=== PATIENT | female | born 1935 | race Native Hawaiian/Other Pacific Islander ===

== ENCOUNTER 2016-07-25 13:12 | Inpatient (IN) | payer MEDICARE ==
--- NOTE | 2016-07-25 13:58 | C.PDOC ---
History Of Present Illness 81-year-old female, PMHx includes Dementia, presents to the emergency department accompanied by daughter with complaints of AMS. Daughter states that she went to see patient this morning, and noticed she that patient was not eating her food. Patient appeared to be choking, resulting in her being brought to the ED for evaluation. Patient has also been experiencing a "jerking" sensation, for which she was seen by her PMD one week ago, who recommended to discontinue using Aricept, which may be causing symptoms, but they did not decrease. No other complaints at this time. Time Seen by Provider: 07/25/16 13:40 Chief Complaint (Nursing): Weakness/Neurological Deficit History Per: Family History/Exam Limitations: no limitations Onset/Duration Of Symptoms: Days Current Symptoms Are (Timing): Still Present Past Medical History Reviewed: Historical Data, Nursing Documentation, Vital Signs Vital Signs: Last Vital Signs Temp 99.1 F 07/25/16 13:27 Pulse 107 H 07/25/16 13:27 Resp 20 07/25/16 13:27 BP 120/73 07/25/16 13:27 Pulse Ox 96 07/25/16 16:49 - Medical History PMH: Arthritis, Hypercholesterolemia, Hyperlipidemia - [facility] Procedures EXCISION OF STOMACH, ENDO, DIAGN (05/31/16) Family History: States: Unknown Family Hx - Social History Hx Tobacco Use: No Hx Alcohol Use: No Hx Substance Use: No Review Of Systems Review Of Systems: ROS cannot be obtained secondary to pt's inabilty to answer questions. Constitutional: Negative for: Fever, Chills Cardiovascular: Negative for: Chest Pain Respiratory: Negative for: Shortness of Breath Gastrointestinal: Negative for: Vomiting Neurological: Positive for: Weakness Physical Exam - Physical Exam Appears: Non-toxic, No Acute Distress Skin: Warm, Dry, No Rash Head: Atraumatic, Normacephalic Eye(s): bilateral: Normal Inspection, PERRL Nose: Normal Oral Mucosa: Moist Lips: Normal Appearing Neck: Normal ROM Cardiovascular: Rhythm Regular (tachycardic) Respiratory: Normal Breath Sounds, No Accessory Muscle Use Gastrointestinal/Abdominal: Soft, No Tenderness Extremity: Normal ROM (moving spontaneously) Neurological/Psych: Oriented x3, Normal Speech ED Course And Treatment - Laboratory Results Result Diagrams: 07/25/16 15:31 07/25/16 15:31 ECG: Interpreted By Me, Viewed By Me ECG Rhythm: Sinus Tachycardia ECG Interpretation: No Acute Changes Interpretation Of ECG: Q waves in III and AVF O2 Sat by Pulse Oximetry: 96 Progress Note: swallow screen ordered, but patient is holding water in her mouth and will now swallow. Blood work, EKG and CXR ordered and reviewed. On lab review pos Troponin, hypokalemia. Case was d/w pt's PMD who accepted an admission to telemetry. Disposition - Disposition Disposition: HOSPITALIZED Disposition Time: 17:14 Condition: SERIOUS - Clinical Impression Clinical Impression: Altered mental status, ACS (acute coronary syndrome), Hypokalemia - Scribe Statement The provider has reviewed the documentation as recorded by the Mauroiblyudmila Connolly All medical record entries made by the Scribe were at my direction and personally dictated by me. I have reviewed the chart and agree that the record accurately reflects my personal performance of the history, physical exam, medical decision making, and the department course for this patient. I have also personally directed, reviewed, and agree with the discharge instructions and disposition. Decision To Admit - Pt Status Changed To: Hospital Disposition Of: Inpatient - Admit Certification Admit to Inpatient:: After my assessment, the patient will require hospitalization for at least two midnights. This is because of the severity of symptoms shown, intensity of services needed, and/or the medical risk in this patient being treated as an outpatient. - InPatient: Physician Admission Certification: I certify that this patient requires 2 or more midnights of care for the following reason:: Patient will need more than 2 days of admission. - . Bed Request Type: Telemetry Patient Diagnosis: Altered mental status, ACS (acute coronary syndrome), Hypokalemia, Dysphagia
--- NOTE | 2016-07-25 14:00 | C.PDOC ---
Time Seen by Provider: 07/25/16 13:40 Chief Complaint (Nursing): Weakness/Neurological Deficit Past Medical History Vital Signs: Last Vital Signs Temp 99.1 F 07/25/16 13:27 Pulse 107 H 07/25/16 13:27 Resp 20 07/25/16 13:27 BP 120/73 07/25/16 13:27 Pulse Ox 96 07/25/16 13:27 - Medical History PMH: Arthritis, Hypercholesterolemia, Hyperlipidemia - [facility] Procedures EXCISION OF STOMACH, ENDO, DIAGN (05/31/16) Family History: States: Unknown Family Hx - Social History Hx Tobacco Use: No Hx Alcohol Use: No Hx Substance Use: No ED Course And Treatment O2 Sat by Pulse Oximetry: 96
[2016-07-25] MEDS ORDERED: Sodium Chloride 0.9% 500 ML IV STA (14:02)
[2016-07-25] MEDS ORDERED: Sodium Chloride 0.9% 500 ML IV ONE (14:02)
[2016-07-25 15:12] LABS: RBC URINE 1 /hpf (0-3); URINE BILIRUBIN NEGATIVE (NEGATIVE); URINE BLOOD NEGATIVE (NEGATIVE); URINE COLOR Yellow (YELLOW); URINE GLUCOSE (UA) NORMAL (Normal); URINE KETONE NEGATIVE (NEGATIVE); URINE LEUKOCYTE ESTERASE NEG Leu/uL (Negative); URINE PROTEIN NEGATIVE (NEGATIVE); URINE UROBILINOGEN NORMAL mg/dL (0.2-1.0); WBC URINE 2 /hpf (0-5)
[2016-07-25 15:35] LABS: BASO # 0.1 K/uL (0.0-0.2); BASO % 0.6 % (0.0-2.0); EOS % 0.1 % (0.0-4.0); HEMATOCRIT 41.5 % (34.0-47.0); LYMPH # 0.8 K/uL (1.0-4.3); LYMPH % 10.1 % (20.0-40.0); MEAN CORPUSCULAR HEMOGLOBIN 31.8 pg (27.0-31.0); MEAN CORPUSCULAR HGB CONC 32.5 g/dL (33.0-37.0); MEAN PLATELET VOLUME 8.3 fL (7.2-11.7); MONO # 0.5 K/uL (0.0-0.8); MONO % 6.2 % (0.0-10.0); NRBC % 0.1 % (0.0-2.0); RED CELL DISTRIBUTION WIDTH 17.1 % (11.5-14.5); WHITE BLOOD COUNT 8.3 K/uL (4.8-10.8)
[2016-07-25 15:37] LABS: MEAN CELL VOLUME 97.8 fL (81.0-99.0)
--- NOTE | 2016-07-25 15:51 | RAD ---
PROCEDURE: CHEST RADIOGRAPH, 1 VIEW. Technique: Single view portable semi erect @ 14:10. HISTORY: SOB COMPARISON: 05/30/2016. Single-view chest. 05/31/2016 CT thorax FINDINGS: LUNGS: Right upper lobe infiltrate/ mass identified previously no longer apparent. Limitations of the current study in assessing this finding portable oblique technique. PLEURA: No pneumothorax or pleural fluid seen. CARDIOVASCULAR: No radiographic findings to suggest acute or significant cardiovascular disease. OSSEOUS STRUCTURES: No significant abnormalities. VISUALIZED UPPER ABDOMEN: Normal. OTHER FINDINGS: None. IMPRESSION: No active disease.
[2016-07-25 16:41] LABS: CHLORIDE 106 mmol/L (98-107); SODIUM 154 mmol/L (132-148)
[2016-07-25 16:42] LABS: POTASSIUM 2.8 mmol/L (3.6-5.2)
[2016-07-25 16:44] LABS: ALKALINE PHOSPHATASE 78 U/L (38-126); ALT/SGPT 14 U/L (9-52); AST/SGOT 29 U/L (14-36); BILIRUBIN,TOTAL 0.8 mg/dL (0.2-1.3); BLOOD UREA NITROGEN 57 mg/dL (7-17); CARBON DIOXIDE 34 mmol/L (22-30); GFR AFRICAN-AMERICAN > 60; GLUCOSE,RANDOM 114 mg/dL (65-105); TOTAL PROTEIN 6.3 g/dL (6.3-8.3)
[2016-07-25 16:45] LABS: CALCIUM 8.4 mg/dl (8.6-10.4); MAGNESIUM 2.5 mg/dL (1.6-2.3)
--- NOTE | 2016-07-25 16:50 | CARD ---
APPROVED REPORT EKG Measurement Heart [id number] <Conclusion> Sinus tachycardia Left axis deviation Low voltage QRS Inferior infarct, age undetermined Cannot rule out Anterior infarct, age undetermined Abnormal ECG
[2016-07-25] MEDS ORDERED: Potassium Chloride 10 mEq 100 ML IV STA (17:02)
[2016-07-25] MEDS ORDERED: Potassium Chloride 10 mEq 100 ML IVPB ONE (17:29)
--- NOTE | 2016-07-25 19:41 | CP.PCM.HP ---
History of Present Illness - History of Present Illness History of Present Illness: 81 y.o. female, with Dementia, PUD , borderline sugar , cholesterol was brought to ER due to altered mental status, weakness, and tremors. family reports that patient who has dementia was ambulatory about 3 weeks ago , then noted to becoming bedridden with poor appetite and less interaction with family . Patient was brought to ER . In ER patient has high BUN, low potassium, lethargic, potassium was supplemented . patient has some episodic jerks, ? seizure ? like activity and patient was giuven valium.o .5 one dose. patient is admitted for further evaluation and managment there were no cough vomiting diarrhea,fever, but has bowel incontinence, PMH cholestero' borderline sugar hospitalized in May 2016 due to acute AMS ir, with severe anemia secondary to PUD, patient was home doing home PT Social non etoh non smoker , lives with family Surgical cataract surgery , Present on Admission - Present on Admission Any Indicators Present on Admission: Yes History of DVT/PE: No History of Uncontrolled Diabetes: No Urinary Catheter: No Decubitus Ulcer Present: Yes Decubitus Ulcer Stage: II Review of Systems - Review of Systems Systems not reviewed;Unavailable: Dementia, Altered Mental Status (lethargic) - Constitutional Constitutional: As Per HPI - EENT Eyes: As Per HPI Ears: As Per HPI. absent: Ear Discharge Nose/Mouth/Throat: absent: Nasal Congestion, Bleeding Gums, Dysphagia, Sore Throat, Facial Pain - Breasts Breasts: absent: Pain, Nipple Discharge - Cardiovascular Cardiovascular: absent: Chest Pain, Chest Pain at Rest, Chest Pain with Activity , Diaphoresis, Palpitations, Syncope - Respiratory Respiratory: absent: Cough, Dyspnea, Wheezing - Gastrointestinal Gastrointestinal: absent: Abdominal Pain, Constipation (with incontinence), Diarrhea, Vomiting - Genitourinary Genitourinary: absent: Difficulty Urinating, Hematuria - Reproductive: Female Reproductive:Female: Post Menopausal - Menstruation Menstruation: Post Menopausal - Musculoskeletal Musculoskeletal: Other (patient has no deformity, but became bderidden ) - Integumentary Integumentary: Sores (sacral ). absent: Pruritus, Rash - Neurological Neurological: Abnormal Movements (episodic body jerking, lethargic ) - Psychiatric Psychiatric: Other (letahrgic) - Endocrine Endocrine: Other (loss of appetite ) - Hematologic/Lymphatic Hematologic: absent: Easy Bleeding, Easy Bruising Past Patient History - Infectious Disease Hx of Infectious Diseases: None - Past Medical History & Family History Past Medical History?: Yes - Past Social History Smoking Status: Never Smoked Alcohol: None Home Situation {Lives}: With Family - CARDIAC Hx Hypercholesterolemia: Yes - NEUROLOGICAL Hx Alzheimer's Disease: Yes Hx Dementia: Yes - HEENT Hx Cataracts: Yes - MUSCULOSKELETAL/RHEUMATOLOGICAL Hx Arthritis: Yes - PSYCHIATRIC Hx Substance Use: No - SURGICAL HISTORY Hx Surgeries: Yes Hx Section: Yes - ANESTHESIA Hx Anesthesia: Yes Hx Anesthesia Reactions: No Meds Allergies/Adverse Reactions: Allergies Allergy/AdvReac Type Severity Reaction Status Date / Time No Known Allergies Allergy Verified 05/30/16 16:15 Physical Exam - Constitutional Appears: Other (lethargic) - Head Exam Head Exam: ATRAUMATIC. absent: NORMOCEPHALIC - Eye Exam Eye Exam: absent: Nystagmus, Periorbital swelling - ENT Exam ENT Exam: Mucous Membranes Dry - Respiratory Exam Respiratory Exam: Decreased Breath Sounds, NORMAL BREATHING PATTERN. absent: Wheezes - Cardiovascular Exam Cardiovascular Exam: REGULAR RHYTHM - GI/Abdominal Exam GI & Abdominal Exam: Normal Bowel Sounds - Extremities Exam Extremities exam: Negative for: joint swelling - Back Exam Back exam: absent: tenderness (no lesion) - Neurological Exam Neurological exam: Altered (lethargic, with episodic body jerks ) - Skin Skin Exam: Dry (poor turgor, with stage 2 sacral decubitus ) Results - Vital Signs Recent Vital Signs: Last Vital Signs Temp 99.0 F 07/25/16 18:52 Pulse 104 H 07/25/16 18:52 Resp 18 07/25/16 18:52 BP 135/81 07/25/16 18:52 Pulse Ox 99 07/25/16 18:52 - Labs Result Diagrams: 07/25/16 15:31 07/25/16 15:31 Assessment & Plan - Assessment and Plan (Free Text) Assessment: Patient with Dementia-PUD, admitted for altered mental status, lethargy, with Dehydration hypokalemia, hypocalcemia, IVF, with electrolyte supplementation, discussed with neuro Dr Man acute renal insufficiency secondary to dehydration with slight elvation of enzymes- for MED panel, cardiac consult for further wotk up DNI as per family GI prophylaxis hold DVT prophylaxis- history of PUD with bleeding -will chech FOB - Date & Time Date: 07/25/16 Time: 06:45
[2016-07-25] MEDS ORDERED: Calcium Gluconate 4.65 MEQ in Dextrose 5% In Water 100 ML IV ONE (20:00)
[2016-07-26 03:16] LABS: MAGNESIUM 2.2 mg/dL (1.6-2.3)
[2016-07-26 03:47] LABS: CARCINOEMBRYONIC ANTIGEN 43.1 ng/mL (0-3.0)
[2016-07-26 09:48] LABS: FREE T4 1.46 ng/dL (0.78-2.19)
--- NOTE | 2016-07-26 10:01 | CON ---
DATE: 07/26/2016 ATTENDING PHYSICIAN: Billie Alcantar MD. REASON FOR CONSULTATION: Seizures. CHIEF COMPLAINT: The patient was brought in by family members with history of subacute process of we akness and less interaction with the family members. The patient's family members also admitted with abnormal jerky movements. From neurological point of view, I was called in to evaluate her for furt her management. HISTORY OF PRESENT ILLNESS: The patient is an 81-year-old, thinly-built [place] female presenting w ith change in mental status associating with some abnormal jerky movement, being witnessed by family members. No history of fall, no history of trauma to her head. No history of bowel or bladder incon tinence at the scene. No similar episodes happened in the past. No history of cough. No history of fever. No history of irregular bowel movements. PAST MEDICAL HISTORY: Dementia. The patient denies smoking or alcohol use. PAST SURGICAL HISTORY: Cataract surgery. REVIEW OF SYSTEMS: As per H and P. HOME MEDICATIONS: Lorazepam, Aricept, pantoprazole, iron supplements, and naproxen. PHYSICAL EXAMINATION: VITAL SIGNS: Blood pressure 128/82, mean arterial pressure of 97, respiratory rate 16, temperature a febrile. Pulse rate 105. NECK: Supple. No carotid bruit. HEART: Heart sounds, tachycardia. EXTREMITIES: No edema in legs. NEUROLOGIC EXAMINATION: The patient is obtunded, verbally not arousable. Responds to pain on grimac ing equally on both sides. Partially eye open, roving conjugate gaze noted. Corneal reflex intact. No facial asymmetry noted. MOTOR EXAMINATION: She moves left more than right side. DEEP TENDON REFLEXES: Absent. Plantars are equivocal response on both sides. SENSORY: Responds to pain symmetrically on both sides. The patient does not show any tremor at rest or myoclonic jerk during my examination at present. GAIT: Deferred at this time. The patient is not cooperative of doing finger-nose testing. CONCLUSION: Upon reviewing her history and neurological examination, the patient is presenting with subacute declination of physical, as well as mental status. There was a witnessed jerky movement - c ould be, from neurological point of view, seizures. However, change in physical, as well as in menta l status raises the possibility of either toxic versus metabolic insult to the brain. Seizure could be related to electrolyte imbalance or infectious or inflammatory process or structural causes. LABORATORY DATA: Workup: WBC 8.3, hemoglobin 13.4, hematocrit 41.5, platelets 220. Sodium 154, pot assium 2.8, chloride 106, bicarbonate 34. BUN 57. Creatinine was 0.8. GFR was more than 60. Gluco se 114, calcium 8.4, magnesium 2.5, pO2 of 43. B12 of 745, prolactin level 24.8, CEA 43.1. RECOMMENDATION: 1. Blood workup, as per the order. 2. Workup for occult malignancy. 3. Hydration with correction of her abnormal electrolytes. The patient will be getting an EEG, carotid Doppler, and MRI of the brain also recommended to rule ou t any neurogenic causes for her abnormal presentation. The patient should be kept on fall precaution and seizure precaution. The patient will be followed c losely with you. Mariano Man MD cc: [id number] TT: 07/26/2016 10:00:52 Confirmation # [id number] Dictation # [id number] madonna
[2016-07-26 10:06] LABS: THYROID STIMULATING HORMONE 0.23 mIU/L (0.46-4.68)
--- NOTE | 2016-07-26 11:06 | CP.PCM.PN ---
Subjective - Date & Time of Evaluation Date of Evaluation: 07/26/16 Time of Evaluation: 10:00 - Subjective Subjective: Patient seen, in bed lying on side no spontaneous movement - some response to call staff report no spontaneous swallowing with episodic body jerking afebrile no cough Objective - Vital Signs/Intake and Output Vital Signs (last 24 hours): Temp Pulse Resp BP Pulse Ox 97.8 F 108 H 18 137/87 99 07/26/16 08:44 07/26/16 08:44 07/26/16 08:44 07/26/16 08:44 07/26/16 08:44 Intake and Output: 07/26/16 07/26/16 06:59 18:59 Intake Total 1140 Balance 1140 - Medications Medications: Current Medications Potassium Chloride 10 meq/ (Sodium Chloride) 1,005 mls @ 80 mls/hr IV .[id number] BEENA Stop: 07/28/16 19:31 Last Admin: 07/25/16 21:09 Dose: 80 mls/hr Pantoprazole Sodium (Protonix Inj) 40 mg IVP DAILY [facility] - Constitutional Appears: Other (lethargic with no spontaneous movement ,) - Head Exam Head Exam: ATRAUMATIC, NORMOCEPHALIC - Eye Exam Eye Exam: Normal appearance. absent: Nystagmus - ENT Exam ENT Exam: Mucous Membranes Dry - Respiratory Exam Respiratory Exam: Decreased Breath Sounds, NORMAL BREATHING PATTERN - Cardiovascular Exam Cardiovascular Exam: REGULAR RHYTHM - GI/Abdominal Exam GI & Abdominal Exam: Soft, Normal Bowel Sounds. absent: Tenderness - Extremities Exam Extremities Exam: Normal Capillary Refill (flexed body stays in position) . absent: Pedal Edema, Tenderness - Back Exam Back Exam: absent: rash noted (sacral decubitus ) - Neurological Exam Neurological Exam: absent: Abnormal Gait (bedridden, no spontaneous movement, stays in right side in position) - Skin Skin Exam: Dry (with sacral decubitus ) Assessment and Plan - Assessment and Plan (Free Text) Assessment: Patient with Dementia, poor mobility admitted for dehydration . lethargy,= hydration Electrolyte imbalances =supplementation Positive stool with history of PUD Positive Enzymes Seizure? poor prognosis- agree with paliative care will discuss with family
[2016-07-26 15:13] LABS: POTASSIUM 2.8 mmol/L (3.6-5.2)
[2016-07-26 15:15] LABS: ALKALINE PHOSPHATASE 80 U/L (38-126); ALT/SGPT 26 U/L (9-52); AST/SGOT 34 U/L (14-36); BLOOD UREA NITROGEN 36 mg/dL (7-17); CARBON DIOXIDE 33 mmol/L (22-30); GFR AFRICAN-AMERICAN > 60; GLUCOSE,RANDOM 115 mg/dL (65-105)
[2016-07-26 15:16] LABS: CALCIUM 8.1 mg/dl (8.6-10.4)
[2016-07-26 15:29] LABS: CHLORIDE 113 mmol/L (98-107)
[2016-07-26 15:38] LABS: SODIUM 162 mmol/L (132-148)
[2016-07-26] MEDS: Potassium Ch 20mEq in D5W 1,000 ML IV SCH (17:24)
--- NOTE | 2016-07-26 20:18 | PCM.PROC ---
Procedures Attestation:: I certify that I have explained the specified Operation(s) or Procedure(s), risks, benefits and reasonable alternatives to the Patient and/or other person responsible. The opportunity was given to ask questions and all questions answered - Feeding Tube Replacement Type of Tube: nasogastric Insertion Site Prior to Procedure: clean Tube Used for Reinsertion: other Verification of Placement: auscultation Tube Secured by: tape/dressing Patient Tolerated Procedure: well, no complications
--- NOTE | 2016-07-27 08:51 | PN ---
DATE: 07/27/2016 TIME OF EVALUATION: 7:34. NEUROLOGICAL PROBLEM: Change in mental status with possible seizures. PHYSICAL EXAMINATION: VITAL SIGNS: Blood pressure 134/88, mean arterial pressure 103, respiratory rate 18, temperature 97. 6 with pulse rate 97. NEUROLOGIC: The patient is obtunded, responds to pain. EXTREMITIES: Increased tone. No seizure activities since he was admitted have been witnessed. The patient's examination is unchanged. LABORATORY DATA: Blood workup: Significant increased sodium 162 with potassium 2.8. BUN 36 with a creatinine 0.8. GFR more than 60. Troponin consistently high with 0.1310. The patient also showed evidence of occult blood positive in the stool. RECOMMENDATIONS: 1. Hydration. 2. Renal consult to stabilize her electrolytes. 3. Cardiology followup for her abnormal troponin level. Her mental status is all related to her metabolic event and electrolyte imbalance. Continue the pres ent management, and restore basic electrolytes with hydration. Mariano Man MD cc: [id number] TT: 07/27/2016 08:50:32 Confirmation # [id number] Dictation # [id number] jn
[2016-07-27] MEDS: Potassium Ch 20mEq in D5W 1,000 ML IV SCH (13:30)
--- NOTE | 2016-07-27 15:21 | CP.PCM.CON ---
History of Present Illness - History of Present Illness History of Present Illness: Palliative consult for goals of care discussion Requested by Valerie CANSECO Patient is a 81 yo female admitted from home with weakness and AMS. Upon admission patient was diagnosed with metabolic encephalopathy. Doctor Donovan, neuro;lory< suggested that electrolyte imbalance be corrected as it was causing AMS. The EEG pending. Today Na 162, K 2.8. patient is given free water via NGT and KCL IV. PMH: dementia, arthritis Soc. Hx: , lives with who is hospitalized now as well, and son and his family Fam. hx unknown Review of Systems - Review of Systems Systems not reviewed;Unavailable: Altered Mental Status Past Patient History - Infectious Disease Hx of Infectious Diseases: None - Past Medical History & Family History Past Medical History?: Yes - Past Social History Smoking Status: Never Smoked Alcohol: None Home Situation {Lives}: With Family - CARDIAC Hx Hypercholesterolemia: Yes - PULMONARY Hx Respiratory Disorders: No - NEUROLOGICAL Hx Alzheimer's Disease: Yes Hx Dementia: Yes - HEENT Hx Cataracts: Yes - RENAL Hx Chronic Kidney Disease: No - ENDOCRINE/METABOLIC Hx Endocrine Disorders: No - HEMATOLOGICAL/ONCOLOGICAL Hx Blood Disorders: No - INTEGUMENTARY Hx Dermatological Problems: No - MUSCULOSKELETAL/RHEUMATOLOGICAL Hx Arthritis: Yes - GASTROINTESTINAL Hx Gastritis: Yes - GENITOURINARY/GYNECOLOGICAL Hx Genitourinary Disorders: Yes Hx Incontinence: Yes - PSYCHIATRIC Hx Substance Use: No - SURGICAL HISTORY Hx Surgeries: Yes Hx Section: Yes - ANESTHESIA Hx Anesthesia: Yes Hx Anesthesia Reactions: No Meds Allergies/Adverse Reactions: Allergies Allergy/AdvReac Type Severity Reaction Status Date / Time No Known Allergies Allergy Verified 05/30/16 16:15 - Medications Medications: Current Medications Potassium Chloride/Dextrose (Potassium Chl 20 Meq In D5w) 1,000 mls @ 50 mls/ hr IV .Q20H BEENA Last Admin: 07/26/16 17:24 Dose: 50 mls/hr Pantoprazole Sodium (Protonix Inj) 40 mg IVP DAILY [facility] Last Admin: 07/26/16 10:00 Dose: 40 mg Physical Exam - Constitutional Appears: Chronically Ill - Head Exam Head Exam: ATRAUMATIC - Eye Exam Eye Exam: Normal appearance Pupil Exam: NORMAL ACCOMODATION - ENT Exam ENT Exam: Mucous Membranes Dry Additional comments: NGT in - Neck Exam Neck exam: Positive for: Normal Inspection - Respiratory Exam Respiratory Exam: Decreased Breath Sounds - Cardiovascular Exam Cardiovascular Exam: Tachycardia - Rectal Exam Rectal Exam: Deferred - Exam Additional comments: Greenberg cath - Extremities Exam Extremities exam: Positive for: normal inspection - Back Exam Back exam: NORMAL INSPECTION - Neurological Exam Neurological exam: Altered, Motor Sensory Deficit - Psychiatric Exam Psychiatric exam: Flat Affect - Skin Skin Exam: Normal Color Results - Vital Signs Recent Vital Signs: Last Vital Signs Temp 99.2 F 07/27/16 08:57 Pulse 116 H 07/27/16 08:57 Resp 20 07/27/16 08:57 BP 131/82 07/27/16 08:57 Pulse Ox 94 L 07/27/16 08:57 - Labs Result Diagrams: 07/25/16 15:31 07/26/16 14:53 Labs: Laboratory Results - last 24 hr 07/26/16 14:53 Sodium 162 H* Chloride 113 H Carbon Dioxide 33 H Anion Gap 15 BUN 36 H Creatinine 0.8 Est GFR ( Amer) > 60 Est GFR (Non-Af Amer) > 60 Random Glucose 115 H Calcium 8.1 L Total Bilirubin 1.0 AST 34 ALT 26 Alkaline Phosphatase 80 Total Creatine Kinase 64 CK-MB (Mass) 4.91 H Troponin I, Quant 0.1310 H* Total Protein 6.0 L Globulin 3.0 Albumin/Globulin Ratio 1.0 Assessment & Plan - Assessment and Plan (Free Text) Assessment: Code status Full Code. No advance directive on chart. PPS 10%. ROS unobtainable due to condition. I reviewed medical records, all diagnostic studies, examined patient in the bed. Family meeting away from the bed side, with patient's daughter Cone, attended in part by Doctor Valerie. Patient is obtuned, unresponsive to verbal nor noxious stimuli. Patient is leaning more to the right side. Max assistance with repositioning needed. There is involuntary shaking movements throughout the body. Na 162. Patient is given free water via NG tube for rehydration. PO intake 0. No urine output rec corded yet. Patient s tachycardic, HR 116. O2Sat 94 % RA. Stool for OB +. Hb 13.5 after blood Tf. Latest Troponin elevated at 0.1310 As per daughter Cone, patient has been declining for the last year, and more so , over the last 3 weeks. She was hand fed and was under PT and spech Tx. Lately become bed ridden and stopped eating. Doctor Alcantar suggested prognosis was poor , and the PEG would be an option, but it will not promote quality of life for the patient. I supported her suggestions. Daughter Eusebio, who is a RN understood the severity of her mother condition. We discussed Code status. The daughter was clear that she does not want her mother to be intubated and gave verbal consent for DNI. When I offered to document it on the POLST, daughter asked to talk to rest of her siblings first. Comfort care was also suggested as most appropriate level of care for this patient. Later this evening claudia Kaplan called me asking for the family meeting to take place tomorrow at 11 pm as opposed tonight as previously agreed. The three other brothers and sisters and the will be attending the meeting. The is hospitalized here at room,553 Impression * AMS * Dehydration * Malnutrition * Electrolyte imbalance * Wishes for the End of life care are not known * The daughter told Doctor Alcantar in my presence she would want her mother to be DNI Suggestion * Symptoms management * Will sign DNI with daughter today prior tomorrow's meeting * Family meeting tomorrow at 11 am. Thank you for consulting Palliative Care
--- NOTE | 2016-07-27 19:23 | CP.PCM.PN ---
Subjective - Date & Time of Evaluation Date of Evaluation: 07/27/16 Time of Evaluation: 11:40 - Subjective Subjective: Patient seen patient remained lethargic with no spontaneous activity discussion with daughter and staff- currently [facility] family meeting today Objective - Vital Signs/Intake and Output Vital Signs (last 24 hours): Temp Pulse Resp BP Pulse Ox 98.6 F 109 H 20 118/72 95 07/27/16 15:19 07/27/16 15:19 07/27/16 15:19 07/27/16 15:19 07/27/16 15:19 - Medications Medications: Current Medications Potassium Chloride/Dextrose (Potassium Chl 20 Meq In D5w) 1,000 mls @ 50 mls/ hr IV .Q20H [facility] Last Admin: 07/27/16 13:30 Dose: 50 mls/hr Pantoprazole Sodium (Protonix Inj) 40 mg IVP DAILY [facility] Last Admin: 07/27/16 15:00 Dose: 40 mg - Labs Labs: 07/26/16 14:53 - Constitutional Appears: Other (lethargic ) - Head Exam Head Exam: ATRAUMATIC, NORMOCEPHALIC - Eye Exam Eye Exam: Normal appearance. absent: Nystagmus - ENT Exam ENT Exam: Mucous Membranes Moist - Respiratory Exam Respiratory Exam: Decreased Breath Sounds, NORMAL BREATHING PATTERN - Cardiovascular Exam Cardiovascular Exam: REGULAR RHYTHM - GI/Abdominal Exam GI & Abdominal Exam: Soft. absent: Tenderness - Extremities Exam Extremities Exam: absent: Pedal Edema - Back Exam Back Exam: absent: tenderness (with sacral decubitus ) - Neurological Exam Neurological Exam: Altered - Skin Skin Exam: Normal Color Assessment and Plan - Assessment and Plan (Free Text) Assessment: Patient with metabolic encephalopathy severe Dementia, Electrolyte abnormalities with poor prognosis case discussion with daughter- will have family meeting supportive for now, DNI requested not sure of PEG= will decide after the meeting hospice discussed
--- NOTE | 2016-07-27 22:44 | CP.PCM.CON ---
History of Present Illness - History of Present Illness History of Present Illness: History Of Present Illness 81-year-old female, PMHx includes Dementia, presents to the emergency department accompanied by daughter with complaints of AMS. Daughter states that she went to see patient this morning, and noticed she that patient was not eating her food. Patient appeared to be choking, resulting in her being brought to the ED for evaluation. Patient has also been experiencing a "jerking" sensation, for which she was seen by her PMD one week ago, who recommended to discontinue using Aricept, which may be causing symptoms, but they did not decrease. No other complaints at this time. Chief Complaint (Nursing): Weakness/Neurological Deficit History Per: Family History/Exam Limitations: no limitations Onset/Duration Of Symptoms: Days Current Symptoms Are (Timing): Still Present Past Medical History Reviewed: Historical Data, Nursing Documentation, Vital Signs - Medical History PMH: Arthritis, Hypercholesterolemia, Hyperlipidemia - [facility] Procedures EXCISION OF STOMACH, ENDO, DIAGN (05/31/16) Family History: States: Unknown Family Hx - Social History Hx Tobacco Use: No Hx Alcohol Use: No Hx Substance Use: No Review Of Systems Review Of Systems: ROS cannot be obtained secondary to pt's inabilty to answer questions. Constitutional: Negative for: Fever, Chills Cardiovascular: Negative for: Chest Pain Respiratory: Negative for: Shortness of Breath Gastrointestinal: Negative for: Vomiting Neurological: Positive for: Weakness Physical Exam - Physical Exam Appears: Non-toxic, No Acute Distress Skin: Warm, Dry, No Rash Head: Atraumatic, Normacephalic Eye(s): bilateral: Normal Inspection, PERRL Nose: Normal Oral Mucosa: Moist Lips: Normal Appearing Neck: Normal ROM Cardiovascular: Rhythm Regular (tachycardic) Respiratory: Normal Breath Sounds, No Accessory Muscle Use Gastrointestinal/Abdominal: Soft, No Tenderness Extremity: Normal ROM (moving spontaneously) Neurological/Psych: Oriented x3, Normal Speech Past Patient History - Infectious Disease Hx of Infectious Diseases: None - Past Medical History & Family History Past Medical History?: Yes - Past Social History Smoking Status: Never Smoked Alcohol: None Home Situation {Lives}: With Family - CARDIAC Hx Hypercholesterolemia: Yes - PULMONARY Hx Respiratory Disorders: No - NEUROLOGICAL Hx Alzheimer's Disease: Yes Hx Dementia: Yes - HEENT Hx Cataracts: Yes - RENAL Hx Chronic Kidney Disease: No - ENDOCRINE/METABOLIC Hx Endocrine Disorders: No - HEMATOLOGICAL/ONCOLOGICAL Hx Blood Disorders: No - INTEGUMENTARY Hx Dermatological Problems: No - MUSCULOSKELETAL/RHEUMATOLOGICAL Hx Arthritis: Yes - GASTROINTESTINAL Hx Gastritis: Yes - GENITOURINARY/GYNECOLOGICAL Hx Genitourinary Disorders: Yes Hx Incontinence: Yes - PSYCHIATRIC Hx Substance Use: No - SURGICAL HISTORY Hx Surgeries: Yes Hx Section: Yes - ANESTHESIA Hx Anesthesia: Yes Hx Anesthesia Reactions: No Meds Allergies/Adverse Reactions: Allergies Allergy/AdvReac Type Severity Reaction Status Date / Time No Known Allergies Allergy Verified 05/30/16 16:15 - Medications Medications: Current Medications Potassium Chloride/Dextrose (Potassium Chl 20 Meq In D5w) 1,000 mls @ 50 mls/ hr IV .Q20H [facility] Last Admin: 07/27/16 13:30 Dose: 50 mls/hr Pantoprazole Sodium (Protonix Inj) 40 mg IVP DAILY [facility] Last Admin: 07/27/16 15:00 Dose: 40 mg Results - Vital Signs Recent Vital Signs: Last Vital Signs Temp 98.6 F 07/27/16 15:19 Pulse 109 H 07/27/16 16:00 Resp 20 07/27/16 15:19 BP 118/72 07/27/16 15:19 Pulse Ox 95 07/27/16 15:19 - Labs Result Diagrams: 07/25/16 15:31 07/26/16 14:53 Assessment & Plan - Assessment and Plan (Free Text) Assessment: Assessment: Patient with metabolic encephalopathy severe Dementia, Electrolyte abnormalities with poor prognosis case discussion with daughter- will have family meeting supportive for now, DNI requested not sure of PEG= will decide after the meeting hospice discussed
--- NOTE | 2016-07-28 09:10 | CP.PCM.CON ---
History of Present Illness - History of Present Illness History of Present Illness: CC: Asked to see for possible PEG HPI: Elderly woman with Dementia and failure to thrive, admitted with severe electrolyte abnormalities and dehydration. Patient was evaluated by Palliative Care Service and case was discussed with Palliative Care as well as primary physician. Patient currently has an NG tube which is being utilized for free water administraion only, not getting feeds. The issue of PEG arose and family had wuestions about the technical aspects of PEG procedure. Patient has DNI and AND order. Also, patient was here in May with a GI bleed from gastric ulcers, biopsies were benign. Stool presently positive for occult blood. Labwork shows profound Hypernatremia and Hypokalemia from2 days ago, no repeat labwork seen. Review of Systems - Review of Systems Systems not reviewed;Unavailable: Dementia Past Patient History - Infectious Disease Hx of Infectious Diseases: None - Past Medical History & Family History Past Medical History?: Yes - Past Social History Smoking Status: Never Smoked Alcohol: None Home Situation {Lives}: With Family - CARDIAC Hx Hypercholesterolemia: Yes - PULMONARY Hx Respiratory Disorders: No - NEUROLOGICAL Hx Alzheimer's Disease: Yes Hx Dementia: Yes - HEENT Hx Cataracts: Yes - RENAL Hx Chronic Kidney Disease: No - ENDOCRINE/METABOLIC Hx Endocrine Disorders: No - HEMATOLOGICAL/ONCOLOGICAL Hx Blood Disorders: No - INTEGUMENTARY Hx Dermatological Problems: No - MUSCULOSKELETAL/RHEUMATOLOGICAL Hx Arthritis: Yes - GASTROINTESTINAL Hx Gastritis: Yes - GENITOURINARY/GYNECOLOGICAL Hx Genitourinary Disorders: Yes Hx Incontinence: Yes - PSYCHIATRIC Hx Substance Use: No - SURGICAL HISTORY Hx Surgeries: Yes Hx Section: Yes - ANESTHESIA Hx Anesthesia: Yes Hx Anesthesia Reactions: No Meds Allergies/Adverse Reactions: Allergies Allergy/AdvReac Type Severity Reaction Status Date / Time No Known Allergies Allergy Verified 05/30/16 16:15 - Medications Medications: Current Medications Potassium Chloride/Dextrose (Potassium Chl 20 Meq In D5w) 1,000 mls @ 50 mls/ hr IV .Q20H [facility] Last Admin: 07/27/16 13:30 Dose: 50 mls/hr Pantoprazole Sodium (Protonix Inj) 40 mg IVP DAILY [facility] Last Admin: 07/27/16 15:00 Dose: 40 mg Results - Vital Signs Recent Vital Signs: Last Vital Signs Temp 98.1 F 07/28/16 08:22 Pulse 108 H 07/28/16 08:22 Resp 18 07/28/16 08:22 BP 143/89 07/28/16 08:22 Pulse Ox 96 07/28/16 08:22 - Labs Result Diagrams: 07/25/16 15:31 07/26/16 14:53 Assessment & Plan (1) Altered mental status Assessment and Plan: Worsening status. Discussed with Attending MD and Palliative Care- Status: Chronic (2) Dehydration Assessment and Plan: Dehydrated from poor PO intake Awaiting further family discussion which will take place later today regarding goals of care. At this point I would not recommend PEG. If family desires, patient can receive feeds via the NGT that is presently in place and monitor response to feeds. I am available to answer questions regarding any technical aspects of PEG procedure that the family may have, however the ultimate decision as to whether or not to do PEG rests with the family, Palliative Care service, and Primary medical oven loader. 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 Should be on PPI. Will not reassess via EGD at this time. Status: Chronic
[2016-07-28] MEDS: Potassium Ch 20mEq in D5W 1,000 ML IV SCH (10:00)
--- NOTE | 2016-07-28 12:10 | CP.PCM.PN ---
Subjective - Date & Time of Evaluation Date of Evaluation: 07/28/16 Time of Evaluation: 11:54 - Subjective Subjective: Patient remains lethargic, but much less than yesterday, offers no complaints. Objective - Vital Signs/Intake and Output Vital Signs (last 24 hours): Temp Pulse Resp BP Pulse Ox 98.1 F 108 H 18 143/89 96 07/28/16 08:22 07/28/16 08:22 07/28/16 08:22 07/28/16 08:22 07/28/16 08:22 Intake and Output: 07/28/16 07/28/16 06:59 18:59 Intake Total 900 Balance 900 - Medications Medications: Current Medications Potassium Chloride/Dextrose (Potassium Chl 20 Meq In D5w) 1,000 mls @ 50 mls/ hr IV .Q20H [facility] Last Admin: 07/28/16 10:00 Dose: 50 mls/hr Pantoprazole Sodium (Protonix Inj) 40 mg IVP DAILY [facility] Last Admin: 07/28/16 10:04 Dose: 40 mg - Labs Labs: 07/26/16 14:53 - Constitutional Appears: Chronically Ill - Head Exam Head Exam: ATRAUMATIC - Eye Exam Eye Exam: Normal appearance Pupil Exam: NORMAL ACCOMODATION - ENT Exam ENT Exam: Normal Exam - Neck Exam Neck Exam: Normal Inspection - Respiratory Exam Respiratory Exam: Decreased Breath Sounds - Cardiovascular Exam Cardiovascular Exam: Tachycardia - GI/Abdominal Exam GI & Abdominal Exam: Hypoactive Bowel Sounds - Rectal Exam Rectal Exam: Deferred - Extremities Exam Extremities Exam: Normal Inspection - Back Exam Back Exam: NORMAL INSPECTION - Neurological Exam Neurological Exam: Alert, Altered Neuro motor strength exam: Left Upper Extremity: 2/1, Right Upper Extremity: 2/1 , Left Lower Extremity: 2/1, Right Lower Extremity: 2/1 - Psychiatric Exam Psychiatric exam: Flat Affect - Skin Skin Exam: Dry Assessment and Plan - Assessment and Plan (Free Text) Assessment: Family meeting held for goals of care discussion. Meeting attended by patient's , daughter Eusebio, daughter Melody on the phone, two sons, butadiene convertor operator Radha and my self. We discussed goals of care. Prior to meeting I examined patient and discussed her presentation with Doctor Katharine. We agreed that patient looks better today and that artificial nutrition should be initiated by the least invasive way, such as NGT. This was discussed with GI and concurred. We also agreed to repeat labs today. All of this discussion was shared with family. Family supported idea about initiating artificial feedings. Family hopes that improved nutritional status will in general help improve patient's overall prognosis. Code status discussed as well. Patient's disclosed that patient's wishes were not to be kept alive on life support if her life becomes meaningless. All children supported it. I assisted with signing the POLST; DNR/DNI. This was shared with resource nurse on 6 T. Family had questions about discharge plan. Initially, NH sounds as appropriate plan. Family concerned with lack of Medicare insurance. I directed them to a SS. Family prefers [facility]. Impression * Patient is slowly recovering after re hydration, but still lethargic * After discussing it with Doctor Katharine, Gi and family, was concluded to start artificial nutrition via NGT * If patient does not improve in about a week, family is open to dis cuss the PEG * Family decided on DNR/DNI Suggestion * Would repeat labs * Agree with NGT feedings * Agree with DNR/DNI * SS to assist with Medicaid application * Aspiration precautions
--- NOTE | 2016-07-28 13:08 | CP.PCM.PN ---
Subjective - Date & Time of Evaluation Date of Evaluation: 07/28/16 Time of Evaluation: 08:40 - Subjective Subjective: Patient seen-been bedridden- no response to call, physical movement Lethargic seen admission afebrile no unsual bleeding discussed with family= and family will have discussion today for advance directives NG Feeding discussed with staff Objective - Vital Signs/Intake and Output Vital Signs (last 24 hours): Temp Pulse Resp BP Pulse Ox 98.1 F 108 H 18 143/89 96 07/28/16 08:22 07/28/16 08:22 07/28/16 08:22 07/28/16 08:22 07/28/16 08:22 Intake and Output: 07/28/16 07/28/16 06:59 18:59 Intake Total 900 Balance 900 - Medications Medications: Current Medications Potassium Chloride/Dextrose (Potassium Chl 20 Meq In D5w) 1,000 mls @ 50 mls/ hr IV .Q20H [facility] Last Admin: 07/28/16 10:00 Dose: 50 mls/hr Pantoprazole Sodium (Protonix Inj) 40 mg IVP DAILY [facility] Last Admin: 07/28/16 10:04 Dose: 40 mg - Labs Labs: 07/26/16 14:53 - Constitutional Appears: Chronically Ill (lethargic unresponsive ), Other - Head Exam Head Exam: NORMOCEPHALIC - Eye Exam Eye Exam: absent: Nystagmus - ENT Exam ENT Exam: Mucous Membranes Moist - Neck Exam Neck Exam: Full ROM - Respiratory Exam Respiratory Exam: Clear to Ausculation Bilateral, NORMAL BREATHING PATTERN - Cardiovascular Exam Cardiovascular Exam: REGULAR RHYTHM - GI/Abdominal Exam GI & Abdominal Exam: Soft, Normal Bowel Sounds (sacral decubitus ). absent: Tenderness - Extremities Exam Extremities Exam: Full ROM. absent: Pedal Edema, Tenderness - Neurological Exam Neurological Exam: Altered (lethargic ) - Skin Skin Exam: Normal Color (with stage 2 sacral decubitus ) Assessment and Plan - Assessment and Plan (Free Text) Assessment: Patiet with Metabolic encephalopathy , electrolyte abnormality, supportive medical support, follow up labs trial NG feeding IVF DNI family discussion with staff for advance directives today
[2016-07-29] MEDS: Potassium Ch 20mEq in D5W 1,000 ML IV SCH (05:00)
[2016-07-29 07:27] LABS: BASO % 0.2 % (0.0-2.0); EOS # 0.1 K/uL (0.0-0.7); EOS % 1.1 % (0.0-4.0); HEMATOCRIT 30.3 % (34.0-47.0); LYMPH # 1.5 K/uL (1.0-4.3); LYMPH % 16.8 % (20.0-40.0); MEAN CELL VOLUME 96.9 fL (81.0-99.0); MEAN CORPUSCULAR HEMOGLOBIN 31.9 pg (27.0-31.0); MEAN CORPUSCULAR HGB CONC 32.9 g/dL (33.0-37.0); MEAN PLATELET VOLUME 9.1 fL (7.2-11.7); MONO # 0.5 K/uL (0.0-0.8); MONO % 5.8 % (0.0-10.0); NRBC % 0.1 % (0.0-2.0); RED CELL DISTRIBUTION WIDTH 16.4 % (11.5-14.5)
--- NOTE | 2016-07-29 10:02 | RAD ---
HISTORY: NGT placement COMPARISON: 07/25/2016 FINDINGS: LUNGS: NG tube extending into the stomach. Mild venous congestion. Left midlung atelectasis. Left basilar airspace opacity with small left pleural effusion. Right paratracheal prominence may represent prominent vascularity. Small nodular density at the right costophrenic angle. PLEURA: As above. CARDIOVASCULAR: Normal. OSSEOUS STRUCTURES: No significant abnormalities. VISUALIZED UPPER ABDOMEN: Normal. OTHER FINDINGS: None. IMPRESSION: NG tube extending into the stomach. Mild venous congestion. Left midlung atelectasis. Left basilar airspace opacity with small left pleural effusion. Right paratracheal prominence may represent prominent vascularity.
[2016-07-29 10:59] LABS: CHLORIDE 99 mmol/L (98-107); POTASSIUM 2.7 mmol/L (3.6-5.2); SODIUM 138 mmol/L (132-148)
[2016-07-29 11:01] LABS: AST/SGOT 36 U/L (14-36); BILIRUBIN,TOTAL 0.8 mg/dL (0.2-1.3); CARBON DIOXIDE 30 mmol/L (22-30); GFR AFRICAN-AMERICAN > 60
[2016-07-29 11:02] LABS: ALB/GLOB RATIO 0.9 (1.0-2.1); ALKALINE PHOSPHATASE 80 U/L (38-126); ALT/SGPT 36 U/L (9-52); BLOOD UREA NITROGEN 16 mg/dL (7-17); CALCIUM 7.6 mg/dl (8.6-10.4); GLUCOSE,RANDOM 122 mg/dL (65-105); TOTAL PROTEIN 4.9 g/dL (6.3-8.3)
[2016-07-29] MEDS: Potassium Chloride 20 mEq/15 ml LIQ UD PO SCH (12:13)
--- NOTE | 2016-07-29 13:57 | CP.PCM.PN ---
Subjective - Date & Time of Evaluation Date of Evaluation: 07/29/16 Time of Evaluation: 13:25 - Subjective Subjective: F/U dysphagia, ulcer No report of RB, melena, fever, chills, SZ, TOVAR, cough , hematuria, hemoptysis Objective - Vital Signs/Intake and Output Vital Signs (last 24 hours): Temp Pulse Resp BP Pulse Ox 98.6 F 89 18 98/62 L 99 07/29/16 07:20 07/29/16 07:30 07/29/16 07:20 07/29/16 07:20 07/29/16 07:20 Intake and Output: 07/29/16 07/29/16 06:59 18:59 Intake Total 25 880 Output Total 0 Balance 25 880 - Medications Medications: Current Medications Potassium Chloride/Dextrose (Potassium Chl 20 Meq In D5w) 1,000 mls @ 50 mls/ hr IV .Q20H [facility] Last Admin: 07/29/16 05:00 Dose: 50 mls/hr Pantoprazole Sodium (Protonix Inj) 40 mg IVP DAILY [facility] Last Admin: 07/29/16 11:00 Dose: 40 mg Potassium Chloride (Potassium Chloride Oral Soln) 20 meq PO DAILY [facility] Stop: 08/01/16 12:01 Last Admin: 07/29/16 12:13 Dose: 20 meq - Labs Labs: 07/29/16 07:10 07/29/16 07:41 - Constitutional Appears: Older Than Stated Age, Chronically Ill - Respiratory Exam Respiratory Exam: Clear to Ausculation Bilateral - Cardiovascular Exam Cardiovascular Exam: RRR - GI/Abdominal Exam GI & Abdominal Exam: Soft, Normal Bowel Sounds. absent: Tenderness - Extremities Exam Additional comments: Contracted - Neurological Exam Neurological Exam: Awake. absent: Oriented x3 Assessment and Plan (1) Dysphagia Assessment & Plan: Elderly with dementia. Not a good PEG candidate. Status: Acute (2) Hypokalemia Assessment & Plan: Low K+- as per PMD Low Na- normalized. 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 Status: Acute (5) Dementia Status: Acute
--- NOTE | 2016-07-29 16:18 | MRI ---
PROCEDURE: MRI BRAIN WITHOUT CONTRAST HISTORY: seizures R/O mass COMPARISON: 05/31/2016 TECHNIQUE: Multiplanar, multisequence MR images of the brain were obtained without intravenous contrast enhancement. FINDINGS: HEMORRHAGE: None DWI: No evidence of an acute or early subacute infarction. BRAIN PARENCHYMA: No mass effect or edema. Severe chronic microvascular changes and encephalomalacia are seen in the cerebral hemispheres bilaterally. There is moderate atrophy VENTRICLES: Unremarkable. No hydrocephalus. CRANIUM: Unremarkable. ORBITS: Grossly unremarkable. PARANASAL SINUSES/MASTOIDS: Clear VASCULAR SYSTEM: Skull base flow voids intact. OTHER FINDINGS: None. IMPRESSION: Extensive chronic microvascular changes. No acute intracranial findings
--- NOTE | 2016-07-29 17:21 | CP.PCM.PN ---
Subjective - Date & Time of Evaluation Date of Evaluation: 07/29/16 Time of Evaluation: 17:19 - Subjective Subjective: Patient seen, bedridden, lethargic, afebrile no bleeding no unusal movement noted family discussion Objective - Vital Signs/Intake and Output Vital Signs (last 24 hours): Temp Pulse Resp BP Pulse Ox 97.7 F 93 H 20 102/69 100 07/29/16 16:01 07/29/16 16:01 07/29/16 16:01 07/29/16 16:01 07/29/16 16:01 Intake and Output: 07/29/16 07/29/16 06:59 18:59 Intake Total 25 880 Output Total 0 Balance 25 880 - Medications Medications: Current Medications Sodium Chloride (Sodium Chloride 0.9%) 1,000 mls @ 60 mls/hr IV .[id number] [facility] Pantoprazole Sodium (Protonix Inj) 40 mg IVP DAILY [facility] Last Admin: 07/29/16 11:00 Dose: 40 mg Potassium Chloride (Potassium Chloride Oral Soln) 20 meq PO DAILY [facility] Stop: 08/01/16 12:01 Last Admin: 07/29/16 12:13 Dose: 20 meq - Labs Labs: 07/29/16 07:10 07/29/16 07:41 - Constitutional Appears: Other (alterd consciuosness,) - Head Exam Head Exam: ATRAUMATIC, NORMOCEPHALIC - Eye Exam Eye Exam: absent: Nystagmus - ENT Exam ENT Exam: Mucous Membranes Dry - Neck Exam Neck Exam: absent: Meningismus - Respiratory Exam Respiratory Exam: Decreased Breath Sounds, NORMAL BREATHING PATTERN - Cardiovascular Exam Cardiovascular Exam: REGULAR RHYTHM - GI/Abdominal Exam GI & Abdominal Exam: Soft, Normal Bowel Sounds. absent: Distended - Extremities Exam Extremities Exam: absent: Joint Swelling, Pedal Edema - Back Exam Back Exam: rash noted (sacral decubitus) - Neurological Exam Neurological Exam: Altered - Skin Skin Exam: Normal Color Assessment and Plan - Assessment and Plan (Free Text) Assessment: Patient with metabolic encepahlopathy, Lethargic Poor oral intake /no spontaneous swallowing--with protein malnutrition- electrolyte abnormality hypokalemia-anemia. feeding , supplementation, AND support GI note on PEG noted -not a good candidate
[2016-07-29] MEDS ORDERED: Sodium Chloride 0.9% 1,000 ML IV SCH (17:30)
--- NOTE | 2016-07-29 19:16 | CP.PCM.PN ---
Subjective - Date & Time of Evaluation Date of Evaluation: 07/28/16 Time of Evaluation: 17:35 - Subjective Subjective: Patient condition remains unchanged Guarded prognosis Objective - Vital Signs/Intake and Output Vital Signs (last 24 hours): Temp Pulse Resp BP Pulse Ox 97.7 F 93 H 20 102/69 100 07/29/16 16:01 07/29/16 16:01 07/29/16 16:01 07/29/16 16:01 07/29/16 16:01 Intake and Output: 07/29/16 07/30/16 18:59 06:59 Intake Total 880 Output Total 0 Balance 880 - Medications Medications: Current Medications Ferrous Gluconate (Fergon) 324 mg PO TID [facility] Multivitamins/Vitamin C 10 ml/Potassium Chloride 20 meq/Sodium Chloride 1,020 mls @ 42 mls/hr IV .Q24H [facility] Pantoprazole Sodium (Protonix Inj) 40 mg IVP DAILY [facility] Last Admin: 07/29/16 11:00 Dose: 40 mg Potassium Chloride (Potassium Chloride Oral Soln) 20 meq PO DAILY [facility] Stop: 08/01/16 12:01 Last Admin: 07/29/16 12:13 Dose: 20 meq - Labs Labs: 07/29/16 07:10 07/29/16 07:41
--- NOTE | 2016-07-29 19:17 | CP.PCM.PN ---
Subjective - Date & Time of Evaluation Date of Evaluation: 07/29/16 Time of Evaluation: 18:10 - Subjective Subjective: Patient not in distress Not responsive to verbal commands Objective - Vital Signs/Intake and Output Vital Signs (last 24 hours): Temp Pulse Resp BP Pulse Ox 97.7 F 93 H 20 102/69 100 07/29/16 16:01 07/29/16 16:01 07/29/16 16:01 07/29/16 16:01 07/29/16 16:01 Intake and Output: 07/29/16 07/30/16 18:59 06:59 Intake Total 880 Output Total 0 Balance 880 - Medications Medications: Current Medications Ferrous Gluconate (Fergon) 324 mg PO TID [facility] Multivitamins/Vitamin C 10 ml/Potassium Chloride 20 meq/Sodium Chloride 1,020 mls @ 42 mls/hr IV .Q24H [facility] Pantoprazole Sodium (Protonix Inj) 40 mg IVP DAILY [facility] Last Admin: 07/29/16 11:00 Dose: 40 mg Potassium Chloride (Potassium Chloride Oral Soln) 20 meq PO DAILY [facility] Stop: 08/01/16 12:01 Last Admin: 07/29/16 12:13 Dose: 20 meq - Labs Labs: 07/29/16 07:10 07/29/16 07:41
[2016-07-29] MEDS: SODIUM CHLORIDE 0.9% IV SCH (21:39)
[2016-07-29] MEDS: MULTIVITAMIN IV SCH (21:39)
[2016-07-29] MEDS: POTASSIUM CHLORIDE IV SCH (21:39)
--- NOTE | 2016-07-30 08:52 | CP.PCM.PN ---
Subjective - Date & Time of Evaluation Date of Evaluation: 07/30/16 Time of Evaluation: 08:49 - Subjective Subjective: F/u anemia, dysphagia. On NG feedings No report of fever, chills, SZ, CP, SOB, cough, hematuria, hemoptysis, rash Objective - Vital Signs/Intake and Output Vital Signs (last 24 hours): Temp Pulse Resp BP Pulse Ox 98.5 F 97 H 20 107/71 100 07/29/16 23:30 07/30/16 00:00 07/29/16 23:30 07/29/16 23:30 07/29/16 23:30 Intake and Output: 07/30/16 07/30/16 06:59 18:59 Intake Total 716 Balance 716 - Medications Medications: Current Medications Ferrous Gluconate (Fergon) 324 mg PO TID [facility] Last Admin: 07/29/16 21:40 Dose: 324 mg Multivitamins/Vitamin C 10 ml/Potassium Chloride 20 meq/Sodium Chloride 1,020 mls @ 42 mls/hr IV .Q24H [facility] Last Admin: 07/29/16 21:39 Dose: 42 mls/hr Pantoprazole Sodium (Protonix Inj) 40 mg IVP DAILY [facility] Last Admin: 07/29/16 11:00 Dose: 40 mg Potassium Chloride (Potassium Chloride Oral Soln) 20 meq PO DAILY [facility] Stop: 08/01/16 12:01 Last Admin: 07/29/16 12:13 Dose: 20 meq - Labs Labs: 07/29/16 07:10 07/29/16 07:41 - Constitutional Appears: Non-toxic, Chronically Ill - Respiratory Exam Respiratory Exam: Clear to Ausculation Bilateral - Cardiovascular Exam Cardiovascular Exam: RRR - GI/Abdominal Exam GI & Abdominal Exam: Soft, Normal Bowel Sounds - Neurological Exam Neurological Exam: Awake. absent: Alert, Oriented x3 Assessment and Plan (1) Dysphagia Assessment & Plan: Not a good PEG candidate. 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
[2016-07-30] MEDS: Potassium Chloride 20 mEq/15 ml LIQ UD PO SCH (10:37)
--- NOTE | 2016-07-30 10:39 | CP.PCM.PN ---
Subjective - Date & Time of Evaluation Date of Evaluation: 07/30/16 Time of Evaluation: 10:00 - Subjective Subjective: Patient seen- lethargic, on NG feeding , no i=unusal eventsm repeat labs reviewed- still low potassium despite supplementation, sodium has improved Objective - Vital Signs/Intake and Output Vital Signs (last 24 hours): Temp Pulse Resp BP Pulse Ox 98.5 F 107 H 20 107/71 100 07/29/16 23:30 07/30/16 08:48 07/29/16 23:30 07/29/16 23:30 07/29/16 23:30 Intake and Output: 07/30/16 07/30/16 06:59 18:59 Intake Total 716 Balance 716 - Medications Medications: Current Medications Ferrous Gluconate (Fergon) 324 mg PO TID [facility] Last Admin: 07/29/16 21:40 Dose: 324 mg Multivitamins/Vitamin C 10 ml/Potassium Chloride 20 meq/Sodium Chloride 1,020 mls @ 42 mls/hr IV .Q24H [facility] Last Admin: 07/29/16 21:39 Dose: 42 mls/hr Pantoprazole Sodium (Protonix Inj) 40 mg IVP DAILY [facility] Last Admin: 07/29/16 11:00 Dose: 40 mg Potassium Chloride (Potassium Chloride Oral Soln) 20 meq PO DAILY [facility] Stop: 08/01/16 12:01 Last Admin: 07/29/16 12:13 Dose: 20 meq - Labs Labs: 07/29/16 07:10 07/29/16 07:41 - Constitutional Appears: Chronically Ill (lethargic) - Head Exam Head Exam: ATRAUMATIC, NORMOCEPHALIC - Eye Exam Eye Exam: Normal appearance. absent: Nystagmus - ENT Exam ENT Exam: Mucous Membranes Moist - Neck Exam Neck Exam: absent: Meningismus - Respiratory Exam Respiratory Exam: Decreased Breath Sounds - Cardiovascular Exam Cardiovascular Exam: REGULAR RHYTHM - GI/Abdominal Exam GI & Abdominal Exam: absent: Distended - Extremities Exam Extremities Exam: absent: Joint Swelling, Pedal Edema - Back Exam Back Exam: rash noted (sacral decubitus ) - Neurological Exam Neurological Exam: Altered - Skin Skin Exam: Normal Color Assessment and Plan - Assessment and Plan (Free Text) Assessment: Patient with Lethargy- with Dehydration Protein Malnutrition, Elecyrolyte abnormalities, from poor Oral intake, Severe Alzheimer Dementia, Sodium improved , potassium still low- on supplementation Anemia- supportive no active bleeding Failute to thrive, DNR DNI
[2016-07-30] MEDS: MULTIVITAMIN IV SCH ×2 (20:27→21:15)
[2016-07-30] MEDS: SODIUM CHLORIDE 0.9% IV SCH ×2 (20:27→21:15)
[2016-07-30] MEDS: POTASSIUM CHLORIDE IV SCH ×2 (20:27→21:15)
[2016-07-30 21:26] LABS: CHLORIDE 106 mmol/L (98-107)
[2016-07-30 21:27] LABS: POTASSIUM 4.3 mmol/L (3.6-5.2); SODIUM 140 mmol/L (132-148)
[2016-07-30 21:29] LABS: AST/SGOT 32 U/L (14-36); BILIRUBIN,TOTAL 0.3 mg/dL (0.2-1.3); CARBON DIOXIDE 29 mmol/L (22-30); GFR AFRICAN-AMERICAN > 60
[2016-07-30 21:30] LABS: ALB/GLOB RATIO 0.9 (1.0-2.1); ALKALINE PHOSPHATASE 88 U/L (38-126); ALT/SGPT 33 U/L (9-52); BLOOD UREA NITROGEN 19 mg/dL (7-17); CALCIUM 7.5 mg/dl (8.6-10.4); GLUCOSE,RANDOM 115 mg/dL (65-105); MAGNESIUM 2.2 mg/dL (1.6-2.3)
--- NOTE | 2016-07-30 22:40 | CP.PCM.PN ---
Subjective - Date & Time of Evaluation Date of Evaluation: 07/30/16 Time of Evaluation: 17:25 - Subjective Subjective: Patient condition remain unchanged Not in distress Objective - Vital Signs/Intake and Output Vital Signs (last 24 hours): Temp Pulse Resp BP Pulse Ox 98.0 F 104 H 20 100/70 98 07/30/16 15:58 07/30/16 15:58 07/30/16 15:58 07/30/16 15:58 07/30/16 15:58 Intake and Output: 07/30/16 07/31/16 18:59 06:59 Intake Total 540 Balance 540 - Medications Medications: Current Medications Ferrous Gluconate (Fergon) 324 mg PO TID [facility] Last Admin: 07/30/16 19:00 Dose: 324 mg Multivitamins/Vitamin C 10 ml/Potassium Chloride 40 meq/Sodium Chloride 1,030 mls @ 42 mls/hr IV .Q24H [facility] Last Admin: 07/30/16 21:15 Dose: 42 mls/hr Pantoprazole Sodium (Protonix Inj) 40 mg IVP DAILY [facility] Last Admin: 07/30/16 10:37 Dose: 40 mg Potassium Chloride (Potassium Chloride Oral Soln) 20 meq PO DAILY [facility] Stop: 08/01/16 12:01 Last Admin: 07/30/16 10:37 Dose: 20 meq - Labs Labs: 07/29/16 07:10 07/30/16 21:08
--- NOTE | 2016-07-31 08:28 | PN ---
DATE: 07/31/2016 NEUROLOGICAL PROBLEM: Change in mental status. PHYSICAL EXAMINATION: VITAL SIGNS: Blood pressure is 97/62, mean arterial pressure is 73, respiratory rate 18, temperature 98.1, pulse rate 98. The patient on NG feeding. NEUROLOGIC: The patient is awake, good eye contact. She moves all 4 extremities spontaneously. Rest of the examination is unchanged. The patient is back to her mental status as the way she was before. However, her presentation was all related to electrolyte imbalance and cardiac status. Correct the electrolytes. Continue the current supportive care. The patient is neurologically stable. No further workup is needed. Mariano Man MD cc: [id number] TT: 07/31/2016 08:27:43 Confirmation # [id number] Dictation # [id number] polly GRANT
[2016-07-31] MEDS: Potassium Chloride 20 mEq/15 ml LIQ UD PO SCH (10:01)
[2016-07-31 19:54] LABS: CHLORIDE 106 mmol/L (98-107)
[2016-07-31 19:55] LABS: POTASSIUM 4.5 mmol/L (3.6-5.2); SODIUM 139 mmol/L (132-148)
[2016-07-31 19:57] LABS: ALB/GLOB RATIO 0.9 (1.0-2.1); AST/SGOT 32 U/L (14-36); BILIRUBIN,TOTAL 0.3 mg/dL (0.2-1.3); CARBON DIOXIDE 26 mmol/L (22-30); GFR AFRICAN-AMERICAN > 60
[2016-07-31 19:58] LABS: ALKALINE PHOSPHATASE 78 U/L (38-126); ALT/SGPT 24 U/L (9-52); BLOOD UREA NITROGEN 16 mg/dL (7-17); CALCIUM 7.4 mg/dl (8.6-10.4); GLUCOSE,RANDOM 118 mg/dL (65-105)
--- NOTE | 2016-07-31 20:14 | CP.PCM.PN ---
Subjective - Date & Time of Evaluation Date of Evaluation: 07/31/16 Time of Evaluation: 04:00 - Subjective Subjective: patient seen in bed with NGT and feeding patient opens eys and smiled no verbal sound patient moved left arm spontaneously, afebrile, no unusual event Objective - Vital Signs/Intake and Output Vital Signs (last 24 hours): Temp Pulse Resp BP Pulse Ox 98.1 F 98 H 20 130/58 L 100 07/31/16 15:27 07/31/16 15:27 07/31/16 15:27 07/31/16 15:27 07/31/16 15:27 - Medications Medications: Current Medications Ferrous Gluconate (Fergon) 324 mg PO TID [facility] Last Admin: 07/31/16 17:51 Dose: 324 mg Multivitamins/Vitamin C 10 ml/Potassium Chloride 40 meq/Sodium Chloride 1,030 mls @ 42 mls/hr IV .Q24H [facility] Last Admin: 07/30/16 21:15 Dose: 42 mls/hr Pantoprazole Sodium (Protonix Inj) 40 mg IVP DAILY [facility] Last Admin: 07/31/16 10:02 Dose: 40 mg Potassium Chloride (Potassium Chloride Oral Soln) 20 meq PO DAILY [facility] Stop: 08/01/16 12:01 Last Admin: 07/31/16 10:01 Dose: 20 meq - Labs Labs: 07/29/16 07:10 07/31/16 19:36 - Constitutional Appears: Non-toxic, Chronically Ill - Head Exam Head Exam: ATRAUMATIC, NORMOCEPHALIC - Eye Exam Eye Exam: Normal appearance. absent: Nystagmus - ENT Exam ENT Exam: Mucous Membranes Moist - Respiratory Exam Respiratory Exam: Decreased Breath Sounds, NORMAL BREATHING PATTERN - Cardiovascular Exam Cardiovascular Exam: REGULAR RHYTHM - GI/Abdominal Exam GI & Abdominal Exam: Normal Bowel Sounds. absent: Distended, Tenderness - Extremities Exam Extremities Exam: absent: Pedal Edema (no spontaneouls movement of lower extremeties) - Neurological Exam Neurological Exam: Altered (but has spontaneous eye opening and smiles ), Awake (disoriented non verbal, has ngt) - Skin Skin Exam: Intact (other than the sacral decubitus), Normal Color Assessment and Plan - Assessment and Plan (Free Text) Assessment: Patient with metabolic encephalopathy dehydration elctrolyte abnormality, protein malnutrition from poor po feeding - with slow improvement , elctrolyte improved, nutrition supplemental, with physical improvemnt - continue current treatment and care
[2016-07-31] MEDS: SODIUM CHLORIDE 0.9% IV SCH (21:06)
[2016-07-31] MEDS: MULTIVITAMIN IV SCH (21:06)
[2016-07-31] MEDS: POTASSIUM CHLORIDE IV SCH (21:06)
--- NOTE | 2016-07-31 22:06 | EEG ---
DATE: 07/26/2016 STUDY RESULTS: The resting electroencephalogram consists of 40-50 microvolts, diffuse 5-7 Hz theta ac tivity superimposed with 2-3 Hz delta activity seen at frontal and central leads. Intermittent high amplitude delta activities seen, which is consistent with early drowsiness. This slow activity is co ntinuously noted from the beginning. The photic stimulation did not evoke driving response noted at 2-20 Hz. IMPRESSION: This is abnormal electroencephalogram because of persistent slowing throughout the recor d, suggestive of bilateral cerebral dysfunction. This is probably secondary to metabolic vascular or degenerative process. Please correlate the finding with the neurological and radiological studies. Mariano Man MD cc: [id number] TT: 07/31/2016 22:05:43 Confirmation # [id number] Dictation # [id number]
--- NOTE | 2016-07-31 22:36 | CP.PCM.PN ---
Subjective - Date & Time of Evaluation Date of Evaluation: 07/31/16 Time of Evaluation: 08:25 - Subjective Subjective: Patient without cardiac events Not in distress Objective - Vital Signs/Intake and Output Vital Signs (last 24 hours): Temp Pulse Resp BP Pulse Ox 98.1 F 98 H 20 130/58 L 100 07/31/16 15:27 07/31/16 15:27 07/31/16 15:27 07/31/16 15:27 07/31/16 15:27 - Medications Medications: Current Medications Ferrous Gluconate (Fergon) 324 mg PO TID [facility] Last Admin: 07/31/16 17:51 Dose: 324 mg Multivitamins/Vitamin C 10 ml/Potassium Chloride 40 meq/Sodium Chloride 1,030 mls @ 42 mls/hr IV .Q24H [facility] Last Admin: 07/31/16 21:06 Dose: 42 mls/hr Pantoprazole Sodium (Protonix Inj) 40 mg IVP DAILY [facility] Last Admin: 07/31/16 10:02 Dose: 40 mg Potassium Chloride (Potassium Chloride Oral Soln) 20 meq PO DAILY [facility] Stop: 08/01/16 12:01 Last Admin: 07/31/16 10:01 Dose: 20 meq - Labs Labs: 07/29/16 07:10 07/31/16 19:36
[2016-08-01] MEDS: Sodium Chloride 0.9% 1,000 ML IV SCH ×2 (03:15→22:50)
[2016-08-01 06:17] LABS: BASO % 0.2 % (0.0-2.0); EOS # 0.2 K/uL (0.0-0.7); EOS % 2.5 % (0.0-4.0); HEMATOCRIT 30.1 % (34.0-47.0); LYMPH % 12.7 % (20.0-40.0); MEAN CELL VOLUME 97.4 fL (81.0-99.0); MEAN CORPUSCULAR HEMOGLOBIN 32.5 pg (27.0-31.0); MEAN CORPUSCULAR HGB CONC 33.4 g/dL (33.0-37.0); MEAN PLATELET VOLUME 8.4 fL (7.2-11.7); MONO # 0.5 K/uL (0.0-0.8); NRBC % 0.1 % (0.0-2.0); RED CELL DISTRIBUTION WIDTH 16.6 % (11.5-14.5); WHITE BLOOD COUNT 7.8 K/uL (4.8-10.8)
[2016-08-01 06:37] LABS: CHLORIDE 104 mmol/L (98-107); POTASSIUM 4.5 mmol/L (3.6-5.2); SODIUM 143 mmol/L (132-148)
[2016-08-01 06:39] LABS: ALB/GLOB RATIO 0.9 (1.0-2.1); ALKALINE PHOSPHATASE 86 U/L (38-126); AST/SGOT 36 U/L (14-36); BILIRUBIN,TOTAL 0.6 mg/dL (0.2-1.3); CARBON DIOXIDE 28 mmol/L (22-30); GFR AFRICAN-AMERICAN > 60; TOTAL PROTEIN 5.1 g/dL (6.3-8.3)
[2016-08-01 06:40] LABS: ALT/SGPT 28 U/L (9-52); BLOOD UREA NITROGEN 15 mg/dL (7-17); CALCIUM 7.4 mg/dl (8.6-10.4); GLUCOSE,RANDOM 115 mg/dL (65-105)
--- NOTE | 2016-08-01 10:56 | CP.PCM.PN ---
Subjective - Date & Time of Evaluation Date of Evaluation: 08/01/16 Time of Evaluation: 10:52 - Subjective Subjective: CC: follow up failure to thrive Lethargic Tolerating NG feeds Objective - Vital Signs/Intake and Output Vital Signs (last 24 hours): Temp Pulse Resp BP Pulse Ox 98.0 F 93 H 18 122/76 99 08/01/16 08:51 08/01/16 08:51 08/01/16 08:51 08/01/16 08:51 08/01/16 08:51 Intake and Output: 08/01/16 08/01/16 06:59 18:59 Intake Total 1264 Output Total 0 Balance 1264 - Medications Medications: Current Medications Ferrous Gluconate (Fergon) 324 mg PO TID [facility] Last Admin: 08/01/16 09:58 Dose: 324 mg Sodium Chloride (Sodium Chloride 0.9%) 1,000 mls @ 50 mls/hr IV .Q20H [facility] Last Admin: 08/01/16 03:15 Dose: 50 mls/hr Pantoprazole Sodium (Protonix Inj) 40 mg IVP DAILY [facility] Last Admin: 08/01/16 09:58 Dose: 40 mg - Labs Labs: 08/01/16 06:00 08/01/16 06:00 - Constitutional Appears: Confused, Chronically Ill - Head Exam Head Exam: NORMOCEPHALIC - Eye Exam Eye Exam: Scleral icterus - Respiratory Exam Respiratory Exam: NORMAL BREATHING PATTERN - GI/Abdominal Exam GI & Abdominal Exam: Soft, Normal Bowel Sounds. absent: Tenderness Assessment and Plan (1) Altered mental status Assessment & Plan: Poor quality of life. PEG unlikely to improve quality of life. Rec: Palliative care discussion with family as to what there preferences are in regards to PEG. Discussed with primary attending. 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
--- NOTE | 2016-08-01 11:03 | CP.PCM.PN ---
Subjective - Date & Time of Evaluation Date of Evaluation: 08/01/16 Time of Evaluation: 11:00 - Subjective Subjective: Patient seen, in bed, lethargic today, no spontaneous movement, no response to call discussion with case supervisor and Gastr regarding PEG and placement, family discussion plan Objective - Vital Signs/Intake and Output Vital Signs (last 24 hours): Temp Pulse Resp BP Pulse Ox 98.0 F 93 H 18 122/76 99 08/01/16 08:51 08/01/16 08:51 08/01/16 08:51 08/01/16 08:51 08/01/16 08:51 Intake and Output: 08/01/16 08/01/16 06:59 18:59 Intake Total 1264 Output Total 0 Balance 1264 - Medications Medications: Current Medications Ferrous Gluconate (Fergon) 324 mg PO TID [facility] Last Admin: 08/01/16 09:58 Dose: 324 mg Sodium Chloride (Sodium Chloride 0.9%) 1,000 mls @ 50 mls/hr IV .Q20H [facility] Last Admin: 08/01/16 03:15 Dose: 50 mls/hr Pantoprazole Sodium (Protonix Inj) 40 mg IVP DAILY [facility] Last Admin: 08/01/16 09:58 Dose: 40 mg - Labs Labs: 08/01/16 06:00 08/01/16 06:00 - Constitutional Appears: Non-toxic (lethargic ) - Head Exam Head Exam: ATRAUMATIC, NORMOCEPHALIC - Eye Exam Eye Exam: absent: Nystagmus - ENT Exam ENT Exam: Mucous Membranes Dry - Neck Exam Neck Exam: absent: Meningismus - Respiratory Exam Respiratory Exam: Decreased Breath Sounds - Cardiovascular Exam Cardiovascular Exam: REGULAR RHYTHM - GI/Abdominal Exam GI & Abdominal Exam: Soft, Normal Bowel Sounds. absent: Distended - Extremities Exam Extremities Exam: absent: Joint Swelling - Neurological Exam Neurological Exam: Altered Assessment and Plan - Assessment and Plan (Free Text) Assessment: Patient with Dementia. Metabolic encepaholopathy with poor prognosis Electrolytes imrpoved Nutrition ongoimng Failure to thrive Discussion regarding chronic care falmily discussion to follow
[2016-08-01] MEDS: Ferrous Sulfate 300 mg/5 mL Liq UD PO SCH (18:32)
--- NOTE | 2016-08-01 22:15 | CP.PCM.PN ---
Subjective - Date & Time of Evaluation Date of Evaluation: 08/01/16 Time of Evaluation: 08:00 - Subjective Subjective: Patient seen and evaluated Condition remains unchanged Objective - Vital Signs/Intake and Output Vital Signs (last 24 hours): Temp Pulse Resp BP Pulse Ox 97.5 F L 96 H 22 114/70 99 08/01/16 16:00 08/01/16 16:00 08/01/16 16:00 08/01/16 16:00 08/01/16 16:00 - Medications Medications: Current Medications Ferrous Sulfate (Feosol Liq) 300 mg PO TID [facility] Last Admin: 08/01/16 18:32 Dose: 300 mg Sodium Chloride (Sodium Chloride 0.9%) 1,000 mls @ 50 mls/hr IV .Q20H [facility] Last Admin: 08/01/16 03:15 Dose: 50 mls/hr Pantoprazole Sodium (Protonix Inj) 40 mg IVP DAILY [facility] Last Admin: 08/01/16 09:58 Dose: 40 mg - Labs Labs: 08/01/16 06:00 08/01/16 06:00
[2016-08-02] MEDS: Ferrous Sulfate 300 mg/5 mL Liq UD PO SCH ×3 (10:07→19:47)
--- NOTE | 2016-08-02 12:51 | CP.PCM.PN ---
Subjective - Date & Time of Evaluation Date of Evaluation: 08/02/16 Time of Evaluation: 10:00 - Subjective Subjective: Patient is alert, but altered and offers no complaints. Objective - Vital Signs/Intake and Output Vital Signs (last 24 hours): Temp Pulse Resp BP Pulse Ox 98.3 F 106 H 18 111/66 99 08/02/16 08:00 08/02/16 09:46 08/02/16 08:00 08/02/16 08:00 08/02/16 08:00 Intake and Output: 08/02/16 08/02/16 06:59 18:59 Intake Total 1180 Balance 1180 - Medications Medications: Current Medications Ferrous Sulfate (Feosol Liq) 300 mg PO TID [facility] Last Admin: 08/02/16 10:07 Dose: 300 mg Sodium Chloride (Sodium Chloride 0.9%) 1,000 mls @ 50 mls/hr IV .Q20H [facility] Last Admin: 08/01/16 22:50 Dose: 50 mls/hr Pantoprazole Sodium (Protonix Inj) 40 mg IVP DAILY [facility] Last Admin: 08/02/16 10:07 Dose: 40 mg - Labs Labs: 08/01/16 06:00 08/01/16 06:00 - Constitutional Appears: Chronically Ill - Head Exam Head Exam: ATRAUMATIC - Eye Exam Eye Exam: Normal appearance Pupil Exam: NORMAL ACCOMODATION - ENT Exam ENT Exam: Normal Exam - Neck Exam Neck Exam: Normal Inspection - Respiratory Exam Respiratory Exam: Decreased Breath Sounds - Cardiovascular Exam Cardiovascular Exam: Tachycardia - GI/Abdominal Exam GI & Abdominal Exam: Normal Bowel Sounds - Rectal Exam Rectal Exam: Deferred - Exam Additional comments: Incontinent of bowel and bladder - Extremities Exam Extremities Exam: Normal Inspection - Back Exam Back Exam: NORMAL INSPECTION - Neurological Exam Neurological Exam: Alert, Altered Neuro motor strength exam: Left Upper Extremity: 2/1, Right Upper Extremity: 2/1 , Left Lower Extremity: 2/1, Right Lower Extremity: 2/1 - Psychiatric Exam Psychiatric exam: Flat Affect - Skin Skin Exam: Pallor Assessment and Plan - Assessment and Plan (Free Text) Assessment: Patient examined in bed while AM care provided. Patient was incontinent of large , green, loose BM. NGT in place for feedings. patient is alert, fully opens her eyes and makes eye contacts but remains aphasic. MRI brain was significant or extensive chronic microvascular changes. NA down to 143, BP 111/ 66, HR 106, patient is afebrile. I discussed my findings with patient's daughter Eusebio who also called me yesterday regarding nutritional concerns. Patient is alert but I do not think that patient would be able to fallow commends and to swallow the food. Eusebio suggested that for quite while even before this hospitalization, patient was pocketing the food and was not swallow well. Family tried to "massage the pharynx" in order to promote swallowing. We discussed the PEG placement and I suggested the daughter to discuss it again with Doctor Mehran. Impression * Patient is clinically improving * Mental status remains altered; patient unable to fallow commends * Aphasia * At risk for malnutrition Suggestion * Would remove the NGT * Perform swallow eval * If patient unable to swallow the PEG tube should be performed
[2016-08-02 14:32] LABS: HEMATOCRIT 29.3 % (34.0-47.0); MEAN CELL VOLUME 97.5 fL (81.0-99.0); MEAN CORPUSCULAR HEMOGLOBIN 32.1 pg (27.0-31.0); MEAN CORPUSCULAR HGB CONC 32.9 g/dL (33.0-37.0); MEAN PLATELET VOLUME 8.6 fL (7.2-11.7); RED CELL DISTRIBUTION WIDTH 17.2 % (11.5-14.5); WHITE BLOOD COUNT 7.8 K/uL (4.8-10.8)
--- NOTE | 2016-08-02 15:06 | CP.PCM.PN ---
Subjective - Date & Time of Evaluation Date of Evaluation: 08/02/16 Time of Evaluation: 15:03 - Subjective Subjective: Patient seen- is being cleaned- patient ihas spontaneuos movement - open eyes , stares ,but does not follow command, afebrile, had LBM with red blood ,no vomiting on NG feeding Objective - Vital Signs/Intake and Output Vital Signs (last 24 hours): Temp Pulse Resp BP Pulse Ox 98.3 F 106 H 18 111/66 99 08/02/16 08:00 08/02/16 09:46 08/02/16 08:00 08/02/16 08:00 08/02/16 08:00 Intake and Output: 08/02/16 08/02/16 06:59 18:59 Intake Total 1180 Balance 1180 - Medications Medications: Current Medications Ferrous Sulfate (Feosol Liq) 300 mg PO TID [facility] Last Admin: 08/02/16 13:54 Dose: 300 mg Sodium Chloride (Sodium Chloride 0.9%) 1,000 mls @ 50 mls/hr IV .Q20H [facility] Last Admin: 08/01/16 22:50 Dose: 50 mls/hr Pantoprazole Sodium (Protonix Inj) 40 mg IVP DAILY [facility] Last Admin: 08/02/16 10:07 Dose: 40 mg - Labs Labs: 08/02/16 14:24 08/01/16 06:00 - Constitutional Appears: Non-toxic, Chronically Ill - Head Exam Head Exam: ATRAUMATIC, NORMOCEPHALIC - Eye Exam Eye Exam: absent: Nystagmus - ENT Exam ENT Exam: Mucous Membranes Dry - Respiratory Exam Respiratory Exam: Decreased Breath Sounds, NORMAL BREATHING PATTERN - Cardiovascular Exam Cardiovascular Exam: REGULAR RHYTHM - GI/Abdominal Exam GI & Abdominal Exam: Soft, Normal Bowel Sounds. absent: Tenderness ( NGt in place ) - Extremities Exam Extremities Exam: absent: Joint Swelling, Pedal Edema, Tenderness - Back Exam Back Exam: absent: tenderness - Neurological Exam Neurological Exam: Altered Assessment and Plan - Assessment and Plan (Free Text) Assessment: Patient with Alzheimer dementia, more awake but disoriented, non verbal ,not following commands Metabolic encephalopathy Dehydration improving with hydration Electrolyte abnormality that were corrected Nutrition ongoing via NGT , Lower GI B- with diarrhea- check cdif ,gastro notified patient does not follow command- will not be able to do swallow/speech evaluation Family discussion - patient will speak to Gastro regarding their decision on PEG patient are deciding on subacute placement had further discussion with daughter
[2016-08-02 18:16] LABS: BASO % 0.6 % (0.0-2.0); EOS # 0.1 K/uL (0.0-0.7); EOS % 1.3 % (0.0-4.0); LYMPH % 13.5 % (20.0-40.0); MONO # 0.5 K/uL (0.0-0.8); MONO % 6.4 % (0.0-10.0); NRBC % 0.4 % (0.0-2.0)
[2016-08-02] MEDS: Sodium Chloride 0.9% 1,000 ML IV SCH (19:47)
[2016-08-02 19:51] LABS: CHLORIDE 100 mmol/L (98-107); POTASSIUM 4.3 mmol/L (3.6-5.2); SODIUM 135 mmol/L (132-148)
[2016-08-02 19:53] LABS: INR 0.9
[2016-08-02 19:54] LABS: BLOOD UREA NITROGEN 16 mg/dL (7-17); CARBON DIOXIDE 24 mmol/L (22-30); GFR AFRICAN-AMERICAN > 60
[2016-08-02 19:55] LABS: CALCIUM 7.5 mg/dl (8.6-10.4)
[2016-08-02 20:10] LABS: GLUCOSE,RANDOM 105 mg/dL (65-105)
--- NOTE | 2016-08-02 22:46 | CP.PCM.PN ---
Subjective - Date & Time of Evaluation Date of Evaluation: 08/02/16 Time of Evaluation: 08:50 - Subjective Subjective: Patient seen and evaluated Not in distress Objective - Vital Signs/Intake and Output Vital Signs (last 24 hours): Temp Pulse Resp BP Pulse Ox 98.9 F 97 H 20 109/73 96 08/02/16 15:31 08/02/16 15:31 08/02/16 15:31 08/02/16 15:31 08/02/16 15:31 - Medications Medications: Current Medications Ferrous Sulfate (Feosol Liq) 300 mg PO TID [facility] Last Admin: 08/02/16 19:47 Dose: 300 mg Sodium Chloride (Sodium Chloride 0.9%) 1,000 mls @ 50 mls/hr IV .Q20H [facility] Last Admin: 08/02/16 19:47 Dose: 50 mls/hr Pantoprazole Sodium (Protonix Inj) 40 mg IVP Q12H [facility] - Labs Labs: 08/02/16 14:24 08/02/16 19:37 PT 10.0 SECONDS (9.7-12.2) 08/02/16 19:37 INR 0.9 08/02/16 19:37 APTT 27 SECONDS (21-34) 08/02/16 19:37
--- NOTE | 2016-08-03 08:44 | PN ---
DATE: 08/03/2016 NEUROLOGICAL PROBLEM: Change in mental status, possible metabolic versus toxic encephalopathy. PHYSICAL EXAMINATION: VITAL SIGNS: Blood pressure 108/68, mean arterial pressure of 81, respiratory rate 16, temperature 9 7.6, pulse rate 90. NEUROLOGIC: The patient is awake. Good visual contact. She was able to copy the sign. Moves all 4 extremities. On looking at her face, there is no facial asymmetry noted. The patient seems back to baseline mental function. Continue the present management, proper hydratio n. From neurological point of view, no further workup is needed. Mariano Man MD cc: [id number] TT: 08/03/2016 08:44:10 Confirmation # [id number] Dictation # [id number]
[2016-08-03] MEDS: Ferrous Sulfate 300 mg/5 mL Liq UD PO SCH ×3 (09:46→18:00)
[2016-08-03] MEDS ORDERED: Midazolam 2 MG/2 ML VIAL ONE (11:30)
[2016-08-03] MEDS ORDERED: Propofol 10 mg/ml Inj (20 ML) ONE (11:31)
[2016-08-03] MEDS ORDERED: ceFAZolin IV 1 gm in Dextrose 50 ML IVPB ONE (11:50)
[2016-08-03] MEDS ORDERED: Lidocaine Hydrochloride 10 ML INJ ONE (11:56)
[2016-08-03 13:49] LABS: BASO % 0.4 % (0.0-2.0); EOS % 0.6 % (0.0-4.0); LYMPH # 0.4 K/uL (1.0-4.3); LYMPH % 8.1 % (20.0-40.0); MEAN CELL VOLUME 97.3 fL (81.0-99.0); MEAN CORPUSCULAR HEMOGLOBIN 32.1 pg (27.0-31.0); MEAN PLATELET VOLUME 7.7 fL (7.2-11.7); MONO # 0.3 K/uL (0.0-0.8); MONO % 5.3 % (0.0-10.0); PLATELET COUNT 199 K/uL (130-400); RED CELL DISTRIBUTION WIDTH 17.7 % (11.5-14.5); WHITE BLOOD COUNT 5.5 K/uL (4.8-10.8)
--- NOTE | 2016-08-03 14:06 | CP.PCM.PN ---
Subjective - Date & Time of Evaluation Date of Evaluation: 08/03/16 Time of Evaluation: 10:00 - Subjective Subjective: Patient seen- more awake, opens eyes, moves spontaneously, hands active, mittens on, has no NGT, smiled at me, but does not seem to comprehend, does not follow commands Objective - Vital Signs/Intake and Output Vital Signs (last 24 hours): Temp Pulse Resp BP Pulse Ox 98.4 F 88 16 91/52 L 100 08/03/16 12:00 08/03/16 12:30 08/03/16 12:30 08/03/16 12:30 08/03/16 12:30 Intake and Output: 08/03/16 08/03/16 06:59 18:59 Intake Total 1130 190 Output Total 2 Balance 1128 190 - Medications Medications: Current Medications Ferrous Sulfate (Feosol Liq) 300 mg PO TID [facility] Last Admin: 08/03/16 13:05 Dose: Not Given Sodium Chloride (Sodium Chloride 0.9%) 1,000 mls @ 50 mls/hr IV .Q20H [facility] Last Admin: 08/02/16 19:47 Dose: 50 mls/hr Magnesium Citrate (Citrate Of Mag) 300 ml PO ONCE ONE Stop: 08/03/16 22:01 Pantoprazole Sodium (Protonix Inj) 40 mg IVP Q12H [facility] Last Admin: 08/03/16 09:44 Dose: 40 mg Polyethylene Glycol/Electrolytes (Golytely) 2,000 ml PEG ONCE ONE Stop: 08/04/16 01:01 - Labs Labs: 08/03/16 13:45 08/02/16 19:37 PT 10.0 SECONDS (9.7-12.2) 08/02/16 19:37 INR 0.9 08/02/16 19:37 APTT 27 SECONDS (21-34) 08/02/16 19:37 - Constitutional Appears: Non-toxic, Chronically Ill - Head Exam Head Exam: ATRAUMATIC, NORMOCEPHALIC - Eye Exam Eye Exam: Normal appearance. absent: Nystagmus - ENT Exam ENT Exam: Mucous Membranes Dry - Neck Exam Neck Exam: Full ROM - Respiratory Exam Respiratory Exam: Decreased Breath Sounds, NORMAL BREATHING PATTERN - Cardiovascular Exam Cardiovascular Exam: REGULAR RHYTHM - GI/Abdominal Exam GI & Abdominal Exam: Soft. absent: Distended, Tenderness - Back Exam Back Exam: absent: tenderness (sacral decubitus) - Neurological Exam Neurological Exam: Awake (but disorienetd does not follow command ) - Psychiatric Exam Psychiatric exam: Flat Affect - Skin Skin Exam: Normal Color Assessment and Plan - Assessment and Plan (Free Text) Assessment: Patient with Demenyia with poor oral intake - PEG evaluation -as discussed with family and gastro LGIB- with low hemoglobin -need transfusion Gastro aware- plan for scope poor prognosis
[2016-08-03 14:14] LABS: NEUTROPHIL 83 % (50-75); TOTAL CELLS COUNTED 100
--- NOTE | 2016-08-03 16:17 | NM ---
PROCEDURE: Nuclear medicine gastrointestinal bleeding scan. HISTORY: bleeding COMPARISON: None available. TECHNIQUE: 4 cc of patient blood was withdrawn and mixed with 21 mCi of technetium ultra tagged. Images of the abdomen and pelvis were obtained in the anterior and posterior projection at 1 min intervals over a period of 45 min. FINDINGS: No abnormal extravasation of tracer was observed throughout the exam to indicate active bleeding within or outside the gastrointestinal tract. Physiologic activity was seen in the heart, liver, spleen and blood vessels. IMPRESSION: No evidence of active gastrointestinal bleeding.
[2016-08-03] MEDS ORDERED: DiphenhydrAMINE 12.5 mg/5 ml LIQ UD (5 ml) GT STA (18:33)
[2016-08-03] MEDS ORDERED: Acetaminophen 650mg/20.3ml solution UD GT ONE (18:34)
[2016-08-03] MEDS ORDERED: Magnesium Citrate Oral SOL (300 ml) PO ONE (22:00)
--- NOTE | 2016-08-03 22:17 | CP.PCM.PN ---
Subjective - Date & Time of Evaluation Date of Evaluation: 08/03/16 Time of Evaluation: 19:15 - Subjective Subjective: Patient seen and evaluated For transfusion of PRBC Clinical condition unchanged Patient is AND & DNI Objective - Vital Signs/Intake and Output Vital Signs (last 24 hours): Temp Pulse Resp BP Pulse Ox 98.3 F 86 20 106/69 100 08/03/16 22:09 08/03/16 22:09 08/03/16 22:09 08/03/16 22:09 08/03/16 15:30 Intake and Output: 08/03/16 08/04/16 18:59 06:59 Intake Total 390 0 Balance 390 0 - Medications Medications: Current Medications Ferrous Sulfate (Feosol Liq) 300 mg PO TID [facility] Last Admin: 08/03/16 18:00 Dose: Not Given Sodium Chloride (Sodium Chloride 0.9%) 1,000 mls @ 50 mls/hr IV .Q20H [facility] Last Admin: 08/02/16 19:47 Dose: 50 mls/hr Pantoprazole Sodium (Protonix Inj) 40 mg IVP Q12H [facility] Last Admin: 08/03/16 21:44 Dose: 40 mg Polyethylene Glycol/Electrolytes (Golytely) 2,000 ml PEG ONCE ONE Stop: 08/04/16 01:01 - Labs Labs: 08/03/16 13:45 08/02/16 19:37 PT 10.0 SECONDS (9.7-12.2) 08/02/16 19:37 INR 0.9 08/02/16 19:37 APTT 27 SECONDS (21-34) 08/02/16 19:37
[2016-08-03] MEDS: Sodium Chloride 0.9% 1,000 ML IV SCH (23:07)
[2016-08-04] MEDS ORDERED: Peg-Electrolyte Oral Soln 4L (Golytely) PEG ONE (01:00)
[2016-08-04] MEDS: Vancomycin 125 MG/5 ML SOLN (ORAL/RECTAL) GT SCH ×4 (01:09→17:55)
[2016-08-04 07:37] LABS: BASO % 0.3 % (0.0-2.0); EOS % 0.1 % (0.0-4.0); HEMATOCRIT 32.1 % (34.0-47.0); LYMPH # 0.8 K/uL (1.0-4.3); LYMPH % 7.5 % (20.0-40.0); MEAN CORPUSCULAR HEMOGLOBIN 31.4 pg (27.0-31.0); MEAN CORPUSCULAR HGB CONC 33.9 g/dL (33.0-37.0); MEAN PLATELET VOLUME 7.8 fL (7.2-11.7); MONO # 0.4 K/uL (0.0-0.8); MONO % 4.1 % (0.0-10.0); NRBC % 0.4 % (0.0-2.0); PLATELET COUNT 194 K/uL (130-400); RED CELL DISTRIBUTION WIDTH 16.1 % (11.5-14.5); WHITE BLOOD COUNT 10.8 K/uL (4.8-10.8)
[2016-08-04 07:42] LABS: MEAN CELL VOLUME 92.6 fL (81.0-99.0)
[2016-08-04] MEDS ORDERED: Propofol 10 mg/ml Inj (20 ML) ONE (07:51)
[2016-08-04 08:45] LABS: NEUTROPHIL 83 % (50-75); TOTAL CELLS COUNTED 100
--- NOTE | 2016-08-04 08:53 | CP.PCM.PN ---
Subjective - Date & Time of Evaluation Date of Evaluation: 08/04/16 Time of Evaluation: 11:30 - Subjective Subjective: Discussion with gastr0- colonoscopy reveals diverticolosis- bleeding source ? Bleeding scan is negative Patient is more alert- moves around the bed- ddisoriented - does not follow command Objective - Vital Signs/Intake and Output Vital Signs (last 24 hours): Temp Pulse Resp BP Pulse Ox 99.3 F 103 H 18 103/67 100 08/04/16 08:25 08/04/16 08:25 08/04/16 08:25 08/04/16 08:25 08/04/16 08:25 Intake and Output: 08/04/16 08/04/16 06:59 18:59 Intake Total 1950 500 Balance 1950 500 - Medications Medications: Current Medications Ferrous Sulfate (Feosol Liq) 300 mg PO TID [facility] Last Admin: 08/03/16 18:00 Dose: Not Given Pantoprazole Sodium (Protonix Inj) 40 mg IVP Q12H [facility] Last Admin: 08/03/16 21:44 Dose: 40 mg Vancomycin HCl (Vancocin (Oral Or Rectal Use)) 125 mg GT Q6H [facility] Last Admin: 08/04/16 05:47 Dose: Not Given - Labs Labs: 08/04/16 07:34 08/02/16 19:37 PT 10.0 SECONDS (9.7-12.2) 08/02/16 19:37 INR 0.9 08/02/16 19:37 APTT 27 SECONDS (21-34) 08/02/16 19:37 - Constitutional Appears: Chronically Ill (mental status is altered but is awake now ) - Head Exam Head Exam: ATRAUMATIC, NORMOCEPHALIC - Eye Exam Eye Exam: Normal appearance, Nystagmus - ENT Exam ENT Exam: Mucous Membranes Dry - Neck Exam Neck Exam: Full ROM - Respiratory Exam Respiratory Exam: Decreased Breath Sounds, Clear to Ausculation Bilateral, NORMAL BREATHING PATTERN - Cardiovascular Exam Cardiovascular Exam: REGULAR RHYTHM - GI/Abdominal Exam GI & Abdominal Exam: Soft, Diminished Bowel Sounds (bandaged belly ). absent: Tenderness - Extremities Exam Extremities Exam: Full ROM (moving actively now ). absent: Pedal Edema, Tenderness - Back Exam Back Exam: rash noted (sacral decubitus) - Neurological Exam Neurological Exam: Altered, Awake - Skin Skin Exam: Normal Color. absent: Rash Assessment and Plan - Assessment and Plan (Free Text) Assessment: Patient with DEmentia with altered orientation, with improving alertness,poor PO intake had PEG , with ongoing evaluation for LGIB_ had transfusion with hemoglobin improvement, Vitals stable, Chronic care, plan for placement when stable
[2016-08-04] MEDS: Ferrous Sulfate 300 mg/5 mL Liq UD PO SCH ×4 (10:29→18:03)
[2016-08-04] MEDS ORDERED: Multivitamin (MVI) 10 ML in Sodium Chloride 0.9% 1,000 ML IV ONE (16:30)
[2016-08-04 21:59] LABS: HEMATOCRIT 25.4 % (34.0-47.0); MEAN CELL VOLUME 93.4 fL (81.0-99.0); MEAN CORPUSCULAR HEMOGLOBIN 31.6 pg (27.0-31.0); MEAN CORPUSCULAR HGB CONC 33.9 g/dL (33.0-37.0); MEAN PLATELET VOLUME 7.8 fL (7.2-11.7); RED CELL DISTRIBUTION WIDTH 16.5 % (11.5-14.5); WHITE BLOOD COUNT 9.8 K/uL (4.8-10.8)
--- NOTE | 2016-08-04 22:36 | CP.PCM.PN ---
Subjective - Date & Time of Evaluation Date of Evaluation: 08/04/16 Time of Evaluation: 19:00 - Subjective Subjective: Patient see and evaluated Not in distress Objective - Vital Signs/Intake and Output Vital Signs (last 24 hours): Temp Pulse Resp BP Pulse Ox 97.6 F 105 H 20 109/70 99 08/04/16 16:00 08/04/16 16:00 08/04/16 16:00 08/04/16 16:00 08/04/16 16:00 Intake and Output: 08/04/16 08/05/16 18:59 06:59 Intake Total 600 Balance 600 - Medications Medications: Current Medications Ferrous Sulfate (Feosol Liq) 300 mg PO TID [facility] Last Admin: 08/04/16 18:03 Dose: 300 mg Multivitamins/Vitamin C 10 ml/ (Sodium Chloride) 1,010 mls @ 60 mls/hr IV .[id number] ONE Stop: 08/05/16 09:19 Last Admin: 08/04/16 17:05 Dose: 60 mls/hr Pantoprazole Sodium (Protonix Inj) 40 mg IVP Q12H [facility] Last Admin: 08/04/16 22:31 Dose: 40 mg Vancomycin HCl (Vancocin (Oral Or Rectal Use)) 125 mg GT Q6H [facility] Last Admin: 08/04/16 17:55 Dose: 125 mg - Labs Labs: 08/04/16 21:54 08/02/16 19:37 PT 10.0 SECONDS (9.7-12.2) 08/02/16 19:37 INR 0.9 08/02/16 19:37 APTT 27 SECONDS (21-34) 08/02/16 19:37
[2016-08-05] MEDS: Vancomycin 125 MG/5 ML SOLN (ORAL/RECTAL) GT SCH ×4 (01:36→18:10)
[2016-08-05] MEDS: Ferrous Sulfate 300 mg/5 mL Liq UD PO SCH ×3 (09:45→18:10)
[2016-08-05 11:21] LABS: HEMATOCRIT 22.2 % (34.0-47.0); MEAN CELL VOLUME 94.7 fL (81.0-99.0); MEAN CORPUSCULAR HEMOGLOBIN 31.1 pg (27.0-31.0); MEAN CORPUSCULAR HGB CONC 32.8 g/dL (33.0-37.0); MEAN PLATELET VOLUME 7.9 fL (7.2-11.7); RED CELL DISTRIBUTION WIDTH 16.6 % (11.5-14.5); WHITE BLOOD COUNT 11.4 K/uL (4.8-10.8)
--- NOTE | 2016-08-05 12:32 | CP.PCM.PN ---
Subjective - Date & Time of Evaluation Date of Evaluation: 08/05/16 Time of Evaluation: 11:50 - Subjective Subjective: patient seen- awake , spontanous movement of head extremeties but disoriented does not follow commands Hemoglobin dropped to 7.5- family by bedside aware- will transfuse today Objective - Vital Signs/Intake and Output Vital Signs (last 24 hours): Temp Pulse Resp BP Pulse Ox 98.0 F 105 H 20 110/67 99 08/05/16 08:00 08/05/16 08:19 08/05/16 08:00 08/05/16 08:00 08/05/16 08:00 Intake and Output: 08/05/16 08/05/16 06:59 18:59 Intake Total 420 Output Total 1 Balance 419 - Medications Medications: Current Medications Ferrous Sulfate (Feosol Liq) 300 mg PO TID [facility] Last Admin: 08/05/16 09:45 Dose: 300 mg Pantoprazole Sodium (Protonix Inj) 40 mg IVP Q12H [facility] Last Admin: 08/05/16 09:44 Dose: 40 mg Vancomycin HCl (Vancocin (Oral Or Rectal Use)) 125 mg GT Q6H [facility] Last Admin: 08/05/16 06:31 Dose: 125 mg - Labs Labs: 08/05/16 11:06 08/02/16 19:37 PT 10.0 SECONDS (9.7-12.2) 08/02/16 19:37 INR 0.9 08/02/16 19:37 APTT 27 SECONDS (21-34) 08/02/16 19:37 - Constitutional Appears: Non-toxic, Chronically Ill - Head Exam Head Exam: ATRAUMATIC, NORMOCEPHALIC - Eye Exam Eye Exam: Normal appearance. absent: Nystagmus - ENT Exam ENT Exam: Mucous Membranes Dry - Neck Exam Neck Exam: Full ROM - Respiratory Exam Respiratory Exam: Decreased Breath Sounds, NORMAL BREATHING PATTERN - Cardiovascular Exam Cardiovascular Exam: REGULAR RHYTHM - Rectal Exam Rectal Exam: Bloody Stool - Extremities Exam Extremities Exam: Full ROM. absent: Pedal Edema - Back Exam Back Exam: rash noted (sacral decubitus ) - Neurological Exam Neurological Exam: Altered, Awake - Skin Skin Exam: Normal Color Assessment and Plan - Assessment and Plan (Free Text) Assessment: Patient with Metabolic encephalopathy -Dementia Dehydration with vitals stable- with LGIB- with dropp in hemoglobin- will transfuse- discussed with family - discussion with nurse to notify Gastro C DIF on PO vancomycin contact isolation continue monitoring
--- NOTE | 2016-08-05 12:58 | CP.PCM.PN ---
Subjective - Date & Time of Evaluation Date of Evaluation: 08/05/16 Time of Evaluation: 12:56 - Subjective Subjective: Nurses report that there were two episodes of bleeding overnight. Patient is not able to respond to questions. Serial measurements of hemoglobin showed a drop from 10.9-9.9-8.6-7.3. She will be transfused again today. Objective - Vital Signs/Intake and Output Vital Signs (last 24 hours): Temp Pulse Resp BP Pulse Ox 98.0 F 105 H 20 110/67 99 08/05/16 08:00 08/05/16 08:19 08/05/16 08:00 08/05/16 08:00 08/05/16 08:00 Intake and Output: 08/05/16 08/05/16 06:59 18:59 Intake Total 420 Output Total 1 Balance 419 - Medications Medications: Current Medications Ferrous Sulfate (Feosol Liq) 300 mg PO TID [facility] Last Admin: 08/05/16 09:45 Dose: 300 mg Sodium Chloride (Sodium Chloride 0.9%) 1,000 mls @ 60 mls/hr IV .[id number] [facility] Pantoprazole Sodium (Protonix Inj) 40 mg IVP Q12H [facility] Last Admin: 08/05/16 09:44 Dose: 40 mg Vancomycin HCl (Vancocin (Oral Or Rectal Use)) 125 mg GT Q6H [facility] Last Admin: 08/05/16 06:31 Dose: 125 mg - Labs Labs: 08/05/16 11:06 PT 10.0 SECONDS (9.7-12.2) 08/02/16 19:37 INR 0.9 08/02/16 19:37 APTT 27 SECONDS (21-34) 08/02/16 19:37 - Constitutional Appears: No Acute Distress - Head Exam Head Exam: ATRAUMATIC, NORMOCEPHALIC - Eye Exam Eye Exam: EOMI, PERRL - Neck Exam Neck Exam: absent: Lymphadenopathy, Thyromegaly - Respiratory Exam Respiratory Exam: NORMAL BREATHING PATTERN. absent: Rales, Rhonchi, Wheezes - Cardiovascular Exam Cardiovascular Exam: REGULAR RHYTHM, +S1, +S2. absent: Gallop, Rubs, Murmur - GI/Abdominal Exam GI & Abdominal Exam: Soft, Normal Bowel Sounds. absent: Tenderness, Mass, Organomegaly - Rectal Exam Rectal Exam: Deferred - Extremities Exam Extremities Exam: absent: Calf Tenderness, Pedal Edema Assessment and Plan (1) Lower GI bleeding Assessment & Plan: Patient has recurrent GI bleeding, probably lower GI source, since diverticulosis was diagnosed on colonoscopy. Will check gastric contents to rule out upper GI bleed with rapid transit in view of recent gastrostomy tube placement. If bleeding continues, will plan on repeat colonoscopy. Status: Acute
[2016-08-05] MEDS: Sodium Chloride 0.9% 1,000 ML IV SCH (13:15)
--- NOTE | 2016-08-05 20:29 | CP.PCM.PN ---
Subjective - Date & Time of Evaluation Date of Evaluation: 08/05/16 Time of Evaluation: 15:10 - Subjective Subjective: Patient still loosing blood requiring PRBC transfusion ?Diverticular bleed Patient comfortable Family at bed side Review Of Systems Review Of Systems: ROS cannot be obtained secondary to pt's inabilty to answer questions. Constitutional: Negative for: Fever, Chills Cardiovascular: Negative for: Chest Pain Respiratory: Negative for: Shortness of Breath Gastrointestinal: Negative for: Vomiting Neurological: Positive for: Weakness Physical Exam - Physical Exam Appears: Non-toxic, No Acute Distress Skin: Warm, Dry, No Rash Head: Atraumatic, Normacephalic Eye(s): bilateral: Normal Inspection, PERRL Nose: Normal Oral Mucosa: Moist Lips: Normal Appearing Neck: Normal ROM Cardiovascular: Rhythm Regular (tachycardic) Respiratory: Normal Breath Sounds, No Accessory Muscle Use Gastrointestinal/Abdominal: Soft, No Tenderness Extremity: Normal ROM (moving spontaneously) Neurological/Psych: Oriented x3, Normal Speech Objective - Vital Signs/Intake and Output Vital Signs (last 24 hours): Temp Pulse Resp BP Pulse Ox 98.9 F 98 H 24 120/78 99 08/05/16 17:47 08/05/16 17:47 08/05/16 17:47 08/05/16 17:47 08/05/16 15:15 Intake and Output: 08/05/16 08/06/16 18:59 06:59 Intake Total 1550 Balance 1550 - Medications Medications: Current Medications Ferrous Sulfate (Feosol Liq) 300 mg PO TID [facility] Last Admin: 08/05/16 18:10 Dose: 300 mg Sodium Chloride (Sodium Chloride 0.9%) 1,000 mls @ 60 mls/hr IV .[id number] [facility] Last Admin: 08/05/16 13:15 Dose: 60 mls/hr Pantoprazole Sodium (Protonix Inj) 40 mg IVP Q12H [facility] Last Admin: 08/05/16 09:44 Dose: 40 mg Vancomycin HCl (Vancocin (Oral Or Rectal Use)) 125 mg GT Q6H [facility] Last Admin: 08/05/16 18:10 Dose: 125 mg - Labs Labs: 08/05/16 11:06 08/02/16 19:37 PT 10.0 SECONDS (9.7-12.2) 08/02/16 19:37 INR 0.9 08/02/16 19:37 APTT 27 SECONDS (21-34) 08/02/16 19:37 Assessment and Plan (1) ACS (acute coronary syndrome) Assessment & Plan: Medical management Status: Acute (2) Dehydration Assessment & Plan: IVF Status: Acute (3) Dementia Status: Acute (4) Dysphagia Status: Acute (5) Lower GI bleeding Assessment & Plan: PRBC transfusion Status: Acute
[2016-08-05] MEDS ORDERED: Vitamins A & D Oint UD Foilpak TOP PRN (22:45)
[2016-08-06] MEDS: Vancomycin 125 MG/5 ML SOLN (ORAL/RECTAL) GT SCH ×5 (00:01→23:51)
[2016-08-06] MEDS: Sodium Chloride 0.9% 1,000 ML IV SCH ×2 (05:55→15:50)
[2016-08-06] MEDS: Ferrous Sulfate 300 mg/5 mL Liq UD PO SCH ×3 (09:11→17:25)
[2016-08-06 11:29] LABS: BASO # 0.1 K/uL (0.0-0.2); BASO % 0.3 % (0.0-2.0); HEMATOCRIT 28.7 % (34.0-47.0); LYMPH # 0.8 K/uL (1.0-4.3); LYMPH % 5.1 % (20.0-40.0); MEAN CORPUSCULAR HGB CONC 33.9 g/dL (33.0-37.0); MEAN PLATELET VOLUME 8.1 fL (7.2-11.7); MONO # 0.6 K/uL (0.0-0.8); MONO % 3.9 % (0.0-10.0); NRBC % 1.1 % (0.0-2.0); PLATELET COUNT 161 K/uL (130-400); RED CELL DISTRIBUTION WIDTH 18.9 % (11.5-14.5)
[2016-08-06 11:31] LABS: MEAN CELL VOLUME 88.4 fL (81.0-99.0)
--- NOTE | 2016-08-06 11:53 | CP.PCM.PN ---
Subjective - Date & Time of Evaluation Date of Evaluation: 08/06/16 Time of Evaluation: 11:50 - Subjective Subjective: Patient's mental status is unchanged. Nurses report no bleeding overnight. Hemoglobin post transfusion is 9.7, but WBC count is up to 16,000. Objective - Vital Signs/Intake and Output Vital Signs (last 24 hours): Temp Pulse Resp BP Pulse Ox 97.8 F 99 H 20 111/70 98 08/06/16 00:00 08/06/16 08:18 08/06/16 00:00 08/06/16 00:00 08/06/16 00:00 Intake and Output: 08/06/16 08/06/16 06:59 18:59 Intake Total 1450 Balance 1450 - Medications Medications: Current Medications Ferrous Sulfate (Feosol Liq) 300 mg PO TID [facility] Last Admin: 08/06/16 09:11 Dose: 300 mg Sodium Chloride (Sodium Chloride 0.9%) 1,000 mls @ 60 mls/hr IV .[id number] [facility] Last Admin: 08/05/16 13:15 Dose: 60 mls/hr Pantoprazole Sodium (Protonix Inj) 40 mg IVP Q12H [facility] Last Admin: 08/06/16 09:11 Dose: 40 mg Vancomycin HCl (Vancocin (Oral Or Rectal Use)) 125 mg GT Q6H [facility] Last Admin: 08/06/16 11:18 Dose: 125 mg Vitamin A (Vitamin A & D Oint Ud Foilpak) 1 ea TOP BID PRN PRN Reason: Dry mouth - Labs Labs: 08/06/16 10:54 08/02/16 19:37 PT 10.0 SECONDS (9.7-12.2) 08/02/16 19:37 INR 0.9 08/02/16 19:37 APTT 27 SECONDS (21-34) 08/02/16 19:37 - Constitutional Appears: No Acute Distress - Head Exam Head Exam: ATRAUMATIC, NORMOCEPHALIC - Eye Exam Eye Exam: EOMI, PERRL - Neck Exam Neck Exam: absent: Lymphadenopathy, Thyromegaly - Respiratory Exam Respiratory Exam: NORMAL BREATHING PATTERN. absent: Rales, Rhonchi, Wheezes - Cardiovascular Exam Cardiovascular Exam: REGULAR RHYTHM, +S1, +S2. absent: Gallop, Rubs, Murmur - GI/Abdominal Exam GI & Abdominal Exam: Soft, Normal Bowel Sounds. absent: Tenderness, Mass, Organomegaly - Rectal Exam Rectal Exam: Deferred - Extremities Exam Extremities Exam: absent: Calf Tenderness, Pedal Edema Assessment and Plan (1) Lower GI bleeding Assessment & Plan: Nurses report no bleeding overnight. The hemoglobin increased appropriately from 7.3 to 9.7 after transfusion. Will order U/A and CXR to work up the elevated WBC count. Status: Acute
[2016-08-06 12:06] LABS: FUNCTIONING PLTS 36 K/uL; PLT BASE COUNT 152 K/uL; PLT(ADP) 116 K/uL
[2016-08-06 12:19] LABS: NEUTROPHIL 88 % (50-75); NUCLEATED RED BLOOD CELL 2 % (0-0); REACTIVE LYMPHOCYTES 1 % (0-0); TOTAL CELLS COUNTED 100
--- NOTE | 2016-08-06 12:26 | RAD ---
HISTORY: Leukocytosis, R/O infiltrate COMPARISON: Chest x-ray performed 07/28/16, CT chest without contrast performed 05/31/16 TECHNIQUE: Chest, one view. FINDINGS: LUNGS: Right lung apex masslike opacity re-identified. Mild lingula infiltrate or atelectasis. Please note that chest x-ray has limited sensitivity for the detection of pulmonary masses. PLEURA: No significant pleural effusion identified. No definite pneumothorax . CARDIOVASCULAR: Cardiomegaly. Ectatic dilated aorta re-identified. OSSEOUS STRUCTURES: Degenerative changes. Osseous demineralization. Acromioclavicular arthropathy. VISUALIZED UPPER ABDOMEN: Unremarkable. OTHER FINDINGS: None. IMPRESSION: Right lung apex masslike opacity re-identified. Mild lingular infiltrate or atelectasis. Additional findings as above.
--- NOTE | 2016-08-06 12:35 | CP.PCM.PN ---
Subjective - Date & Time of Evaluation Date of Evaluation: 08/06/16 Time of Evaluation: 12:32 - Subjective Subjective: Patient seen, had transfusion overnight, had no epsiod eof bleeding WBC noted had CXR negtaive, urinalysis pending patient ois cristina dbut disoriented and does not follow command Objective - Vital Signs/Intake and Output Vital Signs (last 24 hours): Temp Pulse Resp BP Pulse Ox 97.8 F 99 H 20 111/70 98 08/06/16 00:00 08/06/16 08:18 08/06/16 00:00 08/06/16 00:00 08/06/16 00:00 Intake and Output: 08/06/16 08/06/16 06:59 18:59 Intake Total 1450 Balance 1450 - Medications Medications: Current Medications Ferrous Sulfate (Feosol Liq) 300 mg PO TID [facility] Last Admin: 08/06/16 09:11 Dose: 300 mg Sodium Chloride (Sodium Chloride 0.9%) 1,000 mls @ 60 mls/hr IV .[id number] [facility] Last Admin: 08/05/16 13:15 Dose: 60 mls/hr Pantoprazole Sodium (Protonix Inj) 40 mg IVP Q12H [facility] Last Admin: 08/06/16 09:11 Dose: 40 mg Vancomycin HCl (Vancocin (Oral Or Rectal Use)) 125 mg GT Q6H [facility] Last Admin: 08/06/16 11:18 Dose: 125 mg Vitamin A (Vitamin A & D Oint Ud Foilpak) 1 ea TOP BID PRN PRN Reason: Dry mouth - Labs Labs: 08/06/16 10:54 08/02/16 19:37 PT 10.0 SECONDS (9.7-12.2) 08/02/16 19:37 INR 0.9 08/02/16 19:37 APTT 27 SECONDS (21-34) 08/02/16 19:37 - Constitutional Appears: Non-toxic - Head Exam Head Exam: ATRAUMATIC, NORMOCEPHALIC - Eye Exam Eye Exam: absent: Nystagmus - ENT Exam ENT Exam: Mucous Membranes Dry - Neck Exam Neck Exam: Full ROM - Respiratory Exam Respiratory Exam: Decreased Breath Sounds, Clear to Ausculation Bilateral, NORMAL BREATHING PATTERN - Cardiovascular Exam Cardiovascular Exam: REGULAR RHYTHM - GI/Abdominal Exam GI & Abdominal Exam: Soft (peg in place ). absent: Distended - Extremities Exam Extremities Exam: absent: Joint Swelling, Pedal Edema - Neurological Exam Neurological Exam: Awake. absent: Oriented x3 (bed ridden) - Skin Skin Exam: Intact (other than the sacral decubitus ) Assessment and Plan - Assessment and Plan (Free Text) Assessment: Patient with severe Dementia with dehydration episode of LGIB s/p Transfusion- with improvement WBC noted -positive for c dif- will further investigate other possible source of increased WBC currently afebrile CXRay negative urine, pending poor IV acces will need PICC line , monitoring for bleeding , still NPO discussion with Dr Smith
[2016-08-06 13:39] LABS: RBC URINE 10 /hpf (0-3); URINE BACTERIA RARE (<OCC); URINE BILIRUBIN NEGATIVE (NEGATIVE); URINE BLOOD 1+ (NEGATIVE); URINE COLOR Yellow (YELLOW); URINE GLUCOSE (UA) NORMAL (Normal); URINE KETONE TRACE mg/dL (NEGATIVE); URINE LEUKOCYTE ESTERASE 3+ Leu/uL (Negative); URINE PROTEIN NEGATIVE (NEGATIVE); URINE UROBILINOGEN NORMAL mg/dL (0.2-1.0); WBC URINE 153 /hpf (0-5)
--- NOTE | 2016-08-06 20:11 | CP.PCM.PN ---
Subjective - Date & Time of Evaluation Date of Evaluation: 08/06/16 Time of Evaluation: 07:15 - Subjective Subjective: Patient seen and evaluated Comfortable Review Of Systems Review Of Systems: ROS cannot be obtained secondary to pt's inabilty to answer questions. Constitutional: Negative for: Fever, Chills Cardiovascular: Negative for: Chest Pain Respiratory: Negative for: Shortness of Breath Gastrointestinal: Negative for: Vomiting Neurological: Positive for: Weakness Physical Exam - Physical Exam Appears: Non-toxic, No Acute Distress Skin: Warm, Dry, No Rash Head: Atraumatic, Normacephalic Eye(s): bilateral: Normal Inspection, PERRL Nose: Normal Oral Mucosa: Moist Lips: Normal Appearing Neck: Normal ROM Cardiovascular: Rhythm Regular (tachycardic) Respiratory: Normal Breath Sounds, No Accessory Muscle Use Gastrointestinal/Abdominal: Soft, No Tenderness Extremity: Normal ROM (moving spontaneously) Neurological/Psych: Oriented x1, Normal Speech Objective - Vital Signs/Intake and Output Vital Signs (last 24 hours): Temp Pulse Resp BP Pulse Ox 98 F 99 H 20 136/80 97 08/06/16 15:30 08/06/16 16:32 08/06/16 15:30 08/06/16 15:30 08/06/16 15:30 Intake and Output: 08/06/16 08/07/16 18:59 06:59 Intake Total 480 Balance 480 - Medications Medications: Current Medications Ferrous Sulfate (Feosol Liq) 300 mg PO TID [facility] Last Admin: 08/06/16 17:25 Dose: 300 mg Sodium Chloride (Sodium Chloride 0.9%) 1,000 mls @ 60 mls/hr IV .[id number] [facility] Last Admin: 08/06/16 15:50 Dose: 60 mls/hr Pantoprazole Sodium (Protonix Inj) 40 mg IVP Q12H [facility] Last Admin: 08/06/16 09:11 Dose: 40 mg Vancomycin HCl (Vancocin (Oral Or Rectal Use)) 125 mg GT Q6H [facility] Last Admin: 08/06/16 17:25 Dose: 125 mg Vitamin A (Vitamin A & D Oint Ud Foilpak) 1 ea TOP BID PRN PRN Reason: Dry mouth - Labs Labs: 08/06/16 10:54 08/02/16 19:37 PT 10.0 SECONDS (9.7-12.2) 08/02/16 19:37 INR 0.9 08/02/16 19:37 APTT 27 SECONDS (21-34) 08/02/16 19:37 Assessment and Plan - Assessment and Plan (Free Text) Assessment: (1) ACS (acute coronary syndrome) Assessment & Plan: Medical management Status: Acute (2) Dehydration Assessment & Plan: IVF Status: Acute (3) Dementia Status: Acute (4) Dysphagia Status: Acute (5) Lower GI bleeding Assessment & Plan: S/P PRBC transfusion Status: Acute
[2016-08-06 22:11] LABS: BASO % 0.2 % (0.0-2.0); HEMATOCRIT 27.7 % (34.0-47.0); LYMPH # 0.7 K/uL (1.0-4.3); LYMPH % 6.5 % (20.0-40.0); MEAN CORPUSCULAR HGB CONC 32.8 g/dL (33.0-37.0); MEAN PLATELET VOLUME 7.5 fL (7.2-11.7); MONO # 0.5 K/uL (0.0-0.8); MONO % 4.6 % (0.0-10.0); NRBC % 1.1 % (0.0-2.0); PLATELET COUNT 146 K/uL (130-400); RED CELL DISTRIBUTION WIDTH 18.9 % (11.5-14.5); WHITE BLOOD COUNT 11.1 K/uL (4.8-10.8)
[2016-08-06 22:18] LABS: MEAN CELL VOLUME 91.2 fL (81.0-99.0)
[2016-08-06 22:46] LABS: NEUTROPHIL 94 % (50-75); NUCLEATED RED BLOOD CELL 1 % (0-0); TOTAL CELLS COUNTED 100
[2016-08-06 22:47] LABS: LARGE PLATELETS PRESENT
[2016-08-07] MEDS: Vancomycin 125 MG/5 ML SOLN (ORAL/RECTAL) GT SCH ×4 (06:00→23:53)
[2016-08-07] MEDS: Sodium Chloride 0.9% 1,000 ML IV SCH ×2 (06:02→14:21)
[2016-08-07 07:24] LABS: BASO % 0.1 % (0.0-2.0); EOS % 0.1 % (0.0-4.0); HEMATOCRIT 29.8 % (34.0-47.0); LYMPH # 0.6 K/uL (1.0-4.3); LYMPH % 6.7 % (20.0-40.0); MEAN CELL VOLUME 90.3 fL (81.0-99.0); MEAN CORPUSCULAR HEMOGLOBIN 30.4 pg (27.0-31.0); MEAN CORPUSCULAR HGB CONC 33.6 g/dL (33.0-37.0); MEAN PLATELET VOLUME 7.3 fL (7.2-11.7); MONO # 0.5 K/uL (0.0-0.8); MONO % 5.3 % (0.0-10.0); NRBC % 0.8 % (0.0-2.0); PLATELET COUNT 145 K/uL (130-400); RED CELL DISTRIBUTION WIDTH 17.4 % (11.5-14.5); WHITE BLOOD COUNT 8.9 K/uL (4.8-10.8)
[2016-08-07 10:33] LABS: NEUTROPHIL 96 % (50-75); TOTAL CELLS COUNTED 100
[2016-08-07] MEDS: Ferrous Sulfate 300 mg/5 mL Liq UD PO SCH ×3 (11:20→17:33)
--- NOTE | 2016-08-07 12:58 | CP.PCM.PN ---
Subjective - Date & Time of Evaluation Date of Evaluation: 08/07/16 Time of Evaluation: 12:40 - Subjective Subjective: F/U r bleed. Staff reports a few more episodes of red blood per rectum and clots. No report of SZ, CP, SOB, tremor , TOVAR, cough, hematuria, hemoptysis,, hematemesis, myalgia, rash, jaundice Objective - Vital Signs/Intake and Output Vital Signs (last 24 hours): Temp Pulse Resp BP Pulse Ox 97.9 F 91 H 20 129/73 95 08/07/16 08:00 08/07/16 08:00 08/07/16 08:00 08/07/16 08:00 08/07/16 08:00 Intake and Output: 08/07/16 08/07/16 06:59 18:59 Intake Total 855 Balance 855 - Medications Medications: Current Medications Ferrous Sulfate (Feosol Liq) 300 mg PO TID [facility] Last Admin: 08/07/16 11:20 Dose: 300 mg Sodium Chloride (Sodium Chloride 0.9%) 1,000 mls @ 60 mls/hr IV .[id number] [facility] Last Admin: 08/07/16 06:02 Dose: 60 mls/hr Pantoprazole Sodium (Protonix Inj) 40 mg IVP Q12H [facility] Last Admin: 08/07/16 11:19 Dose: 40 mg Vancomycin HCl (Vancocin (Oral Or Rectal Use)) 125 mg GT Q6H [facility] Last Admin: 08/07/16 11:20 Dose: 125 mg Vitamin A (Vitamin A & D Oint Ud Foilpak) 1 ea TOP BID PRN PRN Reason: Dry mouth - Labs Labs: 08/07/16 07:08 08/02/16 19:37 PT 10.0 SECONDS (9.7-12.2) 08/02/16 19:37 INR 0.9 08/02/16 19:37 APTT 27 SECONDS (21-34) 08/02/16 19:37 - Constitutional Appears: Non-toxic - Neck Exam Neck Exam: absent: Tenderness - Respiratory Exam Respiratory Exam: Clear to Ausculation Bilateral - Cardiovascular Exam Cardiovascular Exam: RRR - GI/Abdominal Exam GI & Abdominal Exam: Soft, Normal Bowel Sounds. absent: Tenderness, Mass - Extremities Exam Extremities Exam: absent: Calf Tenderness - Neurological Exam Neurological Exam: Awake. absent: Oriented x3 - Skin Skin Exam: Intact Assessment and Plan (1) Dysphagia Assessment & Plan: s/p PEG. 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 Status: Chronic (4) Anemia Assessment & Plan: CHronic and GI bleed. Status: Acute (5) Dementia Status: Acute (6) Lower GI bleeding Assessment & Plan: Likely due to diverticulosis seen at colonsocopy. Hb is stable. Consider anusol. Status: Acute (7) C. difficile colitis Assessment & Plan: On vanco po/PEG. WBC improving. No pseudomembranes seen at colonoscopy. Status: Acute (8) UTI (urinary tract infection) Status: Acute (9) Leucocytosis Assessment & Plan: Due to UTI or cidifficile. WBC is improving. Status: Acute
--- NOTE | 2016-08-07 13:17 | CP.PCM.PN ---
Subjective - Date & Time of Evaluation Date of Evaluation: 08/07/16 Time of Evaluation: 04:00 - Subjective Subjective: Patient had Transfusion current HH 10 CXRAY no acute lung mass was known to family but decided not to pursue further evaluation current wbc normalized on vanco for cdif still disoriented non verbal but is awake . does not follow command Objective - Vital Signs/Intake and Output Vital Signs (last 24 hours): Temp Pulse Resp BP Pulse Ox 97.9 F 91 H 20 129/73 95 08/07/16 08:00 08/07/16 08:00 08/07/16 08:00 08/07/16 08:00 08/07/16 08:00 Intake and Output: 08/07/16 08/07/16 06:59 18:59 Intake Total 855 Balance 855 - Medications Medications: Current Medications Ferrous Sulfate (Feosol Liq) 300 mg PO TID [facility] Last Admin: 08/07/16 11:20 Dose: 300 mg Sodium Chloride (Sodium Chloride 0.9%) 1,000 mls @ 60 mls/hr IV .[id number] [facility] Last Admin: 08/07/16 06:02 Dose: 60 mls/hr Pantoprazole Sodium (Protonix Inj) 40 mg IVP Q12H [facility] Last Admin: 08/07/16 11:19 Dose: 40 mg Vancomycin HCl (Vancocin (Oral Or Rectal Use)) 125 mg GT Q6H [facility] Last Admin: 08/07/16 11:20 Dose: 125 mg Vitamin A (Vitamin A & D Oint Ud Foilpak) 1 ea TOP BID PRN PRN Reason: Dry mouth - Labs Labs: 08/07/16 07:08 08/02/16 19:37 PT 10.0 SECONDS (9.7-12.2) 08/02/16 19:37 INR 0.9 08/02/16 19:37 APTT 27 SECONDS (21-34) 08/02/16 19:37 - Constitutional Appears: Non-toxic, Chronically Ill (bedridden, awake, non verbal does not follow command, moves around the bed ) - Head Exam Head Exam: ATRAUMATIC, NORMOCEPHALIC - Eye Exam Eye Exam: Normal appearance. absent: Nystagmus - ENT Exam ENT Exam: Mucous Membranes Dry - Neck Exam Neck Exam: Full ROM. absent: Tenderness - Respiratory Exam Respiratory Exam: Decreased Breath Sounds, Clear to Ausculation Bilateral, NORMAL BREATHING PATTERN - Cardiovascular Exam Cardiovascular Exam: REGULAR RHYTHM - GI/Abdominal Exam GI & Abdominal Exam: Soft. absent: Tenderness (no facial expression on exam) - Extremities Exam Extremities Exam: Full ROM. absent: Joint Swelling, Pedal Edema - Back Exam Back Exam: rash noted (sacral decubitus) - Neurological Exam Neurological Exam: Altered, Awake - Psychiatric Exam Psychiatric exam: Flat Affect - Skin Skin Exam: Normal Color Assessment and Plan - Assessment and Plan (Free Text) Assessment: Patient with severe demnetia with altered mental function- with GIB-post transfusion- on monitoring, currently with no active bleeding - PEG not in use /NPO due to monitoring on IVF C DIC on Vanco PO contact isolation, stable but poor prognosis
--- NOTE | 2016-08-07 22:55 | CP.PCM.PN ---
Subjective - Date & Time of Evaluation Date of Evaluation: 08/07/16 Time of Evaluation: 10:15 - Subjective Subjective: Patient comfortable Continue current supportive therapy Objective - Vital Signs/Intake and Output Vital Signs (last 24 hours): Temp Pulse Resp BP Pulse Ox 97.3 F L 87 18 133/80 96 08/07/16 15:30 08/07/16 15:30 08/07/16 15:30 08/07/16 15:30 08/07/16 15:30 Intake and Output: 08/07/16 08/08/16 18:59 06:59 Intake Total 480 1360 Balance 480 1360 - Medications Medications: Current Medications Ferrous Sulfate (Feosol Liq) 300 mg PO TID [facility] Last Admin: 08/07/16 17:33 Dose: 300 mg Sodium Chloride (Sodium Chloride 0.9%) 1,000 mls @ 60 mls/hr IV .[id number] [facility] Last Admin: 08/07/16 14:21 Dose: Not Given Pantoprazole Sodium (Protonix Inj) 40 mg IVP Q12H [facility] Last Admin: 08/07/16 21:28 Dose: 40 mg Vancomycin HCl (Vancocin (Oral Or Rectal Use)) 125 mg GT Q6H [facility] Last Admin: 08/07/16 17:33 Dose: 125 mg Vitamin A (Vitamin A & D Oint Ud Foilpak) 1 ea TOP BID PRN PRN Reason: Dry mouth - Labs Labs: 08/07/16 07:08 08/02/16 19:37 PT 10.0 SECONDS (9.7-12.2) 08/02/16 19:37 INR 0.9 08/02/16 19:37 APTT 27 SECONDS (21-34) 08/02/16 19:37
[2016-08-08] MEDS: Vancomycin 125 MG/5 ML SOLN (ORAL/RECTAL) GT SCH ×3 (05:26→18:04)
[2016-08-08] MEDS: Sodium Chloride 0.9% 1,000 ML IV SCH (08:24)
--- NOTE | 2016-08-08 09:17 | CP.PCM.PN ---
Subjective - Date & Time of Evaluation Date of Evaluation: 08/08/16 Time of Evaluation: 09:15 - Subjective Subjective: Patient seen- uneventful- patient was started on feeding - with tarry stool noted- further monitoring remained bed ridden non conversant awake disoriented moves around the bed Objective - Vital Signs/Intake and Output Vital Signs (last 24 hours): Temp Pulse Resp BP Pulse Ox 97.5 F L 82 20 124/78 97 08/08/16 08:00 08/08/16 08:00 08/08/16 08:00 08/08/16 08:00 08/08/16 08:00 Intake and Output: 08/08/16 08/08/16 06:59 18:59 Intake Total 2100 Balance 2100 - Medications Medications: Current Medications Ferrous Sulfate (Feosol Liq) 300 mg PO TID [facility] Last Admin: 08/07/16 17:33 Dose: 300 mg Sodium Chloride (Sodium Chloride 0.9%) 1,000 mls @ 60 mls/hr IV .[id number] [facility] Last Admin: 08/08/16 08:24 Dose: Not Given Pantoprazole Sodium (Protonix Inj) 40 mg IVP Q12H [facility] Last Admin: 08/07/16 21:28 Dose: 40 mg Vancomycin HCl (Vancocin (Oral Or Rectal Use)) 125 mg GT Q6H [facility] Last Admin: 08/08/16 05:26 Dose: 125 mg Vitamin A (Vitamin A & D Oint Ud Foilpak) 1 ea TOP BID PRN PRN Reason: Dry mouth - Labs Labs: 08/07/16 07:08 08/02/16 19:37 PT 10.0 SECONDS (9.7-12.2) 08/02/16 19:37 INR 0.9 08/02/16 19:37 APTT 27 SECONDS (21-34) 08/02/16 19:37 - Constitutional Appears: Non-toxic - Head Exam Head Exam: ATRAUMATIC, NORMOCEPHALIC - Eye Exam Eye Exam: Normal appearance. absent: Nystagmus, Periorbital swelling - ENT Exam ENT Exam: Mucous Membranes Dry - Neck Exam Neck Exam: Full ROM. absent: Meningismus - Respiratory Exam Respiratory Exam: Clear to Ausculation Bilateral, NORMAL BREATHING PATTERN - Cardiovascular Exam Cardiovascular Exam: REGULAR RHYTHM - GI/Abdominal Exam GI & Abdominal Exam: Soft (peg in place ) - Extremities Exam Extremities Exam: Normal Capillary Refill. absent: Pedal Edema, Tenderness - Back Exam Back Exam: absent: tenderness (sacral decubitus noted) - Neurological Exam Neurological Exam: Altered, Awake - Skin Skin Exam: Normal Color Assessment and Plan - Assessment and Plan (Free Text) Assessment: Patient with severe Dementia- with LGIB- beeing monitored- trial of feeding /peg /IVF- Patient remained Awake but non conversant disoriented non verbal being treated for CDIF- when cleared will plan for subacute
[2016-08-08] MEDS: Ferrous Sulfate 300 mg/5 mL Liq UD PO SCH ×3 (10:51→18:04)
--- NOTE | 2016-08-08 11:18 | CP.PCM.PN ---
Subjective - Date & Time of Evaluation Date of Evaluation: 08/08/16 Time of Evaluation: 11:16 - Subjective Subjective: CC: Follow up GI bleed No further bleeding reported. Patient can not provide history. Hgb stable yesterday, not available today. Diaper shows dark brown loose BM contents. Objective - Vital Signs/Intake and Output Vital Signs (last 24 hours): Temp Pulse Resp BP Pulse Ox 97.5 F L 82 20 124/78 97 08/08/16 08:00 08/08/16 08:00 08/08/16 08:00 08/08/16 08:00 08/08/16 08:00 Intake and Output: 08/08/16 08/08/16 06:59 18:59 Intake Total 2100 Balance 2100 - Medications Medications: Current Medications Ferrous Sulfate (Feosol Liq) 300 mg PO TID [facility] Last Admin: 08/08/16 10:51 Dose: 300 mg Sodium Chloride (Sodium Chloride 0.9%) 1,000 mls @ 60 mls/hr IV .[id number] [facility] Last Admin: 08/08/16 08:24 Dose: Not Given Pantoprazole Sodium (Protonix Inj) 40 mg IVP Q12H [facility] Last Admin: 08/08/16 10:51 Dose: 40 mg Vancomycin HCl (Vancocin (Oral Or Rectal Use)) 125 mg GT Q6H [facility] Last Admin: 08/08/16 11:00 Dose: 125 mg Vitamin A (Vitamin A & D Oint Ud Foilpak) 1 ea TOP BID PRN PRN Reason: Dry mouth - Labs Labs: 08/07/16 07:08 08/02/16 19:37 PT 10.0 SECONDS (9.7-12.2) 08/02/16 19:37 INR 0.9 08/02/16 19:37 APTT 27 SECONDS (21-34) 08/02/16 19:37 - Constitutional Appears: No Acute Distress - Head Exam Head Exam: NORMOCEPHALIC - Eye Exam Eye Exam: absent: Scleral icterus - Respiratory Exam Respiratory Exam: NORMAL BREATHING PATTERN - Cardiovascular Exam Cardiovascular Exam: REGULAR RHYTHM - GI/Abdominal Exam GI & Abdominal Exam: Rigid (binder present), Soft. absent: Guarding (GTube in place), Tenderness Assessment and Plan (1) Altered mental status Status: Chronic (2) Dehydration Assessment & Plan: Stable. 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 difficile colitis Assessment & Plan: Stable Status: Acute (5) Lower GI bleeding Assessment & Plan: Due to Diverticulosis Stable. Will monitor Status: Acute (6) Gastrostomy status Assessment & Plan: Advance feeds as tolerated Status: Acute
[2016-08-08 11:32] LABS: BASO % 0.2 % (0.0-2.0); EOS % 0.1 % (0.0-4.0); HEMATOCRIT 32.9 % (34.0-47.0); LYMPH # 0.5 K/uL (1.0-4.3); LYMPH % 4.8 % (20.0-40.0); MEAN CELL VOLUME 89.9 fL (81.0-99.0); MEAN CORPUSCULAR HEMOGLOBIN 30.2 pg (27.0-31.0); MEAN CORPUSCULAR HGB CONC 33.6 g/dL (33.0-37.0); MEAN PLATELET VOLUME 7.4 fL (7.2-11.7); MONO # 0.5 K/uL (0.0-0.8); MONO % 4.5 % (0.0-10.0); NRBC % 0.3 % (0.0-2.0); PLATELET COUNT 171 K/uL (130-400); WHITE BLOOD COUNT 10.3 K/uL (4.8-10.8)
[2016-08-08 11:39] LABS: CHLORIDE 105 mmol/L (98-107); SODIUM 141 mmol/L (132-148)
[2016-08-08 11:41] LABS: BILIRUBIN,TOTAL 0.8 mg/dL (0.2-1.3); GFR AFRICAN-AMERICAN > 60
[2016-08-08 11:42] LABS: ALKALINE PHOSPHATASE 93 U/L (38-126); ALT/SGPT 24 U/L (9-52); AST/SGOT 29 U/L (14-36); BLOOD UREA NITROGEN 14 mg/dL (7-17); CALCIUM 7.4 mg/dl (8.6-10.4); CARBON DIOXIDE 29 mmol/L (22-30); GLUCOSE,RANDOM 192 mg/dL (65-105); TOTAL PROTEIN 4.7 g/dL (6.3-8.3)
[2016-08-08 11:54] LABS: NEUTROPHIL 84 % (50-75); TOTAL CELLS COUNTED 100
[2016-08-08 11:57] LABS: LARGE PLATELETS PRESENT
[2016-08-08] MEDS: Potassium Chloride 20 mEq 100 ML IVPB SCH ×3 (12:35→16:50)
[2016-08-08 12:37] LABS: MAGNESIUM 2.1 mg/dL (1.6-2.3)
--- NOTE | 2016-08-08 21:11 | PN ---
DATE: 08/08/2016 NEUROLOGIC PROBLEM: Metabolic versus toxic encephalopathy, superimposed with senile dementia. PHYSICAL EXAMINATION: VITAL SIGNS: Blood pressure 122/71, mean arterial pressure of 82, respiratory rate is 16, temperature afebrile. NEUROLOGIC: The patient is sleepy, easily arousable on tactile stimuli. Moves all 4 extremities. Good visual contact. The rest of the examination is unchanged. The patient's recent events been reviewed. The patient under the care of gastroenterology for the workup for her rectal bleed. LABORATORY WORKUP: WBC 8.9, hemoglobin 10.2, hematocrit 29.8, platelet 145. FURTHER RECOMMENDATION: Is recommended to continue the present management, proper hydration. When patient is medically stable, probably a cholinesterase inhibitor can be started. The patient will be followed closely. Mariano Man MD cc: [id number] TT: 08/08/2016 21:11:07 Confirmation # [id number] Dictation # [id number] yo GRANT
[2016-08-09] MEDS: Vancomycin 125 MG/5 ML SOLN (ORAL/RECTAL) GT SCH ×4 (00:49→18:51)
[2016-08-09] MEDS: Sodium Chloride 0.9% 1,000 ML IV SCH ×2 (00:50→19:09)
[2016-08-09 07:33] LABS: BASO % 0.3 % (0.0-2.0); EOS % 0.4 % (0.0-4.0); HEMATOCRIT 32.7 % (34.0-47.0); LYMPH # 0.8 K/uL (1.0-4.3); LYMPH % 6.6 % (20.0-40.0); MEAN CELL VOLUME 91.2 fL (81.0-99.0); MEAN CORPUSCULAR HEMOGLOBIN 30.2 pg (27.0-31.0); MEAN CORPUSCULAR HGB CONC 33.1 g/dL (33.0-37.0); MEAN PLATELET VOLUME 7.5 fL (7.2-11.7); MONO # 0.5 K/uL (0.0-0.8); NRBC % 0.1 % (0.0-2.0); PLATELET COUNT 156 K/uL (130-400); RED CELL DISTRIBUTION WIDTH 18.3 % (11.5-14.5); WHITE BLOOD COUNT 11.7 K/uL (4.8-10.8)
[2016-08-09 09:01] LABS: EOSINOPHIL 1 % (0-4); TOTAL CELLS COUNTED 100
[2016-08-09 09:02] LABS: NEUTROPHIL 90 % (50-75)
[2016-08-09] MEDS: Ferrous Sulfate 300 mg/5 mL Liq UD PO SCH ×3 (10:04→18:50)
--- NOTE | 2016-08-09 10:16 | CP.PCM.PN ---
Subjective - Date & Time of Evaluation Date of Evaluation: 08/09/16 Time of Evaluation: 12:14 - Subjective Subjective: Patient seen- same condition, awake but altered, no diarrhea noted no bleeding noted hemoglobin stable- on PEG feeding potassium level noted Objective - Vital Signs/Intake and Output Vital Signs (last 24 hours): Temp Pulse Resp BP Pulse Ox 98.0 F 83 16 107/66 98 08/09/16 07:00 08/09/16 07:00 08/09/16 07:00 08/09/16 07:00 08/09/16 07:00 Intake and Output: 08/09/16 08/09/16 06:59 18:59 Intake Total 1595 Balance 1595 - Medications Medications: Current Medications Ferrous Sulfate (Feosol Liq) 300 mg PO TID [facility] Last Admin: 08/09/16 10:04 Dose: 300 mg Sodium Chloride (Sodium Chloride 0.9%) 1,000 mls @ 60 mls/hr IV .[id number] [facility] Last Admin: 08/09/16 00:50 Dose: Not Given Pantoprazole Sodium (Protonix Inj) 40 mg IVP Q12H [facility] Last Admin: 08/09/16 10:04 Dose: 40 mg Vancomycin HCl (Vancocin (Oral Or Rectal Use)) 125 mg GT Q6H [facility] Last Admin: 08/09/16 06:46 Dose: 125 mg Vitamin A (Vitamin A & D Oint Ud Foilpak) 1 ea TOP BID PRN PRN Reason: Dry mouth - Labs Labs: 08/09/16 07:19 08/08/16 11:22 PT 10.0 SECONDS (9.7-12.2) 08/02/16 19:37 INR 0.9 08/02/16 19:37 APTT 27 SECONDS (21-34) 08/02/16 19:37 - Constitutional Appears: Non-toxic, Chronically Ill - Head Exam Head Exam: ATRAUMATIC, NORMOCEPHALIC - Eye Exam Eye Exam: Normal appearance - ENT Exam ENT Exam: Mucous Membranes Dry - Neck Exam Neck Exam: Full ROM. absent: Meningismus - Respiratory Exam Respiratory Exam: Clear to Ausculation Bilateral, NORMAL BREATHING PATTERN - Cardiovascular Exam Cardiovascular Exam: REGULAR RHYTHM - GI/Abdominal Exam GI & Abdominal Exam: Soft (peg in place ), Normal Bowel Sounds - Extremities Exam Extremities Exam: Normal Capillary Refill. absent: Pedal Edema, Tenderness - Neurological Exam Neurological Exam: Altered, Awake Assessment and Plan - Assessment and Plan (Free Text) Assessment: Patient with Severe Dementia with altered mentation LGIB- stabilized with no recent bleeding CDif on treament with vanco Hypokalemia- to supplement stable guarded with poor prognosis
[2016-08-09] MEDS ORDERED: Potassium Ch 20mEq in D5W 1,000 ML IV SCH (10:30)
[2016-08-09] MEDS: Potassium Chloride 20 mEq/15 ml LIQ UD PO SCH (11:21)
[2016-08-09 11:30] LABS: CHLORIDE 101 mmol/L (98-107); SODIUM 142 mmol/L (132-148)
[2016-08-09 11:33] LABS: ALB/GLOB RATIO 0.8 (1.0-2.1); ALKALINE PHOSPHATASE 81 U/L (38-126); ALT/SGPT 33 U/L (9-52); AST/SGOT 24 U/L (14-36); BILIRUBIN,TOTAL 0.5 mg/dL (0.2-1.3); BLOOD UREA NITROGEN 11 mg/dL (7-17); CARBON DIOXIDE 33 mmol/L (22-30); GFR AFRICAN-AMERICAN > 60; GLUCOSE,RANDOM 125 mg/dL (65-105); TOTAL PROTEIN 4.6 g/dL (6.3-8.3)
[2016-08-09 11:34] LABS: CALCIUM 6.9 mg/dl (8.6-10.4)
--- NOTE | 2016-08-09 11:45 | CP.PCM.PN ---
Subjective - Date & Time of Evaluation Date of Evaluation: 08/09/16 Time of Evaluation: 11:42 - Subjective Subjective: CC: follow up GI Bleed No BMs recorded past 2 days. Hypokalemic. Hgb stable, no GI bleeding. CDiff positive stool on 08/02, treating with Vancomycin. On GT feeds. Objective - Vital Signs/Intake and Output Vital Signs (last 24 hours): Temp Pulse Resp BP Pulse Ox 98.0 F 83 16 107/66 98 08/09/16 07:00 08/09/16 07:00 08/09/16 07:00 08/09/16 07:00 08/09/16 07:00 Intake and Output: 08/09/16 08/09/16 06:59 18:59 Intake Total 1595 Balance 1595 - Medications Medications: Current Medications Ferrous Sulfate (Feosol Liq) 300 mg PO TID [facility] Last Admin: 08/09/16 10:04 Dose: 300 mg Sodium Chloride (Sodium Chloride 0.9%) 1,000 mls @ 60 mls/hr IV .[id number] [facility] Last Admin: 08/09/16 00:50 Dose: Not Given Potassium Chloride/Dextrose (Potassium Chl 20 Meq In D5w) 1,000 mls @ 0 mls/hr IV .Q0M [facility] PRN Reason: Per Protocol Pantoprazole Sodium (Protonix Inj) 40 mg IVP Q12H [facility] Last Admin: 08/09/16 10:04 Dose: 40 mg Potassium Chloride (Potassium Chloride Oral Soln) 20 meq PO DAILY [facility] Vancomycin HCl (Vancocin (Oral Or Rectal Use)) 125 mg GT Q6H [facility] Last Admin: 08/09/16 06:46 Dose: 125 mg Vitamin A (Vitamin A & D Oint Ud Foilpak) 1 ea TOP BID PRN PRN Reason: Dry mouth - Labs Labs: 08/09/16 07:19 08/08/16 11:22 PT 10.0 SECONDS (9.7-12.2) 08/02/16 19:37 INR 0.9 08/02/16 19:37 APTT 27 SECONDS (21-34) 08/02/16 19:37 - Constitutional Appears: Chronically Ill - Head Exam Head Exam: NORMOCEPHALIC - Eye Exam Eye Exam: absent: Scleral icterus - Respiratory Exam Respiratory Exam: Clear to Ausculation Bilateral - Cardiovascular Exam Cardiovascular Exam: REGULAR RHYTHM - GI/Abdominal Exam GI & Abdominal Exam: Soft. 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 difficile colitis Assessment & Plan: On PO Vanco No diarrhea Status: Acute (5) Lower GI bleeding Assessment & Plan: Stable Diverticular bleed last week Status: Acute (6) Gastrostomy status Assessment & Plan: Advance feeds as tolerated Status: Acute
[2016-08-09 11:52] LABS: POTASSIUM 2.2 mmol/L (3.6-5.2)
[2016-08-09] MEDS ORDERED: Potassium Chloride 20 mEq/15 ml LIQ UD PEG ONE (13:00)
[2016-08-09 16:15] VITALS: O2SAT 95
[2016-08-09] MEDS: Potassium Chloride 20 mEq 100 ML IVPB SCH ×2 (18:52→21:40)
--- NOTE | 2016-08-09 23:14 | CP.PCM.PN ---
Subjective - Date & Time of Evaluation Date of Evaluation: 08/09/16 Time of Evaluation: 13:05 - Subjective Subjective: Patient with C diff Hypokalemia Mgt as per Medical team Objective - Vital Signs/Intake and Output Vital Signs (last 24 hours): Temp Pulse Resp BP Pulse Ox 97.3 F L 76 20 113/67 95 08/09/16 15:00 08/09/16 15:00 08/09/16 15:00 08/09/16 15:00 08/09/16 15:00 - Medications Medications: Current Medications Ferrous Sulfate (Feosol Liq) 300 mg PO TID [facility] Last Admin: 08/09/16 18:50 Dose: 300 mg Sodium Chloride (Sodium Chloride 0.9%) 1,000 mls @ 60 mls/hr IV .[id number] [facility] Last Admin: 08/09/16 19:09 Dose: Not Given Pantoprazole Sodium (Protonix Susp) 40 mg PO DAILY [facility] Potassium Chloride (Potassium Chloride Oral Soln) 20 meq PO DAILY [facility] Last Admin: 08/09/16 11:21 Dose: 20 meq Vancomycin HCl (Vancocin (Oral Or Rectal Use)) 125 mg GT Q6H [facility] Last Admin: 08/09/16 18:51 Dose: 125 mg Vitamin A (Vitamin A & D Oint Ud Foilpak) 1 ea TOP BID PRN PRN Reason: Dry mouth - Labs Labs: 08/09/16 07:19 08/09/16 11:16 PT 10.0 SECONDS (9.7-12.2) 08/02/16 19:37 INR 0.9 08/02/16 19:37 APTT 27 SECONDS (21-34) 08/02/16 19:37
[2016-08-10] MEDS: Vancomycin 125 MG/5 ML SOLN (ORAL/RECTAL) GT SCH ×5 (01:04→23:58)
[2016-08-10] MEDS: Potassium Chloride 20 mEq/15 ml LIQ UD PO SCH (11:04)
[2016-08-10] MEDS: Pantoprazole 40 mg Susp UD PO SCH (11:04)
[2016-08-10] MEDS: Ferrous Sulfate 300 mg/5 mL Liq UD PO SCH ×3 (11:04→19:09)
[2016-08-10 11:57] LABS: BASO % 0.1 % (0.0-2.0); EOS # 0.1 K/uL (0.0-0.7); EOS % 1.9 % (0.0-4.0); HEMATOCRIT 30.4 % (34.0-47.0); LYMPH # 0.8 K/uL (1.0-4.3); MEAN CELL VOLUME 92.2 fL (81.0-99.0); MEAN CORPUSCULAR HEMOGLOBIN 30.4 pg (27.0-31.0); MEAN PLATELET VOLUME 7.7 fL (7.2-11.7); MONO # 0.3 K/uL (0.0-0.8); WHITE BLOOD COUNT 6.1 K/uL (4.8-10.8)
[2016-08-10 12:12] LABS: CHLORIDE 103 mmol/L (98-107); POTASSIUM 3.5 mmol/L (3.6-5.2); SODIUM 138 mmol/L (132-148)
[2016-08-10 12:14] LABS: GFR AFRICAN-AMERICAN > 60
[2016-08-10 12:15] LABS: ALB/GLOB RATIO 0.9 (1.0-2.1); ALKALINE PHOSPHATASE 71 U/L (38-126); ALT/SGPT 22 U/L (9-52); AST/SGOT 39 U/L (14-36); BILIRUBIN,TOTAL 0.8 mg/dL (0.2-1.3); BLOOD UREA NITROGEN 11 mg/dL (7-17); CARBON DIOXIDE 33 mmol/L (22-30); GLUCOSE,RANDOM 121 mg/dL (65-105); TOTAL PROTEIN 4.5 g/dL (6.3-8.3)
[2016-08-10 12:16] LABS: CALCIUM 6.8 mg/dl (8.6-10.4)
--- NOTE | 2016-08-10 12:31 | CP.PCM.PN ---
Subjective - Date & Time of Evaluation Date of Evaluation: 08/10/16 Time of Evaluation: 12:00 - Subjective Subjective: PATIENT SEEN, MORE AWAKE NOW, COMMUNICATES BUT ANSWERS QUESTIONS INAPPROPIATELY , NO ACTIVE BLEEDING POTASSIUM BEING SUPPLEMENTED ,MOVES AROUND THE BED Objective - Vital Signs/Intake and Output Vital Signs (last 24 hours): Temp Pulse Resp BP Pulse Ox 98 F 81 20 118/77 95 08/10/16 07:25 08/10/16 08:18 08/10/16 07:25 08/10/16 07:25 08/10/16 07:25 Intake and Output: 08/10/16 08/10/16 06:59 18:59 Intake Total 1580 Output Total 1 Balance 1579 - Medications Medications: Current Medications Ferrous Sulfate (Feosol Liq) 300 mg PO TID [facility] Last Admin: 08/10/16 11:04 Dose: 300 mg Sodium Chloride (Sodium Chloride 0.9%) 1,000 mls @ 60 mls/hr IV .[id number] [facility] Last Admin: 08/09/16 19:09 Dose: Not Given Potassium Chloride/Dextrose/Sod Cl (Potassium Chl 40 Meq In D5-1/2ns) 1,000 mls @ 60 mls/hr IV .[id number] [facility] PRN Reason: Per Protocol Pantoprazole Sodium (Protonix Susp) 40 mg PO DAILY [facility] Last Admin: 08/10/16 11:04 Dose: 40 mg Potassium Chloride (Potassium Chloride Oral Soln) 20 meq PO DAILY [facility] Last Admin: 08/10/16 11:04 Dose: 20 meq Vancomycin HCl (Vancocin (Oral Or Rectal Use)) 125 mg GT Q6H [facility] Last Admin: 08/10/16 11:56 Dose: 125 mg Vitamin A (Vitamin A & D Oint Ud Foilpak) 1 ea TOP BID PRN PRN Reason: Dry mouth - Labs Labs: 08/10/16 11:48 08/10/16 11:48 PT 10.0 SECONDS (9.7-12.2) 08/02/16 19:37 INR 0.9 08/02/16 19:37 APTT 27 SECONDS (21-34) 08/02/16 19:37 - Constitutional Appears: Non-toxic - Head Exam Head Exam: ATRAUMATIC, NORMOCEPHALIC - Eye Exam Eye Exam: Normal appearance. absent: Nystagmus - ENT Exam ENT Exam: Mucous Membranes Dry - Neck Exam Neck Exam: Full ROM, Normal Inspection. absent: Meningismus, Tenderness - Respiratory Exam Respiratory Exam: Clear to Ausculation Bilateral, NORMAL BREATHING PATTERN - Cardiovascular Exam Cardiovascular Exam: REGULAR RHYTHM - GI/Abdominal Exam GI & Abdominal Exam: Soft, Normal Bowel Sounds (PEG IN PLACE ). absent: Tenderness - Extremities Exam Extremities Exam: Full ROM. absent: Pedal Edema, Tenderness - Back Exam Back Exam: tenderness. absent: muscle spasm (SACRAL DECUBIOTUS) - Neurological Exam Neurological Exam: Alert, Altered (B[place]), Awake - Psychiatric Exam Psychiatric exam: Flat Affect - Skin Skin Exam: Normal Color Assessment and Plan - Assessment and Plan (Free Text) Assessment: PATIENT WITH DEMENTIA, WITH FAILURE TO RHIVE, CURRENTLY HAD IMPROVED ALERTNESS BUT DISORIEB=NTED NOT ABLE TO TAKE CARE OF SELF IN ALL ASPECT BEING TREATED FOR C DIF, POTASSIUM , NUTRITION WHEN STABLE AND IMPROVED, TO SUBACUTE
[2016-08-10] MEDS: Potassium Chl 40 mEq in D5-1/2 1,000 ML IV SCH (13:24)
--- NOTE | 2016-08-10 16:46 | CP.PCM.PN ---
Subjective - Date & Time of Evaluation Date of Evaluation: 08/10/16 Time of Evaluation: 11:00 - Subjective Subjective: AWAKE, confused, NAD. Objective - Vital Signs/Intake and Output Vital Signs (last 24 hours): Temp Pulse Resp BP Pulse Ox 98 F 81 20 118/77 95 08/10/16 07:25 08/10/16 08:18 08/10/16 07:25 08/10/16 07:25 08/10/16 07:25 Intake and Output: 08/10/16 08/10/16 06:59 18:59 Intake Total 1580 Output Total 1 Balance 1579 - Medications Medications: Current Medications Ferrous Sulfate (Feosol Liq) 300 mg PO TID [facility] Last Admin: 08/10/16 13:24 Dose: 300 mg Potassium Chloride/Dextrose/Sod Cl (Potassium Chl 40 Meq In D5-1/2ns) 1,000 mls @ 60 mls/hr IV .[id number] [facility] PRN Reason: Per Protocol Last Admin: 08/10/16 13:24 Dose: 60 mls/hr Pantoprazole Sodium (Protonix Susp) 40 mg PO DAILY [facility] Last Admin: 08/10/16 11:04 Dose: 40 mg Potassium Chloride (Potassium Chloride Oral Soln) 20 meq PO DAILY [facility] Last Admin: 08/10/16 11:04 Dose: 20 meq Vancomycin HCl (Vancocin (Oral Or Rectal Use)) 125 mg GT Q6H [facility] Last Admin: 08/10/16 11:56 Dose: 125 mg Vitamin A (Vitamin A & D Oint Ud Foilpak) 1 ea TOP BID PRN PRN Reason: Dry mouth - Labs Labs: 08/10/16 11:48 08/10/16 11:48 PT 10.0 SECONDS (9.7-12.2) 08/02/16 19:37 INR 0.9 08/02/16 19:37 APTT 27 SECONDS (21-34) 08/02/16 19:37 Assessment and Plan - Assessment and Plan (Free Text) Assessment: Patient is seen and examined, potassium level 3.5 today. Awake, responsive, tolerating GT feeding, NAD. D/W DR Laurent, discharged to [facility] today, To continue with vancomycin po for 7 days for c-diff colitis.
--- NOTE | 2016-08-10 22:52 | CP.PCM.PN ---
Subjective - Date & Time of Evaluation Date of Evaluation: 08/10/16 Time of Evaluation: 07:00 - Subjective Subjective: Patient seen and evaluated Alert but confused No cardiac events Objective - Vital Signs/Intake and Output Vital Signs (last 24 hours): Temp Pulse Resp BP Pulse Ox 97.5 F L 78 20 122/80 95 08/10/16 15:00 08/10/16 15:00 08/10/16 15:00 08/10/16 15:00 08/10/16 15:00 Intake and Output: 08/10/16 08/11/16 18:59 06:59 Intake Total 1080 Balance 1080 - Medications Medications: Current Medications Ferrous Sulfate (Feosol Liq) 300 mg PO TID [facility] Last Admin: 08/10/16 19:09 Dose: 300 mg Potassium Chloride/Dextrose/Sod Cl (Potassium Chl 40 Meq In D5-1/2ns) 1,000 mls @ 60 mls/hr IV .[id number] [facility] PRN Reason: Per Protocol Last Admin: 08/10/16 13:24 Dose: 60 mls/hr Pantoprazole Sodium (Protonix Susp) 40 mg PO DAILY [facility] Last Admin: 08/10/16 11:04 Dose: 40 mg Potassium Chloride (Potassium Chloride Oral Soln) 20 meq PO DAILY [facility] Last Admin: 08/10/16 11:04 Dose: 20 meq Vancomycin HCl (Vancocin (Oral Or Rectal Use)) 125 mg GT Q6H [facility] Last Admin: 08/10/16 19:09 Dose: 125 mg Vitamin A (Vitamin A & D Oint Ud Foilpak) 1 ea TOP BID PRN PRN Reason: Dry mouth - Labs Labs: 08/10/16 11:48 08/10/16 11:48 PT 10.0 SECONDS (9.7-12.2) 08/02/16 19:37 INR 0.9 08/02/16 19:37 APTT 27 SECONDS (21-34) 08/02/16 19:37
[2016-08-10 23:32] VITALS: TEMP 98.1
[2016-08-11] MEDS: Vancomycin 125 MG/5 ML SOLN (ORAL/RECTAL) GT SCH ×2 (05:46→12:10)
[2016-08-11] MEDS: Potassium Chl 40 mEq in D5-1/2 1,000 ML IV SCH ×2 (05:47→05:48)
[2016-08-11 07:49] VITALS: BP 124/77; PULSE 84; RESP 20
[2016-08-11 08:41] LABS: BASO % 0.3 % (0.0-2.0); EOS # 0.2 K/uL (0.0-0.7); EOS % 2.6 % (0.0-4.0); HEMATOCRIT 30.8 % (34.0-47.0); LYMPH # 0.9 K/uL (1.0-4.3); LYMPH % 13.9 % (20.0-40.0); MEAN CELL VOLUME 92.4 fL (81.0-99.0); MEAN CORPUSCULAR HEMOGLOBIN 30.5 pg (27.0-31.0); MEAN PLATELET VOLUME 7.6 fL (7.2-11.7); MONO # 0.4 K/uL (0.0-0.8); MONO % 5.4 % (0.0-10.0); RED CELL DISTRIBUTION WIDTH 19.8 % (11.5-14.5); WHITE BLOOD COUNT 6.7 K/uL (4.8-10.8)
[2016-08-11 09:24] LABS: CHLORIDE 102 mmol/L (98-107); SODIUM 136 mmol/L (132-148)
[2016-08-11 09:25] LABS: POTASSIUM 3.9 mmol/L (3.6-5.2)
[2016-08-11 09:27] LABS: ALB/GLOB RATIO 0.8 (1.0-2.1); ALKALINE PHOSPHATASE 82 U/L (38-126); ALT/SGPT 33 U/L (9-52); AST/SGOT 33 U/L (14-36); BILIRUBIN,TOTAL 0.4 mg/dL (0.2-1.3); BLOOD UREA NITROGEN 11 mg/dL (7-17); CARBON DIOXIDE 29 mmol/L (22-30); GFR AFRICAN-AMERICAN > 60; GLUCOSE,RANDOM 138 mg/dL (65-105); TOTAL PROTEIN 4.4 g/dL (6.3-8.3)
[2016-08-11] MEDS: Ferrous Sulfate 300 mg/5 mL Liq UD PO SCH ×2 (10:08→13:58)
[2016-08-11] MEDS: Potassium Chloride 20 mEq/15 ml LIQ UD PO SCH (10:09)
[2016-08-11] MEDS: Pantoprazole 40 mg Susp UD PO SCH (10:10)
--- NOTE | 2016-08-11 14:14 | CP.PCM.DIS ---
Provider - Provider Date of Admission: 07/25/16 17:18 Attending physician: Billie Alcantar MD Time Spent in preparation of Discharge (in minutes): 30 Hospital Course - Lab Results Lab Results: Micro Results 08/06/16 14:05 Urine Urine Culture - Final No Growth (<1,000 CFU/ML) Most Recent Lab Values WBC 6.7 K/uL (4.8-10.8) 08/11/16 08:19 RBC 3.33 Mil/uL (3.80-5.20) L 08/11/16 08:19 Hgb 10.2 g/dL (11.0-16.0) L 08/11/16 08:19 Hct 30.8 % (34.0-47.0) L 08/11/16 08:19 MCV 92.4 fL (81.0-99.0) 08/11/16 08:19 MCH 30.5 pg (27.0-31.0) 08/11/16 08:19 MCHC 33.0 g/dL (33.0-37.0) 08/11/16 08:19 RDW 19.8 % (11.5-14.5) H 08/11/16 08:19 Plt Count 148 K/uL (130-400) 08/11/16 08:19 MPV 7.6 fL (7.2-11.7) 08/11/16 08:19 Neut % (Auto) 77.8 % (50.0-75.0) H 08/11/16 08:19 Lymph % (Auto) 13.9 % (20.0-40.0) L 08/11/16 08:19 [place] % (Auto) 5.4 % (0.0-10.0) 08/11/16 08:19 Eos % (Auto) 2.6 % (0.0-4.0) 08/11/16 08:19 Baso % (Auto) 0.3 % (0.0-2.0) 08/11/16 08:19 Neut # 5.2 K/uL (1.8-7.0) 08/11/16 08:19 Lymph # 0.9 K/uL (1.0-4.3) L 08/11/16 08:19 [place] # 0.4 K/uL (0.0-0.8) 08/11/16 08:19 Eos # 0.2 K/uL (0.0-0.7) 08/11/16 08:19 Baso # 0.0 K/uL (0.0-0.2) 08/11/16 08:19 Total Counted Cancelled 08/02/16 14:24 Neutrophils % (Manual) 90 % (50-75) H 08/09/16 07:19 Band Neutrophils % 1 % (0-2) 08/09/16 07:19 Lymphocytes % (Manual) 4 % (20-40) L 08/09/16 07:19 Reactive Lymphs % 1 % (0-0) H 08/06/16 10:54 Monocytes % (Manual) 3 % (0-10) 08/09/16 07:19 Eosinophils % (Manual) 1 % (0-4) 08/09/16 07:19 Basophils % (Manual) Cancelled 08/02/16 14:24 Metamyelocytes % Cancelled 08/02/16 14:24 Myelocytes % Cancelled 08/02/16 14:24 Promyelocytes % Cancelled 08/02/16 14:24 Blast Cells % Cancelled 08/02/16 14:24 Plasma Cell % (Manual) Cancelled 08/02/16 14:24 Nucleated RBC % 1 % (0-0) H 08/06/16 22:09 Differential Comment 08/02/16 14:24 Hypersegmented Polys Cancelled 08/02/16 14:24 Smudge Cells Cancelled 08/02/16 14:24 Toxic Granulation Cancelled 08/02/16 14:24 Dohle Bodies Cancelled 08/02/16 14:24 Haylee Rods Cancelled 08/02/16 14:24 Platelet Estimate Normal (NORMAL) 08/09/16 07:19 Plt Clumps, EDTA Cancelled 08/02/16 14:24 Large Platelets Present 08/08/16 11:22 Giant Platelets Cancelled 08/02/16 14:24 RBC Morphology Cancelled 08/02/16 14:24 Polychromasia Slight 08/09/16 07:19 Hypochromasia (manual) Slight 08/09/16 07:19 Poikilocytosis (manual Slight 08/09/16 07:19 Basophilic Stippling Slight 08/08/16 11:22 Anisocytosis (manual) Slight 08/09/16 07:19 Microcytosis (manual) Slight 08/06/16 22:09 Macrocytosis (manual) Slight 08/07/16 07:08 Spherocytes Cancelled 08/02/16 14:24 Sickle Cells Cancelled 08/02/16 14:24 Target Cells Cancelled 08/02/16 14:24 Tear Drop Cells Cancelled 08/02/16 14:24 Ovalocytes Slight 08/06/16 22:09 Stomatocytes Cancelled 08/02/16 14:24 Helmet Cells Cancelled 08/02/16 14:24 [place] Bodies Cancelled 08/02/16 14:24 [place] Cells Slight 08/09/16 07:19 Acanthocytes (Spur) Cancelled 08/02/16 14:24 Rouleaux Cancelled 08/02/16 14:24 Schistocytes Cancelled 08/02/16 14:24 ESR 5 mm/hr (0-20) 07/26/16 08:57 PT 10.0 SECONDS (9.7-12.2) 08/02/16 19:37 INR 0.9 08/02/16 19:37 APTT 27 SECONDS (21-34) 08/02/16 19:37 Plt Function Assay 36 K/uL 08/06/16 11:41 Sodium 136 mmol/L (132-148) 08/11/16 08:34 Potassium 3.9 mmol/L (3.6-5.2) 08/11/16 08:34 Chloride 102 mmol/L (98-107) 08/11/16 08:34 Carbon Dioxide 29 mmol/L (22-30) 08/11/16 08:34 Anion Gap 9 (10-20) L 08/11/16 08:34 BUN 11 mg/dL (7-17) 08/11/16 08:34 Creatinine 0.5 MG/DL (0.7-1.2) L 08/11/16 08:34 Est GFR ( Amer) > 60 08/11/16 08:34 Est GFR (Non-Af Amer) > 60 08/11/16 08:34 POC Glucose (mg/dL) 122 mg/dL (65-110) H 08/02/16 21:08 Random Glucose 138 mg/dL (65-105) H 08/11/16 08:34 Calcium 7.0 mg/dl (8.6-10.4) L 08/11/16 08:34 Ionized Calcium 5.5 mg/dL (4.80-5.60) 07/27/16 08:06 Phosphorus 3.0 mg/dL (2.5-4.5) 07/26/16 03:00 Magnesium 2.1 mg/dL (1.6-2.3) 08/08/16 11:22 Total Bilirubin 0.4 mg/dL (0.2-1.3) 08/11/16 08:34 AST 33 U/L (14-36) 08/11/16 08:34 ALT 33 U/L (9-52) 08/11/16 08:34 Alkaline Phosphatase 82 U/L (38-126) 08/11/16 08:34 Total Creatine Kinase 64 U/L (30-135) 07/26/16 14:53 CK-MB (Mass) 4.91 ng/mL (0.0-3.38) H 07/26/16 14:53 Troponin I 0.1330 ng/mL (0.00-0.120) H* 07/25/16 15:31 Troponin I, Quant 0.1310 ng/mL (0.00-0.120) H* 07/26/16 14:53 C-React Prot High Sens 3.20 mg/L (1.00-3.00) H 07/26/16 08:57 Total Protein 4.4 g/dL (6.3-8.3) L 08/11/16 08:34 Albumin 2.0 g/dL (3.5-5.0) L 08/11/16 08:34 Globulin 2.4 gm/dL (2.2-3.9) 08/11/16 08:34 Albumin/Globulin Ratio 0.8 (1.0-2.1) L 08/11/16 08:34 Ceruloplasmin 18 mg/dL (18-53) 07/27/16 08:06 Carcinoembryonic Ag 43.1 ng/mL (0-3.0) H 07/26/16 03:00 Vitamin B12 755 pg/mL (239-931) 07/26/16 03:00 Free T4 1.46 ng/dL (0.78-2.19) 07/26/16 08:57 TSH 3rd Generation 0.23 mIU/L (0.46-4.68) L 07/26/16 08:57 Prolactin 24.8 ng/mL (3.0-18.9) H 07/26/16 03:00 Urine Color Yellow (YELLOW) 08/06/16 13:22 Urine Clarity Hazy (Clear) 08/06/16 13:22 Urine pH 6.0 (5.0-8.0) 08/06/16 13:22 Ur Specific Ranger 1.013 (1.003-1.030) 08/06/16 13:22 Urine Protein Negative mg/dL (NEGATIVE) 08/06/16 13:22 Urine Glucose (UA) Normal mg/dL (Normal) 08/06/16 13:22 Urine Ketones Trace mg/dL (NEGATIVE) 08/06/16 13:22 Urine Blood 1+ (NEGATIVE) H 08/06/16 13:22 Urine Nitrate Negative (NEGATIVE) 08/06/16 13:22 Urine Bilirubin Negative (NEGATIVE) 08/06/16 13:22 Urine Urobilinogen Normal mg/dL (0.2-1.0) 08/06/16 13:22 Ur Leukocyte Esterase 3+ Jeri/uL (Negative) H 08/06/16 13:22 Urine WBC (Auto) 153 /hpf (0-5) H 08/06/16 13:22 Urine RBC (Auto) 10 /hpf (0-3) H 08/06/16 13:22 Ur Squamous Epith Cells < 1 /hpf (0-5) 08/06/16 13:22 Urine Bacteria Rare (<OCC) 08/06/16 13:22 Stool Occult Blood Positive (NEGATIVE) H 07/26/16 07:54 Anti-HU Antibody Titer TNP 07/27/16 08:06 Anti-Hu Antibody Fluorescence noted (NEGATIVE) H 07/27/16 08:06 Anti-Hu Ab ([place]) Negative (NEGATIVE) 07/27/16 08:06 Anti-Yo Antibody Titer TNP 07/27/16 08:06 Anti-Yo Ab ([place]ot) Negative (NEGATIVE) 07/27/16 08:06 Anti-Yo IgG Ab (IFA) Fluorescence noted (NEGATIVE) H 07/27/16 08:06 C. difficile Ag & Toxin Positive (NEGATIVE) H 08/02/16 15:02 Blood Type A NEGATIVE 08/05/16 12:44 Antibody Screen Negative 08/05/16 12:44 - Hospital Course Hospital Course: admitted for AMS and poor po intake - found to have dehydration hypernatremia hypokalemia, severe dementia metabolic encepaho=lo[carlita placed on hydration nutrion had melena scop- showed gastric ulcers, had diarrhea showed cdif- on vancomycin- patient improved and stabilized DNR DNI to subacute Discharge Exam - Head Exam Head Exam: ATRAUMATIC, NORMOCEPHALIC - Eye Exam Eye Exam: Normal appearance. absent: Nystagmus - ENT Exam ENT Exam: Mucous Membranes Dry - Neck Exam Neck exam: Full Rom - Respiratory Exam Respiratory Exam: Clear to PA & Lateral, NORMAL BREATHING PATTERN - GI/Abdominal Exam GI & Abdominal Exam: Normal Bowel Sounds, Soft. absent: Tenderness (peg in place ) - Back Exam Back exam: rash noted (sacral decubitus) - Neurological Exam Neurological exam: Altered Discharge Plan - Follow Up Plan Condition: GOOD Disposition: REHAB FACILITY/REHAB UNIT Instructions: Hypokalemia (DC), Chronic Dysphagia (DC), Altered Mental Status ( GEN)
--- NOTE | 2016-08-11 14:14 | CP.PCM.PN ---
Subjective - Date & Time of Evaluation Date of Evaluation: 08/11/16 Time of Evaluation: 09:00 - Subjective Subjective: Patient seen awake but no orientation, does not communiv=bella afebrile stble, no bleeding , can transfer discussed with staff and daughter Objective - Vital Signs/Intake and Output Vital Signs (last 24 hours): Temp Pulse Resp BP Pulse Ox 98.1 F 84 20 124/77 95 08/11/16 07:46 08/11/16 07:46 08/11/16 07:46 08/11/16 07:46 08/11/16 07:46 Intake and Output: 08/11/16 08/11/16 06:59 18:59 Intake Total 1860 Balance 1860 - Medications Medications: Current Medications Ferrous Sulfate (Feosol Liq) 300 mg PO TID [facility] Last Admin: 08/11/16 13:58 Dose: 300 mg Potassium Chloride/Dextrose/Sod Cl (Potassium Chl 40 Meq In D5-1/2ns) 1,000 mls @ 60 mls/hr IV .[id number] [facility] PRN Reason: Per Protocol Last Admin: 08/11/16 05:48 Dose: Not Given Pantoprazole Sodium (Protonix Susp) 40 mg PO DAILY [facility] Last Admin: 08/11/16 10:10 Dose: 40 mg Potassium Chloride (Potassium Chloride Oral Soln) 20 meq PO DAILY [facility] Last Admin: 08/11/16 10:09 Dose: 20 meq Vancomycin HCl (Vancocin (Oral Or Rectal Use)) 125 mg GT Q6H [facility] Last Admin: 08/11/16 12:10 Dose: 125 mg Vitamin A (Vitamin A & D Oint Ud Foilpak) 1 ea TOP BID PRN PRN Reason: Dry mouth - Labs Labs: 08/11/16 08:19 08/11/16 08:34 PT 10.0 SECONDS (9.7-12.2) 08/02/16 19:37 INR 0.9 08/02/16 19:37 APTT 27 SECONDS (21-34) 08/02/16 19:37 - Constitutional Appears: Well, Non-toxic, Chronically Ill - Head Exam Head Exam: ATRAUMATIC, NORMOCEPHALIC - Eye Exam Eye Exam: Normal appearance. absent: Nystagmus - ENT Exam ENT Exam: Mucous Membranes Dry - Neck Exam Neck Exam: Full ROM. absent: Tenderness - Respiratory Exam Respiratory Exam: Clear to Ausculation Bilateral, NORMAL BREATHING PATTERN - Cardiovascular Exam Cardiovascular Exam: REGULAR RHYTHM - GI/Abdominal Exam GI & Abdominal Exam: Soft, Normal Bowel Sounds. absent: Distended (peg in place ), Tenderness - Extremities Exam Extremities Exam: Full ROM, Normal Inspection. absent: Tenderness - Back Exam Back Exam: rash noted (sacral decubitus ) - Neurological Exam Neurological Exam: Altered, Awake - Skin Skin Exam: Normal Color Assessment and Plan - Assessment and Plan (Free Text) Assessment: Paient with GIB stabilized , Dehydration improving DEmentia with loss of reflexes to eat- on PEG C Di f on treatment no diarrhea Nutrioin support stable to transfer
--- NOTE | 2016-08-15 18:19 | CP.PCM.PN ---
Subjective - Date & Time of Evaluation Date of Evaluation: 08/11/16 Time of Evaluation: 09:00 - Subjective Subjective: pt was seen 08/11/16. Note was written., but i dont see it in system. i am re- writing. No Rb, melena., fever, chills, Sz Cough Objective - Vital Signs/Intake and Output Vital Signs (last 24 hours): Temp Pulse Resp BP Pulse Ox 98.1 F 84 20 124/77 95 08/11/16 07:46 08/11/16 07:46 08/11/16 07:46 08/11/16 07:46 08/11/16 07:46 - Labs Labs: 08/11/16 08:19 08/11/16 08:34 PT 10.0 SECONDS (9.7-12.2) 08/02/16 19:37 INR 0.9 08/02/16 19:37 APTT 27 SECONDS (21-34) 08/02/16 19:37 - Constitutional Appears: Non-toxic - Respiratory Exam Respiratory Exam: Clear to Ausculation Bilateral - Cardiovascular Exam Cardiovascular Exam: RRR - GI/Abdominal Exam GI & Abdominal Exam: Soft, Normal Bowel Sounds Additional comments: PEG clear - Neurological Exam Neurological Exam: Awake Assessment and Plan (1) 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 difficile colitis Status: Acute (8) UTI (urinary tract infection) Status: Acute (9) Leucocytosis Assessment & Plan: better Status: Acute
== END 2016-08-11 14:18 | DRG 70 ==
LOC: C.ER 13:12 → C.9E 17:18 → C.6T 18:09 → C.5T 08-04 12:01 → C.3T 08-04 12:34
PROVIDERS: ADMIT Internal Medicine; ATTEND Internal Medicine
PROC: 0D20XUZ Change Feeding Device in Upper Intestinal Tract, External Approach (ICD-10-PCS; principal; 2016-07-26)
PROC: 30253N1 (ICD-10-PCS; 2016-08-03)
PROC: 0DJD8ZZ Inspection of Lower Intestinal Tract, Via Natural or Artificial Opening Endoscopic (ICD-10-PCS; 2016-08-03)
PROC: 0DJ08ZZ Inspection of Upper Intestinal Tract, Via Natural or Artificial Opening Endoscopic (ICD-10-PCS; 2016-08-03)
DX: G93.41 Metabolic encephalopathy (principal); K57.31 Diverticulosis of large intestine without perforation or abscess with bleeding; L89.152 Pressure ulcer of sacral region, stage 2; A04.7 Enterocolitis due to Clostridium difficile; E46 Unspecified protein-calorie malnutrition; E87.0 Hyperosmolality and hypernatremia; I20.0 Unstable angina; N39.0 Urinary tract infection, site not specified; R47.01 Aphasia; E86.0 Dehydration; R56.9 Unspecified convulsions; G30.1 Alzheimer's disease with late onset; F02.80 Dementia in other diseases classified elsewhere, unspecified severity, without behavioral disturbance, psychotic disturbance, mood disturbance, and anxiety; K25.9 Gastric ulcer, unspecified as acute or chronic, without hemorrhage or perforation; D64.9 Anemia, unspecified; E87.6 Hypokalemia; T39.395A Adverse effect of other nonsteroidal anti-inflammatory drugs [NSAID], initial encounter; M19.90 Unspecified osteoarthritis, unspecified site; Z51.5 Encounter for palliative care; E78.00 Pure hypercholesterolemia, unspecified; Z74.01 Bed confinement status; E78.5 Hyperlipidemia, unspecified; R62.7 Adult failure to thrive; R19.5 Other fecal abnormalities; Z66 Do not resuscitate; R53.83 Other fatigue; R15.9 Full incontinence of feces; K57.90 Diverticulosis of intestine, part unspecified, without perforation or abscess without bleeding; Z93.1 Gastrostomy status; K44.9 Diaphragmatic hernia without obstruction or gangrene; K20.9 Esophagitis, unspecified

== ENCOUNTER 2016-09-10 01:45 | Inpatient (IN) | payer MEDICARE ==
--- NOTE | 2016-09-10 01:52 | C.PDOC ---
History Of Present Illness [facility] GI bleed and questionable coffee ground emesis. No history could be obtained because of patient's clinical condition. Time Seen by Provider: 09/10/16 01:52 History Per: Other (prison ) History/Exam Limitations: clinical condition Onset/Duration Of Symptoms: Hrs Current Symptoms Are (Timing): Still Present Severity: Mild Pain Scale Rating Of: 4 Quality Of Discomfort: Unable To Describe Associated Symptoms: Vomiting, Coffee Ground material. denies: Diarrhea Recent travel outside of the [place]: No Past Medical History Reviewed: Historical Data, Nursing Documentation, Vital Signs Vital Signs: Last Vital Signs Temp 99.6 F 09/10/16 02:01 Pulse 107 H 09/10/16 05:47 Resp 24 09/10/16 05:47 BP 93/59 L 09/10/16 05:47 Pulse Ox 95 09/10/16 05:47 - Medical History PMH: Alzheimer's Disease, Arthritis, Dementia, Gastritis, Hypercholesterolemia, Hyperlipidemia - [facility] Procedures CHANGE FEEDING DEVICE IN UP INTEST TRACT, DNA SEQUENCING ASSOCIATE APPROACH (07/25/16) EXCISION OF STOMACH, ENDO, DIAGN (05/31/16) INSPECTION OF LOWER INTESTINAL TRACT, ENDO (07/25/16) INSPECTION OF UPPER INTESTINAL TRACT, ENDO (07/25/16) TRANSFUSE NONAUT RED BLOOD CELLS IN PERIPH ART, PERC (07/25/16) Family History: States: No Known Family Hx - Social History Hx Tobacco Use: No Hx Alcohol Use: No Hx Substance Use: No Review Of Systems Constitutional: Negative for: Fever, Chills, Sweats Cardiovascular: Negative for: Chest Pain, Palpitations Respiratory: Negative for: Cough, Shortness of Breath Gastrointestinal: Positive for: Vomiting, Melena. Negative for: Nausea, Abdominal Pain, Diarrhea Genitourinary: Negative for: Dysuria, Hematuria Physical Exam - Physical Exam Appears: Non-toxic, No Acute Distress Skin: Dry Head: Atraumatic Oral Mucosa: Dry Teeth: Edentulous Neck: Trachea Midline, Supple Chest: Symmetrical Cardiovascular: Rhythm Regular Respiratory: No Rales, Rhonchi (scattered rhonci bilaterally ), No Wheezing Gastrointestinal/Abdominal: Bowel Sounds (tympanic to percussion ), Soft, No Tenderness, No Distention, No Guarding, No Rebound, Other (PEG tube in place ) Rectal: Melena (black tarry stool ) Back: No CVA Tenderness Extremity: Normal ROM Extremity: Bilateral: Atraumatic Neurological/Psych: Oriented x3 (x1) Disoriented To: Place, Time Gait: Unable To Assess ED Course And Treatment - Laboratory Results Result Diagrams: 09/10/16 02:36 09/10/16 02:36 ECG: Interpreted By Me, Viewed By Me Pulse Ox Interpretation: Normal - Radiology CXR: Interpreted by Me, Viewed By Me CXR Interpretation: Yes: Other (rul mass, ? increasedvasc markingsvs infiltrate , unchanged from 08/06/16). No: Fracture, Pnemothorax Progress Note: changed gates with a 16 fr gates. appro 800 cc of urine , drained. pt feels better. tolerated the procedure well. spoke with the family, at bedside, about the critical state of the pt. They understand and do state that the pt is DNR Critical Care Time - Critical Care Note Total Time (in mins): 30 Documented critical care: time excludes all time spent performing seperately billable procedures. Disposition Discussed With Dr.: Billie Alcantar Comment: accepted the pt on her service and took over the care at 5:04 AM Doctor Will See Patient In The: Hospital Counseled Patient/Family Regarding: Studies Performed, Diagnosis - Disposition Disposition: HOSPITALIZED Disposition Time: 01:52 Condition: CRITICAL - POA Present On Arrival: Poor Glycemic Control, Cath Associated UTI, Pressure Ulcer - Clinical Impression Clinical Impression: Dementia, UTI (urinary tract infection), Leucocytosis, GI bleed, Sepsis Decision To Admit - Pt Status Changed To: Hospital Disposition Of: Inpatient - Admit Certification Admit to Inpatient:: After my assessment, the patient will require hospitalization for at least two midnights. This is because of the severity of symptoms shown, intensity of services needed, and/or the medical risk in this patient being treated as an outpatient. - InPatient: Physician Admission Certification: I certify that this patient requires 2 or more midnights of care for the following reason:: After my assessment, the patient will require hospitalization for at least two midnights. This is because of the severity of symptoms shown, intensity of services needed, and/or the medical risk in this patient being treated as an outpatient. - . Bed Request Type: Regular Admitting Physician: Billie Alcantar Patient Diagnosis: Dementia, UTI (urinary tract infection), Leucocytosis, GI bleed, Sepsis
[2016-09-10 01:57] VITALS: BMI 16.6
[2016-09-10] MEDS ORDERED: Pantoprazole 80 MG in Sodium Chloride 0.9% 100 ML IV STA (01:57)
[2016-09-10] MEDS ORDERED: Sodium Chloride 0.9% 1,000 ML IV ONE ×2 (01:57→04:49)
[2016-09-10] MEDS ORDERED: Sodium Chloride 0.9% 1,000 ML ONE (02:37)
[2016-09-10] MEDS ORDERED: Sodium Chloride 0.9% 100 ML ONE (02:38)
[2016-09-10 02:39] LABS: BASO % 0.1 % (0.0-2.0); EOS % 0.1 % (0.0-4.0); HEMATOCRIT 42.3 % (34.0-47.0); LYMPH # 0.7 K/uL (1.0-4.3); LYMPH % 2.3 % (20.0-40.0); MEAN CELL VOLUME 95.2 fL (81.0-99.0); MEAN CORPUSCULAR HEMOGLOBIN 31.1 pg (27.0-31.0); MEAN CORPUSCULAR HGB CONC 32.7 g/dL (33.0-37.0); MEAN PLATELET VOLUME 7.8 fL (7.2-11.7); MONO # 1.1 K/uL (0.0-0.8); PLATELET COUNT 366 K/uL (130-400); RED CELL DISTRIBUTION WIDTH 19.6 % (11.5-14.5); WHITE BLOOD COUNT 28.5 K/uL (4.8-10.8)
[2016-09-10 02:47] LABS: INR 1.1
[2016-09-10 02:48] LABS: POTASSIUM 4.2 mmol/L (3.6-5.2)
[2016-09-10 02:50] LABS: ALB/GLOB RATIO 0.9 (1.0-2.1); BILIRUBIN,TOTAL 0.9 mg/dL (0.2-1.3); TOTAL PROTEIN 7.2 g/dL (6.3-8.3)
[2016-09-10 02:51] LABS: CALCIUM 8.9 mg/dl (8.6-10.4)
[2016-09-10] MEDS ORDERED: Piperacillin/Tazobact 3.375 gm 100 ML IVPB STA (03:00)
[2016-09-10 03:07] LABS: RBC URINE 15 /hpf (0-3); URINE BILIRUBIN NEGATIVE (NEGATIVE); URINE BLOOD NEGATIVE (NEGATIVE); URINE COLOR Colorless (YELLOW); URINE GLUCOSE (UA) NORMAL (Normal); URINE KETONE NEGATIVE (NEGATIVE); URINE LEUKOCYTE ESTERASE NEG Leu/uL (Negative); URINE PROTEIN NEGATIVE (NEGATIVE); URINE UROBILINOGEN NORMAL mg/dL (0.2-1.0); WBC URINE 2 /hpf (0-5)
[2016-09-10] MEDS ORDERED: Piperacillin/Tazobact 3.375 gm 100 ML IVPB ONE ×2 (03:25→09:22)
[2016-09-10 03:52] LABS: VENOUS BLOOD GAS BASE EXCESS -3.2 mmol/L (0.0-2.0); VENOUS BLOOD GAS PCO2 27 mmHg (40-60); VENOUS BLOOD PH 7.46 (7.32-7.43)
[2016-09-10 04:03] LABS: NEUTROPHIL 77 % (50-75); TOTAL CELLS COUNTED 100
[2016-09-10 04:47] LABS: RBC URINE 473 /hpf (0-3); URINE BILIRUBIN NEGATIVE (NEGATIVE); URINE BLOOD 2+ (NEGATIVE); URINE COLOR Yellow (YELLOW); URINE GLUCOSE (UA) NORMAL (Normal); URINE KETONE NEGATIVE (NEGATIVE); URINE LEUKOCYTE ESTERASE 2+ Leu/uL (Negative); URINE PROTEIN 3+ mg/dL (NEGATIVE); URINE UROBILINOGEN NORMAL mg/dL (0.2-1.0); WBC CLUMPS MANY /hpf; WBC URINE 346 /hpf (0-5)
[2016-09-10] MEDS: Sodium Chloride 0.9% 1,000 ML IV SCH ×2 (05:46→19:13)
--- NOTE | 2016-09-10 07:23 | RAD ---
PROCEDURE: CHEST RADIOGRAPH, 1 VIEW HISTORY: GI Bleeding COMPARISON: 08/06/2016 FINDINGS: LUNGS: Focal ill-defined masslike consolidation projecting over the right lung apex. Diffuse increased interstitial lung markings. Right hilar markings. Atelectatic changes in a somewhat linear consolidation in the left mid and right lower lung zone. Biapical pleural thickening with upper lobe granulomatous changes. PLEURA: No pneumothorax or pleural fluid seen. CARDIOVASCULAR: Tortuous ectatic aorta. OSSEOUS STRUCTURES: No significant abnormalities. VISUALIZED UPPER ABDOMEN: Normal. OTHER FINDINGS: None. IMPRESSION: Focal ill-defined masslike consolidation projecting over the right lung apex. Diffuse increased interstitial lung markings. Right hilar markings. Atelectatic changes in a somewhat linear consolidation in the left mid and right lower lung zone. Biapical pleural thickening with upper lobe granulomatous changes.
[2016-09-10] MEDS: Piperacill/Tazo 3.375gm in Dex 3.375 GM/50 ML BAG IVPB SCH ×3 (09:28→20:33)
[2016-09-10] MEDS ORDERED: Ciprofloxacin 400mg/200ml D5W 400 MG/200 ML BAG IVPB ONE (09:32)
[2016-09-10] MEDS: Ciprofloxacin 400mg/200ml D5W 400 MG/200 ML BAG IVPB SCH (09:56)
--- NOTE | 2016-09-10 10:06 | CT ---
PROCEDURE: CT Abdomen and Pelvis without intravenous contrast HISTORY: Abdominal pain. COMPARISON: None available. TECHNIQUE: Multiple contiguous axial images were performed through the abdomen and pelvis without intravenous contrast. Subsequently, sagittal and coronal reformatted images were obtained.. Radiation dose: Total exam DLP = 224 mGy-cm. This CT exam was performed using one or more of the following dose reduction techniques: Automated exposure control, adjustment of the mA and/or kV according to patient size, and/or use of iterative reconstruction technique. FINDINGS: LOWER THORAX: Bibasilar consolidations; right greater than left. LIVER: Unremarkable. No gross lesion or ductal dilatation. GALLBLADDER AND BILE DUCTS: Unremarkable. PANCREAS: Limited evaluation without contrast. SPLEEN: Diminutive spleen. ADRENALS: Nodularity of the adrenals. KIDNEYS AND URETERS: Moderate right-sided hydroureteronephrosis without an obstructing calculus identified. VASCULATURE: Calcific atherosclerosis disease of the aorta. BOWEL: Percutaneous gastrostomy noted with extensive air in the stomach with an associated air-fluid level. Increased attenuation within the distal sigmoid and rectum suggesting prior oral contrast. Underdistention and or thickening of the descending and sigmoid colon. APPENDIX: Appendix not definitively visualized. No pericecal inflammatory changes identified to suggest acute appendicitis. PERITONEUM: As above. LYMPH NODES: Limited evaluation without contrast. BLADDER: Moderately distended urinary bladder with increased attenuation along the base of the bladder extending into the right of midline. REPRODUCTIVE: Atrophic uterus. Calcified uterine fibroid lesions. BONES: Grade 1 anterolisthesis of L4 on L5. OTHER FINDINGS: None. IMPRESSION: Markedly limited study without contrast. Repeat study with contrast is recommended if clinically indicated. Moderate distention of the urinary bladder with abnormal attenuation along its base and to the right of midline for which direct visualization is recommended. Moderate right-sided hydroureteronephrosis without obstructing calculus identified. Underdistention and or thickening of the descending and sigmoid colon. Clinical correlation. Calcified fibroid uterus. Additional findings as above. These findings were preliminarily reported at 4:05 a.m. on 09/10/[address] Kathryn Francois from [id number].
--- NOTE | 2016-09-10 13:02 | CP.PCM.HP ---
History of Present Illness - History of Present Illness History of Present Illness: Patient with PMH of Severe Alzheimer Dementia, Pulmonary Mass, Sacral Decubitus was in NH - trasnferred to the hiospital due to coffe ground emesis, in ER< found to habe positive FOB, positive urine and patient was admitted for further management PMH as above history of acute dementia lung mass uterine fibroid cholesterol lost of desire to eat- had PEG failure to thrive Present on Admission - Present on Admission Any Indicators Present on Admission: Yes Urinary Catheter: Yes Decubitus Ulcer Present: Yes Decubitus Ulcer Stage: III Review of Systems - Constitutional Constitutional: Other (patient does not answer question- has flat affect, non conversant , , history is limited from staff notes ) - EENT Eyes: absent: Discharge Nose/Mouth/Throat: absent: Epistaxis, Neck Mass - Breasts Breasts: absent: Nipple Discharge, Swelling - Cardiovascular Cardiovascular: absent: Diaphoresis, Rapid Heart Rate - Respiratory Respiratory: absent: Cough - Gastrointestinal Gastrointestinal: Melena. absent: Vomiting - Menstruation Menstruation: Post Menopausal - Musculoskeletal Musculoskeletal: Other (bedridden, non ambulatory ) - Integumentary Integumentary: Sores (sacral ulcer) - Neurological Neurological: absent: Convulsions - Psychiatric Psychiatric: Other (flat affect ) Past Patient History - Infectious Disease Hx of Infectious Diseases: None - Past Medical History & Family History Past Medical History?: Yes - Past Social History Smoking Status: Never Smoked - CARDIAC Hx Hypercholesterolemia: Yes - PULMONARY Hx Respiratory Disorders: No - NEUROLOGICAL Hx Alzheimer's Disease: Yes Hx Dementia: Yes - HEENT Hx HEENT Problems: No - RENAL Hx Chronic Kidney Disease: No - ENDOCRINE/METABOLIC Hx Endocrine Disorders: No - HEMATOLOGICAL/ONCOLOGICAL Hx Anemia: Yes - INTEGUMENTARY Hx Dermatological Problems: No - MUSCULOSKELETAL/RHEUMATOLOGICAL Hx Arthritis: Yes - GASTROINTESTINAL Hx Gastritis: Yes - GENITOURINARY/GYNECOLOGICAL Hx Genitourinary Disorders: Yes Hx Incontinence: Yes - PSYCHIATRIC Hx Substance Use: No - SURGICAL HISTORY Hx Surgeries: Yes Hx Section: Yes Hx Tubal Ligation: Yes Other/Comment: Peg tube placement 2017 - ANESTHESIA Hx Anesthesia: Yes Hx Anesthesia Reactions: No Hx Malignant Hyperthermia: No Meds Allergies/Adverse Reactions: Allergies Allergy/AdvReac Type Severity Reaction Status Date / Time No Known Allergies Allergy Verified 09/10/16 02:21 Physical Exam - Constitutional Appears: No Acute Distress (is quiet flat affect non conversant does not follow commands,has spontaneoues eye opening , turns head ) - Head Exam Head Exam: ATRAUMATIC, NORMOCEPHALIC - Eye Exam Eye Exam: Normal appearance. absent: Nystagmus - ENT Exam ENT Exam: Mucous Membranes Dry - Neck Exam Neck exam: Positive for: Full Rom. Negative for: Meningismus - Respiratory Exam Respiratory Exam: Decreased Breath Sounds, Rhonchi, NORMAL BREATHING PATTERN - Cardiovascular Exam Cardiovascular Exam: REGULAR RHYTHM - GI/Abdominal Exam GI & Abdominal Exam: Normal Bowel Sounds, Soft. absent: Tenderness - Extremities Exam Extremities exam: Negative for: pedal edema, tenderness - Back Exam Back exam: rash noted (sacral ulcer stage 3 ) - Neurological Exam Neurological exam: Altered - Psychiatric Exam Psychiatric exam: Flat Affect - Skin Skin Exam: Intact (other christel the sacral ulcer ), Normal Color Results - Vital Signs Recent Vital Signs: Last Vital Signs Temp 99.6 F 09/10/16 09:35 Pulse 94 H 09/10/16 09:35 Resp 18 09/10/16 09:35 BP 110/64 09/10/16 09:35 Pulse Ox 97 09/10/16 09:35 - Labs Result Diagrams: 09/10/16 02:36 09/10/16 02:36 Assessment & Plan - Assessment and Plan (Free Text) Assessment: Patient with Alheimer Dementia, PUD with history of bleeding , Lung mass with no further evaluation - due to patients age condition , with altered mental status- was in NH and transferred due to GIB- with hiso]tory of Gastric ulcer and bleeding - will start IV ppi, Dehydration- IVF, abnormal urine , elevated wbc-, abnromal lung sounds and xray (mass) and ct abdomen (hydronephrosis, fibroitc uterus ) - Septic conditon- IVF antibiotic, assurance, keep patient comfortable, condition guarded poor prognosis referral to hospice family aware
--- NOTE | 2016-09-10 17:46 | CP.PCM.CON ---
History of Present Illness - History of Present Illness History of Present Illness: This is an 81 year old woman who was transferred from [place] for coffee grounds jeanmarie Patient does not answer questions and history is obtained from the chart. Patient was previously evaluated in May for melena; EGD 06/03/2016 showed three ulcers up to 2.5 cm. She was reevaluated in July for rectal bleeding and swallowing difficulty. Colonoscopy 08/03/2016 showed diverticulosis and a colon polyp. EGD showed a hiatal hernia and esophagitis; a 20 Fr PEG tube was placed during the procedure. [facility] coffee grounds emesis. Evaluation in the ER found low BP 93/59, temperature 99.6, leukocytosis with a left shift (28,500), and renal insufficiency (BUN 67 and CR 1.2). CT scan showed right hydroureteronephrosis, distended urinary bladder, G tube in the stomach. A stool for occult blood was positive. Review of Systems - Review of Systems Systems not reviewed;Unavailable: Altered Mental Status Past Patient History - Infectious Disease Hx of Infectious Diseases: None - Past Medical History & Family History Past Medical History?: Yes - Past Social History Smoking Status: Never Smoked - CARDIAC Hx Hypercholesterolemia: Yes - PULMONARY Hx Respiratory Disorders: No - NEUROLOGICAL Hx Alzheimer's Disease: Yes Hx Dementia: Yes - HEENT Hx HEENT Problems: No - RENAL Hx Chronic Kidney Disease: No - ENDOCRINE/METABOLIC Hx Endocrine Disorders: No - HEMATOLOGICAL/ONCOLOGICAL Hx Anemia: Yes - INTEGUMENTARY Hx Dermatological Problems: No - MUSCULOSKELETAL/RHEUMATOLOGICAL Hx Arthritis: Yes - GASTROINTESTINAL Hx Gastritis: Yes - GENITOURINARY/GYNECOLOGICAL Hx Genitourinary Disorders: Yes Hx Incontinence: Yes - PSYCHIATRIC Hx Substance Use: No - SURGICAL HISTORY Hx Surgeries: Yes Hx Section: Yes Hx Tubal Ligation: Yes Other/Comment: Peg tube placement 2017 - ANESTHESIA Hx Anesthesia: Yes Hx Anesthesia Reactions: No Hx Malignant Hyperthermia: No Meds Allergies/Adverse Reactions: Allergies Allergy/AdvReac Type Severity Reaction Status Date / Time No Known Allergies Allergy Verified 09/10/16 16:27 - Medications Medications: Current Medications Vancomycin HCl (Vancomycin 1gm In Normal Saline Addvantage) 250 mls @ 166.667 mls/hr IVPB STAT [facility] Ciprofloxacin (Cipro 400mg/200ml Dsw) 400 mg in 200 mls @ 133 mls/hr IVPB DAILY [facility] Last Admin: 05/21/17 09:56 Dose: 133 mls/hr Piperacillin Sod/Tazobactam Sod (Zosyn 3.375 Gm Iv Premix) 3.375 gm in 50 mls @ 100 mls/hr IVPB Q6H [facility] Last Admin: 09/10/16 15:56 Dose: 100 mls/hr Sodium Chloride (Sodium Chloride 0.9%) 1,000 mls @ 80 mls/hr IV .[id number] [facility] Last Admin: 09/10/16 05:46 Dose: Not Given Pantoprazole Sodium (Protonix Inj) 40 mg IVP DAILY [facility] Last Admin: 09/10/16 09:29 Dose: 40 mg Physical Exam - Constitutional Additional comments: Lethargic - Head Exam Head Exam: ATRAUMATIC, NORMOCEPHALIC - Neck Exam Neck exam: Negative for: Lymphadenopathy, Thyromegaly - Respiratory Exam Respiratory Exam: NORMAL BREATHING PATTERN. absent: Rales, Rhonchi, Wheezes - Cardiovascular Exam Cardiovascular Exam: REGULAR RHYTHM, +S1, +S2. absent: Gallop, Rubs, Systolic Murmur - GI/Abdominal Exam GI & Abdominal Exam: Normal Bowel Sounds, Soft. absent: Organomegaly, Tenderness Additional comments: G tube i nepigastrium - Rectal Exam Rectal Exam: Deferred - Extremities Exam Extremities exam: Negative for: calf tenderness, pedal edema Results - Vital Signs Recent Vital Signs: Last Vital Signs Temp 98.3 F 09/10/16 15:00 Pulse 91 H 09/10/16 15:00 Resp 20 09/10/16 15:00 BP 122/76 09/10/16 15:00 Pulse Ox 97 09/10/16 15:00 - Labs Result Diagrams: 09/10/16 02:36 09/10/16 02:36 Assessment & Plan (1) GI bleed Assessment and Plan: Patient had coffee grounds emesis in the NH, and stool for occult blood was positive. She has a history of gastric ulcers. Will follow CBC and consider EGD. Status: Acute
[2016-09-11] MEDS: Piperacill/Tazo 3.375gm in Dex 3.375 GM/50 ML BAG IVPB SCH ×4 (03:30→21:47)
[2016-09-11] MEDS: Sodium Chloride 0.9% 1,000 ML IV SCH ×3 (05:36→21:45)
[2016-09-11] MEDS: Ciprofloxacin 400mg/200ml D5W 400 MG/200 ML BAG IVPB SCH (09:05)
[2016-09-11] MEDS: Vitamins A & D Oint UD Foilpak TOP SCH ×2 (11:40→18:46)
--- NOTE | 2016-09-11 14:05 | CARD ---
APPROVED REPORT EKG Measurement Heart [id number] <Conclusion> Sinus tachycardia Left axis deviation Inferior infarct, age undetermined Possible Anterolateral infarct, age undetermined Abnormal ECG
--- NOTE | 2016-09-11 15:53 | CP.PCM.PN ---
Subjective - Date & Time of Evaluation Date of Evaluation: 09/11/16 Time of Evaluation: 15:50 - Subjective Subjective: CC: Coffee ground emesis Patient nonverbal. No labs available today. No reported vomiting or GI bleeding. Hospice evaluation requested On IV bolus Protonix Objective - Vital Signs/Intake and Output Vital Signs (last 24 hours): Temp Pulse Resp BP Pulse Ox 98.3 F 86 20 132/74 98 09/11/16 07:42 09/11/16 07:42 09/11/16 07:42 09/11/16 07:42 09/11/16 07:42 Intake and Output: 09/11/16 09/11/16 06:59 18:59 Intake Total 640 640 Output Total 200 700 Balance 440 -60 - Medications Medications: Current Medications Vancomycin HCl (Vancomycin 1gm In Normal Saline Addvantage) 250 mls @ 166.667 mls/hr IVPB [facility] Ciprofloxacin (Cipro 400mg/200ml Dsw) 400 mg in 200 mls @ 133 mls/hr IVPB DAILY [facility] Last Admin: 09/11/16 09:05 Dose: 133 mls/hr Piperacillin Sod/Tazobactam Sod (Zosyn 3.375 Gm Iv Premix) 3.375 gm in 50 mls @ 100 mls/hr IVPB Q6H [facility] Last Admin: 09/11/16 10:36 Dose: 100 mls/hr Sodium Chloride (Sodium Chloride 0.9%) 1,000 mls @ 80 mls/hr IV .[id number] [facility] Last Admin: 09/11/16 09:07 Dose: Not Given Pantoprazole Sodium (Protonix Inj) 40 mg IVP DAILY [facility] Last Admin: 09/11/16 09:05 Dose: 40 mg Vitamin A (Vitamin A & D Oint Ud Foilpak) 1 ea TOP BID [facility] Last Admin: 09/11/16 11:40 Dose: Not Given - Labs Labs: PT 12.2 SECONDS (9.7-12.2) 09/10/16 02:36 INR 1.1 09/10/16 02:36 APTT 24 SECONDS (21-34) 09/10/16 02:36 - Constitutional Appears: Chronically Ill - Head Exam Head Exam: NORMOCEPHALIC - Cardiovascular Exam Cardiovascular Exam: REGULAR RHYTHM - GI/Abdominal Exam GI & Abdominal Exam: Soft. absent: Distended (GTube in place), Tenderness, Mass Assessment and Plan (1) GI bleed Assessment & Plan: Coffee ground emesis in NH. No further episodes in hospital. Most recent EGD last month showed gastritis, prior ulcers no longer present Rec: cryptographer Protonix. Advance feeds via GT as tolerated. Would not treat aggressively at this point. Hospice seems appropriate. Status: Acute (2) UTI (urinary tract infection) Assessment & Plan: Gram neg rods and WBC 28K on admission. On antibiotics. Watch for CDiff. Status: Acute (3) Gastrostomy status Assessment & Plan: PEG last month CT shows gastric distension May try slow feeds via tube under close observation Status: Acute
--- NOTE | 2016-09-11 17:00 | CP.PCM.PN ---
Subjective - Date & Time of Evaluation Date of Evaluation: 09/11/16 Time of Evaluation: 08:30 - Subjective Subjective: Patient seen, in bed non verbal, quiet, alteredmemory function, family by bedside, d iscussion of conditon, CT finding , Objective - Vital Signs/Intake and Output Vital Signs (last 24 hours): Temp Pulse Resp BP Pulse Ox 98.3 F 86 20 132/74 98 09/11/16 07:42 09/11/16 07:42 09/11/16 07:42 09/11/16 07:42 09/11/16 07:42 Intake and Output: 09/11/16 09/11/16 06:59 18:59 Intake Total 640 1540 Output Total 200 1500 Balance 440 40 - Medications Medications: Current Medications Vancomycin HCl (Vancomycin 1gm In Normal Saline Addvantage) 250 mls @ 166.667 mls/hr IVPB STAT [facility] Ciprofloxacin (Cipro 400mg/200ml Dsw) 400 mg in 200 mls @ 133 mls/hr IVPB DAILY [facility] Last Admin: 09/11/16 09:05 Dose: 133 mls/hr Piperacillin Sod/Tazobactam Sod (Zosyn 3.375 Gm Iv Premix) 3.375 gm in 50 mls @ 100 mls/hr IVPB Q6H [facility] Last Admin: 09/11/16 15:51 Dose: 100 mls/hr Sodium Chloride (Sodium Chloride 0.9%) 1,000 mls @ 80 mls/hr IV .[id number] [facility] Last Admin: 09/11/16 09:07 Dose: Not Given Pantoprazole Sodium (Protonix Inj) 40 mg IVP DAILY [facility] Last Admin: 09/11/16 09:05 Dose: 40 mg Vitamin A (Vitamin A & D Oint Ud Foilpak) 1 ea TOP BID [facility] Last Admin: 09/11/16 11:40 Dose: Not Given - Labs Labs: PT 12.2 SECONDS (9.7-12.2) 09/10/16 02:36 INR 1.1 09/10/16 02:36 APTT 24 SECONDS (21-34) 09/10/16 02:36 - Constitutional Appears: No Acute Distress (quiet, non verbal, no orientation does not follow command) - Head Exam Head Exam: ATRAUMATIC, NORMOCEPHALIC - Eye Exam Eye Exam: absent: Nystagmus - ENT Exam ENT Exam: Mucous Membranes Dry - Respiratory Exam Respiratory Exam: Decreased Breath Sounds, Rhonchi, NORMAL BREATHING PATTERN - Cardiovascular Exam Cardiovascular Exam: REGULAR RHYTHM - GI/Abdominal Exam GI & Abdominal Exam: Soft. absent: Tenderness - Extremities Exam Extremities Exam: absent: Joint Swelling, Pedal Edema - Back Exam Back Exam: rash noted (sacral atge 3 ulcer ) - Neurological Exam Neurological Exam: Altered, Awake - Psychiatric Exam Psychiatric exam: Flat Affect - Skin Skin Exam: Normal Color Assessment and Plan - Assessment and Plan (Free Text) Assessment: Patient with Severe Dementia,bed ridden, on Greenberg on PEG admitted for Sepsis- UTI-possible aspiration pneumonia- on antibiotic, No eating reflexes on PEG -with history of GIB - noted GI notes. Sacral Decubitus atage [address] /hydronephrosi,Lung mass- with no plan of further eval and managment as decided by family, poor prognosis hospice care
[2016-09-12] MEDS: Piperacill/Tazo 3.375gm in Dex 3.375 GM/50 ML BAG IVPB SCH ×3 (03:59→14:30)
[2016-09-12] MEDS: Vitamins A & D Oint UD Foilpak TOP SCH ×2 (10:21→17:32)
[2016-09-12] MEDS: Sodium Chloride 0.9% 1,000 ML IV SCH (10:21)
[2016-09-12] MEDS: Ciprofloxacin 400mg/200ml D5W 400 MG/200 ML BAG IVPB SCH (10:21)
--- NOTE | 2016-09-12 11:52 | CP.PCM.PN ---
Subjective - Date & Time of Evaluation Date of Evaluation: 09/12/16 Time of Evaluation: 01:00 - Subjective Subjective: patient seen, quiet in bed, no acute distress, had been receiving antibiotic and IVF , PEG to be used- was NPO due to vomiting and episode of GIB- but has no active bleeding and vomiting since then discussion of Hospice but has financial issues patient is stable - discussed to transfer back to [place] Objective - Vital Signs/Intake and Output Vital Signs (last 24 hours): Temp Pulse Resp BP Pulse Ox 97.9 F 73 20 122/65 97 09/12/16 07:28 09/12/16 07:28 09/12/16 07:28 09/12/16 07:28 09/12/16 07:28 Intake and Output: 09/12/16 09/12/16 06:59 18:59 Intake Total 740 Output Total 1250 Balance -510 - Medications Medications: Current Medications Vancomycin HCl (Vancomycin 1gm In Normal Saline Addvantage) 250 mls @ 166.667 mls/hr IVPB STAT [facility] Ciprofloxacin (Cipro 400mg/200ml Dsw) 400 mg in 200 mls @ 133 mls/hr IVPB DAILY [facility] Last Admin: 09/12/16 10:21 Dose: 133 mls/hr Piperacillin Sod/Tazobactam Sod (Zosyn 3.375 Gm Iv Premix) 3.375 gm in 50 mls @ 100 mls/hr IVPB Q6H [facility] Last Admin: 09/12/16 10:23 Dose: 100 mls/hr Sodium Chloride (Sodium Chloride 0.9%) 1,000 mls @ 80 mls/hr IV .[id number] [facility] Last Admin: 09/12/16 10:21 Dose: Not Given Pantoprazole Sodium (Protonix Inj) 40 mg IVP DAILY [facility] Last Admin: 09/12/16 10:21 Dose: 40 mg Vitamin A (Vitamin A & D Oint Ud Foilpak) 1 ea TOP BID [facility] Last Admin: 09/12/16 10:21 Dose: 1 ea - Labs Labs: PT 12.2 SECONDS (9.7-12.2) 09/10/16 02:36 INR 1.1 09/10/16 02:36 APTT 24 SECONDS (21-34) 09/10/16 02:36 - Constitutional Appears: Chronically Ill, Other (quiet, non verbal no orientation does not follow command looks cachectic) - Eye Exam Eye Exam: absent: Nystagmus - ENT Exam ENT Exam: Mucous Membranes Dry - Respiratory Exam Respiratory Exam: Decreased Breath Sounds, NORMAL BREATHING PATTERN. absent: Respiratory Distress - Cardiovascular Exam Cardiovascular Exam: REGULAR RHYTHM - Back Exam Back Exam: rash noted (ulcer stage 3) - Neurological Exam Neurological Exam: Altered - Psychiatric Exam Psychiatric exam: Flat Affect - Skin Skin Exam: Normal Color Assessment and Plan - Assessment and Plan (Free Text) Assessment: Patient with severe dementia- with AMS - on peg for feeding tolerating dehydration- to continue IVF -UTI/possible aspiration pneumonia- sepsis-on antibiotic protonix to continue current treatment stable, may tranfer back to NH- discussd with staff and family
[2016-09-12 16:07] VITALS: BP 132/69; PULSE 60; RESP 18; TEMP 97.6; O2SAT 100
--- NOTE | 2016-09-12 17:33 | CP.PCM.PN ---
Subjective - Date & Time of Evaluation Date of Evaluation: 09/12/16 Time of Evaluation: 17:20 - Subjective Subjective: F/U GI bleed No Rb, melena, hematemesis, abdom pain, fever, chills, CP, SOB, hematuria, hemoptysis Aid is present Objective - Vital Signs/Intake and Output Vital Signs (last 24 hours): Temp Pulse Resp BP Pulse Ox 97.6 F 60 18 132/69 100 09/12/16 15:05 09/12/16 15:05 09/12/16 15:05 09/12/16 15:05 09/12/16 15:05 Intake and Output: 09/12/16 09/12/16 06:59 18:59 Intake Total 740 780 Output Total 1250 900 Balance -510 -120 - Medications Medications: Current Medications Vancomycin HCl (Vancomycin 1gm In Normal Saline Addvantage) 250 mls @ 166.667 mls/hr IVPB STAT [facility] Ciprofloxacin (Cipro 400mg/200ml Dsw) 400 mg in 200 mls @ 133 mls/hr IVPB DAILY [facility] Last Admin: 09/12/16 10:21 Dose: 133 mls/hr Piperacillin Sod/Tazobactam Sod (Zosyn 3.375 Gm Iv Premix) 3.375 gm in 50 mls @ 100 mls/hr IVPB Q6H [facility] Last Admin: 09/12/16 14:30 Dose: 100 mls/hr Sodium Chloride (Sodium Chloride 0.9%) 1,000 mls @ 80 mls/hr IV .[id number] [facility] Last Admin: 09/12/16 10:21 Dose: Not Given Pantoprazole Sodium (Protonix Inj) 40 mg IVP DAILY [facility] Last Admin: 09/12/16 10:21 Dose: 40 mg Vitamin A (Vitamin A & D Oint Ud Foilpak) 1 ea TOP BID [facility] Last Admin: 09/12/16 10:21 Dose: 1 ea - Labs Labs: PT 12.2 SECONDS (9.7-12.2) 09/10/16 02:36 INR 1.1 09/10/16 02:36 APTT 24 SECONDS (21-34) 09/10/16 02:36 - Constitutional Appears: Well, Non-toxic - Eye Exam Eye Exam: absent: Scleral icterus - Respiratory Exam Respiratory Exam: Clear to Ausculation Bilateral - Cardiovascular Exam Cardiovascular Exam: RRR - GI/Abdominal Exam GI & Abdominal Exam: Soft, Normal Bowel Sounds. absent: Tenderness Additional comments: PEG clear - Extremities Exam Extremities Exam: absent: Calf Tenderness - Neurological Exam Neurological Exam: absent: Oriented x3 Additional comments: responds to stimuli Assessment and Plan (1) Dementia Status: Acute (2) GI bleed Assessment & Plan: s/p coffee grounds. No signs of bleeding.Had recent PEG, EGD, colonoscopy. Check Hb Status: Acute (3) Leucocytosis Status: Acute (4) Anemia Status: Acute (5) Dysphagia Status: Acute
--- NOTE | 2016-09-12 21:07 | CP.PCM.DIS ---
Provider - Provider Date of Admission: 09/10/16 05:05 Attending physician: Billie Alcantar MD Time Spent in preparation of Discharge (in minutes): 30 Hospital Course - Lab Results Lab Results: Micro Results 09/10/16 08:00 Urine Urine Culture - Final Gram Negative David Most Recent Lab Values WBC 28.5 K/uL (4.8-10.8) H D 09/10/16 02:36 RBC 4.44 Mil/uL (3.80-5.20) 09/10/16 02:36 Hgb 13.8 g/dL (11.0-16.0) D 09/10/16 02:36 Hct 42.3 % (34.0-47.0) 09/10/16 02:36 MCV 95.2 fL (81.0-99.0) D 09/10/16 02:36 MCH 31.1 pg (27.0-31.0) H 09/10/16 02:36 MCHC 32.7 g/dL (33.0-37.0) L 09/10/16 02:36 RDW 19.6 % (11.5-14.5) H 09/10/16 02:36 Plt Count 366 K/uL (130-400) D 09/10/16 02:36 MPV 7.8 fL (7.2-11.7) 09/10/16 02:36 Neut % (Auto) 93.5 % (50.0-75.0) H 09/10/16 02:36 Lymph % (Auto) 2.3 % (20.0-40.0) L 09/10/16 02:36 [place] % (Auto) 4.0 % (0.0-10.0) 09/10/16 02:36 Eos % (Auto) 0.1 % (0.0-4.0) 09/10/16 02:36 Baso % (Auto) 0.1 % (0.0-2.0) 09/10/16 02:36 Neut # 26.6 K/uL (1.8-7.0) H 09/10/16 02:36 Lymph # 0.7 K/uL (1.0-4.3) L 09/10/16 02:36 [place] # 1.1 K/uL (0.0-0.8) H 09/10/16 02:36 Eos # 0.0 K/uL (0.0-0.7) 09/10/16 02:36 Baso # 0.0 K/uL (0.0-0.2) 09/10/16 02:36 Neutrophils % (Manual) 77 % (50-75) H 09/10/16 02:36 Band Neutrophils % 15 % (0-2) H* 09/10/16 02:36 Lymphocytes % (Manual) 3 % (20-40) L 09/10/16 02:36 Monocytes % (Manual) 5 % (0-10) 09/10/16 02:36 Platelet Estimate Normal (NORMAL) 09/10/16 02:36 PT 12.2 SECONDS (9.7-12.2) 09/10/16 02:36 INR 1.1 09/10/16 02:36 APTT 24 SECONDS (21-34) 09/10/16 02:36 pO2 36 mm/Hg (30-55) 09/10/16 03:48 VBG pH 7.46 (7.32-7.43) H 09/10/16 03:48 VBG pCO2 27 mmHg (40-60) L 09/10/16 03:48 VBG HCO3 21.8 mmol/L 09/10/16 03:48 VBG Total CO2 20.0 mmol/L (22-28) L 09/10/16 03:48 VBG O2 Sat (Calc) 84.3 % (40-65) H 09/10/16 03:48 VBG Base Excess -3.2 mmol/L (0.0-2.0) L 09/10/16 03:48 VBG Potassium 3.2 mmol/L (3.6-5.2) L 09/10/16 03:48 Sodium 142.0 mmol/l (132-148) 09/10/16 03:48 Chloride 114.0 mmol/L (98-107) H 09/10/16 03:48 Glucose 76 mg/dl (65-105) 09/10/16 03:48 Lactate 3.3 mmol/L (0.7-2.1) H 09/10/16 03:48 Crit Value Called To Dr lindsey 09/10/16 03:48 Crit Value Called By Sugey ramsey rt 09/10/16 03:48 Crit Value Read Back Y 09/10/16 03:48 Blood Gas Notified Time 354 09/10/16 03:48 Sodium 136 mmol/L (132-148) 09/10/16 02:36 Potassium 4.2 mmol/L (3.6-5.2) 09/10/16 02:36 Chloride 94 mmol/L (98-107) L 09/10/16 02:36 Carbon Dioxide 25 mmol/L (22-30) 09/10/16 02:36 Anion Gap 20 (10-20) 09/10/16 02:36 BUN 67 mg/dL (7-17) H 09/10/16 02:36 Creatinine 1.2 MG/DL (0.7-1.2) 09/10/16 02:36 Est GFR ( Amer) 52 09/10/16 02:36 Est GFR (Non-Af Amer) 43 09/10/16 02:36 Random Glucose 117 mg/dL (65-105) H 09/10/16 02:36 Calcium 8.9 mg/dl (8.6-10.4) 09/10/16 02:36 Total Bilirubin 0.9 mg/dL (0.2-1.3) 09/10/16 02:36 AST 34 U/L (14-36) 09/10/16 02:36 ALT 46 U/L (9-52) 09/10/16 02:36 Alkaline Phosphatase 123 U/L (38-126) 09/10/16 02:36 Total Protein 7.2 g/dL (6.3-8.3) 09/10/16 02:36 Albumin 3.4 g/dL (3.5-5.0) L D 09/10/16 02:36 Globulin 3.8 gm/dL (2.2-3.9) 09/10/16 02:36 Albumin/Globulin Ratio 0.9 (1.0-2.1) L 09/10/16 02:36 Venous Blood Potassium 3.2 mmol/L (3.6-5.2) L 09/10/16 03:48 Urine Color Yellow (YELLOW) 09/10/16 04:36 Urine Clarity Turbid (Clear) 09/10/16 04:36 Urine pH 8.0 (5.0-8.0) 09/10/16 04:36 Ur Specific [place] 1.015 (1.003-1.030) 09/10/16 04:36 Urine Protein 3+ mg/dL (NEGATIVE) H 09/10/16 04:36 Urine Glucose (UA) Normal mg/dL (Normal) 09/10/16 04:36 Urine Ketones Negative mg/dL (NEGATIVE) 09/10/16 04:36 Urine Blood 2+ (NEGATIVE) H 09/10/16 04:36 Urine Nitrate Negative (NEGATIVE) 09/10/16 04:36 Urine Bilirubin Negative (NEGATIVE) 09/10/16 04:36 Urine Urobilinogen Normal mg/dL (0.2-1.0) 09/10/16 04:36 Ur Leukocyte Esterase 2+ Jeri/uL (Negative) H 09/10/16 04:36 Urine WBC (Auto) 346 /hpf (0-5) H 09/10/16 04:36 Urine RBC (Auto) 473 /hpf (0-3) H 09/10/16 04:36 Urine WBC Clumps (Auto) Many /hpf (NONE) H 09/10/16 04:36 Stool Occult Blood Positive (NEGATIVE) H 09/10/16 02:38 Blood Type A NEGATIVE 09/10/16 02:36 Antibody Screen Negative 09/10/16 02:36 - Hospital Course Hospital Course: admitted for episopde of vomiting found to hab=ve UTI, possible aspiration oneumonia- patien was stabilized on antibiotic, ivf, and sent back to [place] . was not admitted to hospice due to financial issues Discharge Exam - Head Exam Head Exam: ATRAUMATIC, NORMOCEPHALIC - Eye Exam Eye Exam: absent: Nystagmus - ENT Exam ENT Exam: Mucous Membranes Dry - Respiratory Exam Respiratory Exam: Decreased Breath Sounds, Rhonchi, NORMAL BREATHING PATTERN - Cardiovascular Exam Cardiovascular Exam: REGULAR RHYTHM - GI/Abdominal Exam GI & Abdominal Exam: Normal Bowel Sounds, Soft - Neurological Exam Neurological exam: Altered - Psychiatric Exam Psychiatric exam: Flat Affect - Skin Skin Exam: Normal Color Discharge Plan - Discharge Medications Prescriptions: Ciprofloxacin Lactate/D5w [Ciprofloxacn-D5w 200 mg/100 ml] 400 mg IV DAILY #7 ml Piperacill/Tazo 3.375gm in Dex [Zosyn 3.375 Gm IV] 3.375 gm IVPB Q8H #20 bag - Follow Up Plan Condition: CRITICAL Disposition: REHAB FACILITY/REHAB UNIT Instructions: Ciprofloxacin (By injection), Piperacillin/Tazobactam (By injection), Gastrointestinal Bleeding (DC), Dehydration (DC), Urinary Tract Infection in Women (DC), Pressure Ulcer (DC) Referrals: iBllie Alcantar MD [Medical Doctor] -
== END 2016-09-12 17:55 | DRG 871 ==
LOC: C.ER 01:45 → C.9E 05:05 → C.3T 09:29
PROVIDERS: ADMIT Internal Medicine; ATTEND Internal Medicine
DX: A41.9 Sepsis, unspecified organism (principal); J69.0 Pneumonitis due to inhalation of food and vomit; L89.153 Pressure ulcer of sacral region, stage 3; N39.0 Urinary tract infection, site not specified; E86.0 Dehydration; F02.81 Dementia in other diseases classified elsewhere, unspecified severity, with behavioral disturbance; G30.9 Alzheimer's disease, unspecified; K92.1 Melena; R65.20 Severe sepsis without septic shock; E78.00 Pure hypercholesterolemia, unspecified; E78.5 Hyperlipidemia, unspecified; Z66 Do not resuscitate; Z93.1 Gastrostomy status; R62.7 Adult failure to thrive; Z74.01 Bed confinement status; D64.9 Anemia, unspecified

== ENCOUNTER 2016-10-02 07:15 | Inpatient (IN) | payer MEDICARE ==
[2016-10-02 07:20] VITALS: BMI 24.5
[2016-10-02] MEDS ORDERED: cefTRIAXone IV 1 gm in Dextros 50 ML IVPB STA (07:35)
[2016-10-02] MEDS ORDERED: cefTRIAXone IV 1 gm in Dextros 50 ML IVPB ONE (07:51)
[2016-10-02 07:55] LABS: VENOUS BLOOD GAS BASE EXCESS 9.7 mmol/L (0.0-2.0); VENOUS BLOOD GAS PCO2 45 mmHg (40-60); VENOUS BLOOD PH 7.49 (7.32-7.43)
[2016-10-02 07:57] LABS: INR 1.1
[2016-10-02] MEDS ORDERED: Sodium Chloride 0.9% 1,000 ML IV ONE ×3 (08:02→10:45)
[2016-10-02 08:03] LABS: BASO % 0.3 % (0.0-2.0); HEMATOCRIT 34.5 % (34.0-47.0); LYMPH # 0.5 K/uL (1.0-4.3); LYMPH % 4.1 % (20.0-40.0); MEAN CELL VOLUME 96.4 fL (81.0-99.0); MEAN CORPUSCULAR HEMOGLOBIN 31.7 pg (27.0-31.0); MEAN CORPUSCULAR HGB CONC 32.9 g/dL (33.0-37.0); MEAN PLATELET VOLUME 7.9 fL (7.2-11.7); MONO # 0.8 K/uL (0.0-0.8); MONO % 5.9 % (0.0-10.0); PLATELET COUNT 365 K/uL (130-400); RED CELL DISTRIBUTION WIDTH 18.5 % (11.5-14.5); WHITE BLOOD COUNT 13.1 K/uL (4.8-10.8)
[2016-10-02 08:25] LABS: RBC URINE 81 /hpf (0-3); URINE BACTERIA MANY (<OCC); URINE BILIRUBIN NEGATIVE (NEGATIVE); URINE BLOOD 1+ (NEGATIVE); URINE COLOR Amber (YELLOW); URINE GLUCOSE (UA) NORMAL (Normal); URINE KETONE NEGATIVE (NEGATIVE); URINE LEUKOCYTE ESTERASE 3+ Leu/uL (Negative); URINE PROTEIN 1+ mg/dL (NEGATIVE); URINE UROBILINOGEN NORMAL mg/dL (0.2-1.0); WBC CLUMPS MANY /hpf; WBC URINE 671 /hpf (0-5)
[2016-10-02 08:39] LABS: BASOPHIL 2 % (0-2); NEUTROPHIL 81 % (50-75); TOTAL CELLS COUNTED 100
--- NOTE | 2016-10-02 08:46 | C.PDOC ---
History Of Present Illness 81 yr old female sent in from [facility] via BLS, presents to the ER for tachycardia and fever. According to the [facility], patient woke up around 5am and was found to have chills and fever, was given Tylenol via peg tube. care home also report patient has UTI and sacral ulcer. No information can be obtained from the patient due to clinical condition- pt non verbal and bed ridden at baseline. Time Seen by Provider: 10/02/16 07:25 Chief Complaint (Nursing): Fever History Per: Other (care home) History/Exam Limitations: no limitations Onset/Duration Of Symptoms: Hrs (5am ) Past Medical History Reviewed: Historical Data, Nursing Documentation, Vital Signs Vital Signs: Last Vital Signs Temp 99 F 10/02/16 09:00 Pulse 94 H 10/02/16 10:00 Resp 23 10/02/16 10:00 BP 115/68 10/02/16 10:00 Pulse Ox 97 10/02/16 10:28 - Medical History PMH: Alzheimer's Disease, Anemia, Arthritis, Dementia, Gastritis, Hypercholesterolemia, Hyperlipidemia - [facility] Procedures CHANGE FEEDING DEVICE IN UP INTEST TRACT, BUSINESS LAW PROFESSOR APPROACH (07/25/16) EXCISION OF STOMACH, ENDO, DIAGN (05/31/16) INSPECTION OF LOWER INTESTINAL TRACT, ENDO (07/25/16) INSPECTION OF UPPER INTESTINAL TRACT, ENDO (07/25/16) TRANSFUSE NONAUT RED BLOOD CELLS IN PERIPH ART, PERC (07/25/16) Family History: States: No Known Family Hx - Social History Hx Tobacco Use: No Hx Alcohol Use: No Hx Substance Use: No - Immunization History Hx Tetanus Toxoid Vaccination: No Hx Influenza Vaccination: Yes Hx Pneumococcal Vaccination: Yes Review Of Systems Except As Marked, All Systems Reviewed And Found Negative. Review Of Systems: ROS cannot be obtained secondary to pt's inabilty to answer questions. Constitutional: Positive for: Fever (102 according to usp.) Cardiovascular: Positive for: Other ((+) Tacycardia) Physical Exam - Physical Exam Appears: Non-toxic, Chronically Ill, Other (breathing on own, no acute distress. Does no response to questions. ) Skin: Warm, Dry, No Rash, Other (stage 3 sacral decub) Head: Atraumatic, Normacephalic Eye(s): bilateral: Normal Inspection, EOMI Nose: Normal Oral Mucosa: Moist Neck: Normal ROM, Supple Chest: Symmetrical Cardiovascular: Rhythm Regular (tachycardia) Respiratory: Rhonchi (Scattered ), No Wheezing Gastrointestinal/Abdominal: Soft, No Tenderness, No Guarding, No Rebound, Other ((+) Peg tube in place. ) ED Course And Treatment - Laboratory Results Result Diagrams: 10/02/16 07:46 10/02/16 07:46 ECG: Interpreted By Me, Viewed By Me ECG Rhythm: Sinus Tachycardia ECG Interpretation: Normal Interpretation Of ECG: No ST elevation. Rate From EC (BPM) O2 Sat by Pulse Oximetry: 97 (RA) Progress Note: PLAN: CXR. EKG. VBG. CBC. CMP. Urinalysis. Motrin Oral PO. Rocephin IVPB. Sodium Chloride IV. Patient is DNR and DNI. Case discussed with dr Koenig, dion fletcher plan and treatment. Spoke to Dr. Laurent who agrees upon admisison plan. Disposition - Disposition Disposition: HOSPITALIZED Disposition Time: 10:00 Condition: STABLE - Clinical Impression Clinical Impression: UTI (urinary tract infection), Sepsis, Fever - PA / LINUX SYSTEM ADMINISTRATOR / Resident Statement MD/DO has reviewed & agrees with the documentation as recorded. - Scribe Statement The provider has reviewed the documentation as recorded by the Scribe Angelina Kebede All medical record entries made by the Mauroiblyudmila were at my direction and personally dictated by me. I have reviewed the chart and agree that the record accurately reflects my personal performance of the history, physical exam, medical decision making, and the department course for this patient. I have also personally directed, reviewed, and agree with the discharge instructions and disposition.
[2016-10-02 08:49] LABS: ALB/GLOB RATIO 0.8 (1.0-2.1); ALKALINE PHOSPHATASE 151 U/L (38-126); ALT/SGPT 69 U/L (9-52); AST/SGOT 73 U/L (14-36); BILIRUBIN,TOTAL 0.5 mg/dL (0.2-1.3); BLOOD UREA NITROGEN 34 mg/dL (7-17); CALCIUM 8.6 mg/dl (8.6-10.4); CARBON DIOXIDE 31 mmol/L (22-30); CHLORIDE 102 mmol/L (98-107); GFR AFRICAN-AMERICAN > 60; GLUCOSE,RANDOM 189 mg/dL (65-105); MAGNESIUM 2.3 mg/dL (1.6-2.3); SODIUM 140 mmol/L (132-148); TOTAL PROTEIN 6.5 g/dL (6.3-8.3)
--- NOTE | 2016-10-02 10:34 | RAD ---
HISTORY: Sepsis Patient COMPARISON: 09/10/2016 FINDINGS: LUNGS: Hyperinflation suggestive for COPD and or emphysematous changes. Prominent linear consolidative changes suggestive for atelectasis in the left midlung zone. Few small nodular densities seen at the left lung apex which measures up to 4-5 millimeters. Additional somewhat nodular consolidation and/or nodular opacity at the lateral aspect of the right upper to mid lung zone. Right paratracheal prominence may represent prominent vascularity and or consolidation. Right hilar prominence. PLEURA: No significant pleural effusion identified, no pneumothorax apparent. CARDIOVASCULAR: Calcification at the aortic knob. OSSEOUS STRUCTURES: Degenerative changes in the spine and shoulders. VISUALIZED UPPER ABDOMEN: Normal. OTHER FINDINGS: None. IMPRESSION: Hyperinflation suggestive for COPD and or emphysematous changes. Prominent linear consolidative changes suggestive for atelectasis in the left midlung zone. Few small nodular densities seen at the left lung apex which measures up to 4-5 millimeters. Additional somewhat nodular consolidation and/or nodular opacity at the lateral aspect of the right upper to mid lung zone. Right paratracheal prominence may represent prominent vascularity and or consolidation. Right hilar prominence.
--- NOTE | 2016-10-02 10:52 | CP.PCM.HP ---
History of Present Illness - History of Present Illness History of Present Illness: 81 year old [place] resident transferred to [facility] due to fever and AMS patient has history of severe Alzheimer, non verbal bed ridden, with sacral decubitus, Lung nodule that was decided not to pursue further elauation by family, was transferred to ER due top AMS and feve and tachycardia In ER, patient has temperature nd urine was positive for infection, was scultured, given antibiotic patient was admitted for further management PMH as above [place] Dementia severe non verbal bed ridden Lung nodule second hand smoker Sacral Decubitus stage 3 Recurrent UTI GIB [place] medications as per list Present on Admission - Present on Admission Any Indicators Present on Admission: Yes History of DVT/PE: No History of Uncontrolled Diabetes: No Urinary Catheter: No Decubitus Ulcer Present: Yes (Sacral ulcer ) Review of Systems - Review of Systems Systems not reviewed;Unavailable: Other (as reported from prison- patient is bedridden non verbal but had AMS and fever and tachycardia this moring ) - Constitutional Constitutional: Fever - Neurological Neurological: Other (bed riden non verbal ) Past Patient History - Infectious Disease Hx of Infectious Diseases: None - Past Medical History & Family History Past Medical History?: Yes - Past Social History Smoking Status: Never Smoked - CARDIAC Hx Hypercholesterolemia: Yes - PULMONARY Hx Respiratory Disorders: No - NEUROLOGICAL Hx Alzheimer's Disease: Yes Hx Dementia: Yes - HEENT Hx HEENT Problems: No - RENAL Hx Chronic Kidney Disease: No - ENDOCRINE/METABOLIC Hx Endocrine Disorders: No - HEMATOLOGICAL/ONCOLOGICAL Hx Anemia: Yes (history of GIB ) - INTEGUMENTARY Hx Dermatological Problems: No - MUSCULOSKELETAL/RHEUMATOLOGICAL Hx Arthritis: Yes - GASTROINTESTINAL Hx Gastrointestinal Disorders: Yes (BI bleeding ) Hx Gastritis: Yes - GENITOURINARY/GYNECOLOGICAL Hx Genitourinary Disorders: Yes Hx Incontinence: Yes - PSYCHIATRIC Hx Substance Use: No - SURGICAL HISTORY Hx Surgeries: Yes Hx Section: Yes Hx Tubal Ligation: Yes Other/Comment: Peg tube placement 2017 - ANESTHESIA Hx Anesthesia: Yes Hx Anesthesia Reactions: No Hx Malignant Hyperthermia: No Meds Allergies/Adverse Reactions: Allergies Allergy/AdvReac Type Severity Reaction Status Date / Time No Known Allergies Allergy Verified 10/02/16 07:20 Physical Exam - Constitutional Appears: Other (patient seen, breathing on own, lethargic, chronically sick and bed ridden, eyes no discharges, lips slightly dry, neck supple, chest no lesion) Additional comments: has good air entry, some rhonchi, heart- regular rate and rhythm. abdomen non distende, sacral decubitus present stage 3, no edema on LE Results - Vital Signs Recent Vital Signs: Last Vital Signs Temp 99 F 10/02/16 09:00 Pulse 94 H 10/02/16 10:00 Resp 23 10/02/16 10:00 BP 115/68 10/02/16 10:00 Pulse Ox 97 10/02/16 10:28 - Labs Result Diagrams: 10/02/16 07:46 10/02/16 07:46 Assessment & Plan - Assessment and Plan (Free Text) Assessment: Patient with Chronic condition Dementia non verbal chrincally bedridden, Lung nodule second hand smoker, GIB _ s/p EGD s/P transfusion transferred from [place] due to UTI- sepsis- C& S done start on antibiotic, Mild Dehydration- IVF History of GIB and anemia marycruz continue iron supplementation- no active bleeding currently continue other prison medications, GI prophyaxis, no dvt prophylaxis due to history of GIB DNR DNI case discussed with family
[2016-10-02] MEDS ORDERED: Pantoprazole 40 mg EC Tab PO SCH ×2 (11:00)
[2016-10-02] MEDS: Multivitamin (MVI) 10 ML in Sodium Chloride 0.9% 1,000 ML IV SCH (13:36)
[2016-10-02] MEDS: Ciprofloxacin 400mg/200ml D5W 400 MG/200 ML BAG IVPB SCH (13:37)
--- NOTE | 2016-10-02 17:23 | CP.PCM.PN ---
Subjective - Date & Time of Evaluation Date of Evaluation: 10/02/16 Time of Evaluation: 17:22 - Subjective Subjective: COPY OF THE POLST NOTED IN THE CHART BY RN DEBBIE BLANCAS, REQUESTED DNR/DNI PLACED IN THE CHART. Objective - Vital Signs/Intake and Output Vital Signs (last 24 hours): Temp Pulse Resp BP Pulse Ox 98.5 F 92 H 20 146/77 100 10/02/16 15:15 10/02/16 15:15 10/02/16 15:15 10/02/16 15:15 10/02/16 15:15 - Medications Medications: Current Medications Donepezil HCl (Aricept) 5 mg PO HS [facility] Ferrous Sulfate (Feosol Liq) 300 mg PO TID [facility] Ciprofloxacin (Cipro 400mg/200ml Dsw) 400 mg in 200 mls @ 133 mls/hr IVPB Q12H [facility] Last Admin: 10/02/16 13:37 Dose: 133 mls/hr Multivitamins/Vitamin C 10 ml/ (Sodium Chloride) 1,010 mls @ 80 mls/hr IV DAILY [facility] Last Admin: 10/02/16 13:36 Dose: 80 mls/hr Pantoprazole Sodium (Protonix Inj) 40 mg IVP DAILY [facility] Last Admin: 10/02/16 13:37 Dose: 40 mg - Labs Labs: PT 12.1 SECONDS (9.7-12.2) 10/02/16 07:46 INR 1.1 10/02/16 07:46 APTT 26 SECONDS (21-34) 10/02/16 07:46
[2016-10-02] MEDS: Ferrous Sulfate 300 mg/5 mL Liq UD PO SCH (18:27)
[2016-10-03] MEDS: Ciprofloxacin 400mg/200ml D5W 400 MG/200 ML BAG IVPB SCH ×2 (02:08→12:10)
[2016-10-03] MEDS: Multivitamin (MVI) 10 ML in Sodium Chloride 0.9% 1,000 ML IV SCH (09:45)
[2016-10-03] MEDS: Ferrous Sulfate 300 mg/5 mL Liq UD PO SCH ×2 (09:45→18:00)
--- NOTE | 2016-10-03 14:05 | CARD ---
APPROVED REPORT EKG Measurement Heart [id number] <Conclusion> Sinus tachycardia Left axis deviation Low voltage QRS Abnormal ECG
--- NOTE | 2016-10-03 16:02 | CP.PCM.PN ---
Subjective - Date & Time of Evaluation Date of Evaluation: 10/03/16 Time of Evaluation: 05:00 - Subjective Subjective: patient is being treated for UTI- with cioro but continue to have fever patient has sacral decubitus-stage 3 , plan of adding aztreonam to cover for possible osteomyelitis will discuss with daughterDarrick regarding sacral decubitus and surgical management -for their opinion , patient remained lethargic Objective - Vital Signs/Intake and Output Vital Signs (last 24 hours): Temp Pulse Resp BP Pulse Ox 99.7 F H 103 H 22 144/80 100 10/03/16 07:25 10/03/16 07:25 10/03/16 07:25 10/03/16 07:25 10/03/16 07:25 Intake and Output: 10/03/16 10/03/16 06:59 18:59 Intake Total 920 Output Total 200 Balance 720 - Medications Medications: Current Medications Acetaminophen (Tylenol 325mg Tab) 650 mg PO Q4 [facility] Donepezil HCl (Aricept) 5 mg PO HS [facility] Last Admin: 10/02/16 22:21 Dose: Not Given Ferrous Sulfate (Feosol Liq) 300 mg PO TID [facility] Last Admin: 10/03/16 09:45 Dose: 300 mg Ciprofloxacin (Cipro 400mg/200ml Dsw) 400 mg in 200 mls @ 133 mls/hr IVPB Q12H [facility] Last Admin: 10/03/16 12:10 Dose: 133 mls/hr Multivitamins/Vitamin C 10 ml/ (Sodium Chloride) 1,010 mls @ 80 mls/hr IV DAILY [facility] Last Admin: 10/03/16 09:45 Dose: 80 mls/hr Aztreonam 1 gm/ Sodium (Chloride) 100 mls @ 100 mls/hr IVPB Q8H [facility] Pantoprazole Sodium (Protonix Inj) 40 mg IVP DAILY [facility] Last Admin: 10/03/16 09:45 Dose: 40 mg Pneumococcal Polyvalent Vaccine (Pneumovax 23 Vaccine) 0.5 ml IM .ONCE ONE Stop: 10/04/16 10:01 - Labs Labs: PT 12.1 SECONDS (9.7-12.2) 10/02/16 07:46 INR 1.1 10/02/16 07:46 APTT 26 SECONDS (21-34) 10/02/16 07:46 - Constitutional Appears: Other (patient appears lethargic, chronically ill, fever all day long, no vomting no unusual event ) - Eye Exam Eye Exam: Normal appearance. absent: Nystagmus - ENT Exam ENT Exam: Mucous Membranes Moist - Neck Exam Neck Exam: absent: Meningismus - Respiratory Exam Respiratory Exam: Rhonchi, NORMAL BREATHING PATTERN - Cardiovascular Exam Cardiovascular Exam: REGULAR RHYTHM - GI/Abdominal Exam GI & Abdominal Exam: Soft. absent: Distended - Extremities Exam Extremities Exam: Normal Capillary Refill. absent: Joint Swelling, Pedal Edema - Neurological Exam Neurological Exam: Altered - Skin Skin Exam: Rash (sacral decubitus ) Assessment and Plan - Assessment and Plan (Free Text) Assessment: Patient with Sepsis- UTI- Sacral Decubitus stage 3 /unstageable - urine culture showed gram positive cocci, continue to have fever, patient is DNR DNI - marycruz discuss and get family's opinion on getteing surgical evaluation on the sacral ulcer broad spectrum antibiotic, Discussed with daughter- okayed but no surgical , with thedeteriorating conditon agree with daughter continue supportive care
[2016-10-03] MEDS: Aztreonam 1 GM in Sodium Chloride 0.9% 100 ML IVPB SCH (18:30)
[2016-10-04] MEDS: Ciprofloxacin 400mg/200ml D5W 400 MG/200 ML BAG IVPB SCH ×2 (00:49→11:40)
[2016-10-04] MEDS: Aztreonam 1 GM in Sodium Chloride 0.9% 100 ML IVPB SCH ×3 (02:56→18:18)
[2016-10-04] MEDS: Ferrous Sulfate 300 mg/5 mL Liq UD PO SCH ×3 (09:59→18:18)
[2016-10-04] MEDS ORDERED: Pneumococcal 23-Valent Vaccine IM ONE (10:00)
[2016-10-04] MEDS: Multivitamin (MVI) 10 ML in Sodium Chloride 0.9% 1,000 ML IV SCH (10:03)
--- NOTE | 2016-10-04 22:24 | CP.PCM.PN ---
Subjective - Date & Time of Evaluation Date of Evaluation: 10/04/16 Time of Evaluation: 10:00 - Subjective Subjective: Patient seen-remained lethargic bedridden, chronically ill had PICC today - for IV antibiotic, no unususal event discussed with daughter - plan of trasferring back to [place] Objective - Vital Signs/Intake and Output Vital Signs (last 24 hours): Temp Pulse Resp BP Pulse Ox 98.7 F 88 20 141/75 100 10/04/16 15:49 10/04/16 15:49 10/04/16 15:49 10/04/16 15:49 10/04/16 15:49 Intake and Output: 10/04/16 10/05/16 18:59 06:59 Intake Total 1080 Output Total 1750 Balance -670 - Medications Medications: Current Medications Acetaminophen (Tylenol 325mg Tab) 650 mg GT Q4 PRN PRN Reason: Fever >100.4 F Stop: 10/07/16 16:19 Donepezil HCl (Aricept) 5 mg PO HS [facility] Last Admin: 10/04/16 21:56 Dose: 5 mg Ferrous Sulfate (Feosol Liq) 300 mg PO TID [facility] Last Admin: 10/04/16 18:18 Dose: 300 mg Ciprofloxacin (Cipro 400mg/200ml Dsw) 400 mg in 200 mls @ 133 mls/hr IVPB Q12H [facility] Last Admin: 10/04/16 11:40 Dose: 133 mls/hr Multivitamins/Vitamin C 10 ml/ (Sodium Chloride) 1,010 mls @ 80 mls/hr IV DAILY [facility] Last Admin: 10/04/16 10:03 Dose: 80 mls/hr Aztreonam 1 gm/ Sodium (Chloride) 100 mls @ 100 mls/hr IVPB Q8H [facility] Last Admin: 10/04/16 18:18 Dose: 100 mls/hr Pantoprazole Sodium (Protonix Inj) 40 mg IVP DAILY [facility] Last Admin: 10/04/16 09:59 Dose: 40 mg - Labs Labs: PT 12.1 SECONDS (9.7-12.2) 10/02/16 07:46 INR 1.1 10/02/16 07:46 APTT 26 SECONDS (21-34) 10/02/16 07:46 - Constitutional Appears: Other (lethargic, breathing on own- afebrile) - Head Exam Head Exam: ATRAUMATIC - Eye Exam Eye Exam: Nystagmus - ENT Exam ENT Exam: Mucous Membranes Moist - Neck Exam Neck Exam: absent: Meningismus - Respiratory Exam Respiratory Exam: Rhonchi, NORMAL BREATHING PATTERN - Cardiovascular Exam Cardiovascular Exam: REGULAR RHYTHM - GI/Abdominal Exam GI & Abdominal Exam: absent: Distended - Neurological Exam Neurological Exam: Altered - Skin Skin Exam: Normal Color (sacral decubitus ) Assessment and Plan - Assessment and Plan (Free Text) Assessment: Patient with Sepsis- UTI- sacral ulcer - rule oit osteomyelitis- but family decides to stay on antibiotic, waiving for further surgical evaluation, on antibiotic- chronically sick but stable- discussed transfer to [place] in am
[2016-10-05] MEDS: Ciprofloxacin 400mg/200ml D5W 400 MG/200 ML BAG IVPB SCH (01:26)
[2016-10-05] MEDS: Aztreonam 1 GM in Sodium Chloride 0.9% 100 ML IVPB SCH ×2 (01:27→09:42)
[2016-10-05] MEDS: Multivitamin (MVI) 10 ML in Sodium Chloride 0.9% 1,000 ML IV SCH (09:42)
[2016-10-05] MEDS: Ferrous Sulfate 300 mg/5 mL Liq UD PO SCH ×2 (09:50→14:15)
--- NOTE | 2016-10-05 11:45 | CP.PCM.PN ---
Subjective - Date & Time of Evaluation Date of Evaluation: 10/05/16 Time of Evaluation: 11:00 - Subjective Subjective: patient seen, same chronically bed ridden, no unusual event, been on antibiotic , afebrile, has VRE on contact isolation discussion with staff and family regarding transfer Objective - Vital Signs/Intake and Output Vital Signs (last 24 hours): Temp Pulse Resp BP Pulse Ox 98.6 F 95 H 22 141/83 100 10/05/16 08:56 10/05/16 08:56 10/05/16 08:56 10/05/16 08:56 10/05/16 08:56 Intake and Output: 10/05/16 10/05/16 06:59 18:59 Intake Total 1280 Output Total 400 Balance 880 - Medications Medications: Current Medications Acetaminophen (Tylenol 325mg Tab) 650 mg GT Q4 PRN PRN Reason: Fever >100.4 F Stop: 10/07/16 16:19 Donepezil HCl (Aricept) 5 mg PO HS [facility] Last Admin: 10/04/16 21:56 Dose: 5 mg Ferrous Sulfate (Feosol Liq) 300 mg PO TID [facility] Last Admin: 10/05/16 09:50 Dose: 300 mg Ciprofloxacin (Cipro 400mg/200ml Dsw) 400 mg in 200 mls @ 133 mls/hr IVPB Q12H [facility] Last Admin: 10/05/16 01:26 Dose: 133 mls/hr Multivitamins/Vitamin C 10 ml/ (Sodium Chloride) 1,010 mls @ 80 mls/hr IV DAILY [facility] Last Admin: 10/05/16 09:42 Dose: 80 mls/hr Aztreonam 1 gm/ Sodium (Chloride) 100 mls @ 100 mls/hr IVPB Q8H [facility] Last Admin: 10/05/16 09:42 Dose: 100 mls/hr Pantoprazole Sodium (Protonix Inj) 40 mg IVP DAILY [facility] Last Admin: 10/05/16 09:50 Dose: 40 mg - Labs Labs: PT 12.1 SECONDS (9.7-12.2) 10/02/16 07:46 INR 1.1 10/02/16 07:46 APTT 26 SECONDS (21-34) 10/02/16 07:46 - Constitutional Appears: Chronically Ill, Other (patient has been bedridden- non verbal, lethargic, family is aware ) - Head Exam Head Exam: ATRAUMATIC, NORMOCEPHALIC - Eye Exam Eye Exam: absent: Nystagmus - ENT Exam ENT Exam: Mucous Membranes Dry - Respiratory Exam Respiratory Exam: Decreased Breath Sounds, Rhonchi, NORMAL BREATHING PATTERN - GI/Abdominal Exam GI & Abdominal Exam: Soft. absent: Distended - Neurological Exam Neurological Exam: Altered - Psychiatric Exam Psychiatric exam: Flat Affect (lethargic) - Skin Skin Exam: absent: Rash (other than sacral decubitus) Assessment and Plan - Assessment and Plan (Free Text) Assessment: Patient with svere Dementia, chronicall sick, with AMS, non verbal ,with Sepsis- UTI/Sacral Ulcer unstageable,-family discissuon- patient is stable to transfer with one week of IV antibiotic PEG nutrition Wound care discussed with staff and family
--- NOTE | 2016-10-05 12:32 | CP.PCM.PN ---
Subjective - Date & Time of Evaluation Date of Evaluation: 10/05/16 Time of Evaluation: 12:24 - Subjective Subjective: 81 Y/O FEMALE ADMITTED FOR UTI, SACRAL ULCER, SEPSIS, PT CLEARED FOR D/C TODAY BY DR BOYER, ONE WEEK OF IV ABX, +VRE IN URINE, PT CAN GO WITH [facility] AND [facility] PER PMD. Objective - Vital Signs/Intake and Output Vital Signs (last 24 hours): Temp Pulse Resp BP Pulse Ox 98.6 F 95 H 22 141/83 100 10/05/16 08:56 10/05/16 08:56 10/05/16 08:56 10/05/16 08:56 10/05/16 08:56 Intake and Output: 10/05/16 10/05/16 06:59 18:59 Intake Total 1280 Output Total 400 Balance 880 - Medications Medications: Current Medications Acetaminophen (Tylenol 325mg Tab) 650 mg GT Q4 PRN PRN Reason: Fever >100.4 F Stop: 10/07/16 16:19 Donepezil HCl (Aricept) 5 mg PO HS [facility] Last Admin: 10/04/16 21:56 Dose: 5 mg Ferrous Sulfate (Feosol Liq) 300 mg PO TID [facility] Last Admin: 10/05/16 09:50 Dose: 300 mg Multivitamins/Vitamin C 10 ml/ (Sodium Chloride) 1,010 mls @ 80 mls/hr IV DAILY [facility] Last Admin: 10/05/16 09:42 Dose: 80 mls/hr Aztreonam 1 gm/ Sodium (Chloride) 100 mls @ 100 mls/hr IVPB Q8H [facility] Last Admin: 10/05/16 09:42 Dose: 100 mls/hr Pantoprazole Sodium (Protonix Inj) 40 mg IVP DAILY [facility] Last Admin: 10/05/16 09:50 Dose: 40 mg - Labs Labs: PT 12.1 SECONDS (9.7-12.2) 10/02/16 07:46 INR 1.1 10/02/16 07:46 APTT 26 SECONDS (21-34) 10/02/16 07:46
[2016-10-05 15:35] VITALS: BP 118/70; PULSE 87; RESP 20; TEMP 97.5; O2SAT 97
--- NOTE | 2016-10-06 08:04 | CP.PCM.DIS ---
Provider - Provider Date of Admission: 10/02/16 08:58 Attending physician: Billie Alcantar MD Time Spent in preparation of Discharge (in minutes): 30 Hospital Course - Lab Results Lab Results: Micro Results 10/04/16 21:00 Sacral Gram Stain - Final 10/04/16 21:00 Sacral Wound Culture - Preliminary Gram Positive Cocci Most Recent Lab Values WBC 13.1 K/uL (4.8-10.8) H D 10/02/16 07:46 RBC 3.58 Mil/uL (3.80-5.20) L 10/02/16 07:46 Hgb 11.3 g/dL (11.0-16.0) D 10/02/16 07:46 Hct 34.5 % (34.0-47.0) 10/02/16 07:46 MCV 96.4 fL (81.0-99.0) 10/02/16 07:46 MCH 31.7 pg (27.0-31.0) H 10/02/16 07:46 MCHC 32.9 g/dL (33.0-37.0) L 10/02/16 07:46 RDW 18.5 % (11.5-14.5) H 10/02/16 07:46 Plt Count 365 K/uL (130-400) 10/02/16 07:46 MPV 7.9 fL (7.2-11.7) 10/02/16 07:46 Neut % (Auto) 89.7 % (50.0-75.0) H 10/02/16 07:46 Lymph % (Auto) 4.1 % (20.0-40.0) L 10/02/16 07:46 [place] % (Auto) 5.9 % (0.0-10.0) 10/02/16 07:46 Eos % (Auto) 0.0 % (0.0-4.0) 10/02/16 07:46 Baso % (Auto) 0.3 % (0.0-2.0) 10/02/16 07:46 Neut # 11.8 K/uL (1.8-7.0) H 10/02/16 07:46 Lymph # 0.5 K/uL (1.0-4.3) L 10/02/16 07:46 [place] # 0.8 K/uL (0.0-0.8) 10/02/16 07:46 Eos # 0.0 K/uL (0.0-0.7) 10/02/16 07:46 Baso # 0.0 K/uL (0.0-0.2) 10/02/16 07:46 Neutrophils % (Manual) 81 % (50-75) H 10/02/16 07:46 Band Neutrophils % 9 % (0-2) H 10/02/16 07:46 Lymphocytes % (Manual) 1 % (20-40) L 10/02/16 07:46 Monocytes % (Manual) 7 % (0-10) 10/02/16 07:46 Basophils % (Manual) 2 % (0-2) 10/02/16 07:46 Platelet Estimate Normal (NORMAL) 10/02/16 07:46 Anisocytosis (manual) Slight 10/02/16 07:46 PT 12.1 SECONDS (9.7-12.2) 10/02/16 07:46 INR 1.1 10/02/16 07:46 APTT 26 SECONDS (21-34) 10/02/16 07:46 pO2 49 mm/Hg (30-55) 10/02/16 07:50 VBG pH 7.49 (7.32-7.43) H 10/02/16 07:50 VBG pCO2 45 mmHg (40-60) 10/02/16 07:50 VBG HCO3 32.2 mmol/L 10/02/16 07:50 VBG Total CO2 35.7 mmol/L (22-28) H 10/02/16 07:50 VBG O2 Sat (Calc) 96.1 % (40-65) H 10/02/16 07:50 VBG Base Excess 9.7 mmol/L (0.0-2.0) H 10/02/16 07:50 VBG Potassium 6.1 mmol/L (3.6-5.2) H 10/02/16 07:50 Sodium 139.0 mmol/l (132-148) 10/02/16 07:50 Chloride 104.0 mmol/L (98-107) 10/02/16 07:50 Glucose 189 mg/dl (65-105) H 10/02/16 07:50 Lactate 1.9 mmol/L (0.7-2.1) 10/02/16 07:50 Sodium 140 mmol/L (132-148) 10/02/16 07:46 Potassium 4.0 mmol/L (3.6-5.2) 10/02/16 07:46 Chloride 102 mmol/L (98-107) 10/02/16 07:46 Carbon Dioxide 31 mmol/L (22-30) H 10/02/16 07:46 Anion Gap 11 (10-20) 10/02/16 07:46 BUN 34 mg/dL (7-17) H 10/02/16 07:46 Creatinine 0.4 MG/DL (0.7-1.2) L 10/02/16 07:46 Est GFR ( Amer) > 60 10/02/16 07:46 Est GFR (Non-Af Amer) > 60 10/02/16 07:46 Random Glucose 189 mg/dL (65-105) H 10/02/16 07:46 Calcium 8.6 mg/dl (8.6-10.4) 10/02/16 07:46 Phosphorus 3.0 mg/dL (2.5-4.5) 10/02/16 07:46 Magnesium 2.3 mg/dL (1.6-2.3) 10/02/16 07:46 Total Bilirubin 0.5 mg/dL (0.2-1.3) 10/02/16 07:46 AST 73 U/L (14-36) H D 10/02/16 07:46 ALT 69 U/L (9-52) H D 10/02/16 07:46 Alkaline Phosphatase 151 U/L (38-126) H D 10/02/16 07:46 Total Protein 6.5 g/dL (6.3-8.3) 10/02/16 07:46 Albumin 2.9 g/dL (3.5-5.0) L 10/02/16 07:46 Globulin 3.6 gm/dL (2.2-3.9) 10/02/16 07:46 Albumin/Globulin Ratio 0.8 (1.0-2.1) L 10/02/16 07:46 Venous Blood Potassium 6.1 mmol/L (3.6-5.2) H 10/02/16 07:50 Urine Color Alysia (YELLOW) 10/02/16 08:06 Urine Clarity Hazy (Clear) 10/02/16 08:06 Urine pH 5.0 (5.0-8.0) 10/02/16 08:06 Ur Specific [place] 1.020 (1.003-1.030) 10/02/16 08:06 Urine Protein 1+ mg/dL (NEGATIVE) H 10/02/16 08:06 Urine Glucose (UA) Normal mg/dL (Normal) 10/02/16 08:06 Urine Ketones Negative mg/dL (NEGATIVE) 10/02/16 08:06 Urine Blood 1+ (NEGATIVE) H 10/02/16 08:06 Urine Nitrate Negative (NEGATIVE) 10/02/16 08:06 Urine Bilirubin Negative (NEGATIVE) 10/02/16 08:06 Urine Urobilinogen Normal mg/dL (0.2-1.0) 10/02/16 08:06 Ur Leukocyte Esterase 3+ Jeri/uL (Negative) H 10/02/16 08:06 Urine WBC (Auto) 671 /hpf (0-5) H 10/02/16 08:06 Urine RBC (Auto) 81 /hpf (0-3) H 10/02/16 08:06 Urine WBC Clumps (Auto) Many /hpf (NONE) H 10/02/16 08:06 Ur Squamous Epith Cells 1 /hpf (0-5) 10/02/16 08:06 Urine Bacteria Many (<OCC) H 10/02/16 08:06 Urine Yeast (Budding) Occ /hpf (NEGATIVE) H 10/02/16 08:06 - Hospital Course Hospital Course: patient a [place] resident with alzheimer dementia , non verbal chronically bedridden ws transferred to [facility] due to fever tachycardia- and was found to have UTI sepsis and sacral ulcer unstatgeable, patient was placed on antibiotic and no further surgical evaluation as per familys decision., patient was stabilized and transferred back to [place] with IV antibiotic to continue for a week Discharge Exam - Head Exam Head Exam: ATRAUMATIC, NORMOCEPHALIC - Eye Exam Eye Exam: absent: Nystagmus - ENT Exam ENT Exam: Mucous Membranes Dry - Respiratory Exam Respiratory Exam: Decreased Breath Sounds - Cardiovascular Exam Cardiovascular Exam: REGULAR RHYTHM - GI/Abdominal Exam GI & Abdominal Exam: Normal Bowel Sounds, Soft. absent: Distended, Rebound - Extremities Exam Extremities exam: normal capillary refill, pedal pulses present - Neurological Exam Neurological exam: Altered Discharge Plan - Discharge Medications Prescriptions: Aztreonam [Azactam] 1 gm IVPB Q8H 7 Days - Follow Up Plan Condition: STABLE Disposition: REHAB FACILITY/REHAB UNIT Instructions: Urinary Tract Infection in Women (DC), Urinary Tract Infection in Men (DC), Fever in Adults (GEN), Greenberg Catheter Placement and Care (DC), Vancomycin Resistant Enterococcus Infection (DC), Sepsis (DC), Sepsis (GEN), Dysuria (GEN) Additional Instructions: PLEASE PLACE UNDER THE SERVICE OF DR ALCANTAR WHILE AT [facility]-- CALL UPON ARRIVAL WITH BED ASSIGNMENT AND FOR ADMITTING ORDERS CONTINUE MEDS PER MED REC FALL PRECAUTIONS CONTACT ISOLATION FOR +VRE IV AZECTAM FOR 1 MORE WEEK WOUND CARE- Unstageable sacral medi honey and foam drsg daily FOR FURTHER ORDERS, CALL DR ALCANTAR Referrals: Billie Alcantar MD [Medical Doctor] -
== END 2016-10-05 15:30 | DRG 871 ==
LOC: C.ER 07:15 → C.9E 08:58 → C.6T 09:49
PROVIDERS: ADMIT Internal Medicine; ATTEND Internal Medicine
PROC: 02HV33Z Insertion of Infusion Device into Superior Vena Cava, Percutaneous Approach (ICD-10-PCS; principal; 2016-10-04)
PROC: B548ZZA Ultrasonography of Superior Vena Cava, Guidance (ICD-10-PCS; 2016-10-04)
DX: A41.9 Sepsis, unspecified organism (principal); L89.153 Pressure ulcer of sacral region, stage 3; N39.0 Urinary tract infection, site not specified; E86.0 Dehydration; G30.9 Alzheimer's disease, unspecified; F02.80 Dementia in other diseases classified elsewhere, unspecified severity, without behavioral disturbance, psychotic disturbance, mood disturbance, and anxiety; D50.0 Iron deficiency anemia secondary to blood loss (chronic); E78.00 Pure hypercholesterolemia, unspecified; E78.5 Hyperlipidemia, unspecified; Z87.440 Personal history of urinary (tract) infections; Z66 Do not resuscitate; B95.2 Enterococcus as the cause of diseases classified elsewhere; Z16.21 Resistance to vancomycin; Z74.01 Bed confinement status

== ENCOUNTER 2016-11-04 18:30 | Inpatient (IN) | payer MEDICARE ==
[2016-11-04 18:41] VITALS: BMI 16.7
[2016-11-04 19:43] LABS: VENOUS BLOOD GAS BASE EXCESS 11.4 mmol/L (0.0-2.0); VENOUS BLOOD GAS PCO2 41 mmHg (40-60); VENOUS BLOOD GAS PO2 45 mm/Hg (30-55); VENOUS BLOOD PH 7.54 (7.32-7.43)
[2016-11-04 19:45] LABS: BASO # 0.1 K/uL (0.0-0.2); BASO % 0.6 % (0.0-2.0); EOS % 0.2 % (0.0-4.0); HEMOGLOBIN 13.4 g/dL (11.0-16.0); LYMPH # 1.4 K/uL (1.0-4.3); MEAN CELL VOLUME 95.7 fL (81.0-99.0); MEAN CORPUSCULAR HEMOGLOBIN 30.9 pg (27.0-31.0); MEAN CORPUSCULAR HGB CONC 32.3 g/dL (33.0-37.0); MEAN PLATELET VOLUME 7.8 fL (7.2-11.7); MONO # 1.1 K/uL (0.0-0.8); MONO % 9.7 % (0.0-10.0); NEUT # 8.4 K/uL (1.8-7.0); NEUT % 76.5 % (50.0-75.0); NRBC % 0.2 % (0.0-2.0); RBC 4.33 Mil/uL (3.80-5.20); RED CELL DISTRIBUTION WIDTH 17.3 % (11.5-14.5)
[2016-11-04 19:51] LABS: ALBUMIN 3.1 g/dL (3.5-5.0)
[2016-11-04 19:52] LABS: PROTHROMBIN TIME 11.7 SECONDS (9.7-12.2)
[2016-11-04 19:54] LABS: GFR AFRICAN-AMERICAN > 60; GFR NON-AFRICAN AMERICAN > 60
[2016-11-04 19:55] LABS: ALB/GLOB RATIO 0.8 (1.0-2.1); ALT/SGPT 200 U/L (9-52); AST/SGOT 83 U/L (14-36); BLOOD UREA NITROGEN 27 mg/dL (7-17); CALCIUM 8.8 mg/dl (8.6-10.4); MAGNESIUM 2.2 mg/dL (1.6-2.3)
[2016-11-04 20:15] LABS: SQUAMOUS EPITHIAL < 1 /hpf (0-5); URINE BACTERIA RARE (<OCC); URINE BILIRUBIN NEGATIVE (NEGATIVE); URINE BLOOD NEGATIVE (NEGATIVE); URINE CLARITY Hazy (Clear); URINE COLOR Yellow (YELLOW); URINE GLUCOSE (UA) NORMAL (Normal); URINE LEUKOCYTE ESTERASE 3+ Leu/uL (Negative); URINE NITRATE NEGATIVE (NEGATIVE); URINE PROTEIN 2+ mg/dL (NEGATIVE); URINE UROBILINOGEN NORMAL mg/dL (0.2-1.0)
[2016-11-04] MEDS ORDERED: Piperacill/Tazo 3.375gm in Dex 3.375 GM/50 ML BAG IVPB STA (20:19)
--- NOTE | 2016-11-04 20:55 | C.PDOC ---
Time Seen by Provider: 11/04/16 19:13 Chief Complaint (Nursing): Fever History Per: EMS, Other ([facility] records) History/Exam Limitations: clinical condition, physical impairment (Pt in nonverbal) Onset/Duration Of Symptoms: Unknown (today) Current Symptoms Are (Timing): Still Present Associated Symptoms: Fever Severity: Moderate Additional History Per: Family, Senior Living, Prior Records Past Medical History Reviewed: Historical Data, Nursing Documentation, Vital Signs Vital Signs: Last Vital Signs Temp 100.4 F H 11/04/16 18:35 Pulse 131 H 11/04/16 18:35 Resp 36 H 11/04/16 18:51 BP 126/85 11/04/16 18:51 Pulse Ox 96 11/04/16 18:51 - Medical History PMH: Alzheimer's Disease, Anemia, Arthritis, Dementia, Gastritis, Hypercholesterolemia, Hyperlipidemia Other PMH: Pt is noncommunicative Other Surgeries: G-tube - [facility] Procedures CHANGE FEEDING DEVICE IN UP INTEST TRACT, PLANT TAXONOMIST APPROACH (07/25/16) EXCISION OF STOMACH, ENDO, DIAGN (05/31/16) INSERTION OF INFUSION DEV INTO SUP VENA CAVA, PERC APPROACH (10/02/16) INSPECTION OF LOWER INTESTINAL TRACT, ENDO (07/25/16) INSPECTION OF UPPER INTESTINAL TRACT, ENDO (07/25/16) TRANSFUSE NONAUT RED BLOOD CELLS IN PERIPH ART, PERC (07/25/16) ULTRASONOGRAPHY OF SUPERIOR VENA CAVA, GUIDANCE (10/02/16) Family History: States: Unknown Family Hx - Social History Hx Tobacco Use: No Hx Alcohol Use: No Hx Substance Use: No - Immunization History Hx Tetanus Toxoid Vaccination: No Hx Influenza Vaccination: Yes Hx Pneumococcal Vaccination: Yes Review Of Systems Review Of Systems: ROS cannot be obtained secondary to pt's inabilty to answer questions. Physical Exam - Physical Exam Appears: Chronically Ill Skin: Warm, Dry Head: Atraumatic Eye(s): bilateral: PERRL Oral Mucosa: Dry Neck: Normal ROM, Supple Cardiovascular: Rhythm Regular (tachycardia) Respiratory: No Accessory Muscle Use, Rhonchi (mild) Gastrointestinal/Abdominal: Soft, No Distention, No Guarding, Other (G-tube in place) Back: Other (Stage 4 sacral decubitus ulcer) Extremity: No Deformity Neurological/Psych: No Response To Commands Pain Response: Withdraws With Pain ED Course And Treatment - Laboratory Results Result Diagrams: 11/04/16 19:42 11/04/16 19:42 Lab Interpretation: Abnormal Interpretation Of Abnormal: UTI. Elevated BUN. O2 Sat by Pulse Oximetry: 96 Pulse Ox Interpretation: Normal - Radiology CXR: Interpreted by Me, Viewed By Me CXR Interpretation: Yes: Infiltrates (mild vs. atelectasis) - Physician Consult Information Physician Contacted: Billie Alcantar (PMD) Outcome Of Conversation: She wants pt admitted under Dr. Kirkland's service. Progress - Interventions Interventions:: Observation, Intravenous fluid, Oxygen - Data Reviewed Data Reviewed: Lab, Diagnostic imaging - Patient Status Patient status: Partially improved - Critical Care Citical Care: Excluding Proc Time Critical Care Time: 45 minutes - Continuity of Care Discussed patient case with:: Family-HIPPA compliant, ED Nurse, PMD, Covering for PMD - Patient Plan Patient Plan: Admission Disposition Discussed With DrTejas: Brad Kirkland Comment: He accepted pt on his service and gave admitting orders to the nurse. Doctor Will See Patient In The: Hospital Counseled Patient/Family Regarding: Studies Performed, Diagnosis - Disposition Disposition: HOSPITALIZED Disposition Time: 20:58 Condition: FAIR - POA Present On Arrival: Pressure Ulcer - Clinical Impression Clinical Impression: UTI (urinary tract infection), Sepsis
[2016-11-04] MEDS ORDERED: Piperacillin/Tazobact 3.375 gm 100 ML IVPB ONE (21:16)
[2016-11-04 21:42] LABS: VENOUS BLOOD GAS BASE EXCESS 8.3 mmol/L (0.0-2.0); VENOUS BLOOD GAS PCO2 47 mmHg (40-60); VENOUS BLOOD GAS PO2 41 mm/Hg (30-55); VENOUS BLOOD PH 7.46 (7.32-7.43)
[2016-11-04] MEDS ORDERED: Piperacillin/Tazobact 3.375 GM in Sodium Chloride 100 ML IVPB SCH (21:45)
[2016-11-04] MEDS ORDERED: Vancomycin 1 GM 1 GM/250 ML BAG IVPB ONE (21:56)
[2016-11-05] MEDS: Sodium Chloride 0.9% 1,000 ML IV SCH ×2 (01:15→05:38)
[2016-11-05] MEDS: Piperacillin/Tazobact 3.375 GM in Sodium Chloride 100 ML IVPB SCH ×3 (05:30→21:40)
--- NOTE | 2016-11-05 08:22 | RAD ---
HISTORY: PICC placement /r/o pneumonia COMPARISON: Comparison is made to 10/02/2016 FINDINGS: LUNGS: No evidence of new infiltrate or consolidation in the lungs. PLEURA: No significant pleural effusion identified, no pneumothorax apparent. CARDIOVASCULAR: The cardiac silhouette is mildly enlarged. OSSEOUS STRUCTURES: No significant abnormalities. VISUALIZED UPPER ABDOMEN: Normal. OTHER FINDINGS: None. IMPRESSION: No active disease. No evidence of acute pulmonary disease.
--- NOTE | 2016-11-05 13:13 | RAD ---
HISTORY: sob/tachepnic COMPARISON: Comparison is made to 11/04/2016 FINDINGS: LUNGS: No significant interval change in the lungs since the previous exam. Again seen are linear opacity at the mid left lung. Again seen is focal opacity at the right upper lung PLEURA: No significant pleural effusion identified, no pneumothorax apparent. CARDIOVASCULAR: Mild cardiomegaly OSSEOUS STRUCTURES: No significant abnormalities. VISUALIZED UPPER ABDOMEN: Normal. OTHER FINDINGS: None. IMPRESSION: No significant interval change in the previous exam.
[2016-11-05 13:40] LABS: ABG ALLEN TEST A; ARTERIAL BLOOD GAS HCO3 29.3 mmol/L (21-28); ARTERIAL BLOOD GAS O2 SAT 100.4 % (95-98); ARTERIAL BLOOD GAS PCO2 41 mm/Hg (35-45); ARTERIAL BLOOD GAS PH 7.47 (7.35-7.45); ARTERIAL BLOOD GAS PO2 134 mm/Hg (80-100); ARTERIAL BLOOD GAS TCO2 31.1 mmol/L (22-28)
--- NOTE | 2016-11-05 17:02 | CP.PCM.HP ---
History of Present Illness - History of Present Illness History of Present Illness: 81 year old [place] resident transferred to [facility] due to fever and AMS patient has history of severe Alzheimer, non verbal bed ridden, with sacral decubitus, Lung nodule that was decided not to pursue further elauation by family, was transferred to ER due top AMS and feve and tachycardia in the emergency room patient found to have elevated white count, lactate level and was started on IV antibiotics. Patient DNR/DNI PMH hypercholesterolemia and hyperglycemia Azheime Dementia severe non verbal bed ridden Lung nodule second hand smoker Sacral Decubitus stage 3 Recurrent UTI GIB Present on Admission - Present on Admission Any Indicators Present on Admission: No Review of Systems - Review of Systems Systems not reviewed;Unavailable: Altered Mental Status Past Patient History - Infectious Disease Hx of Infectious Diseases: None - Past Medical History & Family History Past Medical History?: Yes - Past Social History Smoking Status: Never Smoked - CARDIAC Hx Hypercholesterolemia: Yes - PULMONARY Hx Respiratory Disorders: No - NEUROLOGICAL Hx Alzheimer's Disease: Yes Hx Dementia: Yes - HEENT Hx HEENT Problems: No - RENAL Hx Chronic Kidney Disease: No - ENDOCRINE/METABOLIC Hx Endocrine Disorders: No - HEMATOLOGICAL/ONCOLOGICAL Hx Anemia: Yes - INTEGUMENTARY Hx Dermatological Problems: No - MUSCULOSKELETAL/RHEUMATOLOGICAL Hx Arthritis: Yes Hx Falls: Yes - GASTROINTESTINAL Hx Gastritis: Yes - GENITOURINARY/GYNECOLOGICAL Hx Genitourinary Disorders: Yes Hx Incontinence: Yes - PSYCHIATRIC Hx Substance Use: No - SURGICAL HISTORY Hx Surgeries: Yes Hx Section: Yes Hx Tubal Ligation: Yes Other/Comment: Peg tube placement 2017 - ANESTHESIA Hx Anesthesia: Yes Hx Anesthesia Reactions: No Hx Malignant Hyperthermia: No Meds Allergies/Adverse Reactions: Allergies Allergy/AdvReac Type Severity Reaction Status Date / Time No Known Allergies Allergy Verified 11/04/16 18:32 Physical Exam - Head Exam Head Exam: ATRAUMATIC, NORMOCEPHALIC - ENT Exam ENT Exam: Mucous Membranes Dry - Neck Exam Neck exam: Positive for: Normal Inspection - Respiratory Exam Respiratory Exam: Clear to Auscultation Bilateral - Cardiovascular Exam Cardiovascular Exam: Tachycardia, REGULAR RHYTHM - GI/Abdominal Exam GI & Abdominal Exam: Normal Bowel Sounds, Soft Results - Vital Signs Recent Vital Signs: Last Vital Signs Temp 98.6 F 11/05/16 15:00 Pulse 116 H 11/05/16 15:00 Resp 20 11/05/16 15:00 BP 128/80 11/05/16 15:00 Pulse Ox 98 11/05/16 15:00 - Labs Result Diagrams: 11/04/16 19:42 11/04/16 19:42 Labs: Laboratory Results - last 24 hr 11/04/16 11/05/16 21:39 13:30 Puncture Site Rra pCO2 41 pO2 41 134 H HCO3 29.3 H ABG pH 7.47 H ABG Total CO2 31.1 H ABG O2 Saturation 100.4 H ABG Base Excess 5.6 H ABG Hemoglobin 12.0 ABG Carboxyhemoglobin 1.9 H POC ABG HHb (Measured) -0.4 L ABG Methemoglobin 1.8 Fuentes Test A VBG pH 7.46 H VBG pCO2 47 VBG HCO3 30.9 VBG Total CO2 34.8 H VBG O2 Sat (Calc) 93.5 H VBG Base Excess 8.3 H VBG Potassium 4.2 A-a O2 Difference 43.0 Respiratory Index 0.3 Hgb O2 Saturation 96.8 Sodium 148.0 Chloride 116.0 H Glucose 110 H Lactate 1.3 Liter Flow 3.0 FiO2 32.0 Venous Blood Potassium 4.2 Assessment & Plan (1) Sepsis Status: Acute Comment: IV antibiotics including Zosyn and vancomycin. Infectious disease consult. Followup culture and sensitivity. Case discussed with family at length (2) UTI (urinary tract infection) Status: Acute (3) Dehydration Status: Acute (4) Lung nodule Status: Acute
[2016-11-05] MEDS: Ferrous Sulfate 300 mg/5 mL Liq UD PEG SCH (19:55)
[2016-11-05] MEDS: Vancomycin 1 gm/NS 200 ml 1 GM/200 ML BAG IVPB SCH (21:39)
--- NOTE | 2016-11-05 22:51 | CP.PCM.CON ---
History of Present Illness - History of Present Illness History of Present Illness: INFECTIOUS DISEASE CONSULT; HPI; 81 year old [place] resident transferred to [facility] due to fever and AMS patient has history of severe Alzheimer, non verbal bed ridden, with sacral decubitus, Lung nodule that was decided not to pursue further elauation by family, was transferred to ER due to AMS and fever and tachycardia in the emergency room patient found to have elevated white count, lactate level and was started on IV antibiotics. INFECTIOUS DISEASE CONSULTATION REQUESTED BY PMD FOR SEPSIS HISTORY ABOVE PATIENT UNABLE TO GIVE ANY DETAILS. PATIENT HAS HISTORY OF VRE IN THE URINE AND SACRAL DECUBITUS ULCERS IN PAST ADMISSIONS. PMH: Alzheimer's Disease, Anemia, Arthritis, Dementia, Gastritis, Hypercholesterolemia, Hyperlipidemia Other PMH: Pt is noncommunicative Other Surgeries: G-tube - [facility] Procedures CHANGE FEEDING DEVICE IN UP INTEST TRACT, DIE DESIGNER APPROACH (07/25/16) EXCISION OF STOMACH, ENDO, DIAGN (05/31/16) INSERTION OF INFUSION DEV INTO SUP VENA CAVA, PERC APPROACH (10/02/16) INSPECTION OF LOWER INTESTINAL TRACT, ENDO (07/25/16) INSPECTION OF UPPER INTESTINAL TRACT, ENDO (07/25/16) TRANSFUSE NONAUT RED BLOOD CELLS IN PERIPH ART, PERC (07/25/16) ULTRASONOGRAPHY OF SUPERIOR VENA CAVA, GUIDANCE (10/02/16) Family History: States: Unknown Family Hx - Social History Hx Tobacco Use: No Hx Alcohol Use: No Hx Substance Use: No - Immunization History Hx Tetanus Toxoid Vaccination: No Hx Influenza Vaccination: Yes Hx Pneumococcal Vaccination: Yes Review Of Systems Review Of Systems: ROS cannot be obtained secondary to pt's inabilty to answer questions. Past Patient History - Infectious Disease Hx of Infectious Diseases: None - Past Medical History & Family History Past Medical History?: Yes - Past Social History Smoking Status: Never Smoked - CARDIAC Hx Hypercholesterolemia: Yes - PULMONARY Hx Respiratory Disorders: No - NEUROLOGICAL Hx Alzheimer's Disease: Yes Hx Dementia: Yes - HEENT Hx HEENT Problems: No - RENAL Hx Chronic Kidney Disease: No - ENDOCRINE/METABOLIC Hx Endocrine Disorders: No - HEMATOLOGICAL/ONCOLOGICAL Hx Anemia: Yes - INTEGUMENTARY Hx Dermatological Problems: No - MUSCULOSKELETAL/RHEUMATOLOGICAL Hx Arthritis: Yes Hx Falls: Yes - GASTROINTESTINAL Hx Gastritis: Yes - GENITOURINARY/GYNECOLOGICAL Hx Genitourinary Disorders: Yes Hx Incontinence: Yes - PSYCHIATRIC Hx Substance Use: No - SURGICAL HISTORY Hx Surgeries: Yes Hx Section: Yes Hx Tubal Ligation: Yes Other/Comment: Peg tube placement 2017 - ANESTHESIA Hx Anesthesia: Yes Hx Anesthesia Reactions: No Hx Malignant Hyperthermia: No Meds Allergies/Adverse Reactions: Allergies Allergy/AdvReac Type Severity Reaction Status Date / Time No Known Allergies Allergy Verified 11/04/16 18:32 - Medications Medications: Current Medications Donepezil HCl (Aricept) 5 mg PEG HS [facility] Ferrous Sulfate (Feosol Liq) 300 mg PEG TID [facility] Last Admin: 11/05/16 19:55 Dose: 300 mg Heparin Sodium (Porcine) (Heparin) 5,000 units SC Q12 [facility] Last Admin: 11/05/16 21:40 Dose: 5,000 units Piperacillin Sod/Tazobactam (Sod 3.375 gm/ Sodium Chloride) 100 mls @ 200 mls/ hr IVPB Q8H [facility] Last Admin: 11/05/16 21:40 Dose: 200 mls/hr Vancomycin/Sodium Chloride (Vancocin) 1 gm in 200 mls @ 166.6 mls/hr IVPB Q12H [facility] Last Admin: 11/05/16 21:39 Dose: 166.6 mls/hr Multivitamins/Vitamin C (Multi-Delyn Liquid) 5 ml PEG DAILY [facility] Pantoprazole Sodium (Protonix Inj) 40 mg IVP DAILY [facility] Last Admin: 11/05/16 10:30 Dose: 40 mg Physical Exam - Constitutional Appears: Chronically Ill - Head Exam Head Exam: NORMAL INSPECTION - Eye Exam Eye Exam: PERRL - ENT Exam ENT Exam: Normal Oropharynx - Neck Exam Neck exam: Positive for: Normal Inspection - Respiratory Exam Respiratory Exam: Decreased Breath Sounds - Cardiovascular Exam Cardiovascular Exam: REGULAR RHYTHM, +S1, +S2 - GI/Abdominal Exam GI & Abdominal Exam: Normal Bowel Sounds (+VE GT), Soft - Extremities Exam Extremities exam: Negative for: calf tenderness, pedal edema - Neurological Exam Neurological exam: Altered - Psychiatric Exam Psychiatric exam: Flat Affect - Skin Skin Exam: Normal Color (SACRAL DECUBITUS ULCER STAGE 3.) Results - Vital Signs Recent Vital Signs: Last Vital Signs Temp 98.6 F 11/05/16 15:00 Pulse 116 H 11/05/16 15:00 Resp 20 11/05/16 15:00 BP 128/80 11/05/16 15:00 Pulse Ox 98 11/05/16 15:00 - Labs Result Diagrams: 11/06/16 06:37 11/06/16 06:37 Labs: Laboratory Results - last 24 hr 11/05/16 13:30 Puncture Site Rra pCO2 41 pO2 134 H HCO3 29.3 H ABG pH 7.47 H ABG Total CO2 31.1 H ABG O2 Saturation 100.4 H ABG Base Excess 5.6 H ABG Hemoglobin 12.0 ABG Carboxyhemoglobin 1.9 H POC ABG HHb (Measured) -0.4 L ABG Methemoglobin 1.8 Fuentes Test A A-a O2 Difference 43.0 Respiratory Index 0.3 Hgb O2 Saturation 96.8 Liter Flow 3.0 FiO2 32.0 Assessment & Plan (1) Sepsis Assessment and Plan: pancultures UA urine cultures Sacral cultures. Continue IV Zosyn 3.375 every 8 hourly Continue IV vancomycin 1 g every 12 hourly Will give a dose of Tygacil 100 mg x1 loading dose for VRE and MRSA while awaiting cultures. Status: Acute (2) UTI (urinary tract infection) Assessment and Plan: follow-up UA and urine cultures. hx VRE UROSEPSIS. Status: Acute (3) Lung nodule Assessment and Plan: NOTED SUPPORTIVE CARE. fAMILY REFUSED AGGRESSIVE WORKUP PER PULMONARY.. Status: Acute
[2016-11-06] MEDS: Piperacillin/Tazobact 3.375 GM in Sodium Chloride 100 ML IVPB SCH ×3 (05:07→21:08)
[2016-11-06 06:51] LABS: BASO % 0.4 % (0.0-2.0); EOS # 0.2 K/uL (0.0-0.7); EOS % 2.3 % (0.0-4.0); HEMOGLOBIN 12.8 g/dL (11.0-16.0); LYMPH % 9.4 % (20.0-40.0); MEAN CORPUSCULAR HEMOGLOBIN 31.2 pg (27.0-31.0); MEAN CORPUSCULAR HGB CONC 32.5 g/dL (33.0-37.0); MEAN PLATELET VOLUME 8.1 fL (7.2-11.7); MONO # 1.3 K/uL (0.0-0.8); MONO % 11.9 % (0.0-10.0); NRBC % 0.1 % (0.0-2.0); PLATELET COUNT 452 K/uL (130-400); RED CELL DISTRIBUTION WIDTH 17.3 % (11.5-14.5); WHITE BLOOD COUNT 10.5 K/uL (4.8-10.8)
[2016-11-06 07:20] LABS: BLOOD UREA NITROGEN 44 mg/dL (7-17); GFR AFRICAN-AMERICAN > 60; GFR NON-AFRICAN AMERICAN > 60
[2016-11-06 08:35] LABS: EOSINOPHIL 2 % (0-4); NEUTROPHIL 79 % (50-75); REACTIVE LYMPHOCYTES 1 % (0-0); TOTAL CELLS COUNTED 100
[2016-11-06 08:36] LABS: LYMPHOCYTE 8 % (20-40); MONOCYTE 10 % (0-10)
[2016-11-06 08:37] LABS: PLATELET ESTIMATE INCREASED (NORMAL)
[2016-11-06] MEDS: Ferrous Sulfate 300 mg/5 mL Liq UD PEG SCH ×3 (09:32→17:12)
[2016-11-06] MEDS: Vancomycin 1 gm/NS 200 ml 1 GM/200 ML BAG IVPB SCH ×2 (09:38→21:43)
[2016-11-06] MEDS: Multiple Vitamins Oral Solution PEG SCH (09:40)
--- NOTE | 2016-11-06 17:09 | CP.PCM.PN ---
Subjective - Date & Time of Evaluation Date of Evaluation: 11/06/16 Time of Evaluation: 09:00 - Subjective Subjective: patient seen and examined. Tachypneic and tachycardic Does not follow any commands Afebrile Saturation 98% Being treated for sepsis Seen by infectious disease Objective - Vital Signs/Intake and Output Vital Signs (last 24 hours): Temp Pulse Resp BP Pulse Ox 99.5 F 111 H 20 123/70 98 11/06/16 15:59 11/06/16 15:59 11/06/16 15:59 11/06/16 15:59 11/06/16 15:59 Intake and Output: 11/06/16 11/06/16 06:59 18:59 Intake Total 1570 1180 Output Total 2800 300 Balance -1230 880 - Medications Medications: Current Medications Donepezil HCl (Aricept) 5 mg PEG HS [facility] Ferrous Sulfate (Feosol Liq) 300 mg PEG TID [facility] Last Admin: 11/06/16 13:22 Dose: 300 mg Heparin Sodium (Porcine) (Heparin) 5,000 units SC Q12 [facility] Last Admin: 11/06/16 09:35 Dose: 5,000 units Piperacillin Sod/Tazobactam (Sod 3.375 gm/ Sodium Chloride) 100 mls @ 200 mls/ hr IVPB Q8H [facility] Last Admin: 11/06/16 13:55 Dose: 200 mls/hr Vancomycin/Sodium Chloride (Vancocin) 1 gm in 200 mls @ 166.6 mls/hr IVPB Q12H [facility] Last Admin: 11/06/16 09:38 Dose: 166.6 mls/hr Potassium Chloride (Potassium Chloride 20 Meq/100 Ml) 20 meq in 100 mls @ 50 mls/hr IVPB Q2H [facility] Stop: 11/06/16 18:44 Last Admin: 11/06/16 15:14 Dose: 50 mls/hr Multivitamins/Vitamin C (Multi-Delyn Liquid) 5 ml PEG DAILY [facility] Last Admin: 11/06/16 09:40 Dose: 5 ml Pantoprazole Sodium (Protonix Inj) 40 mg IVP DAILY [facility] Last Admin: 11/06/16 09:32 Dose: 40 mg Potassium Chloride (Potassium Chloride Oral Soln) 40 meq PO ONCE ONE Stop: 11/06/16 20:01 - Labs Labs: 11/06/16 06:37 07/17/17 06:37 PT 11.7 SECONDS (9.7-12.2) 11/04/16 19:42 INR 1.0 11/04/16 19:42 APTT 26 SECONDS (21-34) 11/04/16 19:42 - ENT Exam ENT Exam: Mucous Membranes Dry - Neck Exam Neck Exam: Normal Inspection - Respiratory Exam Respiratory Exam: Decreased Breath Sounds - Cardiovascular Exam Cardiovascular Exam: Tachycardia, REGULAR RHYTHM - GI/Abdominal Exam GI & Abdominal Exam: Soft, Normal Bowel Sounds Assessment and Plan (1) Sepsis Assessment & Plan: urine culture positive for gram-positive cocci and wound positive for gram- negative rayna antibiotics as per infectious disease IV fluids GT feeding Potassium supplement Followup BMP wound care Status: Acute (2) UTI (urinary tract infection) Status: Acute (3) Dehydration Status: Acute (4) Lung nodule Status: Acute
[2016-11-06 17:54] LABS: ALBUMIN 2.7 g/dL (3.5-5.0)
[2016-11-06 17:57] LABS: ALB/GLOB RATIO 0.8 (1.0-2.1); BILIRUBIN,DIRECT 0.4 mg/dL (0.0-0.4)
[2016-11-06] MEDS ORDERED: Potassium Chloride 20 mEq/15 ml LIQ UD PO ONE (20:00)
--- NOTE | 2016-11-06 22:23 | CP.PCM.PN ---
Subjective - Date & Time of Evaluation Date of Evaluation: 11/06/16 Time of Evaluation: 22:23 - Subjective Subjective: afebrile, TMAX 100.4 TACHYCARDIC, TACHYPNEIC, POORLY RESPONSIVE. PEG IN PLACE-WOUND OKAY B/L GROIN MONILIASIS. LABS; 11/04 URINE CULTURE GRAM-POSITIVE COCCI 11/04 SACRAL DECUBITUS CULTURE- GNR. 11/04 BLOOD CULTURESX 2 SETS -VE X 48HRS. Objective - Vital Signs/Intake and Output Vital Signs (last 24 hours): Temp Pulse Resp BP Pulse Ox 99.5 F 111 H 20 123/70 98 11/06/16 15:59 11/06/16 15:59 11/06/16 15:59 11/06/16 15:59 11/06/16 15:59 Intake and Output: 11/06/16 11/07/16 18:59 06:59 Intake Total 1180 Output Total 300 Balance 880 - Medications Medications: Current Medications Donepezil HCl (Aricept) 5 mg PEG HS [facility] Last Admin: 11/06/16 21:47 Dose: 5 mg Ferrous Sulfate (Feosol Liq) 300 mg PEG TID [facility] Last Admin: 11/06/16 17:12 Dose: 300 mg Heparin Sodium (Porcine) (Heparin) 5,000 units SC Q12 [facility] Last Admin: 11/06/16 21:13 Dose: 5,000 units Piperacillin Sod/Tazobactam (Sod 3.375 gm/ Sodium Chloride) 100 mls @ 200 mls/ hr IVPB Q8H [facility] Last Admin: 11/06/16 21:08 Dose: 200 mls/hr Vancomycin/Sodium Chloride (Vancocin) 1 gm in 200 mls @ 166.6 mls/hr IVPB Q12H [facility] Last Admin: 11/06/16 21:43 Dose: 166.6 mls/hr Multivitamins/Vitamin C (Multi-Delyn Liquid) 5 ml PEG DAILY [facility] Last Admin: 11/06/16 09:40 Dose: 5 ml Pantoprazole Sodium (Protonix Inj) 40 mg IVP DAILY [facility] Last Admin: 11/06/16 09:32 Dose: 40 mg - Labs Labs: 11/06/16 06:37 11/06/16 06:37 PT 11.7 SECONDS (9.7-12.2) 11/04/16 19:42 INR 1.0 11/04/16 19:42 APTT 26 SECONDS (21-34) 11/04/16 19:42 - Constitutional Appears: Cachectic, Chronically Ill - Eye Exam Eye Exam: EOMI, PERRL - ENT Exam ENT Exam: Normal Oropharynx - Neck Exam Neck Exam: Normal Inspection - Respiratory Exam Respiratory Exam: Decreased Breath Sounds - Cardiovascular Exam Cardiovascular Exam: Tachycardia, REGULAR RHYTHM, +S1, +S2 - GI/Abdominal Exam GI & Abdominal Exam: Soft, Normal Bowel Sounds. absent: Tenderness, Rebound - Exam Additional comments: positive Greenberg. Urine cloudy. - Extremities Exam Extremities Exam: absent: Calf Tenderness, Pedal Edema - Neurological Exam Neurological Exam: Altered - Skin Skin Exam: Normal Color, Warm - Additional Findings Additional findings: sacral decubitus ulcer stage III. Malodorous discharge.. Bilateral groin moniliasis. Assessment and Plan (1) Sepsis Assessment & Plan: decrease IV Zosyn 2.25 grams every 8 hourly 11/04 D/C IV vancomycin 1 g every 12 hourly 11/06 GOT a dose of Tygacil 100 mg x1 loading dose for VRE and MRSA ON 11/05 CONTINUE iv tYGACIL 25 MG iv PIGGYBACK EVERY 12 HOURLY PATIENT HAS TRANSAMINITIS PATIENT CAHECTIC. f/u LFTS . Status: Acute (2) UTI (urinary tract infection) Assessment & Plan: follow-up UA and urine cultures. hx VRE UROSEPSIS. ADDED iv TYGACIL 25 MG EVERY 12 HOURLY. MONITOR RENAL FUNCTIONS/LFTS. Status: Acute (3) Lung nodule Status: Acute (4) Sacral decubitus ulcer, stage III Assessment & Plan: patient on broad-spectrum antibiotics. Continue IV Zosyn 2.25 G q 8 hourly. dc iv vancomycin. Continue IV Tygacil 25 mg every 12 hourly to cover for VRE. MONITOR LFTS. WOUND CARE CONSULT FOR APPROPRIATE WOUND CARE.. Status: Acute (5) Monilial intertrigo Assessment & Plan: Desitin powder bilateral groins BID. Status: Acute
[2016-11-06] MEDS: Tigecycline 25 MG in Dextrose 5% In Water 100 ML IVPB SCH (22:52)
[2016-11-07] MEDS: Piperacill/Tazo 2.25gm in Dex 2.25 GM/50 ML BAG IVPB SCH ×3 (05:05→23:22)
[2016-11-07 07:42] LABS: BASO # 0.1 K/uL (0.0-0.2); BASO % 0.9 % (0.0-2.0); EOS # 0.5 K/uL (0.0-0.7); EOS % 4.7 % (0.0-4.0); HEMOGLOBIN 12.8 g/dL (11.0-16.0); LYMPH # 1.4 K/uL (1.0-4.3); LYMPH % 13.9 % (20.0-40.0); MEAN CELL VOLUME 97.8 fL (81.0-99.0); MEAN CORPUSCULAR HEMOGLOBIN 31.5 pg (27.0-31.0); MEAN CORPUSCULAR HGB CONC 32.2 g/dL (33.0-37.0); MEAN PLATELET VOLUME 7.9 fL (7.2-11.7); MONO # 1.2 K/uL (0.0-0.8); MONO % 11.5 % (0.0-10.0); RBC 4.05 Mil/uL (3.80-5.20); RED CELL DISTRIBUTION WIDTH 17.2 % (11.5-14.5); WHITE BLOOD COUNT 10.1 K/uL (4.8-10.8)
[2016-11-07 07:47] LABS: GFR AFRICAN-AMERICAN > 60; GFR NON-AFRICAN AMERICAN > 60
[2016-11-07 07:48] LABS: BLOOD UREA NITROGEN 37 mg/dL (7-17); CALCIUM 8.1 mg/dl (8.6-10.4)
[2016-11-07] MEDS: Multiple Vitamins Oral Solution PEG SCH (09:55)
[2016-11-07] MEDS: Ferrous Sulfate 300 mg/5 mL Liq UD PEG SCH ×3 (09:56→18:21)
[2016-11-07] MEDS: Tigecycline 25 MG in Dextrose 5% In Water 100 ML IVPB SCH ×2 (09:56→21:40)
[2016-11-07] MEDS: Sodium Chloride 0.45% 1,000 ML IV SCH ×2 (11:34→21:37)
--- NOTE | 2016-11-07 14:08 | CP.PCM.PN ---
Subjective - Date & Time of Evaluation Date of Evaluation: 11/07/16 Time of Evaluation: 14:07 - Subjective Subjective: afebrile, TMAX 99.5 TACHYCARDIC, TACHYPNEIC, POORLY RESPONSIVE. LABS; 11/04 URINE CULTURE GRAM-POSITIVE COCCI 11/04 SACRAL DECUBITUS CULTURE- enterobacter-cloacae s -zosyn 11/04 BLOOD CULTURESX 2 SETS -VE X 48HRS. Objective - Vital Signs/Intake and Output Vital Signs (last 24 hours): Temp Pulse Resp BP Pulse Ox 98.4 F 142 H 20 133/82 98 11/07/16 09:31 11/07/16 09:31 11/07/16 09:31 11/07/16 09:31 11/07/16 09:31 Intake and Output: 11/07/16 11/07/16 06:59 18:59 Intake Total 1680 Output Total 1000 Balance 680 - Medications Medications: Current Medications Donepezil HCl (Aricept) 5 mg PEG HS [facility] Last Admin: 11/06/16 21:47 Dose: 5 mg Ferrous Sulfate (Feosol Liq) 300 mg PEG TID [facility] Last Admin: 11/07/16 09:56 Dose: 300 mg Heparin Sodium (Porcine) (Heparin) 5,000 units SC Q12 [facility] Last Admin: 11/07/16 09:56 Dose: 5,000 units Tigecycline 25 mg/ Dextrose 100 mls @ 100 mls/hr IVPB Q12H [facility] Last Admin: 11/07/16 09:56 Dose: 100 mls/hr Piperacillin Sod/Tazobactam Sod (Zosyn 2.25 Gm Iv Premix) 2.25 gm in 50 mls @ 100 mls/hr IVPB Q8H [facility] Last Admin: 11/07/16 13:39 Dose: 100 mls/hr Sodium Chloride (Sodium Chloride 0.45%) 1,000 mls @ 125 mls/hr IV .Q8H [facility] Last Admin: 11/07/16 11:34 Dose: 125 mls/hr Multivitamins/Vitamin C (Multi-Delyn Liquid) 5 ml PEG DAILY [facility] Last Admin: 11/07/16 09:55 Dose: 5 ml Pantoprazole Sodium (Protonix Inj) 40 mg IVP DAILY [facility] Last Admin: 11/07/16 09:55 Dose: 40 mg - Labs Labs: 11/07/16 07:08 11/07/16 07:08 PT 11.7 SECONDS (9.7-12.2) 11/04/16 19:42 INR 1.0 11/04/16 19:42 APTT 26 SECONDS (21-34) 11/04/16 19:42 - Constitutional Appears: No Acute Distress, Cachectic, Chronically Ill - Head Exam Head Exam: NORMAL INSPECTION - Eye Exam Eye Exam: PERRL - ENT Exam ENT Exam: Mucous Membranes Dry - Neck Exam Neck Exam: Normal Inspection - Respiratory Exam Respiratory Exam: Decreased Breath Sounds - Cardiovascular Exam Cardiovascular Exam: Tachycardia, REGULAR RHYTHM, +S1, +S2 - GI/Abdominal Exam GI & Abdominal Exam: Soft, Normal Bowel Sounds. absent: Tenderness - Extremities Exam Extremities Exam: Pedal Edema. absent: Calf Tenderness - Neurological Exam Neurological Exam: Altered (poorly responsive.) - Psychiatric Exam Psychiatric exam: Flat Affect - Skin Skin Exam: Normal Color Assessment and Plan (1) Sepsis Assessment & Plan: decrease IV Zosyn 2.25 grams every 8 hourly 11/04 GOT a dose of Tygacil 100 mg x1 loading dose for VRE and MRSA ON 11/05 on iv tYGACIL 25 MG iv PIGGYBACK EVERY 12 HOURLY LFTS IMPROVING Status: Acute (2) UTI (urinary tract infection) Assessment & Plan: ollow-up UA and urine cultures. hx VRE UROSEPSIS. ADDED iv TYGACIL 25 MG EVERY 12 HOURLY. MONITOR RENAL FUNCTIONS/LFTS. Status: Acute (3) Lung nodule Status: Acute (4) Sacral decubitus ulcer, stage III Assessment & Plan: patient on broad-spectrum antibiotics. Continue IV Zosyn 2.25 G q 8 hourly. Continue IV Tygacil 25 mg every 12 hourly to cover for VRE. LFTS IMPROVING. WOUND CARE CONSULT FOR APPROPRIATE WOUND CARE.. Status: Acute (5) Monilial intertrigo Status: Acute (6) Dehydration with hypernatremia Assessment & Plan: IV FLUIDS PER PMD. F/U SERUM NA Status: Acute
[2016-11-07] MEDS ORDERED: Ipratropium 0.02% Inhal Soln (0.5 mg/2.5 ml) UD IH PRN (15:52)
--- NOTE | 2016-11-07 15:57 | CP.PCM.PN ---
Subjective - Date & Time of Evaluation Date of Evaluation: 11/07/16 Time of Evaluation: 08:00 - Subjective Subjective: Pt Since seen and examined. No change in mental status remains tachypneic Started on IV fluids On antibiotics as per infectious disease Objective - Vital Signs/Intake and Output Vital Signs (last 24 hours): Temp Pulse Resp BP Pulse Ox 98.4 F 142 H 20 133/82 98 11/07/16 09:31 11/07/16 09:31 11/07/16 09:31 11/07/16 09:31 11/07/16 09:31 Intake and Output: 11/07/16 11/07/16 06:59 18:59 Intake Total 1680 525 Output Total 1000 400 Balance 680 125 - Medications Medications: Current Medications Donepezil HCl (Aricept) 5 mg PEG HS [facility] Last Admin: 11/06/16 21:47 Dose: 5 mg Ferrous Sulfate (Feosol Liq) 300 mg PEG TID [facility] Last Admin: 11/07/16 14:34 Dose: 300 mg Heparin Sodium (Porcine) (Heparin) 5,000 units SC Q12 [facility] Last Admin: 11/07/16 09:56 Dose: 5,000 units Tigecycline 25 mg/ Dextrose 100 mls @ 100 mls/hr IVPB Q12H [facility] Last Admin: 11/07/16 09:56 Dose: 100 mls/hr Piperacillin Sod/Tazobactam Sod (Zosyn 2.25 Gm Iv Premix) 2.25 gm in 50 mls @ 100 mls/hr IVPB Q8H [facility] Last Admin: 11/07/16 13:39 Dose: 100 mls/hr Sodium Chloride (Sodium Chloride 0.45%) 1,000 mls @ 125 mls/hr IV .Q8H [facility] Last Admin: 11/07/16 11:34 Dose: 125 mls/hr Ipratropium [place] (Atrovent) 0.5 mg IH [id number] PRN PRN Reason: Shortness of Breath Multivitamins/Vitamin C (Multi-Delyn Liquid) 5 ml PEG DAILY [facility] Last Admin: 11/07/16 09:55 Dose: 5 ml Pantoprazole Sodium (Protonix Inj) 40 mg IVP DAILY [facility] Last Admin: 11/07/16 09:55 Dose: 40 mg - Labs Labs: 11/07/16 07:08 11/07/16 07:08 PT 11.7 SECONDS (9.7-12.2) 11/04/16 19:42 INR 1.0 11/04/16 19:42 APTT 26 SECONDS (21-34) 11/04/16 19:42 - Head Exam Head Exam: ATRAUMATIC, NORMOCEPHALIC - ENT Exam ENT Exam: Mucous Membranes Dry - Neck Exam Neck Exam: Normal Inspection - Respiratory Exam Respiratory Exam: Respiratory Distress - Cardiovascular Exam Cardiovascular Exam: Tachycardia, REGULAR RHYTHM - GI/Abdominal Exam GI & Abdominal Exam: Soft Assessment and Plan (1) Sepsis Assessment & Plan: Continue antibiotics as per infectious disease Started on IV fluids for hypernatremia On ipratropium nebulizer treatment Follow-up chemistry Spoke with family at length Status: Acute (2) UTI (urinary tract infection) Status: Acute (3) Dehydration Status: Acute (4) Lung nodule Status: Acute
[2016-11-08] MEDS: Piperacill/Tazo 2.25gm in Dex 2.25 GM/50 ML BAG IVPB SCH ×3 (05:09→21:12)
[2016-11-08] MEDS: Sodium Chloride 0.45% 1,000 ML IV SCH ×3 (05:11→19:44)
--- NOTE | 2016-11-08 09:50 | RAD ---
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 There is linear scarring in the right lower lobe and left mid lung. PLEURA: No significant pleural effusion identified, no pneumothorax apparent. CARDIOVASCULAR: There is borderline cardiomegaly. OSSEOUS STRUCTURES: No significant abnormalities. VISUALIZED UPPER ABDOMEN: Normal. OTHER FINDINGS: None. IMPRESSION: No significant interval change in known right upper lobe mass and chronic findings in both lobes.
[2016-11-08] MEDS: Ferrous Sulfate 300 mg/5 mL Liq UD PEG SCH ×3 (11:10→17:30)
[2016-11-08] MEDS: Multiple Vitamins Oral Solution PEG SCH (11:11)
[2016-11-08] MEDS: Tigecycline 25 MG in Dextrose 5% In Water 100 ML IVPB SCH ×2 (11:12→22:01)
[2016-11-08 12:32] LABS: BLOOD UREA NITROGEN 32 mg/dL (7-17); GFR AFRICAN-AMERICAN > 60; GFR NON-AFRICAN AMERICAN > 60
[2016-11-08 12:33] LABS: CALCIUM 7.3 mg/dl (8.6-10.4)
[2016-11-08] MEDS ORDERED: Potassium Chloride 20 mEq/15 ml LIQ UD PEG ONE (13:29)
--- NOTE | 2016-11-08 13:52 | CP.PCM.PN ---
Subjective - Date & Time of Evaluation Date of Evaluation: 11/08/16 Time of Evaluation: 09:00 - Subjective Subjective: Patient seen and examined. Less tachypneic with no change in mental status Afebrile Objective - Vital Signs/Intake and Output Vital Signs (last 24 hours): Temp Pulse Resp BP Pulse Ox 98 F 100 H 20 128/74 100 11/08/16 08:00 11/08/16 08:00 11/08/16 08:00 11/08/16 08:00 11/08/16 08:00 Intake and Output: 11/08/16 11/08/16 06:59 18:59 Intake Total 1360 Output Total 800 Balance 560 - Medications Medications: Current Medications Donepezil HCl (Aricept) 5 mg PEG HS [facility] Last Admin: 11/07/16 22:20 Dose: Not Given Ferrous Sulfate (Feosol Liq) 300 mg PEG TID [facility] Last Admin: 11/08/16 11:10 Dose: 300 mg Heparin Sodium (Porcine) (Heparin) 5,000 units SC Q12 [facility] Last Admin: 11/08/16 11:11 Dose: 5,000 units Tigecycline 25 mg/ Dextrose 100 mls @ 100 mls/hr IVPB Q12H [facility] Last Admin: 11/08/16 11:12 Dose: 100 mls/hr Piperacillin Sod/Tazobactam Sod (Zosyn 2.25 Gm Iv Premix) 2.25 gm in 50 mls @ 100 mls/hr IVPB Q8H [facility] Last Admin: 11/08/16 12:39 Dose: 100 mls/hr Sodium Chloride (Sodium Chloride 0.45%) 1,000 mls @ 125 mls/hr IV .Q8H [facility] Last Admin: 11/08/16 11:20 Dose: 125 mls/hr Ipratropium [place] (Atrovent) 0.5 mg IH RQ6 PRN PRN Reason: Shortness of Breath Multivitamins/Vitamin C (Multi-Delyn Liquid) 5 ml PEG DAILY [facility] Last Admin: 11/08/16 11:11 Dose: 5 ml Pantoprazole Sodium (Protonix Inj) 40 mg IVP DAILY [facility] Last Admin: 11/08/16 11:11 Dose: 40 mg - Labs Labs: 11/07/16 07:08 11/08/16 12:10 PT 11.7 SECONDS (9.7-12.2) 11/04/16 19:42 INR 1.0 11/04/16 19:42 APTT 26 SECONDS (21-34) 11/04/16 19:42 - Head Exam Head Exam: ATRAUMATIC, NORMOCEPHALIC - ENT Exam ENT Exam: Mucous Membranes Dry - Neck Exam Neck Exam: Normal Inspection - Respiratory Exam Respiratory Exam: Clear to Ausculation Bilateral - Cardiovascular Exam Cardiovascular Exam: REGULAR RHYTHM - GI/Abdominal Exam GI & Abdominal Exam: Soft, Normal Bowel Sounds Assessment and Plan (1) Sepsis Assessment & Plan: Continue antibiotics per infectious disease Continue half normal saline for hypernatremia, sodium level 151 k supplement Status: Acute (2) UTI (urinary tract infection) Status: Acute (3) Dehydration Status: Acute (4) Lung nodule Status: Acute
--- NOTE | 2016-11-08 14:30 | CP.PCM.PN ---
Subjective - Date & Time of Evaluation Date of Evaluation: 11/08/16 Time of Evaluation: 14:30 - Subjective Subjective: afebrile, less TACHYPNEIC, POORLY RESPONSIVE. NEURO STATUS UNCHANGED LABS; REVIEWED wbc 10.1 IMPROVING sODIUM 151 PROVING cREATININE 0.4/bun 32 LFTS IMPROVING. 11/04 URINE CULTURE - vancomycin-resistant enterococcus (VRE ) 11/04 SACRAL DECUBITUS CULTURE- enterobacter-cloacae s -zosyn 11/04 BLOOD CULTURESX 2 SETS -VE X 48HRS. PATIENT ON iv zOSYN 2.25 iv q8 HOURLY. CONTINUE iv TYGACIL 25 MG iv EVERY 12 HOURLY. CASE DISCUSSED WITH THE STAFF. CONTACT PRECAUTIONS. SACRAL DECUBITUS WOUND CARE PER WOUND CARE NURSE. CASE DISCUSSED WITH PMD Objective - Vital Signs/Intake and Output Vital Signs (last 24 hours): Temp Pulse Resp BP Pulse Ox 98 F 100 H 20 128/74 100 11/08/16 08:00 11/08/16 08:00 11/08/16 08:00 11/08/16 08:00 11/08/16 08:00 Intake and Output: 11/08/16 11/08/16 06:59 18:59 Intake Total 1360 Output Total 800 300 Balance 560 -300 - Medications Medications: Current Medications Donepezil HCl (Aricept) 5 mg PEG HS [facility] Last Admin: 11/07/16 22:20 Dose: Not Given Ferrous Sulfate (Feosol Liq) 300 mg PEG TID [facility] Last Admin: 11/08/16 14:08 Dose: 300 mg Heparin Sodium (Porcine) (Heparin) 5,000 units SC Q12 [facility] Last Admin: 11/08/16 11:11 Dose: 5,000 units Tigecycline 25 mg/ Dextrose 100 mls @ 100 mls/hr IVPB Q12H [facility] Last Admin: 11/08/16 11:12 Dose: 100 mls/hr Piperacillin Sod/Tazobactam Sod (Zosyn 2.25 Gm Iv Premix) 2.25 gm in 50 mls @ 100 mls/hr IVPB Q8H [facility] Last Admin: 11/08/16 12:39 Dose: 100 mls/hr Sodium Chloride (Sodium Chloride 0.45%) 1,000 mls @ 125 mls/hr IV .Q8H [facility] Last Admin: 07/19/17 11:20 Dose: 125 mls/hr Ipratropium [place] (Atrovent) 0.5 mg IH RQ6 PRN PRN Reason: Shortness of Breath Multivitamins/Vitamin C (Multi-Delyn Liquid) 5 ml PEG DAILY [facility] Last Admin: 11/08/16 11:11 Dose: 5 ml Pantoprazole Sodium (Protonix Inj) 40 mg IVP DAILY [facility] Last Admin: 11/08/16 11:11 Dose: 40 mg - Labs Labs: 11/07/16 07:08 11/08/16 12:10 PT 11.7 SECONDS (9.7-12.2) 11/04/16 19:42 INR 1.0 11/04/16 19:42 APTT 26 SECONDS (21-34) 11/04/16 19:42 - Constitutional Appears: No Acute Distress, Cachectic, Chronically Ill - Eye Exam Eye Exam: PERRL - ENT Exam ENT Exam: Mucous Membranes Dry - Neck Exam Neck Exam: Normal Inspection - Respiratory Exam Respiratory Exam: Decreased Breath Sounds - Cardiovascular Exam Cardiovascular Exam: Tachycardia, REGULAR RHYTHM, +S1, +S2 - GI/Abdominal Exam GI & Abdominal Exam: Soft, Normal Bowel Sounds (GT IN PLACE..) - Extremities Exam Extremities Exam: absent: Calf Tenderness, Pedal Edema - Neurological Exam Neurological Exam: Altered - Skin Skin Exam: Normal Color, Warm Assessment and Plan (1) Sepsis Assessment & Plan: BLOOD CULTURES NEGATIVE TO DATE. SOURCE OF SEPSIS MOST LIKELY SACRAL DECUBITUS ULCERS AND UROSEPSIS. cONTINUE iv ANTIBIOTICS ORDERED. Status: Acute (2) UTI (urinary tract infection) Assessment & Plan: URINE CULTURE +VE VRE ON iv zOSYN 2.25 iv q8 HOURLY FOR SACRAL DECUBITUS ULCERS CONTINUE iv TYGACIL 25 MG iv EVERY 12 HOURLY FOR VRE IN THE URINE. Status: Acute (3) Lung nodule Status: Acute (4) Sacral decubitus ulcer, stage III Status: Acute (5) Monilial intertrigo Status: Acute (6) Dehydration with hypernatremia Status: Acute
[2016-11-09] MEDS: Sodium Chloride 0.45% 1,000 ML IV SCH ×4 (03:54→18:46)
[2016-11-09] MEDS: Piperacill/Tazo 2.25gm in Dex 2.25 GM/50 ML BAG IVPB SCH ×3 (04:00→20:44)
[2016-11-09] MEDS: Ferrous Sulfate 300 mg/5 mL Liq UD PEG SCH ×3 (10:20→17:57)
[2016-11-09] MEDS: Tigecycline 25 MG in Dextrose 5% In Water 100 ML IVPB SCH ×2 (10:20→22:35)
[2016-11-09] MEDS: Multiple Vitamins Oral Solution PEG SCH (10:20)
--- NOTE | 2016-11-09 13:18 | CP.PCM.PN ---
Subjective - Date & Time of Evaluation Date of Evaluation: 11/09/16 Time of Evaluation: 08:00 - Subjective Subjective: patient seen and examined. No change in mental status No shortness of breath noted Afebrile Being treated for sepsis Objective - Vital Signs/Intake and Output Vital Signs (last 24 hours): Temp Pulse Resp BP Pulse Ox 98.7 F 106 H 18 152/77 H 98 11/09/16 08:26 11/09/16 08:26 11/09/16 08:26 11/09/16 08:26 11/09/16 08:26 Intake and Output: 11/09/16 11/09/16 06:59 18:59 Intake Total 1320 Output Total 452 Balance 868 - Medications Medications: Current Medications Donepezil HCl (Aricept) 5 mg PEG HS [facility] Last Admin: 11/08/16 21:48 Dose: 5 mg Ferrous Sulfate (Feosol Liq) 300 mg PEG TID [facility] Last Admin: 11/09/16 10:20 Dose: 300 mg Heparin Sodium (Porcine) (Heparin) 5,000 units SC Q12 [facility] Last Admin: 11/09/16 10:21 Dose: 5,000 units Tigecycline 25 mg/ Dextrose 100 mls @ 100 mls/hr IVPB Q12H [facility] Last Admin: 11/09/16 10:20 Dose: 100 mls/hr Piperacillin Sod/Tazobactam Sod (Zosyn 2.25 Gm Iv Premix) 2.25 gm in 50 mls @ 100 mls/hr IVPB Q8H [facility] Last Admin: 11/09/16 04:00 Dose: 100 mls/hr Sodium Chloride (Sodium Chloride 0.45%) 1,000 mls @ 125 mls/hr IV .Q8H [facility] Last Admin: 11/09/16 11:15 Dose: Not Given Ipratropium [place] (Atrovent) 0.5 mg IH RQ6 PRN PRN Reason: Shortness of Breath Multivitamins/Vitamin C (Multi-Delyn Liquid) 5 ml PEG DAILY [facility] Last Admin: 11/09/16 10:20 Dose: 5 ml Pantoprazole Sodium (Protonix Inj) 40 mg IVP DAILY [facility] Last Admin: 11/09/16 10:20 Dose: 40 mg - Labs Labs: 11/07/16 07:08 11/08/16 12:10 PT 11.7 SECONDS (9.7-12.2) 11/04/16 19:42 INR 1.0 11/04/16 19:42 APTT 26 SECONDS (21-34) 11/04/16 19:42 - Head Exam Head Exam: ATRAUMATIC, NORMOCEPHALIC - ENT Exam ENT Exam: Mucous Membranes Moist - Neck Exam Neck Exam: Normal Inspection - Respiratory Exam Respiratory Exam: Clear to Ausculation Bilateral - Cardiovascular Exam Cardiovascular Exam: REGULAR RHYTHM - GI/Abdominal Exam GI & Abdominal Exam: Soft, Normal Bowel Sounds - Extremities Exam Extremities Exam: Full ROM, Normal Inspection - Neurological Exam Neurological Exam: Alert, Oriented x3 Assessment and Plan (1) Sepsis Assessment & Plan: continue antibiotics as per infectious disease Okay to transfer to [facility] tomorrow followup potassium and sodium level Status: Acute (2) UTI (urinary tract infection) Status: Acute (3) Dehydration Status: Acute (4) Lung nodule Status: Acute
[2016-11-09 17:34] LABS: BLOOD UREA NITROGEN 23 mg/dL (7-17); GFR AFRICAN-AMERICAN > 60; GFR NON-AFRICAN AMERICAN > 60
--- NOTE | 2016-11-09 17:36 | CP.PCM.PN ---
Subjective - Date & Time of Evaluation Date of Evaluation: 11/09/16 Time of Evaluation: 17:36 - Subjective Subjective: low-grade temperatures, tmax 99.2. BP STABLE Poorly responsive and lethargic. ON iv ANTIBIOTICS. Objective - Vital Signs/Intake and Output Vital Signs (last 24 hours): Temp Pulse Resp BP Pulse Ox 992 F H 104 H 19 146/87 95 11/09/16 15:44 11/09/16 15:44 11/09/16 15:44 11/09/16 15:44 11/09/16 15:44 Intake and Output: 11/09/16 11/09/16 06:59 18:59 Intake Total 1320 1345 Output Total 452 600 Balance 868 745 - Medications Medications: Current Medications Donepezil HCl (Aricept) 5 mg PEG HS [facility] Last Admin: 11/08/16 21:48 Dose: 5 mg Ferrous Sulfate (Feosol Liq) 300 mg PEG TID [facility] Last Admin: 11/09/16 13:25 Dose: 300 mg Heparin Sodium (Porcine) (Heparin) 5,000 units SC Q12 [facility] Last Admin: 11/09/16 10:21 Dose: 5,000 units Tigecycline 25 mg/ Dextrose 100 mls @ 100 mls/hr IVPB Q12H [facility] Last Admin: 11/09/16 10:20 Dose: 100 mls/hr Piperacillin Sod/Tazobactam Sod (Zosyn 2.25 Gm Iv Premix) 2.25 gm in 50 mls @ 100 mls/hr IVPB Q8H [facility] Last Admin: 11/09/16 13:25 Dose: 100 mls/hr Sodium Chloride (Sodium Chloride 0.45%) 1,000 mls @ 125 mls/hr IV .Q8H [facility] Last Admin: 11/09/16 13:24 Dose: 125 mls/hr Ipratropium [place] (Atrovent) 0.5 mg IH RQ6 PRN PRN Reason: Shortness of Breath Multivitamins/Vitamin C (Multi-Delyn Liquid) 5 ml PEG DAILY [facility] Last Admin: 11/09/16 10:20 Dose: 5 ml Pantoprazole Sodium (Protonix Inj) 40 mg IVP DAILY [facility] Last Admin: 11/09/16 10:20 Dose: 40 mg - Labs Labs: 11/07/16 07:08 11/08/16 12:10 PT 11.7 SECONDS (9.7-12.2) 11/04/16 19:42 INR 1.0 11/04/16 19:42 APTT 26 SECONDS (21-34) 11/04/16 19:42 - Constitutional Appears: No Acute Distress, Cachectic, Chronically Ill - Eye Exam Eye Exam: PERRL - ENT Exam ENT Exam: Mucous Membranes Dry - Neck Exam Neck Exam: Normal Inspection. absent: Meningismus - Respiratory Exam Respiratory Exam: Decreased Breath Sounds - GI/Abdominal Exam GI & Abdominal Exam: Soft (PEG IN PLACE), Normal Bowel Sounds - Extremities Exam Extremities Exam: absent: Calf Tenderness, Pedal Edema (BILATERAL GROIN MONILIASIS.) - Neurological Exam Neurological Exam: Altered - Skin Skin Exam: Normal Color, Warm Assessment and Plan (1) Sepsis Assessment & Plan: BLOOD CULTURES 11/04/16 -VE TO DATE. Status: Acute (2) UTI (urinary tract infection) Assessment & Plan: 11/04 URINE CULTURE - vancomycin-resistant enterococcus (VRE ) 11/04 SACRAL DECUBITUS CULTURE- enterobacter-cloacae s -zosyn continue IV Zosyn 2.25 mg IV piggyback every 8 hourly x 2 weeks more. Continue IV Tygacil 25 mg every 12 hourly for total 10 days. (started 11/05/16 ) Follow-up UA and urine culture repeat and therapy accordingly. Patient for LTAC TRANSFER PER ATTENDING IN A.M. PATIENT TO BE REEVALUATED BY ATTENDING AT SUBACUTE REHABILITATION FOR FURTHER THERAPY. I WILL BE FOLLOWING PATIENT WHILE IN HOSPITAL. CASE DISCUSSED WITH STAFF AND ATTENDING. 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 Status: Acute (5) Monilial intertrigo Assessment & Plan: apply nystatin powder both groins twice a day For 5 days. Status: Acute (6) Dehydration with hypernatremia Status: Acute
[2016-11-09] MEDS ORDERED: Potassium Chloride 20 mEq/15 ml LIQ UD PO ONE (17:56)
[2016-11-09 19:02] LABS: URINE BACTERIA RARE (<OCC); URINE BILIRUBIN NEGATIVE (NEGATIVE); URINE BLOOD 1+ (NEGATIVE); URINE CLARITY Clear (Clear); URINE COLOR Yellow (YELLOW); URINE GLUCOSE (UA) NORMAL (Normal); URINE LEUKOCYTE ESTERASE 1+ Leu/uL (Negative); URINE NITRATE NEGATIVE (NEGATIVE); URINE PROTEIN NEGATIVE (NEGATIVE); URINE UROBILINOGEN NORMAL mg/dL (0.2-1.0)
[2016-11-10] MEDS: Sodium Chloride 0.45% 1,000 ML IV SCH (02:07)
[2016-11-10] MEDS: Piperacill/Tazo 2.25gm in Dex 2.25 GM/50 ML BAG IVPB SCH ×2 (04:47→14:18)
[2016-11-10] MEDS: Multiple Vitamins Oral Solution PEG SCH (11:35)
[2016-11-10] MEDS: Tigecycline 25 MG in Dextrose 5% In Water 100 ML IVPB SCH (11:35)
[2016-11-10] MEDS: Ferrous Sulfate 300 mg/5 mL Liq UD PEG SCH ×3 (11:35→17:42)
--- NOTE | 2016-11-10 11:52 | CP.PCM.PN ---
Subjective - Date & Time of Evaluation Date of Evaluation: 11/10/16 Time of Evaluation: 10:00 - Subjective Subjective: patient seen and examined. No change in patient condition No response to stimuli Afebrile Mild respiratory distress being treated for sepsis Objective - Vital Signs/Intake and Output Vital Signs (last 24 hours): Temp Pulse Resp BP Pulse Ox 97.5 F L 98 H 18 127/76 98 11/10/16 08:37 11/10/16 08:37 11/10/16 08:37 11/10/16 08:37 11/10/16 08:37 Intake and Output: 11/10/16 11/10/16 06:59 18:59 Intake Total 940 Output Total 401 300 Balance 539 -300 - Medications Medications: Current Medications Donepezil HCl (Aricept) 5 mg PEG HS [facility] Last Admin: 11/09/16 21:30 Dose: 5 mg Ferrous Sulfate (Feosol Liq) 300 mg PEG TID [facility] Last Admin: 11/10/16 11:35 Dose: 300 mg Tigecycline 25 mg/ Dextrose 100 mls @ 100 mls/hr IVPB Q12H [facility] Last Admin: 11/10/16 11:35 Dose: 100 mls/hr Piperacillin Sod/Tazobactam Sod (Zosyn 2.25 Gm Iv Premix) 2.25 gm in 50 mls @ 100 mls/hr IVPB Q8H [facility] Last Admin: 11/10/16 04:47 Dose: 100 mls/hr Ipratropium [place] (Atrovent) 0.5 mg IH RQ6 PRN PRN Reason: Shortness of Breath Multivitamins/Vitamin C (Multi-Delyn Liquid) 5 ml PEG DAILY [facility] Last Admin: 11/10/16 11:35 Dose: 5 ml Pantoprazole Sodium (Protonix Inj) 40 mg IVP DAILY [facility] Last Admin: 11/10/16 11:36 Dose: 40 mg - Labs Labs: 11/07/16 07:08 11/09/16 17:08 PT 11.7 SECONDS (9.7-12.2) 11/04/16 19:42 INR 1.0 11/04/16 19:42 APTT 26 SECONDS (21-34) 11/04/16 19:42 - Head Exam Head Exam: ATRAUMATIC, NORMOCEPHALIC - ENT Exam ENT Exam: Mucous Membranes Moist - Neck Exam Neck Exam: Normal Inspection - Respiratory Exam Respiratory Exam: Clear to Ausculation Bilateral - Cardiovascular Exam Cardiovascular Exam: REGULAR RHYTHM - GI/Abdominal Exam GI & Abdominal Exam: Soft, Normal Bowel Sounds Assessment and Plan (1) Sepsis Assessment & Plan: awaiting for transfer to [facility] Continue antibiotics as per infectious disease Continue IV fluid Monitor electrolytes Status: Acute (2) UTI (urinary tract infection) Status: Acute (3) Dehydration Status: Acute (4) Lung nodule Status: Acute
--- NOTE | 2016-11-10 13:57 | CARD ---
APPROVED REPORT EKG Measurement Heart [id number] <Conclusion> Sinus tachycardia Left axis deviation Abnormal ECG
[2016-11-10] MEDS ORDERED: MethylPREDNISolone 40 mg Vial IVP ONE (16:15)
--- NOTE | 2016-11-10 22:55 | CP.PCM.PN ---
Subjective - Date & Time of Evaluation Date of Evaluation: 11/10/16 Time of Evaluation: 22:55 - Subjective Subjective: PATIENT SEEN AND EXAMINED WITH WOUND CARE AFEBRILE, MINIMALLY RESPONSIVE TO PAINFUL STIMULI. GENERALIZED MACULOPAPULAR RASH NOTED ALL OVER THE BODY INCLUDING TRUNK FACE UPPER EXTREMITIES AND LOWER EXTREMITIES. ? MOST LIKELY DRUG RASH. PT ON IV ZOSYN/IV TYGACIL. CASE DISCUSSED WITH THE STAFF ON-DUTY. CASE DISCUSSED WITH DR. TILLMAN-VALARIE 2-HOLD DISCHARGE TO AC . *STAT DOSE OFF iv SOLU-MEDROL 125 MG GIVEN IV TO BE FOLLOWED BY 20 MG EVERY 12 HOURLY. ADD iv PROTONIX 40 MG ONCE A DAY DAILY. DC ALL iv ANTIBIOTICS. OBSERVE PATIENT IN HOSPITAL. DECUBITUS ULCERS SACRUM-APPEARED TO BE CLEAN. wOUND CARE WITH [facility] IN PROGRESS. Objective - Vital Signs/Intake and Output Vital Signs (last 24 hours): Temp Pulse Resp BP Pulse Ox 99 F 100 H 26 H 114/64 99 11/10/16 16:00 11/10/16 16:00 11/10/16 16:00 11/10/16 16:00 11/10/16 16:00 Intake and Output: 11/10/16 11/11/16 18:59 06:59 Intake Total 761 Output Total 550 Balance 211 - Medications Medications: Current Medications Donepezil HCl (Aricept) 5 mg PEG HS [facility] Last Admin: 11/10/16 21:29 Dose: 5 mg Ferrous Sulfate (Feosol Liq) 300 mg PEG TID [facility] Last Admin: 11/10/16 17:42 Dose: 300 mg Ipratropium [place] (Atrovent) 0.5 mg IH RQ6 PRN PRN Reason: Shortness of Breath Methylprednisolone (Solu-Medrol) 20 mg IVP Q12H [facility] Stop: 11/13/16 04:01 Multivitamins/Vitamin C (Multi-Delyn Liquid) 5 ml PEG DAILY [facility] Last Admin: 11/10/16 11:35 Dose: 5 ml Pantoprazole Sodium (Protonix Inj) 40 mg IVP DAILY [facility] Last Admin: 11/10/16 11:36 Dose: 40 mg - Labs Labs: 11/07/16 07:08 11/09/16 17:08 PT 11.7 SECONDS (9.7-12.2) 11/04/16 19:42 INR 1.0 11/04/16 19:42 APTT 26 SECONDS (21-34) 11/04/16 19:42 - Constitutional Appears: No Acute Distress, Cachectic, Chronically Ill - Eye Exam Eye Exam: PERRL - ENT Exam ENT Exam: Mucous Membranes Dry - Neck Exam Neck Exam: Normal Inspection - Respiratory Exam Respiratory Exam: Decreased Breath Sounds - Cardiovascular Exam Cardiovascular Exam: Tachycardia, REGULAR RHYTHM, +S1, +S2 - GI/Abdominal Exam GI & Abdominal Exam: Soft (PEG IN PLACE..), Normal Bowel Sounds - Extremities Exam Extremities Exam: absent: Calf Tenderness, Pedal Edema - Neurological Exam Neurological Exam: Altered - Psychiatric Exam Psychiatric exam: Flat Affect Assessment and Plan (1) Allergic drug rash due to anti-infective agent Assessment & Plan: DC all antibiotics including IV Zosyn and IV Tygacil. Rash appears more likely to IV Zosyn which was initiated earlier than Tygacil. IV steroids IV Protonix. Moisturizes to skin when necessary as needed. hold dischargto LTAC. Case discussed with PMD and house staff. Status: Acute (2) Sepsis Assessment & Plan: blood cultures negative to date Status: Acute (3) UTI (urinary tract infection) Assessment & Plan: f/u repeat urine cultures. f/u lfts in am. Status: Acute (4) Lung nodule Status: Acute (5) Sacral decubitus ulcer, stage III Assessment & Plan: continue local care. Status: Acute (6) Monilial intertrigo Status: Acute (7) Dehydration with hypernatremia Status: Acute
[2016-11-11] MEDS: MethylPREDNISolone 40 mg Vial IVP SCH ×3 (05:11→21:46)
[2016-11-11 08:38] LABS: ALB/GLOB RATIO 0.7 (1.0-2.1); ALT/SGPT 79 U/L (9-52); AST/SGOT 43 U/L (14-36); BILIRUBIN,DIRECT 0.3 mg/dL (0.0-0.4); BLOOD UREA NITROGEN 29 mg/dL (7-17); CALCIUM 7.6 mg/dl (8.6-10.4); GFR AFRICAN-AMERICAN > 60; GFR NON-AFRICAN AMERICAN > 60
[2016-11-11 08:46] LABS: HEMOGLOBIN 11.8 g/dL (11.0-16.0); RBC 3.84 Mil/uL (3.80-5.20); WHITE BLOOD COUNT 13.4 K/uL (4.8-10.8)
[2016-11-11 08:47] LABS: MEAN CELL VOLUME 96.3 fL (81.0-99.0); MEAN CORPUSCULAR HEMOGLOBIN 30.8 pg (27.0-31.0); PLATELET COUNT 312 K/uL (130-400); RED CELL DISTRIBUTION WIDTH 17.6 % (11.5-14.5)
[2016-11-11 08:48] LABS: BASO % 0.2 % (0.0-2.0); LYMPH % 6.8 % (20.0-40.0); MEAN PLATELET VOLUME 8.8 fL (7.2-11.7); MONO % 2.7 % (0.0-10.0); NEUT # 11.9 K/uL (1.8-7.0); NEUT % 89.3 % (50.0-75.0); NRBC % 0.1 % (0.0-2.0)
[2016-11-11 08:53] LABS: LYMPH # 0.9 K/uL (1.0-4.3)
[2016-11-11 08:54] LABS: EOS # 0.1 K/uL (0.0-0.7); MONO # 0.4 K/uL (0.0-0.8)
[2016-11-11 09:44] LABS: BANDS 4 % (0-2); LYMPHOCYTE 5 % (20-40); MONOCYTE 3 % (0-10); NEUTROPHIL 88 % (50-75); TOTAL CELLS COUNTED 100
[2016-11-11 09:49] LABS: ANISOCYTOSIS SLIGHT; PLATELET ESTIMATE NORMAL (NORMAL); POIKILOCYTOSIS SLIGHT
[2016-11-11 09:50] LABS: HYPOCHROMIC SLIGHT; OVALOCYTES SLIGHT
[2016-11-11 09:51] LABS: LARGE PLATELETS PRESENT
[2016-11-11] MEDS: Multiple Vitamins Oral Solution PEG SCH (10:55)
[2016-11-11] MEDS: Ferrous Sulfate 300 mg/5 mL Liq UD PEG SCH ×3 (10:55→17:40)
[2016-11-11] MEDS: Fluconazole IV 100mg/50 ml NS 50 ML IVPB SCH (13:46)
--- NOTE | 2016-11-11 20:42 | CP.PCM.PN ---
Subjective - Date & Time of Evaluation Date of Evaluation: 11/11/16 Time of Evaluation: 17:30 - Subjective Subjective: Patient seen and examined Transfer to [facility] was canceled yesterday for diffuse rash IV antibiotics were stopped by infectious dis patient received Solu-Medrol still diffuse maculopapular rash n No change in mental status Objective - Vital Signs/Intake and Output Vital Signs (last 24 hours): Temp Pulse Resp BP Pulse Ox 98.0 F 92 H 26 H 137/80 95 11/11/16 15:17 11/11/16 15:17 11/11/16 15:17 11/11/16 15:17 11/11/16 15:17 Intake and Output: 11/11/16 11/12/16 18:59 06:59 Intake Total 445 Output Total 325 Balance 120 - Medications Medications: Current Medications Donepezil HCl (Aricept) 5 mg PEG HS [facility] Last Admin: 11/10/16 21:29 Dose: 5 mg Ferrous Sulfate (Feosol Liq) 300 mg PEG TID [facility] Last Admin: 11/11/16 17:40 Dose: 300 mg Fluconazole (Diflucan Iv 100 Mg/50 Ml Ns) 50 mls @ 100 mls/hr IVPB DAILY [facility] Last Admin: 11/11/16 13:46 Dose: 100 mls/hr Ipratropium [place] (Atrovent) 0.5 mg IH RQ6 PRN PRN Reason: Shortness of Breath Methylprednisolone (Solu-Medrol) 20 mg IVP Q12H [facility] Stop: 11/13/16 04:01 Last Admin: 11/11/16 15:43 Dose: 20 mg Multivitamins/Vitamin C (Multi-Delyn Liquid) 5 ml PEG DAILY [facility] Last Admin: 11/11/16 10:55 Dose: 5 ml Pantoprazole Sodium (Protonix Inj) 40 mg IVP DAILY [facility] Last Admin: 11/11/16 10:55 Dose: 40 mg Potassium Chloride (Potassium Chloride Oral Soln) 20 meq PEG ONCE ONE Stop: 11/11/16 22:01 - Labs Labs: 11/11/16 08:19 11/11/16 08:19 PT 11.7 SECONDS (9.7-12.2) 11/04/16 19:42 INR 1.0 11/04/16 19:42 APTT 26 SECONDS (21-34) 11/04/16 19:42 - Head Exam Head Exam: ATRAUMATIC, NORMOCEPHALIC - ENT Exam ENT Exam: Mucous Membranes Moist - Neck Exam Neck Exam: Normal Inspection - Respiratory Exam Respiratory Exam: Decreased Breath Sounds - Cardiovascular Exam Cardiovascular Exam: REGULAR RHYTHM Assessment and Plan (1) Sepsis Assessment & Plan: antibiotics were discontinued yesterday for diffuse rash Decubiti wound healing Seen by infectious disease Will continue patient on steroids and start Benadryl Status: Acute (2) UTI (urinary tract infection) Status: Acute (3) Dehydration Status: Acute (4) Lung nodule Status: Acute
[2016-11-11] MEDS: DiphenhydrAMINE 50 mg/ml Inj IVP SCH (20:52)
[2016-11-11] MEDS ORDERED: Potassium Chloride 20 mEq/15 ml LIQ UD PEG ONE (22:00)
--- NOTE | 2016-11-11 22:12 | CP.PCM.PN ---
Subjective - Date & Time of Evaluation Date of Evaluation: 11/11/16 Time of Evaluation: 22:11 - Subjective Subjective: afebrile, Neuro status unchanged Unresponsive to verbal or painful stimuli Rash generalized but less angry. Facial erythema resolving. Objective - Vital Signs/Intake and Output Vital Signs (last 24 hours): Temp Pulse Resp BP Pulse Ox 98.0 F 92 H 26 H 137/80 95 11/11/16 15:17 11/11/16 15:17 11/11/16 15:17 11/11/16 15:17 11/11/16 15:17 Intake and Output: 11/11/16 11/12/16 18:59 06:59 Intake Total 445 120 Output Total 325 Balance 120 120 - Medications Medications: Current Medications Diphenhydramine HCl (Benadryl) 25 mg IVP BID [facility] Last Admin: 11/11/16 20:52 Dose: 25 mg Donepezil HCl (Aricept) 5 mg PEG HS [facility] Last Admin: 11/11/16 21:45 Dose: 5 mg Ferrous Sulfate (Feosol Liq) 300 mg PEG TID [facility] Last Admin: 11/11/16 17:40 Dose: 300 mg Fluconazole (Diflucan Iv 100 Mg/50 Ml Ns) 50 mls @ 100 mls/hr IVPB DAILY [facility] Last Admin: 11/11/16 13:46 Dose: 100 mls/hr Ipratropium [place] (Atrovent) 0.5 mg IH RQ6 PRN PRN Reason: Shortness of Breath Methylprednisolone (Solu-Medrol) 40 mg IVP Q12 [facility] Last Admin: 11/11/16 21:46 Dose: 40 mg Multivitamins/Vitamin C (Multi-Delyn Liquid) 5 ml PEG DAILY [facility] Last Admin: 11/11/16 10:55 Dose: 5 ml Pantoprazole Sodium (Protonix Inj) 40 mg IVP DAILY [facility] Last Admin: 11/11/16 10:55 Dose: 40 mg - Labs Labs: 11/11/16 08:19 11/11/16 08:19 PT 11.7 SECONDS (9.7-12.2) 11/04/16 19:42 INR 1.0 11/04/16 19:42 APTT 26 SECONDS (21-34) 11/04/16 19:42 - Constitutional Appears: No Acute Distress, Chronically Ill - Head Exam Head Exam: NORMAL INSPECTION - Eye Exam Eye Exam: PERRL - ENT Exam ENT Exam: Normal Oropharynx - Neck Exam Neck Exam: Normal Inspection - Respiratory Exam Respiratory Exam: Prolonged Expiratory Phase (harsh breath sounds bilaterally.) - Cardiovascular Exam Cardiovascular Exam: Tachycardia, +S1, +S2 - GI/Abdominal Exam GI & Abdominal Exam: Soft (peg in place.), Normal Bowel Sounds - Extremities Exam Extremities Exam: Pedal Edema (b/l groin intertrigio moniliasis). absent: Calf Tenderness - Neurological Exam Neurological Exam: Altered - Skin Skin Exam: Erythema, Warm Assessment and Plan (1) Allergic drug rash due to anti-infective agent Assessment & Plan: on IV Solu-Medrol 40 mg every 12 hourly. Continue Protonix 40 mg once a day daily at at bedtime. TAPER STEROIDS SLOWLY . CASE DISCUSSED W ATTENDING DR TILLMAN Status: Acute (2) Sepsis Assessment & Plan: BLOOD CULTURES -VE . Status: Acute (3) UTI (urinary tract infection) Assessment & Plan: repeat urine cultures positive for yeast. Patient started on Diflucan 100 mg once a day daily for 7 days, 11/11/16. Status: Acute (4) Lung nodule Status: Acute (5) Sacral decubitus ulcer, stage III Assessment & Plan: sacral decubitus ulcers margins clean. No malodorous drainage. Continue local treatments with medhoney and packing as per wound care. positioning of pt q 2hrs . AIR MATRESS.. Status: Acute (6) Monilial intertrigo Assessment & Plan: ON IV [id number] IV Q 24HRLY X 7DAYS. MONITOR LFTS CLOSELY. Status: Acute (7) Dehydration with hypernatremia Status: Acute
[2016-11-12] MEDS: Multiple Vitamins Oral Solution PEG SCH (09:56)
[2016-11-12] MEDS: MethylPREDNISolone 40 mg Vial IVP SCH ×2 (09:56→21:49)
[2016-11-12] MEDS: Ferrous Sulfate 300 mg/5 mL Liq UD PEG SCH ×3 (09:56→17:39)
[2016-11-12] MEDS: Fluconazole IV 100mg/50 ml NS 50 ML IVPB SCH (09:57)
[2016-11-12] MEDS: DiphenhydrAMINE 50 mg/ml Inj IVP SCH ×2 (09:57→17:40)
[2016-11-12] MEDS: Vitamins A & D Oint UD Foilpak TOP SCH ×2 (13:26→17:39)
[2016-11-12] MEDS ORDERED: Acetaminophen 650mg/20.3ml solution UD PO PRN (14:30)
--- NOTE | 2016-11-12 17:35 | CP.PCM.PN ---
Subjective - Date & Time of Evaluation Date of Evaluation: 11/12/16 Time of Evaluation: 17:40 - Subjective Subjective: (Covering Dr. Kirkland) Patient seen and examined at bedside. Patient unresponsive to painful or verbal stimuli. Maculopapular rash noted over the body. It is diffuse diffuse. Objective - Vital Signs/Intake and Output Vital Signs (last 24 hours): Temp Pulse Resp BP Pulse Ox 98.2 F 86 20 135/75 99 11/12/16 16:29 11/12/16 16:29 11/12/16 16:29 11/12/16 16:29 11/12/16 16:29 Intake and Output: 11/12/16 11/12/16 06:59 18:59 Intake Total 120 380 Output Total 300 600 Balance -180 -220 - Medications Medications: Current Medications Acetaminophen (Tylenol 650mg/20.3ml Solution Ud) 650 mg PO Q6 PRN PRN Reason: Pain Last Admin: 11/12/16 14:36 Dose: 650 mg Diphenhydramine HCl (Benadryl) 25 mg IVP BID [facility] Last Admin: 11/12/16 09:57 Dose: 25 mg Ferrous Sulfate (Feosol Liq) 300 mg PEG TID [facility] Last Admin: 11/12/16 13:26 Dose: 300 mg Fluconazole (Diflucan Iv 100 Mg/50 Ml Ns) 50 mls @ 100 mls/hr IVPB DAILY [facility] Last Admin: 11/12/16 09:57 Dose: 100 mls/hr Ipratropium [place] (Atrovent) 0.5 mg IH RQ6 PRN PRN Reason: Shortness of Breath Methylprednisolone (Solu-Medrol) 40 mg IVP Q12 [facility] Last Admin: 11/12/16 09:56 Dose: 40 mg Multivitamins/Vitamin C (Multi-Delyn Liquid) 5 ml PEG DAILY [facility] Last Admin: 11/12/16 09:56 Dose: 5 ml Pantoprazole Sodium (Protonix Inj) 40 mg IVP DAILY [facility] Last Admin: 11/12/16 09:56 Dose: 40 mg Vitamin A (Vitamin A & D Oint Ud Foilpak) 1 ea TOP BID [facility] Last Admin: 11/12/16 13:26 Dose: 1 ea - Labs Labs: 11/11/16 08:19 11/11/16 08:19 PT 11.7 SECONDS (9.7-12.2) 11/04/16 19:42 INR 1.0 11/04/16 19:42 APTT 26 SECONDS (21-34) 11/04/16 19:42 - Head Exam Head Exam: ATRAUMATIC, NORMOCEPHALIC - Eye Exam Eye Exam: absent: Scleral icterus - Neck Exam Neck Exam: Normal Inspection - Respiratory Exam Respiratory Exam: Clear to Ausculation Bilateral - Cardiovascular Exam Cardiovascular Exam: REGULAR RHYTHM, +S1, +S2 - GI/Abdominal Exam GI & Abdominal Exam: Soft Additional comments: PEG tube present. - Extremities Exam Extremities Exam: Pedal Edema - Neurological Exam Additional comments: Patient is unresponsive to verbal or painful stimuli. - Skin Skin Exam: Rash Additional comments: Diffuse maculopapular rash. Stage IV decubitus ulcer. Assessment and Plan (1) Allergic drug rash due to anti-infective agent Assessment & Plan: Patient developed rash to antibiotic. All antibiotics stopped. Patient on Solu- Medrol and Benadryl. Slow taper off the Solu-Medrol. Status: Acute (2) Sacral decubitus ulcer, stage IV Assessment & Plan: Continue local care of the decubitus ulcer. Patient is off the antibiotics now because of the rash. Status: Acute (3) Monilial intertrigo Assessment & Plan: Patient is on Diflucan. Status: Acute (4) UTI (urinary tract infection) Assessment & Plan: Patient taken off the antibiotics now. Status: Acute (5) Hypernatremia Assessment & Plan: Resolved Status: Acute (6) Hypokalemia Assessment & Plan: We will replace potassium and check levels again. Status: Acute - Assessment and Plan (Free Text) Plan: Discussed with the nursing staff. Rash is improving Continue current management ID evaluation and follow-up seen and appreciated.
[2016-11-12] MEDS ORDERED: Potassium Chloride 20 mEq/15 ml LIQ UD PO ONE (18:00)
[2016-11-13 07:49] LABS: ALBUMIN 2.1 g/dL (3.5-5.0)
[2016-11-13 07:52] LABS: ALB/GLOB RATIO 0.7 (1.0-2.1); ALT/SGPT 73 U/L (9-52); AST/SGOT 32 U/L (14-36); BLOOD UREA NITROGEN 18 mg/dL (7-17); CALCIUM 7.9 mg/dl (8.6-10.4); GFR AFRICAN-AMERICAN > 60; GFR NON-AFRICAN AMERICAN > 60
[2016-11-13 07:59] VITALS: O2SAT 99
[2016-11-13 08:02] LABS: BASO # 0.1 K/uL (0.0-0.2); BASO % 0.5 % (0.0-2.0); EOS % 0.2 % (0.0-4.0); HEMOGLOBIN 11.4 g/dL (11.0-16.0); LYMPH # 3.2 K/uL (1.0-4.3); LYMPH % 23.4 % (20.0-40.0); MEAN CELL VOLUME 96.9 fL (81.0-99.0); MEAN CORPUSCULAR HEMOGLOBIN 31.3 pg (27.0-31.0); MEAN CORPUSCULAR HGB CONC 32.3 g/dL (33.0-37.0); MEAN PLATELET VOLUME 8.9 fL (7.2-11.7); MONO # 0.6 K/uL (0.0-0.8); MONO % 4.5 % (0.0-10.0); NEUT # 9.7 K/uL (1.8-7.0); NEUT % 71.4 % (50.0-75.0); NRBC % 0.1 % (0.0-2.0); RBC 3.64 Mil/uL (3.80-5.20); RED CELL DISTRIBUTION WIDTH 17.8 % (11.5-14.5); WHITE BLOOD COUNT 13.6 K/uL (4.8-10.8)
[2016-11-13] MEDS ORDERED: Potassium Chloride 20 mEq/15 ml LIQ UD PO ONE (10:00)
[2016-11-13] MEDS: DiphenhydrAMINE 50 mg/ml Inj IVP SCH (10:32)
[2016-11-13] MEDS: Multiple Vitamins Oral Solution PEG SCH (10:32)
[2016-11-13] MEDS: Ferrous Sulfate 300 mg/5 mL Liq UD PEG SCH ×2 (10:32→14:11)
[2016-11-13] MEDS: Fluconazole IV 100mg/50 ml NS 50 ML IVPB SCH (10:33)
[2016-11-13] MEDS: Vitamins A & D Oint UD Foilpak TOP SCH (10:33)
[2016-11-13] MEDS: MethylPREDNISolone 40 mg Vial IVP SCH (10:33)
--- NOTE | 2016-11-13 12:28 | CP.PCM.PN ---
Subjective - Date & Time of Evaluation Date of Evaluation: 11/13/16 Time of Evaluation: 08:20 - Subjective Subjective: Patient seen and examined. No change in mental status Marked improvement in rash noted Afebrile Objective - Vital Signs/Intake and Output Vital Signs (last 24 hours): Temp Pulse Resp BP Pulse Ox 97.6 F 84 18 144/84 99 11/13/16 07:58 11/13/16 07:58 11/13/16 07:58 11/13/16 07:58 11/13/16 07:58 Intake and Output: 11/13/16 11/13/16 06:59 18:59 Output Total 300 Balance -300 - Medications Medications: Current Medications Acetaminophen (Tylenol 650mg/20.3ml Solution Ud) 650 mg PO Q6 PRN PRN Reason: Pain Last Admin: 11/12/16 14:36 Dose: 650 mg Diphenhydramine HCl (Benadryl) 25 mg IVP BID [facility] Last Admin: 11/13/16 10:32 Dose: 25 mg Ferrous Sulfate (Feosol Liq) 300 mg PEG TID [facility] Last Admin: 11/13/16 10:32 Dose: 300 mg Heparin Sodium (Porcine) (Heparin) 5,000 units SC Q8 [facility] Last Admin: 11/13/16 05:13 Dose: 5,000 units Fluconazole (Diflucan Iv 100 Mg/50 Ml Ns) 50 mls @ 100 mls/hr IVPB DAILY [facility] Last Admin: 11/13/16 10:33 Dose: 100 mls/hr Ipratropium [place] (Atrovent) 0.5 mg IH RQ6 PRN PRN Reason: Shortness of Breath Methylprednisolone (Solu-Medrol) 40 mg IVP Q12 [facility] Last Admin: 11/13/16 10:33 Dose: 40 mg Multivitamins/Vitamin C (Multi-Delyn Liquid) 5 ml PEG DAILY [facility] Last Admin: 11/13/16 10:32 Dose: 5 ml Pantoprazole Sodium (Protonix Inj) 40 mg IVP DAILY [facility] Last Admin: 11/13/16 10:33 Dose: 40 mg Vitamin A (Vitamin A & D Oint Ud Foilpak) 1 ea TOP BID [facility] Last Admin: 11/13/16 10:33 Dose: 1 ea - Labs Labs: 11/13/16 07:27 11/13/16 07:27 PT 11.7 SECONDS (9.7-12.2) 11/04/16 19:42 INR 1.0 11/04/16 19:42 APTT 26 SECONDS (21-34) 11/04/16 19:42 - Head Exam Head Exam: ATRAUMATIC, NORMOCEPHALIC - ENT Exam ENT Exam: Mucous Membranes Dry - Neck Exam Neck Exam: Normal Inspection - Respiratory Exam Respiratory Exam: Decreased Breath Sounds - Cardiovascular Exam Cardiovascular Exam: REGULAR RHYTHM - GI/Abdominal Exam GI & Abdominal Exam: Soft, Normal Bowel Sounds Assessment and Plan (1) Sepsis Assessment & Plan: Off antibiotics because of diffuse rash Potassium supplement Transfer back to long-term Taper steroids Status: Acute (2) UTI (urinary tract infection) Status: Acute (3) Dehydration Status: Acute (4) Lung nodule Status: Acute
--- NOTE | 2016-11-13 12:34 | CP.PCM.PN ---
Subjective - Date & Time of Evaluation Date of Evaluation: 11/13/16 Time of Evaluation: 12:33 - Subjective Subjective: afebrile, Neuro status unchanged Unresponsive to verbal or painful stimuli Rash generalized but less angry. Facial erythema resolving. CLINICALLY STABLE Objective - Vital Signs/Intake and Output Vital Signs (last 24 hours): Temp Pulse Resp BP Pulse Ox 97.6 F 84 18 144/84 99 11/13/16 07:58 11/13/16 07:58 11/13/16 07:58 11/13/16 07:58 11/13/16 07:58 Intake and Output: 11/13/16 11/13/16 06:59 18:59 Output Total 300 Balance -300 - Medications Medications: Current Medications Acetaminophen (Tylenol 650mg/20.3ml Solution Ud) 650 mg PO Q6 PRN PRN Reason: Pain Last Admin: 11/12/16 14:36 Dose: 650 mg Diphenhydramine HCl (Benadryl) 25 mg IVP BID [facility] Last Admin: 11/13/16 10:32 Dose: 25 mg Ferrous Sulfate (Feosol Liq) 300 mg PEG TID [facility] Last Admin: 11/13/16 10:32 Dose: 300 mg Heparin Sodium (Porcine) (Heparin) 5,000 units SC Q8 [facility] Last Admin: 11/13/16 05:13 Dose: 5,000 units Fluconazole (Diflucan Iv 100 Mg/50 Ml Ns) 50 mls @ 100 mls/hr IVPB DAILY [facility] Last Admin: 11/13/16 10:33 Dose: 100 mls/hr Ipratropium [place] (Atrovent) 0.5 mg IH RQ6 PRN PRN Reason: Shortness of Breath Multivitamins/Vitamin C (Multi-Delyn Liquid) 5 ml PEG DAILY [facility] Last Admin: 11/13/16 10:32 Dose: 5 ml Pantoprazole Sodium (Protonix Inj) 40 mg IVP DAILY [facility] Last Admin: 11/13/16 10:33 Dose: 40 mg Prednisone (Prednisone Tab) 10 mg PO DAILY [facility] Vitamin A (Vitamin A & D Oint Ud Foilpak) 1 ea TOP BID [facility] Last Admin: 11/13/16 10:33 Dose: 1 ea - Labs Labs: 11/13/16 07:27 11/13/16 07:27 PT 11.7 SECONDS (9.7-12.2) 11/04/16 19:42 INR 1.0 11/04/16 19:42 APTT 26 SECONDS (21-34) 11/04/16 19:42 - Constitutional Appears: No Acute Distress, Cachectic, Chronically Ill - Head Exam Head Exam: NORMAL INSPECTION - Eye Exam Eye Exam: PERRL - ENT Exam ENT Exam: Normal Oropharynx - Respiratory Exam Respiratory Exam: Decreased Breath Sounds - Cardiovascular Exam Cardiovascular Exam: REGULAR RHYTHM, +S1, +S2 - GI/Abdominal Exam GI & Abdominal Exam: Soft, Normal Bowel Sounds - Extremities Exam Extremities Exam: absent: Calf Tenderness, Pedal Edema - Neurological Exam Neurological Exam: Altered - Skin Skin Exam: Rash (GENERALIZED BUT MUCH IMPROVED), Warm Assessment and Plan (1) Allergic drug rash due to anti-infective agent Assessment & Plan: on IV Solu-Medrol 40 mg every 12 hourly. CAN SWITCH TO PO PREDNISONE IN TAPERING DOSAGE (MEDROL PACK ) Continue Protonix 40 mg VIA GT once a day daily at at bedtime. TAPER STEROIDS SLOWLY . CASE DISCUSSED WITH NURSE PRACTITIONER [place]. Status: Acute (2) Sepsis Assessment & Plan: BLOOD CULTURES 11/11/16. NEGATIVE TO DATE Status: Acute (3) UTI (urinary tract infection) Assessment & Plan: REPEAT URINE CULTURES POSITIVE FOR YEAST CAN SWITCH dIFLUCAN 100 MG BY g-TUBE FOR 5 DAYS. PATIENT FOR JAIL UNDER CLOSE OBSERVATION. PMD TO F/U OUTPATIENT. Status: Acute (4) Lung nodule Status: Acute (5) Sacral decubitus ulcer, stage III Assessment & Plan: PATIENT SACRAL DECUBITUS ULCER STAGE iii nO DRAINAGE OR MALODOR NOTED. cONTINUE LOCAL CARE. aS NEEDED. fREQUENT POSITIONING. Status: Acute (6) Monilial intertrigo Status: Acute (7) Dehydration with hypernatremia Status: Acute
[2016-11-13 15:42] VITALS: BP 145/83; PULSE 89; RESP 20; TEMP 97.8
--- NOTE | 2016-11-15 10:48 | CP.PCM.DIS ---
Provider - Provider Date of Admission: 11/04/16 20:59 Attending physician: Brad Kirkland MD Consults: infectious disease Dr. Michelle lua Time Spent in preparation of Discharge (in minutes): 30 Diagnosis - Discharge Diagnosis (1) Sepsis Status: Acute (2) UTI (urinary tract infection) Status: Acute (3) Dehydration Status: Acute (4) Lung nodule Status: Acute Hospital Course - Lab Results Lab Results: Micro Results 11/11/16 16:00 Blood-Venous Blood Culture - Preliminary NO GROWTH AFTER 3 DAYS 11/11/16 13:46 Blood-Venous Blood Culture - Preliminary NO GROWTH AFTER 3 DAYS 11/09/16 14:20 Urine,[place]berg Urine Culture - Final Yeast Species 11/04/16 Unknown Sacral Gram Stain - Final 11/04/16 Unknown Sacral Wound Culture - Final Enterobacter Cloacae Ssp Cloac Most Recent Lab Values WBC 13.6 K/uL (4.8-10.8) H 11/13/16 07:27 RBC 3.64 Mil/uL (3.80-5.20) L 11/13/16 07:27 Hgb 11.4 g/dL (11.0-16.0) 11/13/16 07:27 Hct 35.3 % (34.0-47.0) 11/13/16 07:27 MCV 96.9 fL (81.0-99.0) 11/13/16 07:27 MCH 31.3 pg (27.0-31.0) H 11/13/16 07:27 MCHC 32.3 g/dL (33.0-37.0) L 11/13/16 07:27 RDW 17.8 % (11.5-14.5) H 11/13/16 07:27 Plt Count 304 K/uL (130-400) 11/13/16 07:27 MPV 8.9 fL (7.2-11.7) 11/13/16 07:27 Neut % (Auto) 71.4 % (50.0-75.0) 11/13/16 07:27 Lymph % (Auto) 23.4 % (20.0-40.0) 11/13/16 07:27 [place] % (Auto) 4.5 % (0.0-10.0) 11/13/16 07:27 Eos % (Auto) 0.2 % (0.0-4.0) 11/13/16 07:27 Baso % (Auto) 0.5 % (0.0-2.0) 11/13/16 07:27 Neut # 9.7 K/uL (1.8-7.0) H 11/13/16 07:27 Lymph # 3.2 K/uL (1.0-4.3) 11/13/16 07:27 [place] # 0.6 K/uL (0.0-0.8) 11/13/16 07:27 Eos # 0.0 K/uL (0.0-0.7) 11/13/16 07:27 Baso # 0.1 K/uL (0.0-0.2) 11/13/16 07:27 Neutrophils % (Manual) 88 % (50-75) H 11/11/16 08:19 Band Neutrophils % 4 % (0-2) H 11/11/16 08:19 Lymphocytes % (Manual) 5 % (20-40) L 11/11/16 08:19 Reactive Lymphs % 1 % (0-0) H 11/06/16 06:37 Monocytes % (Manual) 3 % (0-10) 11/11/16 08:19 Eosinophils % (Manual) 2 % (0-4) 11/06/16 06:37 Platelet Estimate Normal (NORMAL) 11/11/16 08:19 Large Platelets Present 11/11/16 08:19 RBC Morphology Normal 11/06/16 06:37 Hypochromasia (manual) Slight 11/11/16 08:19 Poikilocytosis (manual Slight 11/11/16 08:19 Anisocytosis (manual) Slight 11/11/16 08:19 Macrocytosis (manual) Slight 11/11/16 08:19 Ovalocytes Slight 11/11/16 08:19 PT 11.7 SECONDS (9.7-12.2) 11/04/16 19:42 INR 1.0 11/04/16 19:42 APTT 26 SECONDS (21-34) 11/04/16 19:42 Puncture Site Rra 11/05/16 13:30 pCO2 41 mm/Hg (35-45) 11/05/16 13:30 pO2 134 mm/Hg (80-100) H 11/05/16 13:30 HCO3 29.3 mmol/L (21-28) H 11/05/16 13:30 ABG pH 7.47 (7.35-7.45) H 11/05/16 13:30 ABG Total CO2 31.1 mmol/L (22-28) H 11/05/16 13:30 ABG O2 Saturation 100.4 % (95-98) H 11/05/16 13:30 ABG Base Excess 5.6 mmol/L (-2.0-3.0) H 11/05/16 13:30 ABG Hemoglobin 12.0 g/dL (11.7-17.4) 11/05/16 13:30 ABG Carboxyhemoglobin 1.9 % (0.5-1.5) H 11/05/16 13:30 POC ABG HHb (Measured) -0.4 % (0.0-5.0) L 11/05/16 13:30 ABG Methemoglobin 1.8 % (0.0-3.0) 11/05/16 13:30 Fuentes Test A 11/05/16 13:30 VBG pH 7.46 (7.32-7.43) H 11/04/16 21:39 VBG pCO2 47 mmHg (40-60) 11/04/16 21:39 VBG HCO3 30.9 mmol/L 11/04/16 21:39 VBG Total CO2 34.8 mmol/L (22-28) H 11/04/16 21:39 VBG O2 Sat (Calc) 93.5 % (40-65) H 11/04/16 21:39 VBG Base Excess 8.3 mmol/L (0.0-2.0) H 11/04/16 21:39 VBG Potassium 4.2 mmol/L (3.6-5.2) 11/04/16 21:39 A-a O2 Difference 43.0 mm/Hg 11/05/16 13:30 Respiratory Index 0.3 11/05/16 13:30 Hgb O2 Saturation 96.8 % (95.0-98.0) 11/05/16 13:30 Sodium 148.0 mmol/l (132-148) 11/04/16 21:39 Chloride 116.0 mmol/L (98-107) H 11/04/16 21:39 Glucose 110 mg/dl (65-105) H 11/04/16 21:39 Lactate 1.3 mmol/L (0.7-2.1) 11/04/16 21:39 Liter Flow 3.0 11/05/16 13:30 FiO2 32.0 % 11/05/16 13:30 Sodium 143 mmol/L (132-148) 11/13/16 07:27 Potassium 3.4 mmol/L (3.6-5.2) L 11/13/16 07:27 Chloride 102 mmol/L (98-107) 11/13/16 07:27 Carbon Dioxide 33 mmol/L (22-30) H 11/13/16 07:27 Anion Gap 11 (10-20) 11/13/16 07:27 BUN 18 mg/dL (7-17) H 11/13/16 07:27 Creatinine 0.4 MG/DL (0.7-1.2) L 11/13/16 07:27 Est GFR ( Amer) > 60 11/13/16 07:27 Est GFR (Non-Af Amer) > 60 11/13/16 07:27 POC Glucose (mg/dL) 124 mg/dL (65-110) H 11/04/16 18:54 Random Glucose 114 mg/dL (65-105) H 11/13/16 07:27 Calcium 7.9 mg/dl (8.6-10.4) L 11/13/16 07:27 Phosphorus 3.5 mg/dL (2.5-4.5) 11/04/16 19:42 Magnesium 2.2 mg/dL (1.6-2.3) 11/04/16 19:42 Total Bilirubin 0.5 mg/dL (0.2-1.3) 11/13/16 07:27 Direct Bilirubin 0.3 mg/dL (0.0-0.4) 11/11/16 08:19 AST 32 U/L (14-36) 11/13/16 07:27 ALT 73 U/L (9-52) H 11/13/16 07:27 Alkaline Phosphatase 131 U/L (38-126) H 11/13/16 07:27 Total Protein 5.3 g/dL (6.3-8.3) L 11/13/16 07:27 Albumin 2.1 g/dL (3.5-5.0) L 11/13/16 07:27 Globulin 3.2 gm/dL (2.2-3.9) 11/13/16 07:27 Albumin/Globulin Ratio 0.7 (1.0-2.1) L 11/13/16 07:27 Venous Blood Potassium 4.2 mmol/L (3.6-5.2) 11/04/16 21:39 Urine Color Yellow (YELLOW) 11/09/16 18:50 Urine Clarity Clear (Clear) 11/09/16 18:50 Urine pH 7.0 (5.0-8.0) 11/09/16 18:50 Ur Specific [place] 1.015 (1.003-1.030) 11/09/16 18:50 Urine Protein Negative mg/dL (NEGATIVE) 11/09/16 18:50 Urine Glucose (UA) Normal mg/dL (Normal) 11/09/16 18:50 Urine Ketones Negative mg/dL (NEGATIVE) 11/09/16 18:50 Urine Blood 1+ (NEGATIVE) H 11/09/16 18:50 Urine Nitrate Negative (NEGATIVE) 11/09/16 18:50 Urine Bilirubin Negative (NEGATIVE) 11/09/16 18:50 Urine Urobilinogen Normal mg/dL (0.2-1.0) 11/09/16 18:50 Ur Leukocyte Esterase 1+ Jeri/uL (Negative) H 11/09/16 18:50 Urine WBC (Auto) 14 /hpf (0-5) H 11/09/16 18:50 Urine RBC (Auto) 7 /hpf (0-3) H 11/09/16 18:50 Ur Squamous Epith Cells < 1 /hpf (0-5) 11/04/16 20:05 Ur Transition Epith Cell < 1 /hpf (0-3) 11/09/16 18:50 Urine Bacteria Rare (<OCC) 11/09/16 18:50 Urine Yeast (Budding) Few /hpf (NEGATIVE) H 11/09/16 18:50 - Hospital Course Hospital Course: 81 year old [place] resident transferred to [facility] due to fever and AMS patient has history of severe Alzheimer, non verbal bed ridden, with sacral decubitus, Lung nodule that was decided not to pursue further elauation by family, was transferred to ER due top AMS and feve and tachycardia in the emergency room patient found to have elevated white count, lactate level and was started on IV antibiotics. Patient DNR/DNI patient was treated in the hospital for urinary tract infection/VRE, and wound infection positive for Enterobacter Antibiotics were stopped after she developed rash which subsided with steroids and Benadryl Wound consult was obtained, and got much improved Patient was discharged back to [facility] Discharge Exam - Head Exam Head Exam: NORMAL INSPECTION Discharge Plan - Discharge Medications Prescriptions: DiphenhydrAMINE [Diphenhydramine HCl] 25 mg GT Q8 PRN #20 udc PRN Reason: Itching / Pruritus Fluconazole [Diflucan] 100 mg GT DAILY #5 tab - Follow Up Plan Condition: FAIR Disposition: REHAB FACILITY/REHAB UNIT Instructions: Dehydration (GEN), Urinary Tract Infection in Women (DC), Sepsis (GEN), Acute Rash (GEN), Dysuria (GEN), Hypernatremia (GEN) Additional Instructions: Please continue diflucan x 5 more days Continue all other medications as per Med. REc.
== END 2016-11-13 18:58 | DRG 871 ==
LOC: C.ER 18:30 → C.9E 20:59 → C.3T 23:18 → C.5T 11-08 18:25
PROVIDERS: ADMIT Internal Medicine Critical Care Medicine; ATTEND Internal Medicine Critical Care Medicine
DX: A41.9 Sepsis, unspecified organism (principal); L89.153 Pressure ulcer of sacral region, stage 3; L89.154 Pressure ulcer of sacral region, stage 4; E87.0 Hyperosmolality and hypernatremia; E86.0 Dehydration; G30.9 Alzheimer's disease, unspecified; N39.0 Urinary tract infection, site not specified; F02.80 Dementia in other diseases classified elsewhere, unspecified severity, without behavioral disturbance, psychotic disturbance, mood disturbance, and anxiety; B37.9 Candidiasis, unspecified; R65.20 Severe sepsis without septic shock; E78.00 Pure hypercholesterolemia, unspecified; E78.5 Hyperlipidemia, unspecified; Z74.01 Bed confinement status; Z66 Do not resuscitate; R91.1 Solitary pulmonary nodule; M19.90 Unspecified osteoarthritis, unspecified site; L27.0 Generalized skin eruption due to drugs and medicaments taken internally; T36.0X5A Adverse effect of penicillins, initial encounter; E87.6 Hypokalemia

== ENCOUNTER 2016-11-24 21:32 | Inpatient (IN) | payer MEDICARE ==
[2016-11-24 21:32] VITALS: BMI 16.7
--- NOTE | 2016-11-24 22:11 | C.PDOC ---
History Of Present Illness Patient was sent to the ER from half-way for a complaint of fever and lethargy that began this morning. Patient is lethargic, unable to obtain history ; patient is DNR. Time Seen by Provider: 11/24/16 22:11 Chief Complaint (Nursing): Weakness/Neurological Deficit History Per: Other (FPC) History/Exam Limitations: clinical condition Onset/Duration Of Symptoms: Hrs Current Symptoms Are (Timing): Still Present Activity At Onset Of Symptoms: Other (Not known) Seizure Or Post-ictal Symptoms: None Possible Causative Factor(s): Other (Not known) Fall Associated With With Symptoms: Other (Not known) - Symptoms Of CVA Recent Aspirin Use: Unknown Current Coumadin Use?: Unknown Past Medical History Reviewed: Historical Data, Nursing Documentation, Vital Signs Vital Signs: Last Vital Signs Temp 101 F H 11/24/16 21:38 Pulse 114 H 11/24/16 21:38 Resp 30 H 11/24/16 21:38 BP 136/77 11/24/16 21:38 Pulse Ox 100 11/24/16 23:35 - Medical History PMH: Alzheimer's Disease, Anemia, Arthritis, Dementia, Gastritis, Hypercholesterolemia, Hyperlipidemia - [facility] Procedures CHANGE FEEDING DEVICE IN UP INTEST TRACT, ANALYSIS TESTER APPROACH (07/25/16) EXCISION OF STOMACH, ENDO, DIAGN (05/31/16) INSERTION OF INFUSION DEV INTO SUP VENA CAVA, PERC APPROACH (10/02/16) INSPECTION OF LOWER INTESTINAL TRACT, ENDO (07/25/16) INSPECTION OF UPPER INTESTINAL TRACT, ENDO (07/25/16) TRANSFUSE NONAUT RED BLOOD CELLS IN PERIPH ART, PERC (07/25/16) ULTRASONOGRAPHY OF SUPERIOR VENA CAVA, GUIDANCE (10/02/16) Family History: States: No Known Family Hx - Social History Hx Tobacco Use: No Hx Alcohol Use: No Hx Substance Use: No - Immunization History Hx Tetanus Toxoid Vaccination: No Hx Influenza Vaccination: Yes Hx Pneumococcal Vaccination: Yes Review Of Systems Review Of Systems: ROS cannot be obtained secondary to pt's inabilty to answer questions. Physical Exam - Physical Exam Appears: Non-toxic Skin: Warm, Dry Oral Mucosa: Dry Chest: Symmetrical, No Tenderness Cardiovascular: Rhythm Regular, No Murmur Respiratory: No Rales, Rhonchi (Scattered), No Wheezing Gastrointestinal/Abdominal: Soft, No Tenderness, Other (Good bowel) Back: Other (Stage 3/4 right buttock sacral decubitous) ED Course And Treatment - Laboratory Results Result Diagrams: 11/24/16 22:33 11/24/16 22:33 ECG: Interpreted By Me, Viewed By Me O2 Sat by Pulse Oximetry: 100 Pulse Ox Interpretation: Normal - Radiology CXR: Interpreted by Me, Viewed By Me CXR Interpretation: Yes: Infiltrates (rll). No: Fracture, Pnemothorax Progress Note: septic work up. spoke with son about th critical condition of his mother. He states that the pt is DNR/DNI antibiotics are ok Critical Care Time - Critical Care Note Total Time (in mins): 30 Documented critical care: time excludes all time spent performing seperately billable procedures. Disposition Discussed With : Billie Alcantar Comment: accepted the pt on her service and took over the care at 11:12 PM Doctor Will See Patient In The: Hospital Counseled Patient/Family Regarding: Studies Performed, Diagnosis - Disposition Disposition: HOSPITALIZED Disposition Time: 22:11 Condition: GUARDED - POA Present On Arrival: Pressure Ulcer - Clinical Impression Clinical Impression: Dementia, UTI (urinary tract infection), Pneumonia, Sacral decubitus ulcer, stage IV - Scribe Statement The provider has reviewed the documentation as recorded by the Scriblyudmila Machado All medical record entries made by the Scribe were at my direction and personally dictated by me. I have reviewed the chart and agree that the record accurately reflects my personal performance of the history, physical exam, medical decision making, and the department course for this patient. I have also personally directed, reviewed, and agree with the discharge instructions and disposition. Decision To Admit - Pt Status Changed To: Hospital Disposition Of: Inpatient - Admit Certification Admit to Inpatient:: After my assessment, the patient will require hospitalization for at least two midnights. This is because of the severity of symptoms shown, intensity of services needed, and/or the medical risk in this patient being treated as an outpatient. - InPatient: Physician Admission Certification: I certify that this patient requires 2 or more midnights of care for the following reason:: After my assessment, the patient will require hospitalization for at least two midnights. This is because of the severity of symptoms shown, intensity of services needed, and/or the medical risk in this patient being treated as an outpatient. - . Bed Request Type: Regular Admitting Physician: Billie Alcantar Patient Diagnosis: Dementia, UTI (urinary tract infection), Pneumonia, Sacral decubitus ulcer, stage IV
[2016-11-24] MEDS ORDERED: Vancomycin 1 gm/NS 200 ml 1 GM/200 ML BAG IVPB STA (22:21)
[2016-11-24] MEDS ORDERED: Moxifloxacin IV 400mg/250ml NS 250 ML IVPB STA (22:21)
[2016-11-24 22:42] LABS: BASO # 0.1 K/uL (0.0-0.2); BASO % 0.5 % (0.0-2.0); EOS % 0.1 % (0.0-4.0); HEMATOCRIT 36.2 % (34.0-47.0); LYMPH # 1.3 K/uL (1.0-4.3); LYMPH % 7.3 % (20.0-40.0); MEAN CELL VOLUME 97.6 fL (81.0-99.0); MEAN CORPUSCULAR HEMOGLOBIN 31.3 pg (27.0-31.0); MEAN CORPUSCULAR HGB CONC 32.1 g/dL (33.0-37.0); MEAN PLATELET VOLUME 8.2 fL (7.2-11.7); MONO # 0.6 K/uL (0.0-0.8); MONO % 3.3 % (0.0-10.0); NRBC % 0.1 % (0.0-2.0); PLATELET COUNT 287 K/uL (130-400); RED CELL DISTRIBUTION WIDTH 17.8 % (11.5-14.5); WHITE BLOOD COUNT 17.7 K/uL (4.8-10.8)
[2016-11-24 22:44] LABS: VENOUS BLOOD GAS BASE EXCESS 16.2 mmol/L (0.0-2.0); VENOUS BLOOD GAS PCO2 48 mmHg (40-60); VENOUS BLOOD PH 7.54 (7.32-7.43)
[2016-11-24] MEDS ORDERED: cefTRIAXone IV 1 gm in Dextros 50 ML IVPB ONE (22:44)
[2016-11-24] MEDS ORDERED: Vancomycin 1 GM 1 GM/250 ML BAG IVPB ONE (22:44)
[2016-11-24 22:48] LABS: CHLORIDE 92 mmol/L (98-107); SODIUM 139 mmol/L (132-148)
[2016-11-24 22:49] LABS: POTASSIUM 3.3 mmol/L (3.6-5.2)
[2016-11-24 22:51] LABS: ALB/GLOB RATIO 0.6 (1.0-2.1); ALKALINE PHOSPHATASE 113 U/L (38-126); AST/SGOT 43 U/L (14-36); BILIRUBIN,TOTAL 0.9 mg/dL (0.2-1.3); BLOOD UREA NITROGEN 27 mg/dL (7-17); CARBON DIOXIDE 38 mmol/L (22-30); GFR AFRICAN-AMERICAN > 60; GLUCOSE,RANDOM 108 mg/dL (65-105); TOTAL PROTEIN 6.8 g/dL (6.3-8.3)
[2016-11-24 22:52] LABS: ALT/SGPT 44 U/L (9-52); MAGNESIUM 1.9 mg/dL (1.6-2.3)
[2016-11-24 23:03] LABS: INR 1.1
[2016-11-24 23:05] LABS: EOSINOPHIL 1 % (0-4); NEUTROPHIL 84 % (50-75); NUCLEATED RED BLOOD CELL 1 % (0-0); TOTAL CELLS COUNTED 100
--- NOTE | 2016-11-24 23:52 | CP.PCM.HP ---
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 DNR DNI status Present on Admission - Present on Admission Any Indicators Present on Admission: Yes History of DVT/PE: No History of Uncontrolled Diabetes: No Urinary Catheter: Yes Decubitus Ulcer Present: Yes Review of Systems - Review of Systems Systems not reviewed;Unavailable: Dementia, Altered Mental Status - Constitutional Constitutional: Lethargy (- other ROS - fever and lethargy- baseleine , bedridden, on PEG feeding, aphasic , unresponsive ) Past Patient History - Infectious Disease Hx of Infectious Diseases: None - Past Medical History & Family History Past Medical History?: Yes - Past Social History Smoking Status: Never Smoked - CARDIAC Hx Hypercholesterolemia: Yes - PULMONARY Hx Respiratory Disorders: No - NEUROLOGICAL Hx Alzheimer's Disease: Yes Hx Dementia: Yes - HEENT Hx HEENT Problems: No - RENAL Hx Chronic Kidney Disease: No - ENDOCRINE/METABOLIC Hx Endocrine Disorders: No - HEMATOLOGICAL/ONCOLOGICAL Hx Anemia: Yes - INTEGUMENTARY Hx Dermatological Problems: Yes Other/Comment: Decubiti as ff;. R hip stage 2 1.2cmx1.5x0.1. L ear 1x0.8cm. sacrum [id number] - MUSCULOSKELETAL/RHEUMATOLOGICAL Hx Arthritis: Yes - GASTROINTESTINAL Hx Gastritis: Yes - GENITOURINARY/GYNECOLOGICAL Hx Genitourinary Disorders: Yes Hx Incontinence: Yes - PSYCHIATRIC Hx Substance Use: No - SURGICAL HISTORY Hx Surgeries: Yes Hx Section: Yes Hx Tubal Ligation: Yes Other/Comment: Peg tube placement 2017 - ANESTHESIA Hx Anesthesia: Yes Hx Anesthesia Reactions: No Hx Malignant Hyperthermia: No Meds Allergies/Adverse Reactions: Allergies Allergy/AdvReac Type Severity Reaction Status Date / Time tigecycline [From Tygacil] AdvReac Intermediate RASH Verified 11/24/16 21:58 piperacillin [From Zosyn] AdvReac RASH Verified 11/24/16 21:58 tazobactam [From Zosyn] AdvReac RASH Verified 11/24/16 21:58 Physical Exam - Constitutional Appears: Chronically Ill (unresponsive , bedridden) - Head Exam Head Exam: ATRAUMATIC, NORMOCEPHALIC - Eye Exam Eye Exam: absent: Nystagmus, Periorbital swelling - ENT Exam ENT Exam: Mucous Membranes Moist - Respiratory Exam Respiratory Exam: NORMAL BREATHING PATTERN ( but with rhonchi no wheezing ) - Cardiovascular Exam Cardiovascular Exam: REGULAR RHYTHM (left ear pressure lesion) - GI/Abdominal Exam GI & Abdominal Exam: Normal Bowel Sounds, Soft. absent: Distended - Extremities Exam Extremities exam: Negative for: pedal edema - Neurological Exam Neurological exam: Altered - Skin Skin Exam: Rash (pressure lesion left ear hip sacral) Results - Vital Signs Recent Vital Signs: Last Vital Signs Temp 101 F H 11/24/16 21:38 Pulse 114 H 11/24/16 21:38 Resp 30 H 11/24/16 21:38 BP 136/77 11/24/16 21:38 Pulse Ox 100 11/24/16 23:35 - Labs Result Diagrams: 11/25/16 14:11 11/25/16 14:11 Assessment & Plan - Assessment and Plan (Free Text) Assessment: Patient with severe dementia aphasic on PEG feeding , [facility] due to[facility]thargy and fever CXR revealed pneumonia- patient has multiple rash reaction to antibiotic- in ER - Rocephine and vanco are being given with monitoring for reaction DNR DNI supportive care - Date & Time Date: 11/24/16
[2016-11-25 01:32] LABS: RBC URINE 6 /hpf (0-3); URINE BACTERIA MANY (<OCC); URINE BILIRUBIN NEGATIVE (NEGATIVE); URINE BLOOD NEGATIVE (NEGATIVE); URINE COLOR Amber (YELLOW); URINE GLUCOSE (UA) NORMAL (Normal); URINE KETONE NEGATIVE (NEGATIVE); URINE LEUKOCYTE ESTERASE 3+ Leu/uL (Negative); URINE PROTEIN 1+ mg/dL (NEGATIVE); URINE UROBILINOGEN NORMAL mg/dL (0.2-1.0); WBC URINE 131 /hpf (0-5)
[2016-11-25] MEDS ORDERED: Potassium Chloride 20 mEq/15 ml LIQ UD PEG STA (01:43)
--- NOTE | 2016-11-25 07:52 | RAD ---
HISTORY: Sepsis Patient COMPARISON: 11/05/2016 FINDINGS: LUNGS: Dense confluent airspace consolidative changes in the right hilar region extending to the infrahilar region as well as the right mid to lower lung zone suggestive for prominent infiltrate. Post treatment followup is recommended to exclude underlying lesion. Additional diffuse increased interstitial lung markings. Scattered nodular densities throughout both lungs. PLEURA: No significant pleural effusion identified, no pneumothorax apparent. CARDIOVASCULAR: Cardiomegaly. OSSEOUS STRUCTURES: No significant abnormalities. VISUALIZED UPPER ABDOMEN: Normal. OTHER FINDINGS: None. IMPRESSION: Dense confluent airspace consolidative changes in the right hilar region extending to the infrahilar region as well as the right mid to lower lung zone suggestive for prominent infiltrate. Post treatment followup is recommended to exclude underlying lesion. Additional diffuse increased interstitial lung markings. Scattered nodular densities throughout both lungs.
[2016-11-25] MEDS ORDERED: Potassium Chloride 20 mEq/15 ml LIQ UD PEG SCH (10:00)
[2016-11-25 14:31] LABS: BASO % 0.2 % (0.0-2.0); CHLORIDE 96 mmol/L (98-107); EOS % 0.1 % (0.0-4.0); HEMATOCRIT 34.6 % (34.0-47.0); LYMPH # 0.5 K/uL (1.0-4.3); LYMPH % 3.2 % (20.0-40.0); MEAN CORPUSCULAR HEMOGLOBIN 31.4 pg (27.0-31.0); MEAN CORPUSCULAR HGB CONC 32.1 g/dL (33.0-37.0); MEAN PLATELET VOLUME 7.9 fL (7.2-11.7); MONO # 0.2 K/uL (0.0-0.8); MONO % 1.1 % (0.0-10.0); NRBC % 0.1 % (0.0-2.0); PLATELET COUNT 237 K/uL (130-400); POTASSIUM 3.3 mmol/L (3.6-5.2); RED CELL DISTRIBUTION WIDTH 18.2 % (11.5-14.5); SODIUM 141 mmol/L (132-148); WHITE BLOOD COUNT 16.8 K/uL (4.8-10.8)
[2016-11-25] MEDS: Azithromycin 500 MG in Sodium Chloride 0.9% 250 ML IVPB SCH (14:33)
[2016-11-25 14:34] LABS: BLOOD UREA NITROGEN 28 mg/dL (7-17); CARBON DIOXIDE 37 mmol/L (22-30); GFR AFRICAN-AMERICAN > 60
[2016-11-25 14:35] LABS: CALCIUM 7.7 mg/dl (8.6-10.4); GLUCOSE,RANDOM 89 mg/dL (65-105)
[2016-11-25 15:06] LABS: NEUTROPHIL 88 % (50-75); TOTAL CELLS COUNTED 100
--- NOTE | 2016-11-26 | CP.PCM.PN ---
Subjective - Date & Time of Evaluation Date of Evaluation: 11/25/16 Time of Evaluation: 07:00 - Subjective Subjective: Patient seen- unresponsive , no spontaneuos movement on PEG family by bedside discussion of case Objective - Vital Signs/Intake and Output Vital Signs (last 24 hours): Temp Pulse Resp BP Pulse Ox 100.1 F H 115 H 20 123/56 L 94 L 11/25/16 15:00 11/25/16 15:00 11/25/16 15:00 11/25/16 15:00 11/25/16 15:00 Intake and Output: 11/25/16 11/26/16 18:59 06:59 Intake Total 110 Output Total 650 Balance -540 - Medications Medications: Current Medications Acetaminophen (Tylenol 650mg/20.3ml Solution Ud) 650 mg PO Q6 PRN PRN Reason: Pain, moderate (4-7) Azithromycin 500 mg/ Sodium (Chloride) 250 mls @ 167 mls/hr IVPB Q24H [facility] Last Admin: 11/25/16 14:33 Dose: 167 mls/hr Morphine Sulfate (Morphine) 1 mg IVP Q4 PRN PRN Reason: pain Pantoprazole Sodium (Protonix Inj) 40 mg IVP DAILY [facility] Last Admin: 11/25/16 09:46 Dose: 40 mg - Labs Labs: 11/25/16 14:11 11/25/16 14:11 PT 12.6 SECONDS (9.7-12.2) H 11/24/16 22:45 INR 1.1 11/24/16 22:45 APTT 26 SECONDS (21-34) 11/24/16 22:45 - Constitutional Appears: Chronically Ill - Head Exam Head Exam: ATRAUMATIC, NORMOCEPHALIC - Eye Exam Eye Exam: Normal appearance (with rash left ear ) - ENT Exam ENT Exam: Mucous Membranes Moist - Neck Exam Neck Exam: absent: Meningismus - Respiratory Exam Respiratory Exam: Rales, Rhonchi - Cardiovascular Exam Cardiovascular Exam: REGULAR RHYTHM - GI/Abdominal Exam GI & Abdominal Exam: Soft, Normal Bowel Sounds. absent: Distended - Neurological Exam Neurological Exam: Altered - Skin Skin Exam: Normal Color (pressure ulcer left ear hip sacrum) Assessment and Plan - Assessment and Plan (Free Text) Plan: Patient with severe dementia, bedridden, aphasic,dependent on PEG feeding, pressure ulcer, admitted for Pneumonia- with multiple drug allergy (rash) will try Zithromax supportive care,fluid continue PEG feeding discussed with daughter, DNR DNI
[2016-11-26] MEDS: Acetaminophen 650mg/20.3ml solution UD PO PRN ×3 (10:02→22:03)
[2016-11-26] MEDS: Potassium Chloride 20 mEq/15 ml LIQ UD PEG SCH (10:04)
--- NOTE | 2016-11-26 12:32 | CP.PCM.PN ---
Subjective - Date & Time of Evaluation Date of Evaluation: 11/26/16 Time of Evaluation: 07:00 - Subjective Subjective: patient seen- same chronically bed ridden, altered consciousness fever, with multiple antibiotic reactions discussed with family, poor prognosis- discussed hospice Objective - Vital Signs/Intake and Output Vital Signs (last 24 hours): Temp Pulse Resp BP Pulse Ox 102.8 F H 160 H 16 138/86 97 11/26/16 10:02 11/26/16 08:00 11/26/16 08:00 11/26/16 08:00 11/26/16 08:00 Intake and Output: 11/26/16 11/26/16 06:59 18:59 Intake Total 450 Output Total 200 Balance 250 - Medications Medications: Current Medications Acetaminophen (Tylenol 650mg/20.3ml Solution Ud) 650 mg PO Q6 PRN PRN Reason: Pain, moderate (4-7) Last Admin: 11/26/16 10:02 Dose: 650 mg Azithromycin 500 mg/ Sodium (Chloride) 250 mls @ 167 mls/hr IVPB Q24H [facility] Last Admin: 11/25/16 14:33 Dose: 167 mls/hr Morphine Sulfate (Morphine) 1 mg IVP Q4 PRN PRN Reason: pain Pantoprazole Sodium (Protonix Susp) 40 mg PEG DAILY [facility] Potassium Chloride (Potassium Chloride Oral Soln) 20 meq PEG DAILY [facility] Last Admin: 11/26/16 10:04 Dose: 20 meq - Labs Labs: 11/25/16 14:11 11/25/16 14:11 PT 12.6 SECONDS (9.7-12.2) H 11/24/16 22:45 INR 1.1 11/24/16 22:45 APTT 26 SECONDS (21-34) 11/24/16 22:45 - Constitutional Appears: Chronically Ill - Head Exam Head Exam: ATRAUMATIC, NORMOCEPHALIC - Eye Exam Eye Exam: absent: Nystagmus - ENT Exam ENT Exam: Mucous Membranes Moist - Respiratory Exam Respiratory Exam: Rhonchi - Cardiovascular Exam Cardiovascular Exam: REGULAR RHYTHM - Extremities Exam Extremities Exam: Pedal Edema - Neurological Exam Neurological Exam: Altered Assessment and Plan - Assessment and Plan (Free Text) Assessment: Patientwho is Chronicaly ill . PEG dependent, aphasic, with FEVER, with multiple antibiotic reactions, Discussion with family poor prognosis, hospice discussion supportive care,
[2016-11-26] MEDS: Morphine 4 MG/ML VIAL IVP PRN (12:36)
[2016-11-26] MEDS: Azithromycin 500 MG in Sodium Chloride 0.9% 250 ML IVPB SCH (14:56)
[2016-11-26] MEDS ORDERED: Sodium Chloride 0.9% 500 ML IV ONE (17:14)
[2016-11-26] MEDS ORDERED: Sodium Chloride 0.9% 1,000 ML IV SCH (17:15)
[2016-11-27] MEDS: Acetaminophen 650mg/20.3ml solution UD PO PRN ×3 (05:50→17:58)
[2016-11-27] MEDS: Potassium Chloride 20 mEq/15 ml LIQ UD PEG SCH (09:53)
[2016-11-27] MEDS ORDERED: Pantoprazole 40 mg Susp UD PEG SCH (10:00)
--- NOTE | 2016-11-27 10:12 | CP.PCM.CON ---
History of Present Illness - History of Present Illness History of Present Illness: palliative consult Requested by Mehran CANSECO Reason; Hospice care discussion Patient is 81 yo lady, admitted from [place] with fever and worsening lethargy. Upon admission the CXR confirmed pneumonia. Urine C&S positive for Gram - Rods. IV Zithromax and Rocephin initiated with regards to multiple allergies. Despite all reasonable measures taken , patient's condition has not improved. This morning her HR 141, patient had a fever all along, the last one was 101.5. Doctor Mehran is suggesting Hospice care for this patient. I was called to assist family during decision making process. PMH: Alzheimer's, anemia, arthritis, PEG, pressure sore, aphasia, bed ridden Soc. Hx: , [place] resident, has 4 children and they are very well involved in care, may of them are nurses Fam . Hx: a few moths ago at this hospital Review of Systems - Review of Systems Systems not reviewed;Unavailable: Altered Mental Status All systems: reviewed and no additional remarkable complaints except Review of Systems: ROS obtained from [facility]. Per nursing, patient was with fever over night and this morning her HR 144. Nonrebrither mask on for SOB and Morphine 1 mg Q 4 hr PRN Past Patient History - Infectious Disease Hx of Infectious Diseases: None - Past Medical History & Family History Past Medical History?: Yes - Past Social History Smoking Status: Never Smoked - CARDIAC Hx Hypercholesterolemia: Yes - PULMONARY Hx Respiratory Disorders: No - NEUROLOGICAL Hx Alzheimer's Disease: Yes Hx Dementia: Yes - HEENT Hx HEENT Problems: No - RENAL Hx Chronic Kidney Disease: No - ENDOCRINE/METABOLIC Hx Endocrine Disorders: No - HEMATOLOGICAL/ONCOLOGICAL Hx Anemia: Yes - INTEGUMENTARY Hx Dermatological Problems: Yes Other/Comment: Decubiti as ff;. R hip stage 2 1.2cmx1.5x0.1. L ear 1x0.8cm. sacrum [id number] - MUSCULOSKELETAL/RHEUMATOLOGICAL Hx Arthritis: Yes - GASTROINTESTINAL Hx Gastritis: Yes - GENITOURINARY/GYNECOLOGICAL Hx Genitourinary Disorders: Yes Hx Incontinence: Yes - PSYCHIATRIC Hx Substance Use: No - SURGICAL HISTORY Hx Surgeries: Yes Hx Section: Yes Hx Tubal Ligation: Yes Other/Comment: Peg tube placement 2017 - ANESTHESIA Hx Anesthesia: Yes Hx Anesthesia Reactions: No Hx Malignant Hyperthermia: No Meds Allergies/Adverse Reactions: Allergies Allergy/AdvReac Type Severity Reaction Status Date / Time tigecycline [From Tygacil] AdvReac Intermediate RASH Verified 11/24/16 21:58 piperacillin [From Zosyn] AdvReac RASH Verified 11/24/16 21:58 tazobactam [From Zosyn] AdvReac RASH Verified 11/24/16 21:58 - Medications Medications: Current Medications Acetaminophen (Tylenol 650mg/20.3ml Solution Ud) 650 mg PO Q6 PRN PRN Reason: Pain, moderate (4-7) Last Admin: 11/27/16 05:50 Dose: 650 mg Azithromycin 500 mg/ Sodium (Chloride) 250 mls @ 167 mls/hr IVPB Q24H [facility] Last Admin: 11/26/16 14:56 Dose: 167 mls/hr Morphine Sulfate (Morphine) 1 mg IVP Q4 PRN PRN Reason: pain Last Admin: 11/26/16 12:36 Dose: 1 mg Pantoprazole Sodium (Protonix Susp) 40 mg PEG DAILY [facility] Last Admin: 11/27/16 09:53 Dose: 40 mg Potassium Chloride (Potassium Chloride Oral Soln) 20 meq PEG DAILY [facility] Last Admin: 11/27/16 09:53 Dose: 20 meq Physical Exam - Constitutional Appears: In Acute Distress, Chronically Ill - Head Exam Head Exam: ATRAUMATIC, NORMAL INSPECTION, NORMOCEPHALIC - Eye Exam Eye Exam: EOMI, Normal appearance, PERRL Pupil Exam: NORMAL ACCOMODATION, PERRL - ENT Exam ENT Exam: Mucous Membranes Dry - Neck Exam Neck exam: Positive for: Normal Inspection - Respiratory Exam Respiratory Exam: Accessory Muscle Use, Respiratory Distress - Cardiovascular Exam Cardiovascular Exam: Tachycardia - GI/Abdominal Exam GI & Abdominal Exam: Hypoactive Bowel Sounds Additional comments: PEG - Rectal Exam Rectal Exam: Deferred - Extremities Exam Additional comments: contracted - Back Exam Additional comments: sacral pressure sore - Neurological Exam Neurological exam: Motor Sensory Deficit - Psychiatric Exam Psychiatric exam: Flat Affect - Skin Additional comments: pressure sore Results - Vital Signs Recent Vital Signs: Last Vital Signs Temp 101.5 F H 11/27/16 08:00 Pulse 141 H 11/27/16 08:00 Resp 24 11/27/16 08:00 BP 115/81 11/27/16 08:00 Pulse Ox 97 11/27/16 08:00 - Labs Result Diagrams: 11/25/16 14:11 11/25/16 14:11 Assessment & Plan - Assessment and Plan (Free Text) Assessment: palliative consult Code status; DNR/DNI, POLST on chart, PPS 0% I reviewed medical records, all diagnostic studies, examined patient in the bed , discused her presentation with Kerri GOLDSTEIN and patient's daughter Aishwarya. Patient is lethargic, with eyes closed, unresponsive to stimuli. Breathing is shallow, fast, RR 24. HR 141. Nonrebrither mask on for respiratory support. Skin warm to touch, sacral pressure sore with dressing on. Extremities contracted, very limited ROM. Abdomen flat, PEG in pace, functioning well. BP115/81, T 101.5. 2Sat 97%. There is Morphine PRN on board. I discussed patient's presentation with her daughter Aishwarya over the phone. I' ve known patient and her daughter Aishwarya for long time know; since patient's got sick and until he . I expressed concerns about patient's poor prognosis due to very complex medical Hx and generalized weakness as result of it. We discussed end of life care and quality of life issues. Aishwarya, who works as a RN stated understanding, and she wishes her mother to have a peaceful . She wanted to talk to rest of her siblings about the hospice care but agreed for Hospice evaluation to take place in meantime.Family is no able to meet for family meeting until tomorrow morning. I offered that it was uncertain for how much longer her mother would be able to fight, given her respiratory distress and severe tachycardia. The daughter understood and agreed to call me KAREL with the time of meeting. Impression * This is a very sick lady with complex medical condition, leaving her very fragile * Patient is in acute respiratory distress on Morphine PRN and nonrebrither mask on * I feel that this patient is nearing her end of life * Family understands the severity of condition, and is very sad as they just lost the father a fwe moths ago Suggestion * Would consider comfort care * Family meeting pending. I called savanna from [facility] to evaluate patient. Kerri GOLDSTEIN made aware as well. Thank you for consulting Palliative care.
--- NOTE | 2016-11-27 12:25 | CP.PCM.PN ---
Subjective - Date & Time of Evaluation Date of Evaluation: 11/27/16 Time of Evaluation: 11:00 - Subjective Subjective: Patient seen in respiratory distress, flushed face, unresponsive altered consciousness discussion with staff- hospice contacted family aware Objective - Vital Signs/Intake and Output Vital Signs (last 24 hours): Temp Pulse Resp BP Pulse Ox 101.0 F H 141 H 24 115/81 97 11/27/16 11:47 11/27/16 08:00 11/27/16 08:00 11/27/16 08:00 11/27/16 08:00 Intake and Output: 11/27/16 11/27/16 06:59 18:59 Intake Total 1710 Output Total 500 Balance 1210 - Medications Medications: Current Medications Acetaminophen (Tylenol 650mg/20.3ml Solution Ud) 650 mg PO Q6 PRN PRN Reason: Pain, moderate (4-7) Last Admin: 11/27/16 11:47 Dose: 650 mg Azithromycin 500 mg/ Sodium (Chloride) 250 mls @ 167 mls/hr IVPB Q24H [facility] Last Admin: 11/26/16 14:56 Dose: 167 mls/hr Morphine Sulfate (Morphine) 1 mg IVP Q4 PRN PRN Reason: pain Last Admin: 11/26/16 12:36 Dose: 1 mg Pantoprazole Sodium (Protonix Susp) 40 mg PEG DAILY [facility] Last Admin: 11/27/16 09:53 Dose: 40 mg Potassium Chloride (Potassium Chloride Oral Soln) 20 meq PEG DAILY [facility] Last Admin: 11/27/16 09:53 Dose: 20 meq - Labs Labs: 11/25/16 14:11 11/25/16 14:11 PT 12.6 SECONDS (9.7-12.2) H 11/24/16 22:45 INR 1.1 11/24/16 22:45 APTT 26 SECONDS (21-34) 11/24/16 22:45 - Constitutional Appears: In Acute Distress, Chronically Ill - Head Exam Head Exam: ATRAUMATIC, NORMOCEPHALIC - Respiratory Exam Respiratory Exam: Rales, Rhonchi, Respiratory Distress - GI/Abdominal Exam GI & Abdominal Exam: absent: Distended - Extremities Exam Extremities Exam: absent: Pedal Edema - Neurological Exam Neurological Exam: Altered - Psychiatric Exam Psychiatric exam: absent: Homicidal Ideation - Skin Skin Exam: Rash (rash left ear hip sacral ulcer) Assessment and Plan - Assessment and Plan (Free Text) Assessment: Patient with Pneumonia Sacral Decubitus chronically ill with multiple antibiotic reaction, DNR DNI with poor prognosis- Hospice discussion supportive care , discussion with family
--- NOTE | 2016-11-27 12:32 | CP.PCM.PCO ---
Physician Communication Note - Physician Communication Note Physician Communication Note: Family meting mindiw at 11 am.
[2016-11-27] MEDS: Morphine 4 MG/ML VIAL IVP PRN (13:15)
[2016-11-27] MEDS ORDERED: MethylPREDNISolone 40 mg Vial IM STA (14:08)
[2016-11-27] MEDS ORDERED: MethylPREDNISolone 40 mg Vial IVP STA (14:17)
[2016-11-27 16:14] VITALS: BP 114/77; PULSE 148; RESP 21; O2SAT 98
[2016-11-27 17:59] VITALS: TEMP 12.6
--- NOTE | 2016-11-27 21:04 | CP.PCM.PRO ---
Pronouncement of Note - Clinical Findings Physical Exam: No Response Verbal/Painful Stimuli, Absent Peripheral Pulses{ Carotid & Femoral}, Absent Heart & Breath Sounds, No Pupillary Light Reflex, Pupils Fixed & Dilated - Pronouncement Time Time of Pronouncement of : 21:05 Additional Comments: Pronouncement of at 21:05 PM on 11/27/16 by conventional underwriter. Covering admitting physician Dr. Rae notified. Family to be notified. Absence of pulses, respirations, and pupil response. Unresponsive to painful stimuli. No heart sounds or breath sounds appreciated. - Notifications Pronouncement Notifications: Family Notified, Atending Notified [employer] Notified: [place] - [place] [id number]
--- NOTE | 2016-11-29 06:27 | CARD ---
APPROVED REPORT EKG Measurement Heart [id number] SC [id number] [id number] <Conclusion> Sinus tachycardia Left axis deviation Possible Inferior infarct, age undetermined Anterior infarct, age undetermined Abnormal ECG
--- NOTE | 2016-11-30 13:38 | CP.PCM.DIS ---
Provider - Provider Date of Admission: 11/24/16 23:11 Attending physician: Billie Alcantar MD Time Spent in preparation of Discharge (in minutes): 30 Hospital Course - Lab Results Lab Results: Micro Results 11/25/16 Unknown Urine Urine Culture - Final Enterobacter Aerogenes Most Recent Lab Values WBC 16.8 K/uL (4.8-10.8) H 11/25/16 14:11 RBC 3.53 Mil/uL (3.80-5.20) L 11/25/16 14:11 Hgb 11.1 g/dL (11.0-16.0) 11/25/16 14:11 Hct 34.6 % (34.0-47.0) 11/25/16 14:11 MCV 98.0 fL (81.0-99.0) 11/25/16 14:11 MCH 31.4 pg (27.0-31.0) H 11/25/16 14:11 MCHC 32.1 g/dL (33.0-37.0) L 11/25/16 14:11 RDW 18.2 % (11.5-14.5) H 11/25/16 14:11 Plt Count 237 K/uL (130-400) 11/25/16 14:11 MPV 7.9 fL (7.2-11.7) 11/25/16 14:11 Neut % (Auto) 95.4 % (50.0-75.0) H 11/25/16 14:11 Lymph % (Auto) 3.2 % (20.0-40.0) L 11/25/16 14:11 Ware % (Auto) 1.1 % (0.0-10.0) 11/25/16 14:11 Eos % (Auto) 0.1 % (0.0-4.0) 11/25/16 14:11 Baso % (Auto) 0.2 % (0.0-2.0) 11/25/16 14:11 Neut # 16.1 K/uL (1.8-7.0) H 11/25/16 14:11 Lymph # 0.5 K/uL (1.0-4.3) L 11/25/16 14:11 Ware # 0.2 K/uL (0.0-0.8) 11/25/16 14:11 Eos # 0.0 K/uL (0.0-0.7) 11/25/16 14:11 Baso # 0.0 K/uL (0.0-0.2) 11/25/16 14:11 Neutrophils % (Manual) 88 % (50-75) H 11/25/16 14:11 Band Neutrophils % 6 % (0-2) H 11/25/16 14:11 Lymphocytes % (Manual) 5 % (20-40) L 11/25/16 14:11 Monocytes % (Manual) 1 % (0-10) 11/25/16 14:11 Eosinophils % (Manual) 1 % (0-4) 11/24/16 22:33 Nucleated RBC % 1 % (0-0) H 11/24/16 22:33 Platelet Estimate Normal (NORMAL) 11/25/16 14:11 Hypochromasia (manual) Slight 11/25/16 14:11 Poikilocytosis (manual Slight 11/25/16 14:11 Anisocytosis (manual) Slight 11/25/16 14:11 Macrocytosis (manual) Slight 11/24/16 22:33 Target Cells Slight 11/25/16 14:11 Tear Drop Cells Slight 11/25/16 14:11 Ovalocytes Slight 11/25/16 14:11 Schistocytes Slight 11/24/16 22:33 PT 12.6 SECONDS (9.7-12.2) H 11/24/16 22:45 INR 1.1 11/24/16 22:45 APTT 26 SECONDS (21-34) 11/24/16 22:45 pO2 60 mm/Hg (30-55) H 11/24/16 22:35 VBG pH 7.54 (7.32-7.43) H 11/24/16 22:35 VBG pCO2 48 mmHg (40-60) 11/24/16 22:35 VBG HCO3 37.5 mmol/L 11/24/16 22:35 VBG Total CO2 42.5 mmol/L (22-28) H 11/24/16 22:35 VBG O2 Sat (Calc) 98.6 % (40-65) H 11/24/16 22:35 VBG Base Excess 16.2 mmol/L (0.0-2.0) H 11/24/16 22:35 VBG Potassium 3.0 mmol/L (3.6-5.2) L 11/24/16 22:35 Sodium 142.0 mmol/l (132-148) 11/24/16 22:35 Chloride 100.0 mmol/L (98-107) 11/24/16 22:35 Glucose 115 mg/dl (65-105) H 11/24/16 22:35 Lactate 2.0 mmol/L (0.7-2.1) 11/24/16 22:35 Sodium 141 mmol/L (132-148) 11/25/16 14:11 Potassium 3.3 mmol/L (3.6-5.2) L 11/25/16 14:11 Chloride 96 mmol/L (98-107) L 11/25/16 14:11 Carbon Dioxide 37 mmol/L (22-30) H 11/25/16 14:11 Anion Gap 11 (10-20) 11/25/16 14:11 BUN 28 mg/dL (7-17) H 11/25/16 14:11 Creatinine 0.4 MG/DL (0.7-1.2) L 11/25/16 14:11 Est GFR ( Amer) > 60 11/25/16 14:11 Est GFR (Non-Af Amer) > 60 11/25/16 14:11 POC Glucose (mg/dL) 96 mg/dL (65-110) 11/25/16 06:36 Random Glucose 89 mg/dL (65-105) 11/25/16 14:11 Calcium 7.7 mg/dl (8.6-10.4) L 11/25/16 14:11 Phosphorus 3.0 mg/dL (2.5-4.5) 11/24/16 22:33 Magnesium 1.9 mg/dL (1.6-2.3) 11/24/16 22:33 Total Bilirubin 0.9 mg/dL (0.2-1.3) 11/24/16 22:33 AST 43 U/L (14-36) H D 11/24/16 22:33 ALT 44 U/L (9-52) 11/24/16 22:33 Alkaline Phosphatase 113 U/L (38-126) 11/24/16 22:33 Total Protein 6.8 g/dL (6.3-8.3) 11/24/16 22:33 Albumin 2.6 g/dL (3.5-5.0) L D 11/24/16 22:33 Globulin 4.2 gm/dL (2.2-3.9) H 11/24/16 22:33 Albumin/Globulin Ratio 0.6 (1.0-2.1) L 11/24/16 22:33 Procalcitonin 0.15 NG/ML (0.19-0.49) L 11/24/16 22:48 Venous Blood Potassium 3.0 mmol/L (3.6-5.2) L 11/24/16 22:35 Urine Color Alysia (YELLOW) 11/25/16 01:22 Urine Clarity Hazy (Clear) 11/25/16 01:22 Urine pH 5.0 (5.0-8.0) 11/25/16 01:22 Ur Specific [place] 1.020 (1.003-1.030) 11/25/16 01:22 Urine Protein 1+ mg/dL (NEGATIVE) H 11/25/16 01:22 Urine Glucose (UA) Normal mg/dL (Normal) 11/25/16 01:22 Urine Ketones Negative mg/dL (NEGATIVE) 11/25/16 01:22 Urine Blood Negative (NEGATIVE) 11/25/16 01:22 Urine Nitrate Negative (NEGATIVE) 11/25/16 01:22 Urine Bilirubin Negative (NEGATIVE) 11/25/16 01:22 Urine Urobilinogen Normal mg/dL (0.2-1.0) 11/25/16 01:22 Ur Leukocyte Esterase 3+ Jeri/uL (Negative) H 11/25/16 01:22 Urine WBC (Auto) 131 /hpf (0-5) H 11/25/16 01:22 Urine RBC (Auto) 6 /hpf (0-3) H 11/25/16 01:22 Ur Squamous Epith Cells 1 /hpf (0-5) 11/25/16 01:22 Urine Bacteria Many (<OCC) H 11/25/16 01:22 Hyaline Casts 6-10 /lpf (0-2) H 11/25/16 01:22 - Hospital Course Hospital Course: transferred from custodial due to fever , lethargy- CXRay pneumonia treated with antibiotic, patient developed rashes with different antibiotic- patient did not improved, has poor chronic condition with failure to thrive had respiratory failure- DNR DNI- and Discharge Exam - Head Exam Head Exam: ATRAUMATIC, NORMOCEPHALIC - Eye Exam Eye Exam: absent: Nystagmus - ENT Exam ENT Exam: Mucous Membranes Moist - Respiratory Exam Respiratory Exam: Accessory Muscle Use, Rhonchi, Wheezes, Respiratory Distress - Cardiovascular Exam Cardiovascular Exam: REGULAR RHYTHM - GI/Abdominal Exam GI & Abdominal Exam: absent: Distended, Rebound - Neurological Exam Neurological exam: Altered - Skin Skin Exam: Rash (left ear hip sacral decubitus ) Discharge Plan - Follow Up Plan Condition: GUARDED Disposition: WITH WITHOUT AUTOPSY
== END 2016-11-28 00:40 | DRG 193 ==
LOC: C.ER 21:32 → C.3T 23:11 → C.9E 23:11 → C.3T 11-25 01:00
PROVIDERS: ADMIT Internal Medicine; ATTEND Internal Medicine
DX: J18.9 Pneumonia, unspecified organism (principal); L89.154 Pressure ulcer of sacral region, stage 4; G30.9 Alzheimer's disease, unspecified; N39.0 Urinary tract infection, site not specified; R47.01 Aphasia; F02.80 Dementia in other diseases classified elsewhere, unspecified severity, without behavioral disturbance, psychotic disturbance, mood disturbance, and anxiety; R91.1 Solitary pulmonary nodule; E78.00 Pure hypercholesterolemia, unspecified; R62.7 Adult failure to thrive; E78.5 Hyperlipidemia, unspecified; Z66 Do not resuscitate; Z51.5 Encounter for palliative care; Z74.01 Bed confinement status; M19.90 Unspecified osteoarthritis, unspecified site; D64.9 Anemia, unspecified; Z93.1 Gastrostomy status; L27.0 Generalized skin eruption due to drugs and medicaments taken internally